=== PATIENT | male | born 1950 | race Caucasian/White ===

== ENCOUNTER 2017-04-28 05:38 | Emergency (ER) | payer MEDICARE ==
[~2017-04-28] VITALS: Ht 185.4 cm; Wt 86.2 kg
[~2017-04-28 05:38] MED LIST: ATEN50TA PO; BNZ40T PO; CIPR500T78 PO; CLON0.1T PO; CPR500T PO; DIPH25TA82 PO; ETOD400T PO; HDR4T PO; HYDR-1231 PO; HYDR-3456 PO; HYDR4TAB PO; KETO-22 PO; ONDAN4ODT PO; TRAM50TA2 PO; TRM50T PO; VRP180TCR PO
--- OUTSIDE RECORDS SUMMARY | 2017-04-28 05:46 | XMS REPORT | Clinical Summary ---
Author Author [facility] Organization [facility] Address Unknown Phone Unavailable Care Team Providers Care Human Resources Mgr Name Role Phone PCP Unavailable Source Comments Some departments are not documenting in the electronic medical record. If you do not see the information that you expected, contact Release of Information in the Health Information Management department at [phone] for further assistance in locating additional records.[facility] Allergies Active Allergy Reactions Severity Noted Date Comments Aspirin SEE COMMENTS 03/03/2011 Choking Swallowing problems Hydrocodone-Acetaminophen DIZZINESS 03/03/2011 Current Medications Prescription Sig. Disp. Refills Start End Date Status Date lisinopril (PRINIVIL; Take 20 mg by mouth Active ZESTRIL) 20 mg daily. tabletIndications: SVT (supraventricular tachycardia) (HCC), Hypertension, Palpitations Active Problems Problem Noted Date SVT (supraventricular tachycardia) (HCC) 01/21/2011 Overview: ER visit, resolved without medication. Episodes occurring more frequently Hypertension Palpitations Family History Medical History Relation Name Comments Diabetes Father Relation Name Status Comments Father Alive Mother Alive Social History Tobacco Use Types Packs/Day Years Used Date Never Smoker Alcohol Use Drinks/Week oz/Week Comments No Sex Assigned at Date Recorded Not on file Last Filed Vital Signs Vital Sign Reading Time Taken Blood Pressure 162/80 03/20/2012 10:22 AM CDT Pulse 71 03/20/2012 10:20 AM CDT Temperature 36.7 C (98.1 F) 01/14/2012 4:00 AM CDT Respiratory Rate - - Oxygen Saturation 97% 01/14/2012 6:15 AM CDT Inhaled Oxygen - - Concentration Weight 87.9 kg (193 lb 11.2 oz) 03/20/2012 10:20 AM CDT Height 182.9 cm (6') 03/20/2012 10:20 AM CDT Body Mass Index 26.27 03/20/2012 10:20 AM CDT Plan of Treatment Health Maintenance Due Date Last Done Comments HEPATITIS C SCREENING 1948 PHYSICAL (COMPREHENSIVE) 1955 EXAM PERTUSSIS VACCINE 1959 TETANUS VACCINE 1965 COLORECTAL CANCER 1998 SCREENING SHINGLES VACCINE 2008 PREVNAR/PNEUMOVAX (#1) 2013 INFLUENZA VACCINE 04/24/2017 Results Not on filefrom Last 3 Months
[2017-04-28 05:55] LABS: BILIRUBIN,URINE NEGATIVE (NEGATIVE); KETONES,URINE NEGATIVE (NEGATIVE); LEUKOCYTE ESTERASE ,URINE NEGATIVE (NEGATIVE); NITRITE,URINE NEGATIVE (NEGATIVE); PH,URINE 7 (5-9); PROTEIN,URINE 2+ (NEGATIVE); UROBILINOGEN,URINE NORMAL (NORMAL)
[2017-04-28 06:01] LABS: SQUAMOUS EPITHELIAL CELL,UR RARE /HPF; WBC,URINE RARE /HPF
--- NOTE | 2017-04-28 06:02 | ED Abdominal Pain ---
General Stated Complaint: LOWER BACK,ABD & HIP PAIN,POSS KIDNEY STONE Source of Information: Patient, Spouse Exam Limitations: No Limitations (CHLOÉ RENEE) History of Present Illness Time Seen By Provider: 05:54 Initial Comments Patient presents to ER by private conveyance with a chief complaint of one week right flank pain that radiates down to his right lower quadrant and suprapubic region. He has no dysuria or discharge. No history of trauma here. He does have a history of kidney stones. No fevers, chills, shortness of breath, cough, diarrhea, constipation, rash. (CHLOÉ RENEE) Allergies and Home Medications Allergies Coded Allergies: aspirin (Verified Allergy, Severe, CHOKING, 04/16/16) acetaminophen (Verified Allergy, Mild, 04/16/16) hydrocodone (Verified Allergy, Mild, 04/16/16) Home Medications Atenolol 50 Mg Tablet, 50 MG PO DAILY, (Reported) Clonidine HCl 0.1 Mg Tablet, 0.2 MG PO BID, (Reported) Glipizide 5 Mg Tab.er.24, 5 MG PO DAILY, (Reported) Hydralazine HCl 25 Mg Tablet, 25 MG PO BID, (Reported) Review of Systems Constitutional: No chills, No diaphoresis, No fever, No malaise EENTM: No Blurred Vision, No Eye Pain Respiratory: Denies Cough, Denies Shortness of Air Cardiovascular: Denies Chest Pain, Denies Lightheadedness Gastrointestinal: See HPI, Denies Abdomen Distended, Abdominal Pain, Denies Constipated, Denies Diarrhea, Nausea, Denies Vomiting Genitourinary: Denies Burning, Denies Discharge Musculoskeletal: No back pain, No joint pain Skin: No pruritus, No rash Psychiatric/Neurological: Denies Headache, Denies Numbness, Denies Paresthesia Endocrine: Denies Increased Hunger, Denies Increased Thrist, Denies Increased Urine (CHLOÉ RENEE) Past Tztcuzt-[id number]-Yztpnp Hx Patient Social History Alcohol Use: Denies Use Recreational Drug Use: No Smoking Status: Never a Smoker Recent Foreign Travel: No Contact w/Someone Who Travel: No (CHLOÉ RENEE) Immunizations Up To Date Date of Pneumonia Vaccine: December 07, 2010 Date of Influenza Vaccine: Apr 24, 2013 (CHLOÉ RENEE) Reproductive System Hx Reproductive Disorders: No (CHLOÉ RENEE) Gastrointestinal Gastrointestinal Disorders: Hiatal Hernia (CHLOÉ RENEE) Family Medical History Family Medial History: Cancer 03 FATHER (SKIN CANCER) 03 MOTHER (LUNG CANCER) Cataract 03 FATHER Congestive heart failure 03 MOTHER Dementia 03 MOTHER Family history: Diabetes mellitus 03 FATHER Family history: Hypertension 03 FATHER 03 MOTHER Family history: Osteoporosis 03 MOTHER Family history: Thyroid disorder 03 FATHER (HYPERTHYROIDISM) Hearing loss 03 FATHER No Family History of: Abdominal aortic aneurysm Stan's disease Alcoholism Aphasia Cancer of colon Chest pain Congenital heart disease Cystic fibrosis Dysphagia Family history: Allergy Family history: Alzheimer's disease Family history: Arthritis Family history: Asthma Family history: Breast disease Family history: Cardiovascular disease Family history: Coronary thrombosis Family history: Gastrointestinal disease Family history: Glaucoma Headache Heart disease Hereditary disease History of - anemia History of - disorder History of - respiratory disease History of drug abuse Human immunodeficiency virus (HIV) seropositivity Hypercholesterolemia Infertile Kidney disease Malignant neoplasm of lung Myocardial infarction Parkinson's disease Prostate cancer Psychotic disorder Seizure disorder Stroke Tuberculosis Visual impairment (CHLOÉ RENEE) Family Medial History: Cancer 03 FATHER (SKIN CANCER) 03 MOTHER (LUNG CANCER) Cataract 03 FATHER Congestive heart failure 03 MOTHER Dementia 03 MOTHER Family history: Diabetes mellitus 03 FATHER Family history: Hypertension 03 FATHER 03 MOTHER Family history: Osteoporosis 03 MOTHER Family history: Thyroid disorder 03 FATHER (HYPERTHYROIDISM) Hearing loss 03 FATHER No Family History of: Abdominal aortic aneurysm Haakon's disease Alcoholism Aphasia Cancer of colon Chest pain Congenital heart disease Cystic fibrosis Dysphagia Family history: Allergy Family history: Alzheimer's disease Family history: Arthritis Family history: Asthma Family history: Breast disease Family history: Cardiovascular disease Family history: Coronary thrombosis Family history: Gastrointestinal disease Family history: Glaucoma Headache Heart disease Hereditary disease History of - anemia History of - disorder History of - respiratory disease History of drug abuse Human immunodeficiency virus (HIV) seropositivity Hypercholesterolemia Infertile Kidney disease Malignant neoplasm of lung Myocardial infarction Parkinson's disease Prostate cancer Psychotic disorder Seizure disorder Stroke Tuberculosis Visual impairment (DARIANA FLAHERTY MD) Physical Exam Vital Signs VS - Last 72 Hours, by Label 04/28/17 05:46 Temp 97.6 Pulse 47 Resp 20 B/P (MAP) 200/92 Pulse Ox 98 O2 Delivery Room Air (DARIANA FLAHERTY MD) Vital Signs Capillary Refill : (CHLOÉ RENEE) General Appearance: WD/WN, mild distress HEENT: PERRL/EOMI, pharynx normal Neck: non-tender, normal inspection Respiratory: chest non-tender, lungs clear, normal breath sounds Cardiovascular: normal peripheral pulses, regular rate, rhythm, no edema (CRUZ hose on) Peripheral Pulses: 2+ Dorsalis Pedis (R), 2+ Left Dors-Pedis (L) Gastrointestinal: normal bowel sounds, non tender, soft, no organomegaly Extremities: normal range of motion, normal capillary refill Back: normal inspection, no CVA tenderness Neurologic/Psychiatric: alert, normal mood/affect, oriented x 3 Skin: normal color, warm/dry (KARYN,CHLOÉ J) Progress/Results/Core Measures Results/Orders Lab Results Laboratory Tests Test 04/28/17 05:48 04/28/17 06:05 Range/Units Urine Color YELLOW Urine Clarity CLEAR Urine pH 7 5-9 Urine Specific [place] 1.010 L 1.016-1.022 Urine Protein 2+ H NEGATIVE Urine Glucose (UA) 2+ H NEGATIVE Urine Ketones NEGATIVE NEGATIVE Urine Nitrite NEGATIVE NEGATIVE Urine Bilirubin NEGATIVE NEGATIVE Urine Urobilinogen NORMAL NORMAL MG/DL Urine Leukocyte Esterase NEGATIVE NEGATIVE Urine RBC (Auto) NEGATIVE NEGATIVE Urine RBC NONE /HPF Urine WBC RARE /HPF Urine Squamous Epithelial Cells RARE /HPF Urine Crystals NONE /LPF Urine Bacteria TRACE /HPF Urine Casts NONE /LPF Urine Mucus SMALL H /LPF Urine Culture Indicated NO Urine Opiates Screen NEGATIVE NEGATIVE Urine Oxycodone Screen NEGATIVE NEGATIVE Urine Methadone Screen NEGATIVE NEGATIVE Urine Propoxyphene Screen NEGATIVE NEGATIVE Urine Barbiturates Screen NEGATIVE NEGATIVE Ur Tricyclic Antidepressants Screen NEGATIVE NEGATIVE Urine Phencyclidine Screen NEGATIVE NEGATIVE Urine Amphetamines Screen NEGATIVE NEGATIVE Urine Methamphetamines Screen NEGATIVE NEGATIVE Urine Benzodiazepines Screen NEGATIVE NEGATIVE Urine Cocaine Screen NEGATIVE NEGATIVE Urine Cannabinoids Screen NEGATIVE NEGATIVE White Blood Count 8.1 4.3-11.0 10^3/uL Red Blood Count 5.26 4.35-5.85 10^6/uL Hemoglobin 15.7 13.3-17.7 G/DL Hematocrit 46 40-54 % Mean Corpuscular Volume 88 80-99 FL Mean Corpuscular Hemoglobin 30 25-34 PG Mean Corpuscular Hemoglobin Concent 34 32-36 G/DL Red Cell Distribution Width 13.5 10.0-14.5 % Platelet Count 250 130-400 10^3/uL Mean Platelet Volume 11.0 H 7.4-10.4 FL Neutrophils (%) (Auto) 59 42-75 % Lymphocytes (%) (Auto) 30 12-44 % Monocytes (%) (Auto) 10 0-12 % Eosinophils (%) (Auto) 1 0-10 % Basophils (%) (Auto) 0 0-10 % Neutrophils # (Auto) 4.8 1.8-7.8 X 10^3 Lymphocytes # (Auto) 2.5 1.0-4.0 X 10^3 Monocytes # (Auto) 0.8 0.0-1.0 X 10^3 Eosinophils # (Auto) 0.1 0.0-0.3 10^3/uL Basophils # (Auto) 0.0 0.0-0.1 10^3/uL Sodium Level 141 135-145 MMOL/L Potassium Level 4.0 3.6-5.0 MMOL/L Chloride Level 108 H 98-107 MMOL/L Carbon Dioxide Level 24 21-32 MMOL/L Anion Gap 9 5-14 MMOL/L Blood Urea Nitrogen 16 7-18 MG/DL Creatinine 0.95 0.60-1.30 MG/DL Estimat Glomerular Filtration Rate > 60 BUN/Creatinine Ratio 17 Glucose Level 113 H 70-105 MG/DL Calcium Level 8.9 8.5-10.1 MG/DL Total Bilirubin 0.7 0.1-1.0 MG/DL Aspartate Amino Transf (AST/SGOT) 18 5-34 U/L Alanine Aminotransferase (ALT/SGPT) 19 0-55 U/L Alkaline Phosphatase 58 40-136 U/L Total Protein 7.4 6.4-8.2 GM/DL Albumin 4.1 3.2-4.5 GM/DL (DARIANA FLAHERTY MD) Medications Given in ED Current Medications Medications Dose Ordered Sig/Trae Route Start Time Stop Time Status Last Admin Dose Admin Ketorolac Tromethamine 15 mg ONCE ONCE IVP 04/28/17 06:15 04/28/17 06:16 DC 04/28/17 06:08 15 MG Ondansetron HCl 4 mg ONCE ONCE IVP 04/28/17 06:15 04/28/17 06:16 DC 04/28/17 06:08 4 MG (DARIANA FLAHERTY MD) Vital Signs/I&O Vital Sign - Last 12Hours 04/28/17 05:46 Temp 97.6 Pulse 47 Resp 20 B/P (MAP) 200/92 Pulse Ox 98 O2 Delivery Room Air (DARIANA FLAHERTY MD) Diagnostic Imaging Diagonstic Imaging: CT Plain Films/CT/US/NM/MRI: abdomen, pelvis (without; kidney stone study) Reviewed: Reviewed [place] Study, Reviewed by Me (CHLOÉ RENEE) Departure Communication (Admissions) Progress Notes Patient transferred to me by Dr. Renee at change of shift. Patient went to CT shortly after my arrival. [address] and I saw no evidence of stones. Radiology report returns and confirms this. No other pathology was reported. The patient reports that he feels this is more a muscle imbalance pain from his back. (DARIANA FLAHERTY MD) Impression Impression: Primary Impression: low back pain Disposition: HOME, SELF-CARE Condition: Stable/Unchanged Departure-Patient Inst. Referrals: BOOM TRAN MD (PCP/Family) Primary Care Physician Patient Instructions: No Instuctions Given Add. Discharge Instructions: Try heat to that area. Stretching exercises as demonstrated Flexeril and tramadol for pain. If you are unable to tell improvement by early next week see your provider Scripts [Flexeril] No Conflict Check 10 twice a day, #20 Prov: DARIANA FLAHERTY MD 04/28/17 Tramadol HCl (Tramadol HCl) 50 Mg Tablet 50 MG PO 4 times a day, #30 TAB Prov: DARIANA FLAHERTY MD 04/28/17 CHLOÉ RENEE Apr 28, 2017 06:02 DARIANA FLAHERTY MD Apr 28, 2017 07:24
[2017-04-28 06:12] LABS: BASOPHILS % (AUTO) 0 % (0-10); EOSINOPHILS # (AUTO) 0.1 10^3/uL (0.0-0.3); EOSINOPHILS % (AUTO) 1 % (0-10); LYMPHOCYTES # (AUTO) 2.5 X 10^3 (1.0-4.0); LYMPHOCYTES % (AUTO) 30 % (12-44); MEAN CORPUSCULAR HEMOGLOBIN 30 PG (25-34); MEAN CORPUSCULAR HGB CONC 34 G/DL (32-36); MEAN CORPUSCULAR VOLUME 88 FL (80-99); MONOCYTES # (AUTO) 0.8 X 10^3 (0.0-1.0); MONOCYTES % (AUTO) 10 % (0-12); NEUTROPHILS # (AUTO) 4.8 X 10^3 (1.8-7.8); NEUTROPHILS % (AUTO) 59 % (42-75); PLATELET COUNT 250 10^3/uL (130-400); RED BLOOD COUNT 5.26 10^6/uL (4.35-5.85); RED CELL DISTRIBUTION WIDTH 13.5 % (10.0-14.5); WHITE BLOOD COUNT 8.1 10^3/uL (4.3-11.0)
[2017-04-28] MEDS ORDERED: ONDANSETRON 4 MG/2 ML (SDV) Z0FRAN IVP ONE (06:15)
[2017-04-28] MEDS ORDERED: KETOROLAC 30 MG/ML VIAL IVP ONE (06:15)
[2017-04-28] MEDS ORDERED: HYDR-3923 PO (06:22)
[2017-04-28] MEDS ORDERED: GLIP5TAB26 PO (06:22)
[2017-04-28 06:29] LABS: ALANINE AMINOTRANSFERASE 19 U/L (0-55); ALBUMIN 4.1 GM/DL (3.2-4.5); ANION GAP 9 MMOL/L (5-14); ASPARTATE AMINO TRANSFERASE 18 U/L (5-34); BILIRUBIN,TOTAL 0.7 MG/DL (0.1-1.0); BLOOD UREA NITROGEN 16 MG/DL (7-18); BUN/CREATININE RATIO 17; CALCIUM 8.9 MG/DL (8.5-10.1); CARBON DIOXIDE 24 MMOL/L (21-32); CHLORIDE 108 MMOL/L (98-107); CREATININE SERUM 0.95 MG/DL (0.60-1.30); GFR ESTIMATED > 60; GLUCOSE 113 MG/DL (70-105); SODIUM 141 MMOL/L (135-145); TOTAL PROTEIN 7.4 GM/DL (6.4-8.2)
--- NOTE | 2017-04-28 07:09 | Diagnostic Imaging Report ---
PROCEDURE: CT urinary tract, rule out kidney stone. TECHNIQUE: Multiple contiguous axial images were obtained through the abdomen and pelvis without the use of intravenous contrast. INDICATION: Right flank pain. Exam compared 12/07/2014. There are bilateral left greater than right renal parapelvic cysts as a stable finding. There is no hydronephrosis and no opaque ureteral calculi. There are three right-sided renal calculi, the largest 3 mm in a lower pole calyx. There are two adjacent punctate 1 to 2-mm nonobstructing stones within a left lower pole calyx. No calculi within the lumen of the unopacified urinary bladder. Liver, spleen, adrenals, pancreas, gallbladder all unremarkable. The atherosclerotic aorta is nonaneurysmal. There is no bowel obstruction. No pneumatosis or free air. There is no ascites, abscess, hematoma, or other fluid collection. There is a fat-containing right inguinal hernia without inflammatory change or herniated viscus. There is no appendicitis or diverticulitis. There is no focal inflammatory process. IMPRESSION: Nonobstructing bilateral intrarenal calculi. There is chronic left greater than right renal parapelvic and cortical cysts stable. No opaque ureteral stone. No obstructive phenomena, inflammatory process, or acute-appearing abdominal/ pelvic abnormalities. Dictated by: Dictated on workstation # [id number]
[2017-04-28] MEDS ORDERED: TRAM50TA2 PO (07:27)
[2017-04-28] MEDS ORDERED: Flexeril (07:27)
[2017-04-28 07:32] VITALS: BP 164/92
--- NOTE | 2017-04-28 07:35 | Diagnostic Imaging Report ---
INDICATION: Right flank pain. Exam compared 09/05/2013, and correlated with CT of the same date. Pelvic vascular calcifications outside the course of the ureters as demonstrated on earlier CT redemonstrated. The intrarenal stone burden imperceptible radiographically, much better visualized on earlier CT. No bowel obstruction. No abnormal fecal loading. IMPRESSION: Tiny intrarenal calculi well visualized on CT are imperceptible at this exam owing to their size. Pelvic vascular calcifications extra ureteral. No acute pathology. Dictated by: Dictated on workstation # [id number]
== END 2017-04-28 07:32 | disposition home or self-care (01) ==
LOC: EDUNIT# 05:38 → ER 05:41
DX: M54.5 Low back pain (principal); Z87.442 Personal history of urinary calculi; Z80.1 Family history of malignant neoplasm of trachea, bronchus and lung; Z80.8 Family history of malignant neoplasm of other organs or systems
CPT/HCPCS: 36415; 74000; 74176; 80053; 80306; 81000; 85025; 96374; 96375

== ENCOUNTER → 2017-11-24 | Outpatient (CLI) | payer MEDICARE ==
[~2017-11-24] MED LIST changes: +Flexeril; +GLIP5TAB26 PO; +HYDR-3923 PO
--- NOTE | 2017-11-24 12:44 | Diagnostic Imaging Report ---
INDICATION: Hypertension. TECHNIQUE: Multiple real-time grayscale images were obtained over the kidneys in various projections bilaterally. FINDINGS: The right kidney measures 11.3 x 6.0 x 5.6 cm and the left kidney measures 12.0 x 5.9 x 5.5 cm. Cortical thickness and echogenicity is normal bilaterally. No calculi are seen. There is no hydronephrosis. There are bilateral renal cysts. A cyst in the upper pole of the right kidney is approximately 13 mm. Cyst in the lower pole is 13 mm. The left kidney contains a parapelvic cyst measuring 18 mm. Bladder appears to be decompressed. IMPRESSION: Bilateral renal cysts. No other significant abnormality is seen. Dictated by: Dictated on workstation # [id number]
== END ==
LOC: RAD 10:50
PROVIDERS: ATTEND Family Medicine
DX: N28.1 Cyst of kidney, acquired (principal); I10 Essential (primary) hypertension
CPT/HCPCS: 76770

== ENCOUNTER → 2018-06-21 | Outpatient (CLI) | payer MEDICARE ==
[~2018-06-21] MED LIST changes: +GADOBUTROL 10 MMOL/10 ML (GADAVIST) VIAL IV ONE
[2018-06-21 13:25] LABS: BUN/CREATININE RATIO 18; CREATININE SERUM 0.95 MG/DL (0.60-1.30); GFR ESTIMATED > 60
--- NOTE | 2018-06-21 15:42 | Diagnostic Imaging Report ---
PROCEDURE: MRI lumbar spine with and without contrast. TECHNIQUE: Multiplanar, multisequence MRI of the lumbar spine was performed with and without contrast. INDICATION: Chronic low back pain with pain in the right leg for one week. COMPARISON: Correlation is made with prior MRI of the lumbar spine performed 07/02/2011. FINDINGS: Curvature and alignment of the lumbar spine is normal. Vertebral body heights are maintained. No acute compression fracture or geographic marrow lesion is seen. There is some mild generalized disc desiccation but disc height appears to be fairly well maintained. The conus is unremarkable at the T12-L1 level. T12-L1: The central canal is widely patent. The neural foramina are patent. L1-2: There are degenerative facet changes and ligamentous thickening with mild trefoil configuration of the sac. The central canal remains patent. Very mild neural foraminal narrowing is seen bilaterally. L2-3: There is some ligamentous thickening and facet changes. Central canal is patent. There is some mild narrowing of the lateral recesses bilaterally. Very mild neural foraminal narrowing is seen bilaterally. L3-4: Ligamentous thickening and facet changes are present. There is broad-based disc/osteophyte complex flattening the ventral thecal sac. Central canal remains patent. There is moderate narrowing of the bilateral lateral recesses. There is also moderate bilateral neural foraminal narrowing. L4-5: Ligamentous thickening and facet changes are noted. There is broad-based disc/osteophyte complex flattening the ventral thecal sac. The central canal is patent but there is significant narrowing of the lateral recesses bilaterally. There is also moderate bilateral neural foraminal narrowing. L5-S1: Central canal is widely patent. Neural foramina are patent. Paraspinous tissues are unremarkable. No abnormal enhancement following contrast administration is identified. IMPRESSION: Multilevel lumbar spondylosis with multilevel lateral recess and neural foraminal stenosis described level by level above. No significant central canal stenosis is seen. No abnormal enhancement is detected. Dictated by: Dictated on workstation # [id number]
== END ==
LOC: RAD 12:46
PROVIDERS: ATTEND Family Medicine
DX: M47.26 Other spondylosis with radiculopathy, lumbar region (principal); M99.73 Connective tissue and disc stenosis of intervertebral foramina of lumbar region; M48.061 Spinal stenosis, lumbar region without neurogenic claudication
CPT/HCPCS: 36415; 72158; 82565; 84520

== ENCOUNTER → 2018-06-22 | Outpatient (CLI) | payer MEDICARE ==
[~2018-06-22] MED LIST changes: -GADOBUTROL 10 MMOL/10 ML (GADAVIST) VIAL IV ONE
--- NOTE | 2018-06-22 12:17 | Diagnostic Imaging Report ---
EXAMINATION: Right hip at 11:04 a.m. INDICATION: Hip pain. Two views were obtained. FINDINGS: There is no fracture, dislocation, or acute bony abnormality evident. However, there is sclerosis and deformity of the right femoral head. In retrospect, this finding was also present on the prior CT abdomen/pelvis exam of 04/28/2017 and has not progressed. The appearance of the right femoral head may well be secondary to avascular necrosis. If further imaging is desired, then MRI would be recommended. There is moderate degenerative disease involving the hip joint itself. The soft tissues are unremarkable. IMPRESSION: 1. There is no evidence for an acute bony abnormality. 2. The appearance of the femoral head is may be secondary to avascular necrosis. Recommendations as above. Dictated by: Dictated on workstation # [id number]
== END ==
LOC: RAD 10:31
PROVIDERS: ATTEND Nurse Practitioner Family
DX: M21.851 Other specified acquired deformities of right thigh (principal); M16.11 Unilateral primary osteoarthritis, right hip
CPT/HCPCS: 73502

== ENCOUNTER → 2018-07-04 | Outpatient (CLI) | payer MEDICARE ==
--- NOTE | 2018-07-04 16:03 | Diagnostic Imaging Report ---
PROCEDURE: MRI right joint lower extremity without contrast. TECHNIQUE: Multiplanar, multisequence non contrast-enhanced MRI of the right lower extremity was accomplished. INDICATION: Chronic low back pain and right sciatica, hip pain. COMPARISON: Radiographs from 06/22/2018. FINDINGS: There is osteonecrosis of the superior right femoral head with up to 4 mm of collapse of the articular surface. There are underlying subcortical cyst-like changes. No joint effusion is seen. Findings appear to be chronic. The acetabular labrum is not well evaluated in the absence of contrast; however, there is likely degenerative tearing of the superior labrum on the right. No paralabral cyst is seen. The remainder of the pelvis demonstrates no acute abnormality. There is no left hip joint effusion or increased fluid seen in the sacroiliac joints. The iliopsoas tendons are intact. The hamstring tendons appear normal. The gluteal tendons appear intact. No trochanteric or iliopsoas bursitis is seen. No soft tissue fluid collections or masses are seen. No free fluid or masses are seen within the pelvis. IMPRESSION: 1. 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 Dictated by: Dictated on workstation # [id number]
== END ==
LOC: RAD 15:10
PROVIDERS: ATTEND Family Medicine
DX: M87.851 Other osteonecrosis, right femur (principal); M54.41 Lumbago with sciatica, right side
CPT/HCPCS: 73721

== ENCOUNTER 2018-10-19 12:39 | Outpatient (RCR) | payer MEDICARE | END 2018-10-19 13:38 | disposition home or self-care (01) | PROVIDERS: ATTEND Student in an Organized Health Care Education/Training Program | DX: M79.10 Myalgia, unspecified site (principal); M60.9 Myositis, unspecified; M79.604 Pain in right leg; M25.551 Pain in right hip; M54.5 Low back pain ==

== ENCOUNTER 2020-09-29 18:42 | Emergency (ER) | payer MEDICARE ==
[~2020-09-29] VITALS: Ht 182.8 cm; Wt 86.0 kg
[~2020-09-29 18:42] MED LIST changes: +CLN.1T PO; -CLON0.1T PO
[2020-09-29] MEDS ORDERED: morphine INJ 10 MG/ML 1ML (SYR OR VIAL) IVP STA (19:13)
[2020-09-29] MEDS ORDERED: NS IV 1000 ML 1,000 ML IV SCH (19:15)
--- NOTE | 2020-09-29 19:17 | ED Abdominal Pain ---
General Stated Complaint: ABD PAIN Source of Information: Patient Exam Limitations: No Limitations History of Present Illness Date Seen by Provider: Sep 29, 2020 Time Seen by Provider: 19:16 Initial Comments To ER with sudden onset of suprapubic pain at around 5 PM today. History of kidney stones and this feels similar. No fevers chills nausea or vomiting. Bowel movements have been normal. Timing/Duration: 1-3 Hours Severity/Quality: Moderate, Severe Location: Suprapubic Radiation: No Radiation Activities at Onset: None Modifying Factors: Improves With Analgesics Allergies and Home Medications Allergies Coded Allergies: aspirin (Verified Allergy, Severe, CHOKING, 04/16/16) acetaminophen (Verified Allergy, Mild, 04/16/16) hydrocodone (Verified Allergy, Mild, 04/16/16) Home Medications Atenolol 50 Mg Tablet, 50 MG PO DAILY, (Reported) Clonidine HCl 0.1 Mg Tablet, 0.2 MG PO BID, (Reported) Glipizide 5 Mg Tab.er.24, 5 MG PO DAILY, (Reported) Hydralazine HCl 25 Mg Tablet, 25 MG PO BID, (Reported) Tramadol HCl 50 Mg Tablet, 50 MG PO 4 times a day Prescribed by: DARIANA FLAHERTY on 04/28/17726 [Flexeril] , 10 twice a day Prescribed by: DARIANA FLAHERTY on 04/28/17726 Patient Home Medication List Home Medication List Reviewed: Yes Review of Systems Review of Systems Constitutional: see HPI EENTM: No Symptoms Reported Respiratory: No Symptoms Reported Cardiovascular: No Symptoms Reported Gastrointestinal: See HPI, Abdominal Pain Genitourinary: No Symptoms Reported Musculoskeletal: no symptoms reported Skin: no symptoms reported Psychiatric/Neurological: No Symptoms Reported Endocrine: No Symptoms Reported Hematologic/Lymphatic: No Symptoms Reported Past Kaquwpr-Lkpniy-Hulldl Hx Patient Social History Recent Hopitalizations: No Immunizations Up To Date Date of Pneumonia Vaccine: December 07, 2010 Date of Influenza Vaccine: Apr 24, 2016 Seasonal Allergies Seasonal Allergies: No Past Medical History Surgeries: Yes (APPENDECTOMY, HERNIA REPAIRS, ABLATION 2011) Respiratory: No Cardiac: Yes (SVT,HEART ABLATION DECEMBER 2011) Neurological: No Reproductive Disorders: No Genitourinary: Yes Kidney Stones Gastrointestinal: No Hiatal Hernia Musculoskeletal: Yes (CERVICAL SPINE FX) Fractures Endocrine: No HEENT: No Cancer: No Psychosocial: No Blood Disorders: No Family Medical History Cancer 03 FATHER (SKIN CANCER) 03 MOTHER (LUNG CANCER) Cataract 03 FATHER Congestive heart failure 03 MOTHER Dementia 03 MOTHER Family history: Diabetes mellitus 03 FATHER Family history: Hypertension 03 FATHER 03 MOTHER Family history: Osteoporosis 03 MOTHER Family history: Thyroid disorder 03 FATHER (HYPERTHYROIDISM) Hearing loss 03 FATHER No Family History of: Abdominal aortic aneurysm Radford's disease Alcoholism Aphasia Cancer of colon Chest pain Congenital heart disease Cystic fibrosis Dysphagia Family history: Allergy Family history: Alzheimer's disease Family history: Arthritis Family history: Asthma Family history: Breast disease Family history: Cardiovascular disease Family history: Coronary thrombosis Family history: Gastrointestinal disease Family history: Glaucoma Headache Heart disease Hereditary disease History of - anemia History of - disorder History of - respiratory disease History of drug abuse Human immunodeficiency virus (HIV) seropositivity Hypercholesterolemia Infertile Kidney disease Malignant neoplasm of lung Myocardial infarction Parkinson's disease Prostate cancer Psychotic disorder Seizure disorder Stroke Tuberculosis Visual impairment Physical Exam Vital Signs Vital Signs - First Documented 09/29/20 19:06 Temp 36.3 Pulse 76 Resp 20 B/P (MAP) 198/102 (134) O2 Delivery Room Air Capillary Refill : Height/Weight/BMI Height: 6'1.00" Weight: 190lbs. 14.0oz. [id number]; 26.7 BMI Method:Stated General Appearance: WD/WN, no apparent distress HEENT: PERRL/EOMI, normal ENT inspection Respiratory: normal breath sounds, no respiratory distress, no accessory muscle use Cardiovascular: regular rate, rhythm, no murmur Gastrointestinal: normal bowel sounds, soft, tenderness Extremities: normal range of motion, non-tender Neurologic/Psychiatric: alert, normal mood/affect, oriented x 3 Skin: normal color, warm/dry Progress/Results/Core Measures Results/Orders Lab Results Laboratory Tests Test 09/29/20 19:10 09/29/20 19:20 Range/Units White Blood Count 9.6 4.3-11.0 10^3/uL Red Blood Count 4.89 4.30-5.52 10^6/uL Hemoglobin 14.9 13.3-17.7 g/dL Hematocrit 44 40-54 % Mean Corpuscular Volume 90 80-99 fL Mean Corpuscular Hemoglobin 31 25-34 pg Mean Corpuscular Hemoglobin Concent 34 32-36 g/dL Red Cell Distribution Width 13.0 10.0-14.5 % Platelet Count 271 130-400 10^3/uL Mean Platelet Volume 10.5 9.0-12.2 fL Immature Granulocyte % (Auto) 0 % Neutrophils (%) (Auto) 78 H 42-75 % Lymphocytes (%) (Auto) 14 12-44 % Monocytes (%) (Auto) 7 0-12 % Eosinophils (%) (Auto) 1 0-10 % Basophils (%) (Auto) 0 0-10 % Neutrophils # (Auto) 7.5 1.8-7.8 10^3/uL Lymphocytes # (Auto) 1.3 1.0-4.0 10^3/uL Monocytes # (Auto) 0.7 0.0-1.0 10^3/uL Eosinophils # (Auto) 0.1 0.0-0.3 10^3/uL Basophils # (Auto) 0.0 0.0-0.1 10^3/uL Immature Granulocyte # (Auto) 0.0 0.0-0.1 10^3/uL Sodium Level 138 135-145 MMOL/L Potassium Level 4.3 3.6-5.0 MMOL/L Chloride Level 106 98-107 MMOL/L Carbon Dioxide Level 22 21-32 MMOL/L Anion Gap 10 5-14 MMOL/L Blood Urea Nitrogen 17 7-18 MG/DL Creatinine 1.25 0.60-1.30 MG/DL Estimat Glomerular Filtration Rate 57 BUN/Creatinine Ratio 14 Glucose Level 233 H 70-105 MG/DL Calcium Level 8.7 8.5-10.1 MG/DL Corrected Calcium 8.7 8.5-10.1 MG/DL Total Bilirubin 0.9 0.1-1.0 MG/DL Aspartate Amino Transf (AST/SGOT) 23 5-34 U/L Alanine Aminotransferase (ALT/SGPT) 29 0-55 U/L Alkaline Phosphatase 59 40-136 U/L Total Protein 7.3 6.4-8.2 GM/DL Albumin 4.0 3.2-4.5 GM/DL Urine Color MACIE H Urine Clarity CLEAR Urine pH 6.0 5-9 Urine Specific [place] 1.025 H 1.016-1.022 Urine Protein TRACE H NEGATIVE Urine Glucose (UA) TRACE H NEGATIVE Urine Ketones TRACE H NEGATIVE Urine Nitrite NEGATIVE NEGATIVE Urine Bilirubin NEGATIVE NEGATIVE Urine Urobilinogen 1.0 < = 1.0 MG/DL Urine Leukocyte Esterase NEGATIVE NEGATIVE Urine RBC (Auto) NEGATIVE NEGATIVE Urine RBC NONE /HPF Urine WBC NONE /HPF Urine Squamous Epithelial Cells >50 H /HPF Urine Crystals NONE /LPF Urine Bacteria NEGATIVE /HPF Urine Casts NONE /LPF Urine Mucus LARGE H /LPF Urine Culture Indicated CULTURE PENDING My Orders Orders - EMILEE MAURO APRN Ct Abd/Pelvis Wo(Kidney Stone) (09/29/20 19:13) Cbc With Automated Diff (09/29/20 19:13) Comprehensive Metabolic Panel (09/29/20 19:13) Ua Culture If Indicated (09/29/20 19:13) Ed Iv/Invasive Line Start (09/29/20 19:13) Abdomen/Kub 1view (09/29/20 19:13) Ns Iv 1000 Ml (Sodium Chloride 0.9%) (09/29/20 19:15) Morphine Injection (Morphine Injection (09/29/20 19:13) Vital Signs/I&O 09/29/20 19:06 Temp 36.3 Pulse 76 Resp 20 B/P (MAP) 198/102 (134) O2 Delivery Room Air Diagnostic Imaging Diagonstic Imaging: CT Comments NAME: CRISSY HAMMONDS [facility] REC#: [id number] PT STATUS: REG ER : 1950 PHYSICIAN: EMILEE MAURO APRN ADMIT DATE: 09/29/20/ER Draft Date of Exam:09/29/20 CT ABD/PELVIS WO(KIDNEY STONE) PROCEDURE: CT urinary tract, rule out kidney stone. TECHNIQUE: Multiple contiguous axial images were obtained through the abdomen and pelvis without the use of intravenous contrast. Auto Exposure Controls were utilized during the CT exam to meet ALARA standards for radiation dose reduction. INDICATION: Pelvic pain FINDINGS: The lung bases are clear. Liver is unremarkable. There is a simple cyst in the lateral segment of the left lobe of the liver. Gallbladder is unremarkable. There is a large amount of residue in the stomach. The spleen is not enlarged. Adrenals appear normal. There are parapelvic cysts in the left kidney. There is a 2 mm calculus in the lower pole calyx of the right kidney and a 1 mm calcification in upper pole calyx. There is no hydronephrosis. Ureters are clear. Urinary bladder is not dilated. Prostate is not enlarged. Small bowel is not dilated. There is a moderate amount of stool throughout the colon. There is no intraperitoneal free air or free fluid. IMPRESSION: Right nephrolithiasis without evidence of obstruction. Dictated on workstation # [id number] Dict: 09/29/201957 Trans: 09/29/202004 [facility] [id number] Interpreted by: CHEPE TREVINO MD Electronically signed by: Departure Communication (Admissions) 2044-much improved pain after 5 mg of IV morphine. No identifiable cause for his pain. Impression Primary Impression: Suprapubic pain Disposition: HOME, SELF-CARE Condition: Stable Departure-Patient Inst. Decision time for Depature: 20:45 Referrals: TRAMAINE BURRELL DO (PCP/Family) Primary Care Physician Patient Instructions: Pelvic Pain (DC) Add. Discharge Instructions: 1. Follow-up with Dr. Burrell this week for recheck. Call tomorrow to make an appointment. Return to ER for any worsening. Copy Copies To 1: TRAMAINE BURRELL PETER J APRN Sep 29, 2020 19:17
[2020-09-29 20:01] LABS: BILIRUBIN,URINE NEGATIVE (NEGATIVE); CLARITY,URINE CLEAR; COLOR,URINE AMBER; GLUCOSE, URINE (UA) TRACE (NEGATIVE); KETONES,URINE TRACE (NEGATIVE); LEUKOCYTE ESTERASE ,URINE NEGATIVE (NEGATIVE); NITRITE,URINE NEGATIVE (NEGATIVE); PROTEIN,URINE TRACE (NEGATIVE)
[2020-09-29 20:03] LABS: BASOPHILS % (AUTO) 0 % (0-10); EOSINOPHILS # (AUTO) 0.1 10^3/uL (0.0-0.3); EOSINOPHILS % (AUTO) 1 % (0-10); HEMATOCRIT 44 % (40-54); HEMOGLOBIN 14.9 g/dL (13.3-17.7); LYMPHOCYTES # (AUTO) 1.3 10^3/uL (1.0-4.0); LYMPHOCYTES % (AUTO) 14 % (12-44); MEAN CORPUSCULAR HEMOGLOBIN 31 pg (25-34); MEAN CORPUSCULAR HGB CONC 34 g/dL (32-36); MEAN CORPUSCULAR VOLUME 90 fL (80-99); MEAN PLATELET VOLUME 10.5 fL (9.0-12.2); MONOCYTES # (AUTO) 0.7 10^3/uL (0.0-1.0); MONOCYTES % (AUTO) 7 % (0-12); NEUTROPHILS # (AUTO) 7.5 10^3/uL (1.8-7.8); NEUTROPHILS % (AUTO) 78 % (42-75); PLATELET COUNT 271 10^3/uL (130-400); WHITE BLOOD COUNT 9.6 10^3/uL (4.3-11.0)
--- NOTE | 2020-09-29 20:03 | Diagnostic Imaging Report ---
INDICATION: Pelvic pain EXAM: KUB at 7:58 PM FINDINGS: Bowel gas pattern is normal. There are no pathologic masses or calcifications. IMPRESSION: No acute abnormalities in the abdomen. Dictated by: Dictated on workstation # [id number]
--- NOTE | 2020-09-29 20:06 | Diagnostic Imaging Report ---
PROCEDURE: CT urinary tract, rule out kidney stone. TECHNIQUE: Multiple contiguous axial images were obtained through the abdomen and pelvis without the use of intravenous contrast. Auto Exposure Controls were utilized during the CT exam to meet ALARA standards for radiation dose reduction. INDICATION: Pelvic pain FINDINGS: The lung bases are clear. Liver is unremarkable. There is a simple cyst in the lateral segment of the left lobe of the liver. Gallbladder is unremarkable. There is a large amount of residue in the stomach. The spleen is not enlarged. Adrenals appear normal. There are parapelvic cysts in the left kidney. There is a 2 mm calculus in the lower pole calyx of the right kidney and a 1 mm calcification in upper pole calyx. There is no hydronephrosis. Ureters are clear. Urinary bladder is not dilated. Prostate is not enlarged. Small bowel is not dilated. There is a moderate amount of stool throughout the colon. There is no intraperitoneal free air or free fluid. IMPRESSION: Right nephrolithiasis without evidence of obstruction. Dictated by: Dictated on workstation # [id number]
[2020-09-29 20:10] LABS: BACTERIA,URINE NEGATIVE /HPF; SQUAMOUS EPITHELIAL CELL,UR >50 /HPF
[2020-09-29 20:15] LABS: BILIRUBIN,TOTAL 0.9 MG/DL (0.1-1.0); CALCIUM 8.7 MG/DL (8.5-10.1); CREATININE SERUM 1.25 MG/DL (0.60-1.30); POTASSIUM 4.3 MMOL/L (3.6-5.0); TOTAL PROTEIN 7.3 GM/DL (6.4-8.2)
[2020-09-29] MEDS ORDERED: ORPHENADRINE 60 MG/2 ML (NORFLEX) AMP (ED ONLY) IV ONE (21:00)
[2020-09-29 21:19] VITALS: BP 179/93
== END 2020-09-29 21:19 | disposition home or self-care (01) ==
LOC: EDUNIT# 18:42 → ER 18:44
DX: R10.30 Lower abdominal pain, unspecified (principal); Z88.5 Allergy status to narcotic agent; Z88.6 Allergy status to analgesic agent; Z88.8 Allergy status to other drugs, medicaments and biological substances; Z80.1 Family history of malignant neoplasm of trachea, bronchus and lung; Z82.49 Family history of ischemic heart disease and other diseases of the circulatory system; Z83.3 Family history of diabetes mellitus; Z80.8 Family history of malignant neoplasm of other organs or systems
CPT/HCPCS: 36415; 74018; 74176; 80053; 81000; 85025

== ENCOUNTER 2021-01-11 10:28 | Emergency (ER) | payer MEDICARE ==
[~2021-01-11] VITALS: Ht 182.8 cm; Wt 86.1 kg
[2021-01-11] MEDS ORDERED: ORPHENADRINE 60 MG/2 ML (NORFLEX) AMP (ED ONLY) IV STA (12:56)
[2021-01-11] MEDS ORDERED: NS IV 1000 ML 1,000 ML IV STA (12:56)
[2021-01-11] MEDS ORDERED: ONDANSETRON 4 MG/2 ML (SDV) Z0FRAN IVP ONE (13:00)
[2021-01-11] MEDS ORDERED: morphine INJ 10 MG/ML 1ML (SYR OR VIAL) IVP ONE ×2 (13:00→16:15)
[2021-01-11 13:06] LABS: BASOPHILS % (AUTO) 0 % (0-10); EOSINOPHILS % (AUTO) 0 % (0-10); HEMATOCRIT 48 % (40-54); HEMOGLOBIN 16.1 g/dL (13.3-17.7); LYMPHOCYTES # (AUTO) 0.9 10^3/uL (1.0-4.0); LYMPHOCYTES % (AUTO) 8 % (12-44); MEAN CORPUSCULAR HEMOGLOBIN 31 pg (25-34); MEAN CORPUSCULAR HGB CONC 34 g/dL (32-36); MEAN CORPUSCULAR VOLUME 91 fL (80-99); MEAN PLATELET VOLUME 10.6 fL (9.0-12.2); MONOCYTES # (AUTO) 0.9 10^3/uL (0.0-1.0); MONOCYTES % (AUTO) 8 % (0-12); NEUTROPHILS % (AUTO) 83 % (42-75); PLATELET COUNT 252 10^3/uL (130-400); WHITE BLOOD COUNT 10.8 10^3/uL (4.3-11.0)
--- NOTE | 2021-01-11 13:09 | ED Abdominal Pain ---
General Stated Complaint: LOWER BACK PAIN Source of Information: Patient Exam Limitations: No Limitations History of Present Illness Date Seen by Provider: Jan 11, 2021 Time Seen by Provider: 12:50 Initial Comments Here with complaint of right low back pain that radiates around to the front and down over the hip. He did pass a kidney stone yesterday and was actually in route to the ER 11 PM last night with severe pain similar. States pain suddenly stopped and he felt better until a few hours ago. Patient has had prolonged wait in the waiting room due to multiple critical patients in the ED and high-volume. He has had pain that has persisted. States it feels like a spasm that goes down and around. He had a similar episode a few years ago and required IV morphine and a muscle relaxer and then things were better for quite some time. He has passed kidney stones previously as well. Denies blood in his urine or stool. Otherwise denies being ill at all. Timing/Duration: Other (3 4 hours) Severity/Quality: Moderate, Severe, Sharp, Other (Spasms) Location: RLQ, Flank (Right-sided) Radiation: Back Activities at Onset: None Modifying Factors: Worsens With Movement, Worsens With Urinating Associated Symptoms: Back Pain; No Fever/Chills, No Nausea/Vomiting, No Shortness of Air, No Weakness Allergies and Home Medications Allergies Coded Allergies: aspirin (Verified Allergy, Severe, CHOKING, 04/16/16) acetaminophen (Verified Allergy, Mild, 04/16/16) hydrocodone (Verified Allergy, Mild, 04/16/16) Home Medications Atenolol 50 Mg Tablet, 50 MG PO DAILY, (Reported) Clonidine HCl 0.1 Mg Tablet, 0.2 MG PO BID, (Reported) Glipizide 5 Mg Tab.er.24, 5 MG PO DAILY, (Reported) Hydralazine HCl 25 Mg Tablet, 25 MG PO BID, (Reported) Tramadol HCl 50 Mg Tablet, 50 MG PO 4 times a day Prescribed by: DARIANA FLAHERTY on 04/28/17726 [Flexeril] , 10 twice a day Prescribed by: DARIANA FLAHERTY on 04/28/17726 Patient Home Medication List Home Medication List Reviewed: Yes Review of Systems Review of Systems Constitutional: see HPI; No chills, No fever EENTM: No Symptoms Reported Respiratory: No Symptoms Reported Cardiovascular: No Symptoms Reported Gastrointestinal: Denies Diarrhea; Nausea; Denies Vomiting Genitourinary: No Symptoms Reported Musculoskeletal: back pain, muscle pain Skin: no symptoms reported All Other Systems Reviewed Negative Unless Noted: Yes Past Ztqaxjm-Ygxljk-Rqtjqq Hx Past Med/Social Hx: Reviewed Nursing Past Med/Soc Hx Patient Social History Alcohol Use: Denies Use Smoking Status: Never a Smoker Recent Hopitalizations: No Immunizations Up To Date Date of Pneumonia Vaccine: December 07, 2010 Date of Influenza Vaccine: Apr 24, 2016 Seasonal Allergies Seasonal Allergies: No Past Medical History Surgeries: Yes (APPENDECTOMY, HERNIA REPAIRS, ABLATION 2011) Respiratory: No Cardiac: Yes (SVT,HEART ABLATION DECEMBER 2011) Hypertension Neurological: No Reproductive Disorders: No Genitourinary: Yes Kidney Stones Gastrointestinal: No Hiatal Hernia Musculoskeletal: Yes (CERVICAL SPINE FX) Fractures Endocrine: Yes Diabetes, Non-Insulin dep HEENT: No Cancer: No Psychosocial: No Integumentary: No Blood Disorders: No Family Medical History Reviewed Nursing Family Hx Cancer 03 FATHER (SKIN CANCER) 03 MOTHER (LUNG CANCER) Cataract 03 FATHER Congestive heart failure 03 MOTHER Dementia 03 MOTHER Family history: Diabetes mellitus 03 FATHER Family history: Hypertension 03 FATHER 03 MOTHER Family history: Osteoporosis 03 MOTHER Family history: Thyroid disorder 03 FATHER (HYPERTHYROIDISM) Hearing loss 03 FATHER Physical Exam Vital Signs Vital Signs - First Documented 01/11/21 12:45 Temp 36.7 Pulse 65 Resp 28 B/P (MAP) 208/97 (134) Pulse Ox 99 O2 Delivery Room Air Capillary Refill : Height/Weight/BMI Height: 6'1.00" Weight: 190lbs. 14.0oz. 86.598799ak; 25.00 BMI Method:Stated General Appearance: WD/WN, moderate distress HEENT: PERRL/EOMI, pharynx normal Neck: full range of motion, supple Respiratory: lungs clear, normal breath sounds Cardiovascular: regular rate, rhythm, no murmur Gastrointestinal: non tender, soft Extremities: normal range of motion, non-tender Back: no CVA tenderness, no vertebral tenderness, muscle spasm, other (Tender to the right low back and right flank) Neurologic/Psychiatric: alert, oriented x 3 Skin: normal color, warm/dry Progress/Results/Core Measures Results/Orders Lab Results Laboratory Tests Test 01/11/21 12:50 01/11/21 13:02 Range/Units White Blood Count 10.8 4.3-11.0 10^3/uL Red Blood Count 5.26 4.30-5.52 10^6/uL Hemoglobin 16.1 13.3-17.7 g/dL Hematocrit 48 40-54 % Mean Corpuscular Volume 91 80-99 fL Mean Corpuscular Hemoglobin 31 25-34 pg Mean Corpuscular Hemoglobin Concent 34 32-36 g/dL Red Cell Distribution Width 13.1 10.0-14.5 % Platelet Count 252 130-400 10^3/uL Mean Platelet Volume 10.6 9.0-12.2 fL Immature Granulocyte % (Auto) 1 % Neutrophils (%) (Auto) 83 H 42-75 % Lymphocytes (%) (Auto) 8 L 12-44 % Monocytes (%) (Auto) 8 0-12 % Eosinophils (%) (Auto) 0 0-10 % Basophils (%) (Auto) 0 0-10 % Neutrophils # (Auto) 9.0 H 1.8-7.8 10^3/uL Lymphocytes # (Auto) 0.9 L 1.0-4.0 10^3/uL Monocytes # (Auto) 0.9 0.0-1.0 10^3/uL Eosinophils # (Auto) 0.0 0.0-0.3 10^3/uL Basophils # (Auto) 0.0 0.0-0.1 10^3/uL Immature Granulocyte # (Auto) 0.1 0.0-0.1 10^3/uL Sodium Level 142 135-145 MMOL/L Potassium Level 4.0 3.6-5.0 MMOL/L Chloride Level 107 98-107 MMOL/L Carbon Dioxide Level 22 21-32 MMOL/L Anion Gap 13 5-14 MMOL/L Blood Urea Nitrogen 21 H 7-18 MG/DL Creatinine 1.42 H 0.60-1.30 MG/DL Estimat Glomerular Filtration Rate 49 BUN/Creatinine Ratio 15 Glucose Level 147 H 70-105 MG/DL Calcium Level 9.0 8.5-10.1 MG/DL Corrected Calcium 8.8 8.5-10.1 MG/DL Total Bilirubin 0.9 0.1-1.0 MG/DL Aspartate Amino Transf (AST/SGOT) 20 5-34 U/L Alanine Aminotransferase (ALT/SGPT) 22 0-55 U/L Alkaline Phosphatase 71 40-136 U/L C-Reactive Protein High Sensitivity 0.14 0.00-0.50 MG/DL Total Protein 7.9 6.4-8.2 GM/DL Albumin 4.3 3.2-4.5 GM/DL Urine Color MACIE H Urine Clarity CLEAR Urine pH 6.0 5-9 Urine Specific [place] >=1.030 1.016-1.022 Urine Protein 1+ H NEGATIVE Urine Glucose (UA) TRACE H NEGATIVE Urine Ketones TRACE H NEGATIVE Urine Nitrite NEGATIVE NEGATIVE Urine Bilirubin NEGATIVE NEGATIVE Urine Urobilinogen 0.2 < = 1.0 MG/DL Urine Leukocyte Esterase NEGATIVE NEGATIVE Urine RBC (Auto) NEGATIVE NEGATIVE Urine RBC NONE /HPF Urine WBC 0-2 /HPF Urine Crystals NONE /LPF Urine Bacteria NEGATIVE /HPF Urine Casts NONE /LPF Urine Mucus LARGE H /LPF Urine Culture Indicated NO My Orders Orders - CHEPE TROTTER MD Cbc With Automated Diff (01/11/21 12:56) Comprehensive Metabolic Panel (01/11/21 12:56) Hs C Reactive Protein (01/11/21 12:56) Ua Culture If Indicated (01/11/21 12:56) Orphenadrine Inj (Ed Only) (Norflex Inje (01/11/21 12:56) Morphine Injection (Morphine Injection (01/11/21 13:00) Ondansetron Injection (Zofran Injectio (01/11/21 13:00) Ns Iv 1000 Ml (Sodium Chloride 0.9%) (01/11/21 12:56) Ed Iv/Invasive Line Start (01/11/21 12:56) Ct Abd/Pelvis Wo(Kidney Stone) (01/11/21 12:56) Medications Given in ED Current Medications Medications Dose Ordered Sig/Trae Route Start Time Stop Time Status Last Admin Dose Admin Morphine Sulfate 5 mg ONCE ONCE IVP 01/11/21 13:00 01/11/21 13:01 DC 01/11/21 13:14 5 MG Ondansetron HCl 4 mg ONCE ONCE IVP 01/11/21 13:00 01/11/21 13:01 DC 01/11/21 13:11 4 MG Vital Signs/I&O 01/11/21 12:45 Temp 36.7 Pulse 65 Resp 28 B/P (MAP) 208/97 (134) Pulse Ox 99 O2 Delivery Room Air Progress Progress Note : Progress Note Seen and evaluated. IV, labs, UA, CT abdomen pelvis without contrast, morphine 5 mg IV and Norflex 60 mg IV ordered. Normal saline 1 L bolus. Monitor patient. 1616: CT does show 4 mm stone. Pain is much improved although he is starting to get in a few spasms of back again. We will give morphine 4 mg IV. Stone is right at the bladder and should pass. He has his own urologist. We will initiate outpatient antibiotics. Discharged home with return precautions. Patient verbalized understanding instructions and agreement with plan. Diagnostic Imaging Diagonstic Imaging: CT Plain Films/CT/US/NM/MRI: abdomen, pelvis Comments [facility] [place] NAME: CR[facility]SY [facility]DS [facility] REC#: [id number] PT STATUS: REG ER : 1950 PHYSICIAN: CHEPE TROTTER MD ADMIT DATE: 01/11/21/ER Draft Date of Exam:01/11/21 CT ABD/PELVIS WO(KIDNEY STONE) Clinical indications: Patient with right flank pain. Previous surgery on abdomen, appendectomy, and hernia. Exam: CT exam of the abdomen and pelvis is performed without IV or oral contrast using stone protocol. Coronal and sagittal reformatted images were created. Auto Exposure Controls were utilized during the CT exam to meet ALARA standards for radiation dose reduction. Comparisons: CT scan of abdomen and pelvis without contrast dated 09/29/2020. Findings: Visualized lung bases are clear. There is lower lumbar spine facet arthropathy and small spurs involving the visualized portions of the spine. The liver, spleen, pancreas, gallbladder, and adrenal glands are unremarkable. There is interval development of a 4 mm stone in the right UVJ region. There is associated mild right hydroureteronephrosis. There are other nonobstructive stones involving both kidneys seen. Again noted small left parapelvic cysts inferiorly involving left kidney. There are no stones in the left ureter. There are no stones in the bladder. There is mild right perinephric fat stranding and fat stranding adjacent right ureter. Left kidney shows no hydronephrosis. There is no intra-abdominal free air or free fluid. There is no intestinal obstruction. Appendix is surgically resected. Bladder is partially fluid-filled and otherwise unremarkable. There is a moderate amount of stool involving the right colon. The extraabdominal and extrapelvis soft tissue structures are unremarkable. IMPRESSION: 1: There is a 4 mm obstructive stone within the right UVJ. There is mild right hydroureteronephrosis and mild right perinephric and periureteral fat stranding. 2: There is other nonobstructing stones involving both kidneys. 3: The remainder of this exam shows no significant interval change compared to the prior study of comparison. Dictated on workstation # [id number] Dict: 01/11/21 1334 Trans: 01/11/21 1350 CV [id number] Interpreted by: NIMO JOHNS MD Electronically signed by: Reviewed: Reviewed by Me Departure Impression Primary Impression: Ureteric stone Additional Impression: Ureteral colic Disposition: HOME, SELF-CARE Condition: Stable Departure-Patient Inst. Decision time for Depature: 16:18 Referrals: TRAMAINE BURRELL DO (PCP/Family) Primary Care Physician Patient Instructions: Kidney Stone, Adult ED Add. Discharge Instructions: Drink plenty of fluids. Take medications as directed. You may take Tylenol/acetaminophen 1000 mg every 6-8 hours as needed for pain. You may take ibuprofen 400 mg every 8 hours as needed for pain. Follow-up with your doctor for recheck and further evaluation. Return for worse pain, fever, vomiting, weakness, breathing problems or other concerns as needed. You may strain your urine to collect stone to show that it is passed. Scripts Cephalexin (Cephalexin) 500 Mg Capsule 500 MG PO BID for 7 Days, #14 CAP 0 Refills Prov: CHEPE TROTTER MD 01/11/21 CHEPE TROTTER MD Jan 11, 2021 13:09
[2021-01-11 13:13] LABS: BILIRUBIN,URINE NEGATIVE (NEGATIVE); CLARITY,URINE CLEAR; COLOR,URINE AMBER; GLUCOSE, URINE (UA) TRACE (NEGATIVE); KETONES,URINE TRACE (NEGATIVE); LEUKOCYTE ESTERASE ,URINE NEGATIVE (NEGATIVE); NITRITE,URINE NEGATIVE (NEGATIVE); PROTEIN,URINE 1+ (NEGATIVE)
[2021-01-11 13:16] LABS: ALBUMIN 4.3 GM/DL (3.2-4.5)
[2021-01-11 13:19] LABS: TOTAL PROTEIN 7.9 GM/DL (6.4-8.2)
[2021-01-11 13:21] LABS: BILIRUBIN,TOTAL 0.9 MG/DL (0.1-1.0)
[2021-01-11 13:23] LABS: CREATININE SERUM 1.42 MG/DL (0.60-1.30)
[2021-01-11 13:33] LABS: BACTERIA,URINE NEGATIVE /HPF; WBC,URINE 0-2 /HPF
--- NOTE | 2021-01-11 13:51 | Diagnostic Imaging Report ---
Clinical indications: Patient with right flank pain. Previous surgery on abdomen, appendectomy, and hernia. Exam: CT exam of the abdomen and pelvis is performed without IV or oral contrast using stone protocol. Coronal and sagittal reformatted images were created. Auto Exposure Controls were utilized during the CT exam to meet ALARA standards for radiation dose reduction. Comparisons: CT scan of abdomen and pelvis without contrast dated 09/29/2020. Findings: Visualized lung bases are clear. There is lower lumbar spine facet arthropathy and small spurs involving the visualized portions of the spine. The liver, spleen, pancreas, gallbladder, and adrenal glands are unremarkable. There is interval development of a 4 mm stone in the right UVJ region. There is associated mild right hydroureteronephrosis. There are other nonobstructive stones involving both kidneys seen. Again noted small left parapelvic cysts inferiorly involving left kidney. There are no stones in the left ureter. There are no stones in the bladder. There is mild right perinephric fat stranding and fat stranding adjacent right ureter. Left kidney shows no hydronephrosis. There is no intra-abdominal free air or free fluid. There is no intestinal obstruction. Appendix is surgically resected. Bladder is partially fluid-filled and otherwise unremarkable. There is a moderate amount of stool involving the right colon. The extraabdominal and extrapelvis soft tissue structures are unremarkable. IMPRESSION: 1: There is a 4 mm obstructive stone within the right UVJ. There is mild right hydroureteronephrosis and mild right perinephric and periureteral fat stranding. 2: There is other nonobstructing stones involving both kidneys. 3: The remainder of this exam shows no significant interval change compared to the prior study of comparison. Dictated by: Dictated on workstation # [id number]
[2021-01-11] MEDS ORDERED: CEPH500C PO (16:19)
[2021-01-11 16:51] VITALS: BP 158/70
== END 2021-01-11 16:58 | disposition home or self-care (01) ==
LOC: EDUNIT# 10:28 → ER 10:31
DX: N13.2 Hydronephrosis with renal and ureteral calculous obstruction (principal); I10 Essential (primary) hypertension; E11.8 Type 2 diabetes mellitus with unspecified complications; Z88.5 Allergy status to narcotic agent
CPT/HCPCS: 36415; 74176; 80053; 81000; 85025; 86141

== ENCOUNTER 2021-02-24 18:58 | Emergency (ER) | payer MEDICARE ==
[~2021-02-24] VITALS: Ht 183 cm; Wt 86.0 kg
[~2021-02-24 18:58] MED LIST changes: +CEPH500C PO
--- NOTE | 2021-02-24 19:21 | ED GU-Male ---
General Chief Complaint: Abdominal/GI Problems Stated Complaint: ABDOMINAL PAIN, VOMITING Nursing Triage Note: SUDDEN LEFT LOWER ABDOMINAL PAIN SIMILIAR TO PREVIOUS RENAL STONES. Source: patient Exam Limitations: no limitations (EMILEE MAURO APRN) History of Present Illness Date Seen by Provider: Feb 24, 2021 Time Seen by Provider: 19:20 Initial Comments To ER with sudden onset of suprapubic left lower abdominal pain about 4 PM today with nausea and vomiting. History of kidney stones. Timing/Duration: this afternoon Severity/Quality: moderate, severe Location: suprapubic Radiation: none Activities at Onset: none Prior Genitourinary Problems: none (EMILEE MAURO APRN) Allergies and Home Medications Allergies Coded Allergies: aspirin (Verified Allergy, Severe, CHOKING, 04/16/16) acetaminophen (Verified Allergy, Mild, 04/16/16) hydrocodone (Verified Allergy, Mild, 04/16/16) Home Medications Atenolol 50 Mg Tablet, 50 MG PO DAILY, (Reported) Cephalexin 500 Mg Capsule, 500 MG PO BID Prescribed by: CHEPE TROTTER on 01/11/21 161 Clonidine HCl 0.1 Mg Tablet, 0.2 MG PO BID, (Reported) Glipizide 5 Mg Tab.er.24, 5 MG PO DAILY, (Reported) Hydralazine HCl 25 Mg Tablet, 25 MG PO BID, (Reported) Tamsulosin HCl 0.4 Mg Cap, 0.4 MG PO DAILY Prescribed by: EMILEE MAURO on 02/24/211956 Tramadol HCl 50 Mg Tablet, 50 MG PO 4 times a day Prescribed by: DARIANA FLAHERTY on 04/28/17726 [Flexeril] , 10 twice a day Prescribed by: DARIANA FLAHERTY on 04/28/17726 Patient Home Medication List Home Medication List Reviewed: Yes (EMILEE MAURO APRN) Review of Systems Review of Systems Constitutional: see HPI; No chills, No fever EENTM: see HPI Respiratory: no symptoms reported Cardiovascular: no symptoms reported Genitourinary: see HPI; denies burning, denies discharge, denies dysuria, denies frequency, denies flank pain, denies hematuria Musculoskeletal: no symptoms reported Skin: no symptoms reported Psychiatric/Neurological: No Symptoms Reported Endocrine: No Symptoms Reported Hematologic/Lymphatic: No Symptoms Reported (EMILEE MAURO APRN) Past Tbzurwt-[id number]-Kmlqpg Hx Patient Social History Tobacco Use?: No Use of E-Cig and/or Vaping dev: No Substance use?: No Alcohol Use?: No Pt feels they are or have been: No (EMILEE MAURO APRN) Immunizations Up To Date First/Initial COVID19 Vaccinat: 10/12 COVID19 Vaccine Program Strategist: J&J (EMILEE MAURO APRN) Seasonal Allergies Seasonal Allergies: No (EMILEE MAURO APRN) Past Medical History Surgery/Hospitalization HX: RENAL STONES Surgeries: Yes (APPENDECTOMY, HERNIA REPAIRS, ABLATION 2011) Respiratory: No Cardiac: Yes (SVT,HEART ABLATION DECEMBER 2011) Hypertension Neurological: No Reproductive Disorders: No Genitourinary: Yes Kidney Stones Gastrointestinal: No Hiatal Hernia Musculoskeletal: Yes (CERVICAL SPINE FX) Fractures Endocrine: Yes Diabetes, Non-Insulin dep HEENT: No Cancer: No Psychosocial: No Integumentary: No Blood Disorders: No (EMILEE MAURO APRN) Family Medical History Cancer 03 FATHER (SKIN CANCER) 03 MOTHER (LUNG CANCER) Cataract 03 FATHER Congestive heart failure 03 MOTHER Dementia 03 MOTHER Family history: Diabetes mellitus 03 FATHER Family history: Hypertension 03 FATHER 03 MOTHER Family history: Osteoporosis 03 MOTHER Family history: Thyroid disorder 03 FATHER (HYPERTHYROIDISM) Hearing loss 03 FATHER No Family History of: Abdominal aortic aneurysm [place]'s disease Alcoholism Aphasia Cancer of colon Chest pain Congenital heart disease Cystic fibrosis Dysphagia Family history: Allergy Family history: Alzheimer's disease Family history: Arthritis Family history: Asthma Family history: Breast disease Family history: Cardiovascular disease Family history: Coronary thrombosis Family history: Gastrointestinal disease Family history: Glaucoma Headache Heart disease Hereditary disease History of - anemia History of - disorder History of - respiratory disease History of drug abuse Human immunodeficiency virus (HIV) seropositivity Hypercholesterolemia Infertile Kidney disease Malignant neoplasm of lung Myocardial infarction Parkinson's disease Prostate cancer Psychotic disorder Seizure disorder Stroke Tuberculosis Visual impairment Physical Exam Vital Signs Vital Signs - First Documented 02/24/21 19:07 Temp 36.5 Pulse 76 Resp 16 B/P (MAP) 161/96 (117) Pulse Ox 98 O2 Delivery Room Air (MATT CESPEDES MD) Vital Signs Capillary Refill : Less Than 3 Seconds (EMILEE MAURO APRN) Height, Weight, BMI Height: 6'1.00" Weight: 190lbs. 14.0oz. 86.550813kh; 25.00 BMI Method:Stated General Appearance: WD/WN, no apparent distress HEENT: PERRL/EOMI, normal ENT inspection Neck: non-tender, full range of motion Cardiovascular: regular rate, rhythm, no murmur Respiratory: no respiratory distress, no accessory muscle use Gastrointestinal: normal bowel sounds, non tender, soft; No tenderness Neurologic/Psychiatric: alert, normal mood/affect, oriented x 3 Skin: normal color, warm/dry (EMILEE MAURO APRN) Progress/Results/Core Measures Suspected Sepsis SIRS Temperature: Pulse: 76 Respiratory Rate: 16 Laboratory Tests 02/24/21 19:15: White Blood Count 7.2 Blood Pressure 161 /96 Mean: 117 Laboratory Tests 02/24/21 19:15: Platelet Count 223 (EMILEE MAURO APRN) Results/Orders Lab Results Laboratory Tests Test 02/24/21 19:15 02/24/21 19:25 Range/Units White Blood Count 7.2 4.3-11.0 10^3/uL Red Blood Count 4.60 4.30-5.52 10^6/uL Hemoglobin 14.1 13.3-17.7 g/dL Hematocrit 42 40-54 % Mean Corpuscular Volume 91 80-99 fL Mean Corpuscular Hemoglobin 31 25-34 pg Mean Corpuscular Hemoglobin Concent 34 32-36 g/dL Red Cell Distribution Width 13.2 10.0-14.5 % Platelet Count 223 130-400 10^3/uL Mean Platelet Volume 10.5 9.0-12.2 fL Immature Granulocyte % (Auto) 0 % Neutrophils (%) (Auto) 80 H 42-75 % Lymphocytes (%) (Auto) 12 12-44 % Monocytes (%) (Auto) 7 0-12 % Eosinophils (%) (Auto) 1 0-10 % Basophils (%) (Auto) 0 0-10 % Neutrophils # (Auto) 5.8 1.8-7.8 10^3/uL Lymphocytes # (Auto) 0.9 L 1.0-4.0 10^3/uL Monocytes # (Auto) 0.5 0.0-1.0 10^3/uL Eosinophils # (Auto) 0.1 0.0-0.3 10^3/uL Basophils # (Auto) 0.0 0.0-0.1 10^3/uL Immature Granulocyte # (Auto) 0.0 0.0-0.1 10^3/uL Sodium Level 139 135-145 MMOL/L Potassium Level 4.6 3.6-5.0 MMOL/L Chloride Level 107 98-107 MMOL/L Carbon Dioxide Level 24 21-32 MMOL/L Anion Gap 8 5-14 MMOL/L Blood Urea Nitrogen 23 H 7-18 MG/DL Creatinine 1.39 H 0.60-1.30 MG/DL Estimat Glomerular Filtration Rate 50 BUN/Creatinine Ratio 17 Glucose Level 283 H 70-105 MG/DL Calcium Level 8.5 8.5-10.1 MG/DL Urine Color BROWN H Urine Clarity CLOUDY Urine pH 6.0 5-9 Urine Specific [place] 1.025 H 1.016-1.022 Urine Protein 1+ H NEGATIVE Urine Glucose (UA) 2+ H NEGATIVE Urine Ketones TRACE H NEGATIVE Urine Nitrite NEGATIVE NEGATIVE Urine Bilirubin 1+ H NEGATIVE Urine Urobilinogen 1.0 < = 1.0 MG/DL Urine Leukocyte Esterase NEGATIVE NEGATIVE Urine RBC (Auto) 3+ H NEGATIVE Urine RBC >100 H /HPF Urine WBC RARE /HPF Urine Squamous Epithelial Cells RARE /HPF Urine Crystals NONE /LPF Urine Bacteria TRACE /HPF Urine Casts NONE /LPF Urine Mucus SMALL H /LPF Urine Culture Indicated NO (MATT CESPEDES MD) Medications Given in ED Current Medications Medications Dose Ordered Sig/Trae Route Start Time Stop Time Status Last Admin Dose Admin Ketorolac Tromethamine 15 mg ONCE ONCE IVP 02/24/21 19:45 02/24/21 19:46 DC 02/24/21 19:46 15 MG (MATT CESPEDES MD) Vital Signs/I&O 02/24/21 02/24/21 19:07 20:02 Temp 36.5 36.5 Pulse 76 72 Resp 16 16 B/P (MAP) 161/96 (117) 138/65 (117) Pulse Ox 98 95 O2 Delivery Room Air Room Air (MATT CESPEDES MD) Vital Signs/I&O Capillary Refill : Less Than 3 Seconds (EMILEE MAURO APRN) Blood Pressure Mean: 117 Diagnostic Imaging Diagonstic Imaging: Xray Comments NAME: CASSIUSCRISSY A [facility] REC#: [id number] PT STATUS: REG ER : 1950 PHYSICIAN: EMILEE MAURO APRN ADMIT DATE: 02/24/21/ER Draft Date of Exam:02/24/21 CT ABD/PELVIS WO(KIDNEY STONE) PROCEDURE: CT urinary tract, rule out kidney stone. TECHNIQUE: Multiple contiguous axial images were obtained through the abdomen and pelvis without the use of intravenous contrast. Auto Exposure Controls were utilized during the CT exam to meet ALARA standards for radiation dose reduction. INDICATION: Sudden onset left lower abdominal pain. CORRELATION STUDY: 01/11/2021 FINDINGS: LOWER THORAX: Clear. Heart size enlarged. Small hiatal hernia. LIVER: Unchanged probable cyst left hepatic lobe. GALLBLADDER: Present and unremarkable. No bile duct dilatation. SPLEEN: Unremarkable. PANCREAS: Unremarkable. ADRENAL GLANDS: Unremarkable. KIDNEYS: Punctate nonobstructing right renal stone. Probable peripelvic cyst inferior pole left kidney. Punctate non-obstructing stone within the inferior pole. There is an approximately 3 mm stone located at the proximal to mid left ureter. Resultant mild left-sided obstruction. ABDOMINAL AORTA: Moderate wall calcification, nonaneurysmal. A few shotty aortocaval lymph nodes are present. GASTROINTESTINAL TRACT: Stomach is rather significantly distended with retained gastric contents. No small bowel obstruction. Mild stool in the colon. No evidence for acute appendicitis. No abdominal ascites. URINARY BLADDER: Unremarkable. REPRODUCTIVE: Unremarkable. OSSEOUS STRUCTURES: No acute abnormality. OTHER: None. IMPRESSION: 1. Approximate 3 mm stone in the proximal to mid left ureter resulting in mild left-sided obstruction. Additional non-obstructing punctate bilateral renal stones present. Dictated on workstation # [id number] Dict: 02/24/211933 Trans: 02/24/211941 [facility] [id number] Interpreted by: GEORGE SANDOVAL DO Electronically signed by: (EMILEE MAURO APRN) Departure Communication (Admissions) 1952-patient states that he is essentially pain-free at this time we will discharge to home. He states that hydrocodone oxycodone and tramadol caused him constipation and bad dreams and they do not work for his pain. Does not need any of those he says. I gave him Flomax here and I will give him a few days worth of this at home and told him to use ibuprofen 3 of the 200 mg tablets every 6-8 hours. (EMILEE MAURO APRN) Impression Primary Impression: Ureteric stone Disposition: 01 HOME, SELF-CARE Condition: Stable Departure-Patient Inst. Decision time for Depature: 19:39 (EMILEE MAURO APRN) Referrals: TRAMAINE BURRELL DO (PCP/Family) Primary Care Physician FEI BRITO MD Patient Instructions: No Instuctions Given Add. Discharge Instructions: 1. Increase fluid intake. Take 3 of the 200 mg ibuprofen tablets every 6-8 hours as needed for pain but do not wait until the pain is severe to take it. Return to ER for intolerable pain or fevers. Follow-up with Dr. Brito. Call tomorrow to make an appointment All discharge instructions reviewed with patient and/or family. Voiced understanding. Scripts Tamsulosin HCl (Flomax) 0.4 Mg Cap 0.4 MG PO DAILY, #3 CAP Prov: EMILEE MAURO APRN 02/24/21 ATTENDING PHYSICIAN NOTE: I was physically present as attending physician in the emergency department during the care of this patient, but I was not directly involved in the decision making or delivery of care for this patient. (MATT CESPEDES MD) Copy Copies To 1: FEI BRITO MD, PETER J APRN Feb 24, 2021 19:21 MATT CESPEDES MD Feb 25, 2021 07:37
[2021-02-24 19:23] LABS: BASOPHILS % (AUTO) 0 % (0-10); EOSINOPHILS # (AUTO) 0.1 10^3/uL (0.0-0.3); EOSINOPHILS % (AUTO) 1 % (0-10); HEMATOCRIT 42 % (40-54); HEMOGLOBIN 14.1 g/dL (13.3-17.7); LYMPHOCYTES # (AUTO) 0.9 10^3/uL (1.0-4.0); LYMPHOCYTES % (AUTO) 12 % (12-44); MEAN CORPUSCULAR HEMOGLOBIN 31 pg (25-34); MEAN CORPUSCULAR HGB CONC 34 g/dL (32-36); MEAN CORPUSCULAR VOLUME 91 fL (80-99); MEAN PLATELET VOLUME 10.5 fL (9.0-12.2); MONOCYTES # (AUTO) 0.5 10^3/uL (0.0-1.0); MONOCYTES % (AUTO) 7 % (0-12); NEUTROPHILS # (AUTO) 5.8 10^3/uL (1.8-7.8); NEUTROPHILS % (AUTO) 80 % (42-75); PLATELET COUNT 223 10^3/uL (130-400); WHITE BLOOD COUNT 7.2 10^3/uL (4.3-11.0)
[2021-02-24 19:28] LABS: CLARITY,URINE CLOUDY; GLUCOSE, URINE (UA) 2+ (NEGATIVE); KETONES,URINE TRACE (NEGATIVE); LEUKOCYTE ESTERASE ,URINE NEGATIVE (NEGATIVE); NITRITE,URINE NEGATIVE (NEGATIVE); PROTEIN,URINE 1+ (NEGATIVE)
[2021-02-24 19:33] LABS: BILIRUBIN,URINE 1+ (NEGATIVE)
--- NOTE | 2021-02-24 19:33 | Diagnostic Imaging Report ---
INDICATION: Left flank pain. History of renal stones. TECHNIQUE: Single supine view of the abdomen 7:30 PM CORRELATION STUDY: 09/29/2020 FINDINGS: Moderate amount of overlying bowel gas and stool obscures detail. The right renal silhouette is largely obscured by the overlying stool. There does appear to be a few punctate calcification of the inferior pole left kidney. Definitive calcification along the expected course of either ureter is not present. There are vascular calcifications within the pelvis. Osseous structures demonstrate minimal leftward curvature and rotation of the lumbar spine. Moderately advanced degenerative changes bilateral hips. IMPRESSION: 1. A few punctate calcification suggested over the left kidney. Right kidney largely obscured by overlying bowel gas and stool. No definitive ureteric calcification. Dictated by: Dictated on workstation # [id number]
[2021-02-24 19:37] LABS: BACTERIA,URINE TRACE /HPF; COLOR,URINE BROWN; RBC,URINE >100 /HPF; SQUAMOUS EPITHELIAL CELL,UR RARE /HPF; WBC,URINE RARE /HPF
--- NOTE | 2021-02-24 19:43 | Diagnostic Imaging Report ---
PROCEDURE: CT urinary tract, rule out kidney stone. TECHNIQUE: Multiple contiguous axial images were obtained through the abdomen and pelvis without the use of intravenous contrast. Auto Exposure Controls were utilized during the CT exam to meet ALARA standards for radiation dose reduction. INDICATION: Sudden onset left lower abdominal pain. CORRELATION STUDY: 01/11/2021 FINDINGS: LOWER THORAX: Clear. Heart size enlarged. Small hiatal hernia. LIVER: Unchanged probable cyst left hepatic lobe. GALLBLADDER: Present and unremarkable. No bile duct dilatation. SPLEEN: Unremarkable. PANCREAS: Unremarkable. ADRENAL GLANDS: Unremarkable. KIDNEYS: Punctate nonobstructing right renal stone. Probable peripelvic cyst inferior pole left kidney. Punctate non-obstructing stone within the inferior pole. There is an approximately 3 mm stone located at the proximal to mid left ureter. Resultant mild left-sided obstruction. ABDOMINAL AORTA: Moderate wall calcification, nonaneurysmal. A few shotty aortocaval lymph nodes are present. GASTROINTESTINAL TRACT: Stomach is rather significantly distended with retained gastric contents. No small bowel obstruction. Mild stool in the colon. No evidence for acute appendicitis. No abdominal ascites. URINARY BLADDER: Unremarkable. REPRODUCTIVE: Unremarkable. OSSEOUS STRUCTURES: No acute abnormality. OTHER: None. IMPRESSION: 1. Approximate 3 mm stone in the proximal to mid left ureter resulting in mild left-sided obstruction. Additional non-obstructing punctate bilateral renal stones present. Dictated by: Dictated on workstation # [id number]
[2021-02-24] MEDS ORDERED: KETOROLAC 30 MG/ML VIAL IVP ONE (19:45)
[2021-02-24] MEDS ORDERED: TAMSULOSIN 0.4 MG (FLOMAX) CAP PO SCH (19:45)
[2021-02-24 19:55] LABS: CALCIUM 8.5 MG/DL (8.5-10.1); CREATININE SERUM 1.39 MG/DL (0.60-1.30); POTASSIUM 4.6 MMOL/L (3.6-5.0)
[2021-02-24] MEDS ORDERED: TMSL.4C PO (19:57)
[2021-02-24 20:02] VITALS: BP 138/65
== END 2021-02-24 20:05 | disposition home or self-care (01) ==
LOC: EDUNIT# 18:58 → ER 19:00
DX: N20.1 Calculus of ureter (principal); I10 Essential (primary) hypertension; E11.9 Type 2 diabetes mellitus without complications
CPT/HCPCS: 36415; 74018; 74176; 80048; 81000; 85025

== ENCOUNTER 2021-02-25 03:28 | Emergency (ER) | payer MEDICARE ==
[~2021-02-25] VITALS: Ht 182 cm; Wt 86.0 kg
[~2021-02-25 03:28] MED LIST changes: +TMSL.4C PO
[2021-02-25] MEDS ORDERED: morphine INJ 10 MG/ML 1ML (SYR OR VIAL) IVP STA (04:04)
[2021-02-25] MEDS ORDERED: NS IV 1000 ML 1,000 ML IV SCH (04:15)
[2021-02-25] MEDS ORDERED: ONDANSETRON 4 MG/2 ML (SDV) Z0FRAN IVP ONE (04:15)
[2021-02-25] MEDS ORDERED: ORPHENADRINE 60 MG/2 ML (NORFLEX) AMP (ED ONLY) IV ONE (04:15)
--- NOTE | 2021-02-25 04:53 | ED Abdominal Pain ---
General Chief Complaint: Abdominal/GI Problems Stated Complaint: KIDNEY STONE Nursing Triage Note: PT WAS SEEN IN THE ED EARLIER IN THE EVENING LAST NIGHT AND DX WITH A 3MM KIDNEY STONE IN THE L URETER. PT RETURNS TO THE ED C/O PAIN IN THE LLQ OF HIS ABD. AND MUSCLE SPASMS IN THE SAME LOCATION. DENIES HEMATURIA Source of Information: Patient, Old Records Exam Limitations: No Limitations History of Present Illness Date Seen by Provider: Feb 25, 2021 Time Seen by Provider: 03:53 Initial Comments This 70-year-old gentleman with history of ureteral stones and visit to the ER yesterday presents with uncontrolled left flank pain. He reports intolerance or inefficacy of oral opioid pain medications and NSAIDs. He has taken ibuprofen at home shortly before arrival. He also has a problem with muscle tremors and spasms, particularly when he is agitated with pain. He is nauseated. No fevers or other changes in status. Allergies and Home Medications Allergies Coded Allergies: aspirin (Verified Allergy, Severe, CHOKING, 04/16/16) acetaminophen (Verified Allergy, Mild, 04/16/16) hydrocodone (Verified Allergy, Mild, 04/16/16) Home Medications Atenolol 25 Mg Tablet, 50 MG PO DAILY, (Reported) TAKES 2 (25MG) TABS LAST FILLED 01-10-2021 #60/30 DAY SUPPLY Clonidine HCl 0.1 Mg Tablet, 0.2 MG PO TID, (Reported) TAKES 2 (0.1MG) TABS Glipizide 5 Mg Tab.er.24, 5 MG PO DAILY, (Reported) Hydralazine HCl 25 Mg Tablet, 50 MG PO BID, (Reported) TAKES 2 (25MG) TABS Ibuprofen 200 Mg Tablet, 600 MG PO Q8H PRN for PAIN-MILD (1-4), (Reported) Metoprolol Succinate 25 Mg Tab.er.24h, 25 MG PO DAILY, (Reported) Tamsulosin HCl 0.4 Mg Cap, 0.4 MG PO DAILY, (Reported) FILLED 02-25-2021 #3/3 DAY SUPPLY Patient Home Medication List Home Medication List Reviewed: Yes Review of Systems Review of Systems Constitutional: no symptoms reported EENTM: No Symptoms Reported Respiratory: No Symptoms Reported Cardiovascular: No Symptoms Reported Gastrointestinal: See HPI Genitourinary: See HPI Musculoskeletal: see HPI Skin: no symptoms reported Psychiatric/Neurological: No Symptoms Reported Endocrine: No Symptoms Reported Hematologic/Lymphatic: No Symptoms Reported Past Hkinuoo-Uewysw-Prhvuw Hx Seasonal Allergies Seasonal Allergies: No Past Medical History Surgery/Hospitalization HX: RENAL STONES Surgeries: Yes (APPENDECTOMY, HERNIA REPAIRS, ABLATION 2011) Respiratory: No Cardiac: Yes (SVT,HEART ABLATION DECEMBER 2011) Hypertension Neurological: No Reproductive Disorders: No Genitourinary: Yes Kidney Stones Gastrointestinal: No Hiatal Hernia Musculoskeletal: Yes (CERVICAL SPINE FX) Fractures Endocrine: Yes Diabetes, Non-Insulin dep HEENT: No Cancer: No Psychosocial: No Integumentary: No Blood Disorders: No Family Medical History Cancer 03 FATHER (SKIN CANCER) 03 MOTHER (LUNG CANCER) Cataract 03 FATHER Congestive heart failure 03 MOTHER Dementia 03 MOTHER Family history: Diabetes mellitus 03 FATHER Family history: Hypertension 03 FATHER 03 MOTHER Family history: Osteoporosis 03 MOTHER Family history: Thyroid disorder 03 FATHER (HYPERTHYROIDISM) Hearing loss 03 FATHER No Family History of: Abdominal aortic aneurysm Stan's disease Alcoholism Aphasia Cancer of colon Chest pain Congenital heart disease Cystic fibrosis Dysphagia Family history: Allergy Family history: Alzheimer's disease Family history: Arthritis Family history: Asthma Family history: Breast disease Family history: Cardiovascular disease Family history: Coronary thrombosis Family history: Gastrointestinal disease Family history: Glaucoma Headache Heart disease Hereditary disease History of - anemia History of - disorder History of - respiratory disease History of drug abuse Human immunodeficiency virus (HIV) seropositivity Hypercholesterolemia Infertile Kidney disease Malignant neoplasm of lung Myocardial infarction Parkinson's disease Prostate cancer Psychotic disorder Seizure disorder Stroke Tuberculosis Visual impairment Physical Exam Vital Signs Vital Signs - First Documented 02/25/21 03:56 Temp 36.8 Pulse 55 Resp 22 B/P (MAP) 182/104 (130) Pulse Ox 98 O2 Delivery Room Air Capillary Refill : Height/Weight/BMI Height: 6'1.00" Weight: 190lbs. 14.0oz. 86.174755or; 25.00 BMI Method:Stated General Appearance: WD/WN, moderate distress HEENT: PERRL/EOMI, normal ENT inspection Neck: normal inspection Respiratory: lungs clear, normal breath sounds, no respiratory distress Cardiovascular: regular rate, rhythm, no edema, no murmur Peripheral Pulses: 0 Carotid (R), 0 Carotid (L), 0 Femoral (R), 0 Femoral (L), 0 Dorsalis Pedis (R), 0 Left Dors-Pedis (L), 0 Radial Pulses (R), 0 Radial Pulses (L) Gastrointestinal: soft; No distended; tenderness Extremities: normal inspection, no pedal edema Neurologic/Psychiatric: water server II-XII nml as tested, no motor/sensory deficits, alert, normal mood/affect, oriented x 3, other (Bouts of muscle spasms and tremors) Skin: normal color, warm/dry Progress/Results/Core Measures Results/Orders Lab Results Laboratory Tests Test 02/25/21 05:37 Range/Units Urine Color YELLOW Urine Clarity CLEAR Urine pH 7.0 5-9 Urine Specific [place] 1.015 L 1.016-1.022 Urine Protein NEGATIVE NEGATIVE Urine Glucose (UA) 3+ H NEGATIVE Urine Ketones NEGATIVE NEGATIVE Urine Nitrite NEGATIVE NEGATIVE Urine Bilirubin NEGATIVE NEGATIVE Urine Urobilinogen 0.2 < = 1.0 MG/DL Urine Leukocyte Esterase NEGATIVE NEGATIVE Urine RBC (Auto) 1+ H NEGATIVE Urine RBC 2-5 H /HPF Urine WBC NONE /HPF Urine Crystals NONE /LPF Urine Bacteria NEGATIVE /HPF Urine Casts NONE /LPF Urine Mucus NEGATIVE /LPF Urine Culture Indicated NO My Orders Orders - MATT CESPEDES MD Ua Culture If Indicated (02/25/21 03:53) Morphine Injection (Morphine Injection (02/25/21 04:04) Orphenadrine Inj (Ed Only) (Norflex Inje (02/25/21 04:15) Ondansetron Injection (Zofran Injectio (02/25/21 04:15) Ns Iv 1000 Ml (Sodium Chloride 0.9%) (02/25/21 04:15) Fentanyl Inj (Sublimaze Injection) (02/25/21 05:30) Fentanyl Patch (Duragesic Patch) (02/25/21 06:15) Medications Given in ED Vital Signs/I&O 02/25/21 02/25/21 02/25/21 03:56 04:13 06:28 Temp 36.8 36.8 36.8 Pulse 55 56 Resp 22 22 B/P (MAP) 182/104 (130) 150/70 (130) Pulse Ox 98 95 O2 Delivery Room Air Room Air Blood Pressure Mean: 130 Progress Progress Note : Progress Note Zofran was given for nausea. Morphine did not effectively treat his pain. Fentanyl however was quite effective in treating both his pain and his tremors. A fentanyl patch was placed to try at home instead of the opioid pain pills. See discharge instructions. Departure Impression Primary Impression: Ureteral stone Additional Impressions: Left flank pain Muscle tension dysphonia Disposition: 01 HOME, SELF-CARE Condition: Improved Departure-Patient Inst. Decision time for Depature: 06:16 Referrals: TRAMAINE BURRELL DO (PCP/Family) Primary Care Physician Patient Instructions: Kidney Stones in Adults Add. Discharge Instructions: Drink plenty of clear liquids. Follow-up with Dr. Brito soon as possible. Use the fentanyl patch instead of opioid pain pills. Remove the patch if you become too sleepy. Do not use any lotions, creams, or solvents over the patch. Call if you have any questions or concerns. Return to the ER if you have worsening symptoms. All discharge instructions reviewed with patient and/or family. Voiced u nderstanding. Copy Copies To 1: FEI BRITO MD Copies To 2: TRAMAINE BURRELL JOSHUA T MD Feb 25, 2021 04:53
[2021-02-25] MEDS ORDERED: fentaNYL INJ 100 MCG/2 ML AMP IVP ONE (05:30)
[2021-02-25 05:55] LABS: BILIRUBIN,URINE NEGATIVE (NEGATIVE); CLARITY,URINE CLEAR; COLOR,URINE YELLOW; GLUCOSE, URINE (UA) 3+ (NEGATIVE); KETONES,URINE NEGATIVE (NEGATIVE); LEUKOCYTE ESTERASE ,URINE NEGATIVE (NEGATIVE); NITRITE,URINE NEGATIVE (NEGATIVE); PROTEIN,URINE NEGATIVE (NEGATIVE)
[2021-02-25] MEDS ORDERED: fentaNYL PATCH 50 MCG (DURAGESIC) TD SCH (06:15)
[2021-02-25 06:21] LABS: BACTERIA,URINE NEGATIVE /HPF
[2021-02-25 06:28] VITALS: BP 150/70
[2021-02-26] MEDS ORDERED: MORP15TA69 PO (11:45)
[2021-02-26] MEDS ORDERED: ONDA4TAB11 PO (11:45)
[2021-02-26] MEDS ORDERED: TMSL.4C PO (16:14)
[2021-02-26] MEDS ORDERED: MTP25TSR PO (16:14)
[2021-02-26] MEDS ORDERED: ATEN25TA PO (16:14)
[2021-02-26] MEDS ORDERED: IBUP-2473 PO (16:15)
== END 2021-02-25 06:30 | disposition home or self-care (01) ==
LOC: EDUNIT# 03:28 → ER 03:30
DX: N20.1 Calculus of ureter (principal); R49.0 Dysphonia; I10 Essential (primary) hypertension; E11.9 Type 2 diabetes mellitus without complications
CPT/HCPCS: 81000; 99282

== ENCOUNTER 2021-02-26 07:04 | Day surgery (SDC) | payer MEDICARE ==
[~2021-02-26] VITALS: Ht 182 cm; Wt 90.1 kg
--- NOTE | 2021-02-26 08:29 | ED GU-Male ---
General Chief Complaint: Abdominal/GI Problems Stated Complaint: KIDNEY STONE;NAUSEA;PAIN Nursing Triage Note: PT PRESENTS TO ED WITH COMPLAINTS OF WAKING UP LAST NIGHT WITH SOA, AND CONTINUED ABDOMINAL PAIN AND NAUSEA. PT REPORTS HE THINKS THE FENTANYL PATCH HE HAD ON MAY HAVE BEEN TOO STRONG AND AFFECTED HIS BREATHING SO HE TOOK IT OFF THIS AM. Source: patient Exam Limitations: no limitations (ERNESTO SULLIVAN STUDENT) History of Present Illness Date Seen by Provider: Feb 26, 2021 Time Seen by Provider: 08:00 Initial Comments Pt presents to ED via private conveyance with complaints of nausea, vomiting, and L flank pain. He states that his symptoms began 3 days ago and he has been seen in the ED multiple times since onset of symptoms, and was found to have a 3mm stone in his L ureter. He complains of 8/10 cramping pain to his L flank, denies radiation, cramping. He was prescribed a fentanyl patch that he used at 7:30pm yesterday, but took it off at 1:30 this morning because it was affecting his breathing. He has been nauseated with vomiting. He denies chest pain, SOB, fevers, chills. He has an appointment with Dr. Vasquez this afternoon at 3:15 for management of his kidney stone. Timing/Duration: other (onset of symptoms 3 days ago) Severity/Quality: moderate, cramping Location: left flank Radiation: none Activities at Onset: none Prior Genitourinary Problems: similar symptoms (pt states history of kidney stones) Modifying Factors: Improves With Analgesics (alleviated with fentanyl), Improves With Movement, Improves With Palpation Associated Symptoms: abdominal pain (L flank), dysuria; No fever/chills; nausea/vomiting (ERNESTO SULLIVAN STUDENT) Initial Comments Patient has also been using Norflex and muscle relaxants at home for chronic back spasms for the past 10 to 15 years. (CHLOÉ BOSS) Allergies and Home Medications Allergies Coded Allergies: aspirin (Verified Allergy, Severe, CHOKING, 04/16/16) acetaminophen (Verified Allergy, Mild, 04/16/16) hydrocodone (Verified Allergy, Mild, 04/16/16) Home Medications Atenolol 50 Mg Tablet, 50 MG PO DAILY, (Reported) Cephalexin 500 Mg Capsule, 500 MG PO BID Prescribed by: CHEPE TROTTER on 01/11/21 1619 Clonidine HCl 0.1 Mg Tablet, 0.2 MG PO BID, (Reported) Glipizide 5 Mg Tab.er.24, 5 MG PO DAILY, (Reported) Hydralazine HCl 25 Mg Tablet, 25 MG PO BID, (Reported) Ondansetron 4 Mg Tab.rapdis, 4-8 MG PO Q6H PRN for NAUSEA/VOMITING Prescribed by: CHLOÉ BOSS on 02/26/21 1145 Tamsulosin HCl 0.4 Mg Cap, 0.4 MG PO DAILY Prescribed by: EMILEE MAURO on 02/24/211956 Tramadol HCl 50 Mg Tablet, 50 MG PO 4 times a day Prescribed by: DARIANA FLAHERTY on 04/28/17726 [Flexeril] , 10 twice a day Prescribed by: DARIANA FLAHERTY on 04/28/17726 Patient Home Medication List Home Medication List Reviewed: Yes (ERNESTO SULLIVAN) Home Medication List Reviewed: Yes (CHLOÉ BOSS) Review of Systems Review of Systems Constitutional: No chills, No fever EENTM: No hearing loss, No vision loss Respiratory: No cough, No short of breath Cardiovascular: No chest pain, No edema, No palpitations Gastrointestinal: abdominal pain (L flank 03/03); No constipation, No diarrhea; nausea, vomiting Genitourinary: dysuria; denies frequency; flank pain (L), hematuria (episode of hematuria 3 days ago, pt states urine has cleared up since) Musculoskeletal: No back pain, No joint pain Skin: No change in color, No change in hair/nails Psychiatric/Neurological: Denies Headache, Denies Numbness, Denies Paresthesia (ERNESTO SULLIVAN) All Other Systemes Reviewed Negative Unless Noted: Yes (ERNESTO SULLIVAN) Past Kiivbft-Sxjrkr-Nqdtzi Hx Patient Social History Tobacco Use?: No Substance use?: No Alcohol Use?: No Pt feels they are or have been: No (ERNESTO SULLIVAN) Immunizations Up To Date First/Initial COVID19 Vaccinat: SEPTEMBER COVID19 Vaccine Product Development Consultant: Storee (ERNESTO SULLIVAN) Seasonal Allergies Seasonal Allergies: No (ERNESTO SULLIVAN) Past Medical History Surgery/Hospitalization HX: RENAL STONES, APPY, HERNIA REPAIR, EYELID, HEART ABLATION Surgeries: Yes (APPENDECTOMY, HERNIA REPAIRS, ABLATION 2011) Respiratory: No Cardiac: Yes (SVT,HEART ABLATION DECEMBER 2011) Hypertension Neurological: No Reproductive Disorders: No Genitourinary: Yes Kidney Stones Gastrointestinal: No Hiatal Hernia Musculoskeletal: Yes (CERVICAL SPINE FX) Fractures Endocrine: Yes Diabetes, Non-Insulin dep HEENT: No Cancer: No Psychosocial: No Integumentary: No Blood Disorders: No (ERNESTO SULLIVAN STUDENT) Family Medical History Cancer 03 FATHER (SKIN CANCER) 03 MOTHER (LUNG CANCER) Cataract 03 FATHER Congestive heart failure 03 MOTHER Dementia 03 MOTHER Family history: Diabetes mellitus 03 FATHER Family history: Hypertension 03 FATHER 03 MOTHER Family history: Osteoporosis 03 MOTHER Family history: Thyroid disorder 03 FATHER (HYPERTHYROIDISM) Hearing loss 03 FATHER No Family History of: Abdominal aortic aneurysm Stan's disease Alcoholism Aphasia Cancer of colon Chest pain Congenital heart disease Cystic fibrosis Dysphagia Family history: Allergy Family history: Alzheimer's disease Family history: Arthritis Family history: Asthma Family history: Breast disease Family history: Cardiovascular disease Family history: Coronary thrombosis Family history: Gastrointestinal disease Family history: Glaucoma Headache Heart disease Hereditary disease History of - anemia History of - disorder History of - respiratory disease History of drug abuse Human immunodeficiency virus (HIV) seropositivity Hypercholesterolemia Infertile Kidney disease Malignant neoplasm of lung Myocardial infarction Parkinson's disease Prostate cancer Psychotic disorder Seizure disorder Stroke Tuberculosis Visual impairment Physical Exam Vital Signs Vital Signs - First Documented 02/26/21 07:37 Temp 36.8 Pulse 69 Resp 18 B/P (MAP) 186/80 (115) Pulse Ox 98 (KARYN,CHLOÉ J) Vital Signs Capillary Refill : Less Than 3 Seconds (ERNESTO SULLIVAN STUDENT) Height, Weight, BMI Height: 6'1.00" Weight: 190lbs. 14.0oz. [id number]; 25.00 BMI Method:Stated General Appearance: WD/WN, mild distress (intermittent episodes of cramping abd pain) HEENT: PERRL/EOMI, normal ENT inspection, pharynx normal Neck: non-tender, full range of motion, supple, normal inspection Cardiovascular: normal peripheral pulses, regular rate, rhythm, no murmur Respiratory: chest non-tender, lungs clear, normal breath sounds, no accessory muscle use Gastrointestinal: normal bowel sounds; No distended; guarding (on palpation of L flank); No rebound; tenderness (tender to palpation L flank), other (negative costovertebral tenderness) Rectal: deferred Back: normal inspection, no CVA tenderness, no vertebral tenderness Extremities: normal range of motion, non-tender, normal inspection, no pedal edema, no calf tenderness, normal capillary refill Neurologic/Psychiatric: no motor/sensory deficits, alert, normal mood/affect, oriented x 3 Skin: normal color, warm/dry Lymphatic: no adenopathy (ERNESTO SULLIVAN [employer] STUDENT) Progress/Results/Core Measures Suspected Sepsis SIRS Temperature: Pulse: 69 Respiratory Rate: 18 Blood Pressure 186 /80 Mean: 115 (ERNESTO SULLIVAN [employer] STUDENT) SIRS Laboratory Tests 02/26/21 07:37: White Blood Count 9.2 (CHLOÉ BOSS) Results/Orders Lab Results Laboratory Tests Test 02/26/21 07:37 02/26/21 11:59 Range/Units White Blood Count 9.2 4.3-11.0 10^3/uL Red Blood Count 4.55 4.30-5.52 10^6/uL Hemoglobin 13.9 13.3-17.7 g/dL Hematocrit 42 40-54 % Mean Corpuscular Volume 92 80-99 fL Mean Corpuscular Hemoglobin 31 25-34 pg Mean Corpuscular Hemoglobin Concent 33 32-36 g/dL Red Cell Distribution Width 13.2 10.0-14.5 % Platelet Count 224 130-400 10^3/uL Mean Platelet Volume 11.4 9.0-12.2 fL Immature Granulocyte % (Auto) 1 % Neutrophils (%) (Auto) 76 H 42-75 % Lymphocytes (%) (Auto) 15 12-44 % Monocytes (%) (Auto) 8 0-12 % Eosinophils (%) (Auto) 1 0-10 % Basophils (%) (Auto) 0 0-10 % Neutrophils # (Auto) 7.0 1.8-7.8 10^3/uL Lymphocytes # (Auto) 1.4 1.0-4.0 10^3/uL Monocytes # (Auto) 0.7 0.0-1.0 10^3/uL Eosinophils # (Auto) 0.1 0.0-0.3 10^3/uL Basophils # (Auto) 0.0 0.0-0.1 10^3/uL Immature Granulocyte # (Auto) 0.1 0.0-0.1 10^3/uL Sodium Level 140 135-145 MMOL/L Potassium Level 4.5 3.6-5.0 MMOL/L Chloride Level 107 98-107 MMOL/L Carbon Dioxide Level 24 21-32 MMOL/L Anion Gap 9 5-14 MMOL/L Blood Urea Nitrogen 23 H 7-18 MG/DL Creatinine 1.99 H 0.60-1.30 MG/DL Estimat Glomerular Filtration Rate 33 BUN/Creatinine Ratio 12 Glucose Level 161 H 70-105 MG/DL Calcium Level 8.4 L 8.5-10.1 MG/DL Corrected Calcium 8.6 8.5-10.1 MG/DL Total Bilirubin 0.8 0.1-1.0 MG/DL Aspartate Amino Transf (AST/SGOT) 18 5-34 U/L Alanine Aminotransferase (ALT/SGPT) 20 0-55 U/L Alkaline Phosphatase 58 40-136 U/L C-Reactive Protein High Sensitivity 1.32 H 0.00-0.50 MG/DL Total Protein 6.9 6.4-8.2 GM/DL Albumin 3.7 3.2-4.5 GM/DL Glucometer 171 H 70-110 MG/DL (CHLOÉ BOSS) My Orders Orders - CHLOÉ BOSS Ed Iv/Invasive Line Start (02/26/21 08:52) Lactated Ringers (Lr 1000 Ml Iv Solution (02/26/21 09:00) Cbc With Automated Diff (02/26/21 08:52) Comprehensive Metabolic Panel (02/26/21 08:52) Hs C Reactive Protein (02/26/21 08:52) Ceftriaxone (Rocephin) (02/26/21 09:00) Morphine Injection (Morphine Injection (02/26/21 08:52) Abdomen/Kub 1view (02/26/21 08:55) Ondansetron Injection (Zofran Injectio (02/26/21 09:15) Ondansetron Injection (Zofran Injectio (02/26/21 09:16) Morphine Injection (Morphine Injection (02/26/21 10:55) Accucheck Stat ONCE (02/26/21 11:49) Promethazine Injection (Phenergan Injec (02/26/21 12:00) (CHLOÉ BOSS) Medications Given in ED Current Medications Medications Dose Ordered Sig/Trae Route Start Time Stop Time Status Last Admin Dose Admin Ceftriaxone Sodium 1000 mg/ Sterile Water 10 ml @ 200 mls/hr ONCE ONCE IV 02/26/21 09:00 02/26/21 09:02 DC 02/26/21 09:01 200 MLS/HR Lactated Ringer's 1,000 ml @ 0 mls/hr Q0M ONCE IV 02/26/21 09:00 02/26/21 09:01 DC 02/26/21 09:00 0 MLS/HR Ondansetron HCl 8 mg ONCE ONCE IVP 02/26/21 09:15 02/26/21 09:16 DC 02/26/21 09:18 8 MG Promethazine HCl 25 mg ONCE ONCE IVP 02/26/21 12:00 02/26/21 12:01 DC 02/26/21 12:20 25 MG (CHLOÉ BOSS) Vital Signs/I&O 02/26/21 07:37 Temp 36.8 Pulse 69 Resp 18 B/P (MAP) 186/80 (115) Pulse Ox 98 (CHLOÉ BOSS) Vital Signs/I&O Capillary Refill : Less Than 3 Seconds (ERNESTO SULLIVAN MED STUDENT) Blood Pressure Mean: 115 Progress Note #1: Time: 08:56 Progress Note I attest that I saw this patient alongside the medical student and agree with his documented history, physical exam and review of systems except as otherwise noted. Patient describes uncontrolled pain and only seems to get relief from larger doses than normal IV pain medicines. We discussed with him that what he is describing sounds like tolerance since he says he still gets the side effects to oral pain medicines. Patient states that he does not routinely take pain medicines and was dismissive of the idea of tolerance. Did some education on how opiates work and what to expect. Counseled appropriate course of care with a kidney stone. Patient has an appointment at 3:00 this afternoon with urologist. We will give him 6 mg of morphine slow IV push and a liter of fluids as he does appear quite dehydrated with a dry oral mucosa. His vital signs are aseptic but we will check some basic labs and look for any missed signs of worsening infection. We will attempt to get a KUB to see if we can see the position of the stone. The previous KUB was unable to see it because of bowel gas pattern. Patient does exhibit quite a bit of anxiety. We discouraged him from using muscle relaxants in addition to opiates. Review of [facility] pharmacy management software does not reveal any concerning trends regarding diversion or dependence. Progress Note #2: Time: 11:26 Progress Note The patient's pain is under control with a second dose of 4 mg of morphine. His nausea is under control. Were going to give him some oral fluids and let him finish his IV fluids and follow-up with the urologist this afternoon. Progress Note #3: Time: 11:47 Progress Note Patient took 1 sip of water and immediately felt queasy and no longer like he was ready to go home. He says MS Keith will not work for him because he had it before in the past. He thinks that maybe he is getting a low blood sugar. He is prediabetic and does not use insulin but has not eaten since yesterday. He is unable to tolerate oral fluids or medicine at this time. Plan to check a blood sugar and we may attempt to observe him for intractable nausea vomiting and pain related to kidney stone. Progress Note #4: Time: 11:58 Progress Note Discussed the case with Dr. Burrell who is willing to take the patient on observation for intractable nausea, vomiting and pain. Dr. Burrell would like us to touch base with Dr. Vasquez first and decide whether she can take him to [facility] or needs to keep in here in [place]. [facility] is very short on beds and if the patient just needs pain and nausea medication as well as IV fluids this could be completed at [place] where Dr. Burrell also works. Dr. Vasquez states he is about to enter the building and will review the KUB and call us back. Phenergan was ordered for the patient's nausea. Accu-Chek shows a blood sugar of 171. (CHLOÉ BOSS) Diagnostic Imaging Diagonstic Imaging: Xray Plain Films/CT/US/NM/MRI: abdomen, pelvis Comments [facility], [facility]. [place], [place] NAME: CRISSY HAMMONDS MED REC#: [id number] PT STATUS: REG ER : 1950 PHYSICIAN: CHLOÉ BOSS MD ADMIT DATE: 02/26/21/ER Draft Date of Exam:02/26/21 ABDOMEN/KUB 1VIEW INDICATION: Shortness of air and abdominal pain. TIME OF EXAM: 9:27 AM Comparison is made with prior radiograph from 02/24/2021. Bowel gas pattern is unremarkable. The renal shadows are moderately obscured. No definite calculi along the course of the ureters are identified. Pelvic calcifications are noted which may represent phleboliths. There is moderate stool in the right colon. IMPRESSION: Stable abdominal radiograph showing moderate stool right colon. No acute feature is detected. Dictated on workstation # [id number] Dict: 02/26/21 0931 Trans: 02/26/21 0935 MIHAELA [id number] Interpreted by: NESS AYOUB MD Electronically signed by: Reviewed: Reviewed by Me (CHLOÉ BOSS) Departure Communication (Admissions) Time/Spoke to Admitting Phy: 12:00 Discussed the case with Dr. Burrell and she will take him on her service with consult to Dr. Vasquez. Time/Spoke to Consulting Phy: 12:00 Discussed the case with Dr. Vasquez and he agrees to consult on the case. N.p.o. at midnight. Plenty of pain medicines antibiotics and IV fluids. (CHLOÉ BOSS) Impression Primary Impression: Kidney stone Additional Impressions: Dehydration Inadequate pain control Disposition: 01 HOME, SELF-CARE Condition: Stable Admissions Decision to Admit Reason: Admit from ER (General) Decision to Admit/Date: Feb 26, 2021 Time/Decision to Admit Time: 11:54 (CHLOÉ BOSS) Departure-Patient Inst. Referrals: TRAMAINE BURRELL DO (PCP/Family) Primary Care Physician Patient Instructions: Kidney Stone, Adult ED, Dehydration, Adult ED Add. Discharge Instructions: Drink lots of fluids this will make it easier to pass the kidney stone. Water is preferable. MS Contin 1 tablet twice a day as necessary for pain control. All discharge instructions reviewed with patient and/or family. Voiced understanding. Scripts Ondansetron (Ondansetron Odt) 4 Mg Tab.rapdis 4-8 MG PO Q6H PRN for NAUSEA/VOMITING, #20 TAB 0 Refills Prov: CHLOÉ BOSS 02/26/21 ERNESTO SULLIVAN STUDENT Feb 26, 2021 08:29 CHLOÉ BOSS Feb 26, 2021 09:00
[2021-02-26] MEDS ORDERED: morphine INJ 10 MG/ML 1ML (SYR OR VIAL) IVP STA ×2 (08:52→10:55)
[2021-02-26] MEDS ORDERED: LACTATED RINGERS 1,000 ML IV ONE (09:00)
[2021-02-26] MEDS ORDERED: cefTRIAXone 1,000 MG in WATER (STERILE) FOR INJECTION 10 ML IV ONE (09:00)
[2021-02-26 09:01] LABS: BASOPHILS % (AUTO) 0 % (0-10); EOSINOPHILS # (AUTO) 0.1 10^3/uL (0.0-0.3); EOSINOPHILS % (AUTO) 1 % (0-10); HEMATOCRIT 42 % (40-54); HEMOGLOBIN 13.9 g/dL (13.3-17.7); LYMPHOCYTES # (AUTO) 1.4 10^3/uL (1.0-4.0); LYMPHOCYTES % (AUTO) 15 % (12-44); MEAN CORPUSCULAR HEMOGLOBIN 31 pg (25-34); MEAN CORPUSCULAR HGB CONC 33 g/dL (32-36); MEAN CORPUSCULAR VOLUME 92 fL (80-99); MEAN PLATELET VOLUME 11.4 fL (9.0-12.2); MONOCYTES # (AUTO) 0.7 10^3/uL (0.0-1.0); MONOCYTES % (AUTO) 8 % (0-12); NEUTROPHILS % (AUTO) 76 % (42-75); PLATELET COUNT 224 10^3/uL (130-400); WHITE BLOOD COUNT 9.2 10^3/uL (4.3-11.0)
[2021-02-26 09:06] LABS: ALBUMIN 3.7 GM/DL (3.2-4.5); POTASSIUM 4.5 MMOL/L (3.6-5.0)
[2021-02-26 09:07] LABS: CALCIUM 8.4 MG/DL (8.5-10.1)
[2021-02-26 09:08] LABS: TOTAL PROTEIN 6.9 GM/DL (6.4-8.2)
[2021-02-26 09:10] LABS: BILIRUBIN,TOTAL 0.8 MG/DL (0.1-1.0)
[2021-02-26 09:12] LABS: CREATININE SERUM 1.99 MG/DL (0.60-1.30)
[2021-02-26] MEDS ORDERED: ONDANSETRON 4 MG/2 ML (SDV) Z0FRAN IVP ONE (09:15)
[2021-02-26] MEDS ORDERED: ONDANSETRON 4 MG/2 ML (SDV) Z0FRAN ONE (09:16)
--- NOTE | 2021-02-26 09:36 | Diagnostic Imaging Report ---
INDICATION: Shortness of air and abdominal pain. TIME OF EXAM: 9:27 AM Comparison is made with prior radiograph from 02/24/2021. Bowel gas pattern is unremarkable. The renal shadows are moderately obscured. No definite calculi along the course of the ureters are identified. Pelvic calcifications are noted which may represent phleboliths. There is moderate stool in the right colon. IMPRESSION: Stable abdominal radiograph showing moderate stool right colon. No acute feature is detected. Dictated by: Dictated on workstation # [id number]
[2021-02-26] MEDS ORDERED: MORP15TA69 PO (11:45)
[2021-02-26] MEDS ORDERED: ONDA4TAB11 PO (11:45)
[2021-02-26] MEDS ORDERED: PROMETHAZINE INJ 25 MG/ML (PHENERGAN) AMP IVP ONE (12:00)
[2021-02-26 13:14] VITALS: BP 146/68
--- NOTE | 2021-02-26 13:33 | History & Physical ---
MARIODWAYNE 02/26/21 1333: History of Present Illness History of Present Illness Reason for visit/HPI 70 M presents with a shooting sharp nonradiating L flank pain onset 3 days ago w/ nausea and vomiting. Patient is a poor historian. Reports SOA, R foot swelling, LE rashes/itches. Denies CVA tenderness. Patient states he has tried 3 doses of morphine and fentanyl. PMH significant for passing 2 kidney stones in 2018, muscle spasms, and a nerve conduction study in 2012. He has an appointment with Dr. Mccauley at 15:15. Date of Admission Feb 26, 2021 at 12:40 Time Seen by a Provider: 13:33 I consulted on this patient on 02/26/21 13:14 Attending Physician Venice Burrell DO Admitting Physician Venice Burrell DO Consult Allergies and Home Medications Allergies Coded Allergies: aspirin (Verified Allergy, Severe, CHOKING, 04/16/16) acetaminophen (Verified Allergy, Mild, 04/16/16) hydrocodone (Verified Allergy, Mild, 04/16/16) Home Medications Atenolol 25 Mg Tablet, 50 MG PO DAILY, (Reported) TAKES 2 (25MG) TABS LAST FILLED 01-10-2021 #60/30 DAY SUPPLY Last Action: Reviewed Clonidine HCl 0.1 Mg Tablet, 0.2 MG PO TID, (Reported) TAKES 2 (0.1MG) TABS Last Action: Reviewed Glipizide 5 Mg Tab.er.24, 5 MG PO DAILY, (Reported) Last Action: Reviewed Hydralazine HCl 25 Mg Tablet, 50 MG PO BID, (Reported) TAKES 2 (25MG) TABS Last Action: Reviewed Ibuprofen 200 Mg Tablet, 600 MG PO Q8H PRN for PAIN-MILD (1-4), (Reported) Last Action: Reviewed Metoprolol Succinate 25 Mg Tab.er.24h, 25 MG PO DAILY, (Reported) Last Action: Reviewed Tamsulosin HCl 0.4 Mg Cap, 0.4 MG PO DAILY, (Reported) FILLED 02-25-2021 #3/3 DAY SUPPLY Last Action: Reviewed Past Bcflfpl-Nlcjbb-Zenoyz Hx Patient Social History 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) Tobacco Use?: No Substance use?: No Alcohol Use?: No Pt feels they are or have been: No Immunizations Up To Date Date of Influenza Vaccine: Apr 24, 2016 First/Initial COVID19 Vaccinat: SEPTEMBER Tetanus Booster (TDap): Less Than 5 Years Hepatitis A: No Hepatitis B: No Date of Pneumonia Vaccine: December 07, 2010 Seasonal Allergies Seasonal Allergies: No Current Status Primary Language: Polish Preferred Spoken Language: Polish Past Medical History Surgeries: Abdominal (bilateral inguinal hernias), Appendectomy (1999) Hypertension Kidney Stones Hiatal Hernia Fractures Diabetes, Non-Insulin dep Blood Disorders: No Family Medical History Cancer 03 FATHER (SKIN CANCER) 03 MOTHER (LUNG CANCER) Cataract 03 FATHER Congestive heart failure 03 MOTHER Dementia 03 MOTHER Family history: Diabetes mellitus 03 FATHER Family history: Hypertension 03 FATHER 03 MOTHER Family history: Osteoporosis 03 MOTHER Family history: Thyroid disorder 03 FATHER (HYPERTHYROIDISM) Hearing loss 03 FATHER No Family History of: Abdominal aortic aneurysm Stan's disease Alcoholism Aphasia Cancer of colon Chest pain Congenital heart disease Cystic fibrosis Dysphagia Family history: Allergy Family history: Alzheimer's disease Family history: Arthritis Family history: Asthma Family history: Breast disease Family history: Cardiovascular disease Family history: Coronary thrombosis Family history: Gastrointestinal disease Family history: Glaucoma Headache Heart disease Hereditary disease History of - anemia History of - disorder History of - respiratory disease History of drug abuse Human immunodeficiency virus (HIV) seropositivity Hypercholesterolemia Infertile Kidney disease Malignant neoplasm of lung Myocardial infarction Parkinson's disease Prostate cancer Psychotic disorder Seizure disorder Stroke Tuberculosis Visual impairment Cerebral Aneurysm (Sister), Diabetes (Father), Stroke (Mother) Review of Systems Constitutional: No chills, No fever, No weight loss EENTM: No ear pain, No blurred vision, No eye pain, No nose pain, No throat pain, No throat swelling Respiratory: No cough; short of breath Cardiovascular: No chest pain; edema; No palpitations Gastrointestinal: No diarrhea; nausea, vomiting Genitourinary: No dysuria, No hematuria, No incontinence Musculoskeletal: back pain, muscle twitching; No neck pain Skin: No change in color, No lesions; pruritus (Face to abd to ), rash Psychiatric/Neurological: Denies Numbness; Tingling Physical Exam Vital Signs Vital Signs - First Documented 02/26/21 02/26/21 07:37 13:14 Temp 36.8 Pulse 69 Resp 18 B/P (MAP) 186/80 (115) Pulse Ox 98 O2 Delivery Room Air Capillary Refill : Less Than 3 Seconds Height, Weight, BMI Height: 6'1.00" Weight: 190lbs. 14.0oz. 86.151121av; 25.00 BMI Method:Stated General Appearance: Mild Distress Eyes: Right Eye PERRL (Left eye pupil non reactive); Bilateral Eye EOMI HEENT: No PERRL/EOMI; Pharynx Normal; No Moist Mucous Membranes (Dry) Neck: Full Range of Motion, Normal Inspection, Non Tender, Supple; No Lymphadenopathy (L), No Lymphadenopathy (R) Respiratory: Chest Non Tender, Lungs Clear, Normal Breath Sounds, No Accessory Muscle Use, No Respiratory Distress Cardiovascular: Regular Rate, Rhythm, No Edema, No Gallop, No JVD, No Murmur, Normal Peripheral Pulses Gastrointestinal: Normal Bowel Sounds, Non Tender, Soft; No Guarding Back: No CVA Tenderness Extremity: Normal Capillary Refill, Calf Tenderness, Pedal Edema Neurologic/Psychiatric: Alert, Oriented x3, lapidary apprentice II-XII Norm as Tested (grossly intact) Skin: Normal Color, Warm/Dry Lymphatic: No Adenopathy Assessment/Plan Assessment and Plan L Renal Stone -Consult with after appointment w/ Dr. Vasquez @ 15:15 -IV Fluids/Drink plenty of water to help pass kidney stone Dehydration secondary to Nausea/Vomiting -IV Fluids Muscle Spasms -Consult neurology VENICE BURRELL DO 02/27/21 0650: History of Present Illness History of Present Illness Reason for visit/HPI CC: Renal Colic with nausea and vomiting HPI: This is a clinic pt of [facility] who has a hx of recent kidney stones and presented for the 3rd day in a row with renal colic. He was found to have a stone obstructing so Dr. Vasquez will perform a procedure tomorrow in order to eliminate the pain so will admit for IV fluids, pain medication, antiemetics and will monitor closely. Allergies and Home Medications Allergies Coded Allergies: aspirin (Verified Allergy, Severe, CHOKING, 04/16/16) acetaminophen (Verified Allergy, Mild, 04/16/16) hydrocodone (Verified Allergy, Mild, 04/16/16) Home Medications Atenolol 25 Mg Tablet, 50 MG PO DAILY, (Reported) TAKES 2 (25MG) TABS LAST FILLED 01-10-2021 #60/30 DAY SUPPLY Last Action: Reviewed Clonidine HCl 0.1 Mg Tablet, 0.2 MG PO TID, (Reported) TAKES 2 (0.1MG) TABS Last Action: Reviewed Glipizide 5 Mg Tab.er.24, 5 MG PO DAILY, (Reported) Last Action: Reviewed Hydralazine HCl 25 Mg Tablet, 50 MG PO BID, (Reported) TAKES 2 (25MG) TABS Last Action: Reviewed Ibuprofen 200 Mg Tablet, 600 MG PO Q8H PRN for PAIN-MILD (1-4), (Reported) Last Action: Reviewed Metoprolol Succinate 25 Mg Tab.er.24h, 25 MG PO DAILY, (Reported) Last Action: Reviewed Tamsulosin HCl 0.4 Mg Cap, 0.4 MG PO DAILY, (Reported) FILLED 02-25-2021 #3/3 DAY SUPPLY Last Action: Reviewed Patient Home Medication List Home Medication List Reviewed: Yes Past Emamysu-Twqyjg-Zcyxjb Hx Patient Social History 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) Smoking Status: Never a Smoker Past Medical History Hypertension Kidney Stones Diabetes, Non-Insulin dep Family Medical History Cancer 03 FATHER (SKIN CANCER) 03 MOTHER (LUNG CANCER) Cataract 03 FATHER Congestive heart failure 03 MOTHER Dementia 03 MOTHER Family history: Diabetes mellitus 03 FATHER Family history: Hypertension 03 FATHER 03 MOTHER Family history: Osteoporosis 03 MOTHER Family history: Thyroid disorder 03 FATHER (HYPERTHYROIDISM) Hearing loss 03 FATHER No Family History of: Abdominal aortic aneurysm [place]'s disease Alcoholism Aphasia Cancer of colon Chest pain Congenital heart disease Cystic fibrosis Dysphagia Family history: Allergy Family history: Alzheimer's disease Family history: Arthritis Family history: Asthma Family history: Breast disease Family history: Cardiovascular disease Family history: Coronary thrombosis Family history: Gastrointestinal disease Family history: Glaucoma Headache Heart disease Hereditary disease History of - anemia History of - disorder History of - respiratory disease History of drug abuse Human immunodeficiency virus (HIV) seropositivity Hypercholesterolemia Infertile Kidney disease Malignant neoplasm of lung Myocardial infarction Parkinson's disease Prostate cancer Psychotic disorder Seizure disorder Stroke Tuberculosis Visual impairment Review of Systems Constitutional: see HPI, weakness Gastrointestinal: abdominal pain, loss of appetite, nausea, vomiting Physical Exam General Appearance: Anxious, Mild Distress Respiratory: Lungs Clear, Normal Breath Sounds Cardiovascular: Regular Rate, Rhythm Neurologic/Psychiatric: Alert, Oriented x3 Assessment/Plan Assessment and Plan Assessment: Renal colic Nausea and vomiting Acute kidney injury Obstructed left renal stone Diabetes mellitus Chronic pain Plan: Appreciate urology consultation IV fluids Antiemetics Pain meds Problems: (1) Kidney stone Status: Acute (2) Inadequate pain control Status: Acute (3) Dehydration Status: Acute (4) Vomiting Status: Acute Admission Diagnosis Admission Status: Observation Supervisory-Addendum Brief Verification & Attestation Participated in pt care: history, MDM, physical Personally performed: exam, history, MDM, supervision of care Care discussed with: Medical Student Procedures: n/a Results interpretation: Verified all documentation Verification and Attestation of Medical Student E/M Service A medical student performed and documented this service in my presence. I reviewed and verified all information documented by the medical student and made modifications to such information, when appropriate. I personally performed the physical exam and medical decision making. Venice Burrell Feb 27, 2021,07:07 DWAYNE MARTIN Feb 26, 2021 13:33 VENICE BURRELL DO Feb 27, 2021 06:50
[2021-02-26] MEDS ORDERED: HYDROmorphone 2 MG/ML VIAL (DILAUDID) IV PRN (14:00)
[2021-02-26] MEDS ORDERED: ACETAMINOPHEN 500 MG TAB (TYLENOL) PO PRN (14:00)
[2021-02-26] MEDS: NS W/KCL 20 MEQ/L 1,000 ML IV SCH ×2 (14:37→21:10)
[2021-02-26] MEDS: KETOROLAC 15 MG/ML VIAL IVP PRN (14:46)
[2021-02-26] MEDS ORDERED: morphine INJ 4 MG/ML 1 ML (VIAL/SYRINGE) IVP PRN (15:00)
[2021-02-26] MEDS ORDERED: ONDANSETRON 4 MG/2 ML (SDV) Z0FRAN IVP PRN (15:00)
[2021-02-26 15:20] VITALS: BP 150/77
[2021-02-26] MEDS ORDERED: ATEN25TA PO (16:14)
[2021-02-26] MEDS ORDERED: TMSL.4C PO (16:14)
[2021-02-26] MEDS ORDERED: MTP25TSR PO (16:14)
[2021-02-26] MEDS ORDERED: IBUP-2473 PO (16:15)
[2021-02-26] MEDS: inSUlin ASPART (NovoLOG) 1 UNIT/0.01 ML (CHARGE PER UNIT) SC SCH ×2 (17:06→20:56)
--- NOTE | 2021-02-26 17:53 | CONSULTATION REPORT ---
DATE OF SERVICE: 02/26/2021 ATTENDING PHYSICIAN: Dr. Rg. SUMMARY: After reviewing the patient's record at the office and he was supposed to see me today and the admission chart is a 70-year-old white man with history of urolithiasis, who presented to the emergency room first time, but 2 days ago because of left flank pain. He was treated on an outpatient basis. He was given an appointment to see me today. However, he came back to the emergency room with pain again severe nausea and vomiting and intractable despite medications given in the emergency room. Decision was made to admit the patient for comfort symptomatic relief and for final management. I reviewed his complete history and physical done in the emergency room as well as previously by Dr. Rg, noted that he is allergic to ASPIRIN, ACETAMINOPHEN and HYDROCODONE, worst one was ASPIRIN. He is on atenolol 50 mg daily, clonidine 0.1 mg daily, glipizide 5 mg daily, hydralazine 25 mg b.i.d., Flomax 0.4 mg daily that was given from the emergency room and some p.r.n. REVIEW OF SYSTEMS: Otherwise, negative. SOCIAL HISTORY: No smoking, no alcohol, no drugs. Had COVID vaccination. PAST SURGICAL HISTORY: Appendectomy, hernia repair, surgery on his eyelid, heart ablation for SVT, not atrial fibrillation. He is on no blood thinners. FAMILY HISTORY: Cataracts, heart disease, congestive heart failure, diabetes, hypertension and thyroid issues as well as osteoporosis. PHYSICAL EXAMINATION: VITAL SIGNS: Per chart. GENERAL: Well-nourished, well-developed, in no acute distress at the time of my examination. The patient has been heavily medicated. NECK: Supple, no bruits. HEAD: Normocephalic. ENT: Unremarkable. HEART: Regular rate and rhythm, no murmurs. CHEST: Clear, nontender. ABDOMEN: Soft. There is 1+ left CVA tenderness. EXTREMITIES: Lower extremity, no edema or cyanosis. NEUROLOGIC: Grossly intact. Oriented x3. RECOMMENDATIONS: The patient had a KUB today only. We were unable to see the stone. His previous KUB as well was unable to see the stone. On the CT scan of 2 days ago, has a 3 mm stone in the left proximal ureter causing some obstruction. IMPRESSION: 1. Left proximal ureteral stone with pain and obstruction. 2. Non-insulin dependent diabetes mellitus. 3. Hypertension, atherosclerotic heart disease and a history of SVT. PLAN: We will admit the patient to the hospital, give him symptomatic treatment, hydration, antibiotic, strain all urine. We will obtain a noncontrast CT scan of the abdomen and pelvis in the early to see where the stone is and manage accordingly. The plan was fully explained to the patient. Job ID: [id number] DocumentID: [id number] Dictated Date: 02/26/2021 14:09:59 [employer] House Operator Date: 02/26/2021 17:51:59 Dictated By: FEI BRITO MD
[2021-02-26] MEDS ORDERED: PROMETHAZINE INJ 25 MG/ML (PHENERGAN) AMP IVP PRN (18:00)
[2021-02-26 20:05] VITALS: BP 145/67
[2021-02-26 23:45] VITALS: BP 169/78
[2021-02-27] VITALS (13 sets, daily range): BP systolic 131–232; BP diastolic 60–96
[2021-02-27] MEDS: NS W/KCL 20 MEQ/L 1,000 ML IV SCH (03:16)
[2021-02-27 05:15] LABS: BASOPHILS % (AUTO) 0 % (0-10); EOSINOPHILS # (AUTO) 0.1 10^3/uL (0.0-0.3); EOSINOPHILS % (AUTO) 1 % (0-10); HEMATOCRIT 40 % (40-54); HEMOGLOBIN 12.9 g/dL (13.3-17.7); LYMPHOCYTES # (AUTO) 1.4 10^3/uL (1.0-4.0); LYMPHOCYTES % (AUTO) 18 % (12-44); MEAN CORPUSCULAR HEMOGLOBIN 31 pg (25-34); MEAN CORPUSCULAR HGB CONC 33 g/dL (32-36); MEAN CORPUSCULAR VOLUME 95 fL (80-99); MEAN PLATELET VOLUME 11.7 fL (9.0-12.2); MONOCYTES # (AUTO) 0.9 10^3/uL (0.0-1.0); MONOCYTES % (AUTO) 11 % (0-12); NEUTROPHILS # (AUTO) 5.4 10^3/uL (1.8-7.8); NEUTROPHILS % (AUTO) 69 % (42-75); PLATELET COUNT 155 10^3/uL (130-400); WHITE BLOOD COUNT 7.8 10^3/uL (4.3-11.0)
[2021-02-27] MEDS: inSUlin ASPART (NovoLOG) 1 UNIT/0.01 ML (CHARGE PER UNIT) SC SCH ×4 (05:26→20:06)
[2021-02-27 05:28] LABS: CALCIUM 7.7 MG/DL (8.5-10.1)
[2021-02-27 05:32] LABS: CREATININE SERUM 2.08 MG/DL (0.60-1.30)
[2021-02-27 05:35] LABS: POTASSIUM 6.5 MMOL/L (3.6-5.0)
[2021-02-27] MEDS: KETOROLAC 15 MG/ML VIAL IVP PRN (05:37)
[2021-02-27] MEDS ORDERED: RT-ALBUTEROL SULF 2.5 MG/3 ML PRE-MIX VIAL INH ONE (06:00)
[2021-02-27] MEDS: NS IV 1000 ML 1,000 ML IV SCH ×3 (06:12→20:23)
--- NOTE | 2021-02-27 08:18 | Diagnostic Imaging Report ---
PROCEDURE: CT urinary tract, rule out kidney stone. TECHNIQUE: Multiple contiguous axial images were obtained through the abdomen and pelvis without the use of intravenous contrast. Auto Exposure Controls were utilized during the CT exam to meet ALARA standards for radiation dose reduction. INDICATION: Abdominal pain. COMPARISON STUDY: CT abdomen and pelvis from 02/24/2021. FINDINGS: Mild atelectasis is present in the lung bases. The left lobe of the liver has a simple cyst. Gallbladder, spleen, pancreas and adrenal glands are normal. There is a 2.9 mm calculus in the proximal left ureter with mild left hydronephrosis and some inflammation around the left kidney. A 2 mm calculus present in the lower pole of the left kidney. The right ureter and urinary bladder appear normal. Prostate gland is normal. No ascites, free air or abnormal adenopathy is present. Bowel loops demonstrate no inflammatory changes. IMPRESSION: 1. There is a 2.9 mm calculus in the proximal left ureter with mild hydronephrosis and inflammation around the left kidney. Tiny calculus is present in the inferior pole of the left kidney. 2. Degenerative changes are present in the spine and right hip. Dictated by: Dictated on workstation # [id number]
--- NOTE | 2021-02-27 08:21 | Progress Note - Urology ---
Progress Note-Urology Progress Notes/Assess & Plan Progress/Assessment & Plan STILL PAIN, CREAT AND K ELEVATED. PLAN LT URETEROSCOPY WITH LITHOTRIPSY, POSSIBLE BASKET, STENT OR LITHOTOMY. POSSIBLE ESWL TUESDAY IF UNABLE TO GET TO STONE TODAY. PATIENT UNDERSTANDS PROCEDURE AND OPTIONS Final Diagnosis LT PROXIMAL URETERAL STONE FEI BRITO MD Feb 27, 2021 08:21
--- NOTE | 2021-02-27 08:25 | Progress Note-Pre Operative ---
Pre-Operative Progress Note H&P Reviewed The H&P was reviewed, patient examined and no changes noted. Date Seen by Provider: Feb 27, 2021 Time Seen by Provider: 08:24 Date H&P Reviewed: Feb 27, 2021 Time H&P Reviewed: 08:24 Pre-Operative Diagnosis: LT PROXIMAL URETERAL STONE FEI BRITO MD Feb 27, 2021 08:25
[2021-02-27] MEDS: cefTRIAXone 1,000 MG/SWFI 10 ML IV PUSH IV SCH ×2 (08:49)
[2021-02-27] MEDS ORDERED: fentaNYL INJ 100 MCG/2 ML AMP ONE (10:54)
[2021-02-27] MEDS ORDERED: LIDOCAINE PF 2% 5 ML (XYLOCAINE) VIAL ONE (10:54)
[2021-02-27] MEDS ORDERED: SEVOFLURANE (ULTANE) 15 ML INHAL SOLN ONE (10:54)
[2021-02-27] MEDS ORDERED: proPOfol 200 MG/20 ML (DIPRIVAN) VIAL IV ONE (10:54)
[2021-02-27] MEDS ORDERED: MIDAZOLAM 2 MG/2 ML (VERSED) VIAL ONE (10:54)
[2021-02-27] MEDS ORDERED: LACTATED RINGERS 1,000 ML IV PRN (11:00)
[2021-02-27] MEDS ORDERED: ROCURONIUM 10 MG/ML 5 ML SYRINGE IV ONE (11:12)
[2021-02-27] MEDS ORDERED: NEOSTIGMINE 3 MG/3 ML VIAL ONE (11:27)
[2021-02-27] MEDS ORDERED: GLYCOPYRROLATE 0.2 MG/ML (ROBINUL) 2 ML VIAL ONE (11:27)
--- NOTE | 2021-02-27 11:40 | Progress Note-Post Operative ---
Post-Operative Progess Note Surgeon (s)/Electroplating Sales Representative (s) Surgeon FEI BRITO MD Electroplating Sales Representative: NONE Pre-Operative Diagnosis LT PROXIMAL URETERAL STONE Post-Operative Diagnosis SAME Procedure & Operative Findings Date of Procedure 02/27/21 Procedure Performed/Findings CYSTOSCOPY WITH LT URETERAL STONE MANIPULATION AND INSERTION OF STENT Anesthesia Type GENERAL Estimated Blood Loss Estimated blood loss (mL): NONE Specimens/Packing Specimens Removed NONE Packing: NONE FEI BRITO MD Feb 27, 2021 11:40
[2021-02-27] MEDS ORDERED: FUROSEMIDE 40 MG/4 ML INJ (LASIX) IVP ONE (12:15)
[2021-02-27] MEDS ORDERED: ENOXAPARIN 40 MG/0.4 ML (LOVENOX) SYR SC SCH (12:30)
--- NOTE | 2021-02-27 13:15 | Anesthesia-General Post-Op ---
General Patient Condition Mental Status/LOC: Same as Preop Cardiovascular: Satisfactory Nausea/Vomiting: Absent Respiratory: Satisfactory Pain: Controlled Complications: Absent Post Op Complications Complications None Follow Up Care/Instructions Patient Instructions None needed. Anesthesia/Patient Condition Patient Condition Patient is doing well, no complaints, stable vital signs, no apparent adverse anesthesia problems. No complications reported per nursing. D/C home per [facility] Criteria: Yes AIXA GUSMAN CRNA Feb 27, 2021 13:15
--- NOTE | 2021-02-27 14:25 | Progress Note ---
MARIODWAYNE 02/27/21 1425: Subjective Date Seen by a Provider: Feb 27, 2021 Time Seen by a Provider: 08:00 Subjective/Events-last exam Pt seems better than yesterday with reduced pain and no muscle spasms. KUB was unable to see a stone, but another CT scan was performed showing a 3mm proximal ureter stone. Urology consulted with Dr. Vasquez and stone basket removal of his stone was performed today resulting in nonremoval due to high placement of stone. Pt will need follow up after surgery. Review of Systems General: No Chills, No Fatigue; Appetite HEENT: No Head Aches, No Dysphasia, No Sore Throat Pulmonary: No Dyspnea, No Cough Cardiovascular: No: Chest Pain, Palpitations Gastrointestinal: No: Nausea, Vomiting, Diarrhea Genitourinary: No Dysuria, No Incontinence, No Hematuria Musculoskeletal: No: neck pain, shoulder pain Neurological: Confusion; No: Change in speech, Seizures Objective Exam Last Set of Vital Signs Vital Signs Date Time Temp Pulse Resp B/P (MAP) Pulse Ox O2 Delivery O2 Flow Rate FiO2 02/27/21 12:37 36.1 61 18 202/94 (130) 93 Room Air 02/27/21 12:10 8 Capillary Refill : Less Than 3 Seconds I&O Intake and Output 02/27/21 00:00 Intake Total 1410 ml Output Total 300 ml Balance 1110 ml Intake Oral 400 ml IV Total 1010 ml Output Urine Total 300 ml Daily Weight Change No General: Alert, Oriented X3, Cooperative, Moderate Distress HEENT: Atraumatic, EOMI Neck: Supple, No Thyromegaly Lungs: Clear to Auscultation, Normal Air Movement Abdomen: Normal Bowel Sounds, Soft, No Tenderness Extremities: No Clubbing, No Cyanosis Skin: No Rashes, No Significant Lesion Neuro: Normal Speech, Cranial Nerves 3-12 NL (grossly intact) Psych/Mental Status: Mood NL Results Lab Laboratory Tests 02/26/21 15:27: Glucometer 138H 02/26/21 20:40: Glucometer 157H 02/27/21 04:56: White Blood Count 7.8, Red Blood Count 4.15L, Hemoglobin 12.9L, Hematocrit 40, Mean Corpuscular Volume 95, Mean Corpuscular Hemoglobin 31, Mean Corpuscular Hemoglobin Concent 33, Red Cell Distribution Width 13.3, Platelet Count 155, Mean Platelet Volume 11.7, Immature Granulocyte % (Auto) 1, Neutrophils (%) (Auto) 69, Lymphocytes (%) (Auto) 18, Monocytes (%) (Auto) 11, Eosinophils (%) (Auto) 1, Basophils (%) (Auto) 0, Neutrophils # (Auto) 5.4, Lymphocytes # (Auto) 1.4, Monocytes # (Auto) 0.9, Eosinophils # (Auto) 0.1, Basophils # (Auto) 0.0, Immature Granulocyte # (Auto) 0.1, Sodium Level 141, Potassium Level 6.5#*H, Chloride Level 109H, Carbon Dioxide Level 21, Anion Gap 11, Blood Urea Nitrogen 23H, Creatinine 2.08H, Estimat Glomerular Filtration Rate 32, BUN/Creatinine Ratio 11, Glucose Level 125H, Calcium Level 7.7L 02/27/21 05:02: Glucometer 113H 02/27/21 08:44: SARS-CoV-2 RNA (RT-PCR) Not Detected Assessment/Plan Assessment/Plan Assess & Plan/Chief Complaint L Renal Stone -Dr. Vasquez did not remove stone, follow up with urology for further workup -IV Fluids/Drink plenty of water to help pass kidney stone Hyperkalemia -adjust IV fluids accordingly Dehydration secondary to Nausea/Vomiting -Resolved Muscle Spasms -Resolved Clinical Quality Measures Admission Status Admission Dx L Renal Stone -Consult with after appointment w/ Dr. Vasquez @ 15:15 -IV Fluids/Drink plenty of water to help pass kidney stone Dehydration secondary to Nausea/Vomiting -IV Fluids Muscle Spasms -Consult neurology VENICE BURRELL DO 02/28/21 0558: Subjective Subjective/Events-last exam Patient doing much better IV fluids will continue Potassium level was low which may be the result of IV fluids with potassium managed conservatively Good output Appointment with urology on Tuesday IV antibiotics will continue Review of Systems General: Fatigue Objective Exam General: Alert, Oriented X3, Cooperative, No Acute Distress Lungs: Clear to Auscultation Heart: Regular Rate Neuro: Normal Gait, Normal Speech, Strength at 5/5 X4 Ext, Normal Tone Psych/Mental Status: Mental Status NL, Mood NL Assessment/Plan Assessment/Plan Assess & Plan/Chief Complaint Continue IV fluids without potassium Lasix 1 dose Monitor closely Supervisory-Addendum Brief Verification & Attestation Participated in pt care: history, MDM, physical Personally performed: exam, history, MDM, supervision of care Care discussed with: Medical Student Procedures: n/a Results interpretation: Verified all documentation Verification and Attestation of Medical Student E/M Service A medical student performed and documented this service in my presence. I reviewed and verified all information documented by the medical student and made modifications to such information, when appropriate. I personally performed the physical exam and medical decision making. Venice Burrell, Feb 28, 2021,05:57 DWAYNE MARTIN Feb 27, 2021 14:25 VENICE BURRELL DO Feb 28, 2021 05:58
[2021-02-27] MEDS ORDERED: FUROSEMIDE 40 MG/4 ML INJ (LASIX) ONE (14:53)
[2021-02-27] MEDS: cloNIDine 0.1 MG (CATAPRES) TAB PO SCH ×2 (14:55→20:22)
--- NOTE | 2021-02-27 16:05 | OPERATIVE REPORT ---
DATE OF SERVICE: 02/27/2021 PREOPERATIVE DIAGNOSIS: Left proximal ureteral stone. POSTOPERATIVE DIAGNOSIS: Left proximal ureteral stone. OPERATION PERFORMED: Cystoscopy, left ureteral stone manipulation and insertion of left stent. SURGEON: Ibrahima Brito MD ANESTHESIA: General. COMPLICATIONS: None. DESCRIPTION OF PROCEDURE: Under satisfactory general anesthesia, the patient in lithotomy position, genitalia were prepped and draped in the usual sterile fashion. Cystoscope was introduced under vision. This was a wide caliber stricture just distal to the sphincter admitting the scope. Prostate revealed some enlargement with a median bar. Entering the bladder revealed trabeculation and the ureteral orifices displaced upward and laterally. For all these findings, elevated creatinine and potassium, I elected to plan to just put a stent, drain kidney, stabilize the condition. He may be able to pass the stone around the stent. Otherwise, on next Tuesday we will bring him back and take the stent out. I attempted ureteroscopy if not an ESWL. The plan was explained to the patient prior to surgery and to the after surgery. So, I went ahead and passed a 6-Burmese 28 cm double-J stent all the way up bypassing the stone and then the stent was seen draining nicely proximally fluoroscopically and distally endoscopically. I removed the guidewire and the stent was seen draining nicely proximally fluoroscopically and distally endoscopically. I emptied the bladder, removed the cystoscope. The patient tolerated the procedure and anesthesia well and was sent to recovery room in stable condition. Job ID: [id number] DocumentID: [id number] Dictated Date: 02/27/2021 11:51:48 Calculus Teacher Date: 02/27/2021 16:03:59 Dictated By: IBRAHIMA BRITO MD
[2021-02-27] MEDS ORDERED: cloNIDine 0.1 MG (CATAPRES) TAB ONE (16:29)
[2021-02-27] MEDS: cloNIDine 0.1 MG (CATAPRES) TAB PO PRN (16:32)
[2021-02-27 18:00] LABS: CALCIUM 8.2 MG/DL (8.5-10.1); CREATININE SERUM 1.41 MG/DL (0.60-1.30); POTASSIUM 4.3 MMOL/L (3.6-5.0)
[2021-02-27] MEDS: hydrALAZINE (APRESOLINE) 25 MG TAB PO SCH (20:22)
[2021-02-28 04:00] VITALS: BP 168/78
[2021-02-28] MEDS: NS IV 1000 ML 1,000 ML IV SCH ×2 (05:13→08:50)
[2021-02-28] MEDS: inSUlin ASPART (NovoLOG) 1 UNIT/0.01 ML (CHARGE PER UNIT) SC SCH (05:43)
[2021-02-28 06:44] LABS: BASOPHILS % (AUTO) 0 % (0-10); EOSINOPHILS # (AUTO) 0.2 10^3/uL (0.0-0.3); EOSINOPHILS % (AUTO) 3 % (0-10); HEMATOCRIT 39 % (40-54); HEMOGLOBIN 13.2 g/dL (13.3-17.7); LYMPHOCYTES # (AUTO) 1.1 10^3/uL (1.0-4.0); LYMPHOCYTES % (AUTO) 20 % (12-44); MEAN CORPUSCULAR HEMOGLOBIN 31 pg (25-34); MEAN CORPUSCULAR HGB CONC 34 g/dL (32-36); MEAN CORPUSCULAR VOLUME 91 fL (80-99); MONOCYTES # (AUTO) 0.5 10^3/uL (0.0-1.0); MONOCYTES % (AUTO) 9 % (0-12); NEUTROPHILS # (AUTO) 3.8 10^3/uL (1.8-7.8); NEUTROPHILS % (AUTO) 67 % (42-75); PLATELET COUNT 183 10^3/uL (130-400); WHITE BLOOD COUNT 5.6 10^3/uL (4.3-11.0)
[2021-02-28 06:50] LABS: ALBUMIN 3.3 GM/DL (3.2-4.5); POTASSIUM 4.1 MMOL/L (3.6-5.0)
[2021-02-28 06:52] LABS: CALCIUM 8.5 MG/DL (8.5-10.1)
[2021-02-28 06:53] LABS: TOTAL PROTEIN 6.3 GM/DL (6.4-8.2)
[2021-02-28 06:54] LABS: BILIRUBIN,TOTAL 0.5 MG/DL (0.1-1.0)
[2021-02-28 06:56] LABS: CREATININE SERUM 1.12 MG/DL (0.60-1.30)
[2021-02-28 08:00] VITALS: BP 182/75
[2021-02-28] MEDS: hydrALAZINE (APRESOLINE) 25 MG TAB PO SCH (08:47)
[2021-02-28] MEDS: cefTRIAXone 1,000 MG/SWFI 10 ML IV PUSH IV SCH ×2 (08:47)
[2021-02-28] MEDS: cloNIDine 0.1 MG (CATAPRES) TAB PO SCH (08:48)
[2021-02-28] MEDS: cloNIDine 0.1 MG (CATAPRES) TAB PO PRN (08:59)
[2021-02-28] MEDS ORDERED: ATENOLOL 25 MG (TENORMIN) TAB PO SCH (09:00)
[2021-02-28] MEDS ORDERED: TAMSULOSIN 0.4 MG (FLOMAX) CAP PO SCH (09:00)
--- NOTE | 2021-02-28 09:01 | Diagnostic Imaging Report ---
EXAM: ABDOMEN/KUB 1VIEW INDICATION: Postop ureteral stent. COMPARISON: CT abdomen and pelvis without contrast 02/27/2021. FINDINGS: Left ureteral stent appears to be in the expected position. Nonspecific bowel gas pattern. IMPRESSION: Left ureteral stent appears to be in the expected position. Dictated by: Dictated on workstation # [id number]
[2021-02-28] MEDS ORDERED: OXYC5TAB PO (11:14)
[2021-02-28] MEDS ORDERED: CEFD300C3 PO (11:14)
--- NOTE | 2021-02-28 11:21 | Discharge Summary ---
Diagnosis/Chief Complaint Date of Admission Feb 26, 2021 at 12:40 Date of Discharge Discharge Date: Feb 28, 2021 Discharge Diagnosis Assessment: Renal colic Nausea and vomiting Acute kidney injury Obstructed left renal stone Diabetes mellitus Chronic pain Hypertension malignant type Plan: Appreciate urology consultation IV fluids Antiemetics Pain meds Reason Hospital Visit CC: Renal Colic with nausea and vomiting HPI: This is a clinic pt of [facility] who has a hx of recent kidney stones and presented for the 3rd day in a row with renal colic. He was found to have a stone obstructing so Dr. Vasquez will perform a procedure tomorrow in order to eliminate the pain so will admit for IV fluids, pain medication, antiemetics and will monitor closely. Discharge Summary Discharge Physical Examination Allergies: Coded Allergies: aspirin (Verified Allergy, Severe, CHOKING, 04/16/16) acetaminophen (Verified Allergy, Mild, 04/16/16) hydrocodone (Verified Allergy, Mild, 04/16/16) Vitals & I&Os Vital Signs Date Time Temp Pulse Resp B/P (MAP) Pulse Ox O2 Delivery O2 Flow Rate FiO2 02/28/21 13:26 35.7 60 12 182/75 97 Room Air 8.00 General Appearance: Alert, Oriented X3, Cooperative Respiratory: Clear to Auscultation Cardiovascular: Regular Rate Neuro: Normal Gait, Normal Speech, Strength at 5/5 X4 Ext Psych/Mental Status: Mental Status NL Hospital Course Was the Problem List Reviewed?: Yes Hospital course: Patient was admitted for renal colic with dehydration and acute kidney injury due to kidney stone obstruction. Hypertension was managed with home medications. IV fluids initiated along with pain medication and antiemetics. Urology placed ureter stent with good resolution of pain from obstruction. Hydronephrosis much improved. Patient was set for discharge with kidney function returning back to normal. Labs (last 24 hrs) Laboratory Tests 02/26/21 07:37: White Blood Count 9.2, Red Blood Count 4.55, Hemoglobin 13.9, Hematocrit 42, Mean Corpuscular Volume 92, Mean Corpuscular Hemoglobin 31, Mean Corpuscular Hemoglobin Concent 33, Red Cell Distribution Width 13.2, Platelet Count 224, Mean Platelet Volume 11.4, Immature Granulocyte % (Auto) 1, Neutrophils (%) (Auto) 76H, Lymphocytes (%) (Auto) 15, Monocytes (%) (Auto) 8, Eosinophils (%) (Auto) 1, Basophils (%) (Auto) 0, Neutrophils # (Auto) 7.0, Lymphocytes # (Auto) 1.4, Monocytes # (Auto) 0.7, Eosinophils # (Auto) 0.1, Basophils # (Auto) 0.0, Immature Granulocyte # (Auto) 0.1, Sodium Level 140, Potassium Level 4.5, Chloride Level 107, Carbon Dioxide Level 24, Anion Gap 9, Blood Urea Nitrogen 23H, Creatinine 1.99H, Estimat Glomerular Filtration Rate 33, BUN/Creatinine Ratio 12, Glucose Level 161H, Calcium Level 8.4L, Corrected Calcium 8.6, Total Bilirubin 0.8, Aspartate Amino Transf (AST/SGOT) 18, Alanine Aminotransferase (ALT/SGPT) 20, Alkaline Phosphatase 58, C-Reactive Protein High Sensitivity 1.32H, Total Protein 6.9, Albumin 3.7 02/26/21 11:59: Glucometer 171H 02/26/21 13:12: Glucometer 149H 02/26/21 15:27: Glucometer 138H 02/26/21 20:40: Glucometer 157H 02/27/21 04:56: White Blood Count 7.8, Red Blood Count 4.15L, Hemoglobin 12.9L, Hematocrit 40, Mean Corpuscular Volume 95, Mean Corpuscular Hemoglobin 31, Mean Corpuscular Hemoglobin Concent 33, Red Cell Distribution Width 13.3, Platelet Count 155, Mean Platelet Volume 11.7, Immature Granulocyte % (Auto) 1, Neutrophils (%) (Auto) 69, Lymphocytes (%) (Auto) 18, Monocytes (%) (Auto) 11, Eosinophils (%) (Auto) 1, Basophils (%) (Auto) 0, Neutrophils # (Auto) 5.4, Lymphocytes # (Auto) 1.4, Monocytes # (Auto) 0.9, Eosinophils # (Auto) 0.1, Basophils # (Auto) 0.0, Immature Granulocyte # (Auto) 0.1, Sodium Level 141, Potassium Level 6.5#*H, Chloride Level 109H, Carbon Dioxide Level 21, Anion Gap 11, Blood Urea Nitrogen 23H, Creatinine 2.08H, Estimat Glomerular Filtration Rate 32, BUN/Creatinine Ratio 11, Glucose Level 125H, Calcium Level 7.7L 02/27/21 05:02: Glucometer 113H 02/27/21 08:44: SARS-CoV-2 RNA (RT-PCR) Not Detected 02/27/21 15:37: Glucometer 174H 02/27/21 17:35: Sodium Level 140, Potassium Level 4.3, Chloride Level 108H, Carbon Dioxide Level 23, Anion Gap 9, Blood Urea Nitrogen 18, Creatinine 1.41H, Estimat Glomerular Filtration Rate 49, BUN/Creatinine Ratio 13, Glucose Level 168H, Calcium Level 8.2L 02/27/21 20:02: Glucometer 177H 02/28/21 05:29: Glucometer 164H 02/28/21 06:35: White Blood Count 5.6, Red Blood Count 4.32, Hemoglobin 13.2L, Hematocrit 39L, Mean Corpuscular Volume 91, Mean Corpuscular Hemoglobin 31, Mean Corpuscular Hemoglobin Concent 34, Red Cell Distribution Width 12.7, Platelet Count 183, Mean Platelet Volume 11.0, Immature Granulocyte % (Auto) 1, Neutrophils (%) (Auto) 67, Lymphocytes (%) (Auto) 20, Monocytes (%) (Auto) 9, Eosinophils (%) (Auto) 3, Basophils (%) (Auto) 0, Neutrophils # (Auto) 3.8, Lymphocytes # (Auto) 1.1, Monocytes # (Auto) 0.5, Eosinophils # (Auto) 0.2, Basophils # (Auto) 0.0, Immature Granulocyte # (Auto) 0.0, Sodium Level 143, Potassium Level 4.1, Chloride Level 109H, Carbon Dioxide Level 24, Anion Gap 10, Blood Urea Nitrogen 15, Creatinine 1.12, Estimat Glomerular Filtration Rate 64, BUN/Creatinine Ratio 13, Glucose Level 158H, Calcium Level 8.5, Corrected Calcium 9.1, Total Bilirubin 0.5, Aspartate Amino Transf (AST/SGOT) 15, Alanine Aminotransferase ( ALT/SGPT) 17, Alkaline Phosphatase 52, Total Protein 6.3L, Albumin 3.3 Microbiology 02/27/21 MRSA Screen - Final, Complete MRSA not isolated Pending Labs Microbiology Date/Time Source Procedure Growth Status 02/27/21 08:44 Nasal MRSA Screen - Final MRSA not isolated Complete Laboratory Tests 02/26/21 07:37: White Blood Count 9.2, Red Blood Count 4.55, Hemoglobin 13.9, Hematocrit 42, Mean Corpuscular Volume 92, Mean Corpuscular Hemoglobin 31, Mean Corpuscular Hemoglobin Concent 33, Red Cell Distribution Width 13.2, Platelet Count 224, Mean Platelet Volume 11.4, Immature Granulocyte % (Auto) 1, Neutrophils (%) (Auto) 76, Lymphocytes (%) (Auto) 15, Monocytes (%) (Auto) 8, Eosinophils (%) (Auto) 1, Basophils (%) (Auto) 0, Neutrophils # (Auto) 7.0, Lymphocytes # (Auto) 1.4, Monocytes # (Auto) 0.7, Eosinophils # (Auto) 0.1, Basophils # (Auto) 0.0, Immature Granulocyte # (Auto) 0.1, Sodium Level 140, Potassium Level 4.5, Chloride Level 107, Carbon Dioxide Level 24, Anion Gap 9, Blood Urea Nitrogen 23, Creatinine 1.99, Estimat Glomerular Filtration Rate 33, BUN/Creatinine Ratio 12, Glucose Level 161, Calcium Level 8.4, Corrected Calcium 8.6, Total Bilirubin 0.8, Aspartate Amino Transf (AST/SGOT) 18, Alanine Aminotransferase (ALT/SGPT) 20, Alkaline Phosphatase 58, C-Reactive Protein High Sensitivity 1.32, Total Protein 6.9, Albumin 3.7 02/26/21 11:59: Glucometer 171 02/26/21 13:12: Glucometer 149 02/26/21 15:27: Glucometer 138 02/26/21 20:40: Glucometer 157 02/27/21 04:56: White Blood Count 7.8, Red Blood Count 4.15, Hemoglobin 12.9, Hematocrit 40, Mean Corpuscular Volume 95, Mean Corpuscular Hemoglobin 31, Mean Corpuscular Hemoglobin Concent 33, Red Cell Distribution Width 13.3, Platelet Count 155, Mean Platelet Volume 11.7, Immature Granulocyte % (Auto) 1, Neutrophils (%) (Auto) 69, Lymphocytes (%) (Auto) 18, Monocytes (%) (Auto) 11, Eosinophils (%) (Auto) 1, Basophils (%) (Auto) 0, Neutrophils # (Auto) 5.4, Lymphocytes # (Auto) 1.4, Monocytes # (Auto) 0.9, Eosinophils # (Auto) 0.1, Basophils # (Auto) 0.0, Immature Granulocyte # (Auto) 0.1, Sodium Level 141, Potassium Level 6.5, Chloride Level 109, Carbon Dioxide Level 21, Anion Gap 11, Blood Urea Nitrogen 23, Creatinine 2.08, Estimat Glomerular Filtration Rate 32, BUN/Creatinine Ratio 11, Glucose Level 125, Calcium Level 7.7 02/27/21 05:02: Glucometer 113 02/27/21 08:44: Influenza Type A (RT-PCR) [Pending], Influenza Type B (RT-PCR) [Pending], SA RS-CoV-2 RNA (RT-PCR) Not Detected 02/27/21 15:37: Glucometer 174 02/27/21 17:35: Sodium Level 140, Potassium Level 4.3, Chloride Level 108, Carbon Dioxide Level 23, Anion Gap 9, Blood Urea Nitrogen 18, Creatinine 1.41, Estimat Glomerular Filtration Rate 49, BUN/Creatinine Ratio 13, Glucose Level 168, Calcium Level 8.2 02/27/21 20:02: Glucometer 177 02/28/21 05:29: Glucometer 164 02/28/21 06:35: White Blood Count 5.6, Red Blood Count 4.32, Hemoglobin 13.2, Hematocrit 39, Mean Corpuscular Volume 91, Mean Corpuscular Hemoglobin 31, Mean Corpuscular Hemoglobin Concent 34, Red Cell Distribution Width 12.7, Platelet Count 183, Mean Platelet Volume 11.0, Immature Granulocyte % (Auto) 1, Neutrophils (%) (Auto) 67, Lymphocytes (%) (Auto) 20, Monocytes (%) (Auto) 9, Eosinophils (%) (Auto) 3, Basophils (%) (Auto) 0, Neutrophils # (Auto) 3.8, Lymphocytes # (Auto) 1.1, Monocytes # (Auto) 0.5, Eosinophils # (Auto) 0.2, Basophils # (Auto) 0.0, Immature Granulocyte # (Auto) 0.0, Sodium Level 143, Potassium Level 4.1, Chloride Level 109, Carbon Dioxide Level 24, Anion Gap 10, Blood Urea Nitrogen 15, Creatinine 1.12, Estimat Glomerular Filtration Rate 64, BUN/Creatinine Ratio 13, Glucose Level 158, Calcium Level 8.5, Corrected Calcium 9.1, Total Bilirubin 0.5, Aspartate Amino Transf (AST/SGOT) 15, Alanine Aminotransferase (ALT/SGPT) 17, Alkaline Phosphatase 52, Total Protein 6.3, Albumin 3.3 Discharge Home Medications: Active Scripts Active Oxycodone HCl 5 Mg Tablet 5 Mg PO Q4H Cefdinir 300 Mg Capsule 300 Mg PO BID Reported Metoprolol Succinate 25 Mg Tab.er.24h 25 Mg PO DAILY Atenolol 25 Mg Tablet 50 Mg PO DAILY TAKES 2 (25MG) TABS LAST FILLED 01-10-2021 #60/30 DAY SUPPLY Flomax (Tamsulosin HCl) 0.4 Mg Cap 0.4 Mg PO DAILY FILLED 02-25-2021 #3/3 DAY SUPPLY Hydralazine HCl 25 Mg Tablet 50 Mg PO BID TAKES 2 (25MG) TABS Glipizide ER (Glipizide) 5 Mg Tab.er.24 5 Mg PO DAILY Clonidine HCl 0.1 Mg Tablet 0.2 Mg PO TID TAKES 2 (0.1MG) TABS Instructions to patient/family Please see electronic discharge instructions given to patient. Diagnosis/Problems Diagnosis/Problems (1) Kidney stone Status: Acute (2) Inadequate pain control Status: Acute (3) Dehydration Status: Acute (4) Vomiting Status: Acute TRAMAINE BURRELL DO Feb 28, 2021 11:21
[2021-02-28 13:26] VITALS: BP 182/75
== END 2021-02-28 12:00 | disposition home or self-care (01) ==
LOC: EDUNIT# 07:04 → ER 07:05 → UNDOADMOB 12:40 → 4TH 12:40 → SDC 13:14 → 4TH 02-27 18:18 → SDC 02-27 18:18 → UNDODISOB 02-28 12:00
PROVIDERS: ATTEND Internal Medicine
DX: N20.2 Calculus of kidney with calculus of ureter (principal); E86.0 Dehydration; G89.29 Other chronic pain; I47.1 Supraventricular tachycardia; I25.10 Atherosclerotic heart disease of native coronary artery without angina pectoris; N17.9 Acute kidney failure, unspecified; I10 Essential (primary) hypertension; E11.9 Type 2 diabetes mellitus without complications; I50.9 Heart failure, unspecified; Z79.84 Long term (current) use of oral hypoglycemic drugs; Z90.89 Acquired absence of other organs; Z83.3 Family history of diabetes mellitus; Z80.9 Family history of malignant neoplasm, unspecified
CPT/HCPCS: 36415; 74018; 74176; 76000; 80048; 80053; 82947; 85025; 86141; 87081; 87636; 93005; 96374; 96375; 96376; G0378

== ENCOUNTER 2021-03-02 06:22 | Outpatient (CLI) | payer MEDICARE ==
[~2021-03-02] VITALS: Ht 182 cm; Wt 90.1 kg
[~2021-03-02 06:22] MED LIST changes: -NITR-65 PO; -PHEN-639 PO
[2021-03-03] MEDS ORDERED: NITR-65 PO (14:02)
[2021-03-03] MEDS ORDERED: PHEN-639 PO (14:02)
== END 2021-03-02 15:24 | disposition home or self-care (01) ==
LOC: PREOP 06:22
PROVIDERS: ATTEND Urology
DX: Z01.818 Encounter for other preprocedural examination (principal)

== ENCOUNTER → 2021-03-02 | Outpatient (CLI) | payer MEDICARE ==
[~2021-03-02] MED LIST changes: +ATEN25TA PO; +CEFD300C3 PO; +IBUP-2473 PO; +MORP15TA69 PO; +MTP25TSR PO; +NITR-65 PO; +ONDA4TAB11 PO; +OXYC5TAB PO; +PHEN-639 PO
--- NOTE | 2021-03-02 14:16 | Diagnostic Imaging Report ---
INDICATION: Urinary tract calculus. Supine image of the abdomen is obtained with comparison made to study of 02/28/2021. Left double-J nephroureteral stent is in stable position. Calcifications in the pelvis appear to be related to atherosclerosis and probable phleboliths. Otherwise no definite pathologic abdominal calcification is identified. There is moderate amount of stool in the right colon. IMPRESSION: Distention of the right colon with stool. Otherwise, no acute abnormality or significant change is seen. Dictated by: Dictated on workstation # [id number]
== END ==
LOC: RAD 12:48
PROVIDERS: ATTEND Urology
DX: N20.1 Calculus of ureter (principal)
CPT/HCPCS: 74018

== ENCOUNTER 2021-03-03 07:27 | Day surgery (SDC) | payer MEDICARE ==
[~2021-03-03] VITALS: Ht 182 cm; Wt 90.1 kg
[2021-03-03] VITALS (11 sets, daily range): BP systolic 146–213; BP diastolic 71–97
--- NOTE | 2021-03-03 07:42 | Progress Note-Pre Operative ---
Pre-Operative Progress Note H&P Reviewed The H&P was reviewed, patient examined and no changes noted. Date Seen by Provider: Mar 03, 2021 Time Seen by Provider: 07:41 Date H&P Reviewed: Mar 03, 2021 Time H&P Reviewed: 07:41 Pre-Operative Diagnosis: LT PROXIMAL URETERAL STONE FEI BRITO MD Mar 03, 2021 07:41
[2021-03-03] MEDS ORDERED: LACTATED RINGERS 1,000 ML IV PRN (08:00)
[2021-03-03] MEDS ORDERED: cefTRIAXone 1,000 MG in WATER (STERILE) FOR INJECTION 10 ML IV ONE (08:00)
--- NOTE | 2021-03-03 09:08 | Diagnostic Imaging Report ---
INDICATION: Nephrolithiasis. EXAMINATION: KUB at 8:08 AM. FINDINGS: There is a left double-J ureteral stent. There are no appreciable calculi seen in the kidneys. There are some calcifications in the pelvis which are probably phleboliths or vascular in nature. IMPRESSION: Unremarkable abdomen. Dictated by: Dictated on workstation # [id number]
[2021-03-03] MEDS ORDERED: LIDOCAINE PF 2% 5 ML (XYLOCAINE) VIAL ONE (10:08)
[2021-03-03] MEDS ORDERED: proPOfol 200 MG/20 ML (DIPRIVAN) VIAL IV ONE (10:08)
[2021-03-03] MEDS ORDERED: ONDANSETRON 4 MG/2 ML (SDV) Z0FRAN ONE (10:08)
[2021-03-03] MEDS ORDERED: SEVOFLURANE (ULTANE) 15 ML INHAL SOLN ONE ×2 (10:08→10:39)
[2021-03-03] MEDS ORDERED: ROCURONIUM 10 MG/ML 5 ML SYRINGE IV ONE (10:08)
[2021-03-03] MEDS ORDERED: fentaNYL INJ 100 MCG/2 ML AMP ONE (10:09)
[2021-03-03] MEDS ORDERED: MIDAZOLAM 2 MG/2 ML (VERSED) VIAL ONE (10:09)
--- NOTE | 2021-03-03 10:14 | Progress Note-Post Operative ---
Post-Operative Progess Note Surgeon (s)/Carpenters Supervisor (s) Surgeon FEI BRITO MD Carpenters Supervisor: NONE Pre-Operative Diagnosis LT PROXIMAL URETERAL STONE Post-Operative Diagnosis SAME Procedure & Operative Findings Date of Procedure 03/03/21 Procedure Performed/Findings CYSTOCOPY, REMOVAL OF STENT AND LT URETEROSCOPY Anesthesia Type GENERAL Estimated Blood Loss Estimated blood loss (mL): NONE Specimens/Packing Specimens Removed NONE Packing: NONE FEI BRITO MD Mar 03, 2021 10:14
--- NOTE | 2021-03-03 10:15 | Discharge Inst-Urology ---
Discharge Inst-Urology Reconcile Patient Problems Problems Reviewed?: Yes Final Diagnosis LT PROXIMAL STONE Patient Instructions/Follow Up Plan/Assessment/Instructions Please make appointment to been seen in office in 3 weeks. Increase oral fluids for 48 hours and then as needed. Diet and Activity as tolerated. If questions or concerns contact your physician Or seek help at emergency department. FEI BRITO MD Mar 03, 2021 10:15
[2021-03-03] MEDS ORDERED: FUROSEMIDE 40 MG/4 ML INJ (LASIX) ONE (10:40)
[2021-03-03] MEDS ORDERED: MEPERIDINE (DEMEROL) INJ 50 MG/ML IVP ONE (11:00)
[2021-03-03] MEDS ORDERED: morphine INJ 10 MG/ML 1ML (SYR OR VIAL) IVP ONE (11:00)
[2021-03-03] MEDS ORDERED: ONDANSETRON 4 MG/2 ML (SDV) Z0FRAN IVP PRN (11:00)
[2021-03-03] MEDS ORDERED: fentaNYL INJ 100 MCG/2 ML AMP IVP ONE (11:00)
--- NOTE | 2021-03-03 13:26 | Anesthesia-General Post-Op ---
General Patient Condition Mental Status/LOC: Same as Preop Cardiovascular: Satisfactory Nausea/Vomiting: Absent Respiratory: Satisfactory Pain: Controlled Complications: Absent Post Op Complications Complications None Follow Up Care/Instructions Patient Instructions None needed. Anesthesia/Patient Condition Patient Condition Patient is doing well, no complaints, stable vital signs, no apparent adverse anesthesia problems. No complications reported per nursing. ERIS HALL CRNA Mar 03, 2021 13:26
--- NOTE | 2021-03-03 13:33 | OPERATIVE REPORT ---
DATE OF SERVICE: 03/03/2021 PREOPERATIVE DIAGNOSIS: Left proximal ureteral stone. POSTOPERATIVE DIAGNOSIS: Left proximal ureteral stone. OPERATION PERFORMED: Cystoscopy, removal of left double-J stent and left ureteroscopy. SURGEON: Ibrahima Brito MD ANESTHESIA: General. COMPLICATIONS: None. DESCRIPTION OF PROCEDURE: Under satisfactory general anesthesia, the patient in lithotomy position, genitalia were prepped and draped in the usual sterile fashion. Cystoscope was introduced under vision. The anterior urethra was normal. Again, visualized a wide caliber stricture distal to the sphincter admitting the scope. Prostate revealed some enlargement with some blockage. The bladder was entered essentially normal. The distal end of the left ureteral stent was grasped with grasping forceps and removed completely. I removed the cystoscope, inserted a 6.9 [place]ish semirigid ureteroscope into the left ureteral orifice all the way up to the left renal pelvis, antegrade and retrograde, there were no further stones or calcifications. The patient either passed the stone, did not notice it or it was pushed back into the kidney while inserting the stent. The stone is a small and not radiopaque and not seen by KUB. In any case, it is a passable stone and the obstruction is relieved. I removed the ureteroscope, reinserted the cystoscope, emptied the bladder. The patient tolerated the procedure and anesthesia well and was sent to recovery room in stable condition. 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
[2021-03-03] MEDS ORDERED: KETOROLAC 30 MG/ML VIAL IVP ONE (13:45)
[2021-03-03] MEDS ORDERED: NITR-65 PO (14:02)
[2021-03-03] MEDS ORDERED: PHEN-639 PO (14:02)
== END 2021-03-03 14:35 | disposition home or self-care (01) ==
LOC: SDC 07:27
PROVIDERS: ATTEND Urology
DX: N20.1 Calculus of ureter (principal); E11.9 Type 2 diabetes mellitus without complications; I10 Essential (primary) hypertension; I25.10 Atherosclerotic heart disease of native coronary artery without angina pectoris; Z79.899 Other long term (current) drug therapy
CPT/HCPCS: 74018; 76000; 82947; 87081

== ENCOUNTER 2021-03-26 07:16 | Outpatient (RCR) | payer MEDICARE ==
[2021-03-24 15:25] LABS: POTASSIUM 4.4 MMOL/L (3.6-5.0)
[2021-03-24 15:26] LABS: CALCIUM 9.1 MG/DL (8.5-10.1)
[2021-03-24 15:30] LABS: CREATININE SERUM 0.97 MG/DL (0.60-1.30)
[2021-03-24 15:33] LABS: URIC ACID 4.3 MG/DL (2.6-7.2)
[~2021-03-26 07:16] MED LIST changes: +NITR-65 PO; +PHEN-639 PO
== END 2021-06-22 | disposition home or self-care (01) ==
LOC: LAB 07:16
PROVIDERS: ATTEND Urology
DX: N20.9 Urinary calculus, unspecified (principal)
CPT/HCPCS: 36415; 80048; 82140; 82340; 82507; 82570; 83735; 83945; 83970; 83986; 84100; 84105; 84133; 84300; 84392; 84550; 84560

== ENCOUNTER → 2021-09-01 | Outpatient (CLI) | payer MEDICARE ==
[~2021-09-01] MED LIST changes: +CATHETER FLUSH 10 ML SYR IV PRN; +HOLD METFORMIN - RECEIVED CONTRAST 20 ML VIAL IV SCH; +IOHEXOL 350 MG/ML 100 ML (OMNIPAQUE 350) VIAL IV ONE; +NS 100 ML (IVPB) BAG IV ONE
[2021-09-01 08:04] LABS: CREATININE SERUM 1.41 MG/DL (0.60-1.30)
--- NOTE | 2021-09-01 10:04 | Diagnostic Imaging Report ---
PROCEDURE: CT abdomen and pelvis with contrast. TECHNIQUE: Multiple contiguous axial images were obtained through the abdomen and pelvis after administration of intravenous contrast. Auto Exposure Controls were utilized during the CT exam to meet ALARA standards for radiation dose reduction. All CT scans use one or more of the following dose optimizing techniques: automated exposure control, MA and/or KvP adjustment based on patient size and exam type or iterative reconstruction. INDICATION: Mid abdominal pain. History of kidney stones, muscle spasms. COMPARISON: 02/27/2021 FINDINGS: Included portions of lung bases are clear. Heart is mildly enlarged. Note is also made of moderate calcified coronary atherosclerosis. CT ABDOMEN: Moderate amount of air and stool seen scattered throughout the colon. Normal appendix cannot be adequately identified, but there is no pericecal inflammation. Small bowel loops are nondistended. Spleen is enlarged. It measures 16.2 x 16.6 x 7 cm. This is new when compared to 13.6 x 6 x 12[address] dated 02/27/2021. No focal splenic lesions are identified. Benign-appearing right renal cyst is noted. Benign-appearing cyst is also seen within segment 3 of the liver. Otherwise, kidneys, adrenal glands, pancreas, and liver have a normal CT appearance. Small amount of free fluid is present within the pelvis. There is no loculated fluid collection or free air. No abnormal mesenteric or retroperitoneal adenopathy is seen. Note is made of moderate diffuse aortic atherosclerosis. Osseous structures show no acute abnormalities. CT PELVIS: Urinary bladder is grossly unremarkable. There is no loculated fluid collection or free air. Again, small amount of free fluid is present within the pelvis. No abnormal lymph nodes are identified. Osseous structures show no acute abnormalities. IMPRESSION: 1. Interval development of moderate splenomegaly, but no focal splenic lesion. Differential is broad. Although the liver has a noncirrhotic appearance, there is small amount of free fluid within the pelvis. This does raise potential for underlying portal venous hypertension. Transcatheter measurements could be obtained, if indicated. Other infectious, neoplastic, and hematological diseases cannot be excluded. Dictated by: Dictated on workstation # [id number]
== END ==
LOC: RAD 08:15
PROVIDERS: ATTEND Family Medicine
DX: I51.7 Cardiomegaly (principal); I35.1 Nonrheumatic aortic (valve) insufficiency; R10.9 Unspecified abdominal pain; R16.1 Splenomegaly, not elsewhere classified; M62.838 Other muscle spasm; Z87.442 Personal history of urinary calculi
CPT/HCPCS: 36415; 74177; 82565; 84520; 93306

== ENCOUNTER 2021-09-08 13:57 | Outpatient (RCR) | payer MEDICARE ==
[~2021-09-08 13:57] MED LIST changes: -CATHETER FLUSH 10 ML SYR IV PRN; -HOLD METFORMIN - RECEIVED CONTRAST 20 ML VIAL IV SCH; -IOHEXOL 350 MG/ML 100 ML (OMNIPAQUE 350) VIAL IV ONE; -NS 100 ML (IVPB) BAG IV ONE
[2021-09-08 22:04] LABS: HEPATITIS C ANTIBODY C Non-Reactive (Non-Reactive)
[2021-09-17] MEDS ORDERED: FURO40TA4 PO (12:49)
[2021-09-17] MEDS ORDERED: TMSL.4C PO (12:49)
[2021-09-17] MEDS ORDERED: BACL5TAB PO (12:49)
[2021-09-17] MEDS ORDERED: POTA-51 PO (12:49)
[2021-09-17] MEDS ORDERED: HYOS-20 PO (12:49)
[2021-09-17] MEDS ORDERED: TIZA-186 PO (12:49)
[2021-09-17] MEDS ORDERED: VERA180T55 PO (12:49)
[2021-09-17] MEDS ORDERED: POLY17PO6 PO (12:49)
[2021-09-17] MEDS ORDERED: ATEN50TA PO (12:49)
[2021-09-17] MEDS ORDERED: POTA15TA9 PO (12:49)
[2021-09-22] MEDS ORDERED: LOSA50TA63 PO (10:32)
[2021-09-22] MEDS ORDERED: VERA180T55 PO (10:32)
[2021-09-22] MEDS ORDERED: MTP100TCR PO (10:32)
[2021-09-22] MEDS ORDERED: TMSL.4C PO (10:32)
[2021-09-22] MEDS ORDERED: CLON0.5T4 PO (10:32)
[2021-09-22] MEDS ORDERED: PANT40TA52 PO (10:32)
[2021-09-22] MEDS ORDERED: BUME1TAB8 PO (10:32)
[2021-09-22] MEDS ORDERED: SPIR100T4 PO (10:32)
[2021-09-22] MEDS ORDERED: PRD20T PO (10:32)
== END 2021-09-21 | disposition home or self-care (01) ==
LOC: ONC 13:57
PROVIDERS: ATTEND Internal Medicine Hematology & Oncology
DX: D61.818 Other pancytopenia (principal); R16.1 Splenomegaly, not elsewhere classified
CPT/HCPCS: 36415; 80074; 82607; 82728; 82746; 83540; 83550

== ENCOUNTER → 2021-09-15 | Outpatient (CLI) | payer MEDICARE ==
[~2021-09-15] MED LIST changes: +BACL5TAB PO; +FURO40TA4 PO; +HYOS-20 PO; +POLY17PO6 PO; +POTA-51 PO; +POTA15TA9 PO; +TIZA-186 PO; +VERA180T55 PO
[2021-09-15 10:25] LABS: CREATININE SERUM 1.48 MG/DL (0.60-1.30)
== END ==
LOC: LAB 09:43
PROVIDERS: ATTEND Family Medicine
DX: I10 Essential (primary) hypertension (principal); R60.9 Edema, unspecified
CPT/HCPCS: 36415; 82565; 84520

== ENCOUNTER 2021-09-16 12:28 | Inpatient (IN) | payer MEDICARE ==
[~2021-09-16 12:28] MED LIST changes: -BACL5TAB PO; -FURO40TA4 PO; -HYOS-20 PO; -POLY17PO6 PO; -POTA-51 PO; -POTA15TA9 PO; -TIZA-186 PO; -VERA180T55 PO
[2021-09-16] MEDS ORDERED: FUROSEMIDE 40 MG/4 ML INJ (LASIX) IVP NR (13:00)
[2021-09-16] MEDS ORDERED: PATIENT MAY USE OWN MEDS, ALL PO SCH (13:00)
[2021-09-16] MEDS ORDERED: clonazePAM 0.5 MG (KlonoPIN) TAB PO PRN (13:15)
[2021-09-16] MEDS ORDERED: clonazePAM 0.5 MG (KlonoPIN) TAB PO NR (13:15)
[2021-09-16] MEDS: LACTATED RINGERS 1,000 ML IV SCH ×2 (13:59→19:56)
[2021-09-16 14:19] LABS: BASOPHILS % (AUTO) 0 % (0-10); EOSINOPHILS % (AUTO) 0 % (0-10); HEMATOCRIT 38 % (40-54); HEMOGLOBIN 12.5 g/dL (13.3-17.7); LYMPHOCYTES # (AUTO) 0.5 10^3/uL (1.0-4.0); LYMPHOCYTES % (AUTO) 21 % (12-44); MEAN CORPUSCULAR HEMOGLOBIN 28 pg (25-34); MEAN CORPUSCULAR HGB CONC 33 g/dL (32-36); MEAN CORPUSCULAR VOLUME 85 fL (80-99); MEAN PLATELET VOLUME 11.6 fL (9.0-12.2); MONOCYTES # (AUTO) 0.2 10^3/uL (0.0-1.0); MONOCYTES % (AUTO) 6 % (0-12); NEUTROPHILS # (AUTO) 1.9 10^3/uL (1.8-7.8); NEUTROPHILS % (AUTO) 72 % (42-75); PLATELET COUNT 79 10^3/uL (130-400); WHITE BLOOD COUNT 2.6 10^3/uL (4.3-11.0)
[2021-09-16 14:32] LABS: INR 1.3 (0.8-1.4); PROTHROMBIN TIME PATIENT 16.4 SEC (12.2-14.7)
[2021-09-16 14:36] VITALS: BP 137/81
[2021-09-16 14:40] LABS: ALBUMIN 2.8 GM/DL (3.2-4.5); BILIRUBIN,TOTAL 0.6 MG/DL (0.1-1.0); CALCIUM 8.2 MG/DL (8.5-10.1); CREATININE SERUM 1.51 MG/DL (0.60-1.30); POTASSIUM 4.3 MMOL/L (3.6-5.0); TOTAL PROTEIN 7.4 GM/DL (6.4-8.2)
[2021-09-16 14:47] LABS: BILIRUBIN,URINE NEGATIVE (NEGATIVE); CLARITY,URINE CLEAR; COLOR,URINE YELLOW; GLUCOSE, URINE (UA) NEGATIVE (NEGATIVE); KETONES,URINE NEGATIVE (NEGATIVE); LEUKOCYTE ESTERASE ,URINE NEGATIVE (NEGATIVE); NITRITE,URINE NEGATIVE (NEGATIVE); PH,URINE 7.5 (5-9); PROTEIN,URINE NEGATIVE (NEGATIVE)
[2021-09-16 14:56] LABS: BACTERIA,URINE NEGATIVE /HPF
[2021-09-16] MEDS: inSUlin ASPART (NovoLOG) 1 UNIT/0.01 ML (CHARGE PER UNIT) SC SCH ×2 (15:00→19:56)
--- NOTE | 2021-09-16 15:41 | Diagnostic Imaging Report ---
INDICATION: Chest and abdominal pain. TECHNIQUE: Multiple contiguous axial images were obtained through the chest without the use of intravenous contrast. Auto Exposure Controls were utilized during the CT exam to meet ALARA standards for radiation dose reduction. COMPARISON: There is no prior chest CT for comparison. Comparison is made to a CT abdomen and pelvis from 09/01/2021. FINDINGS: There are no enlarged mediastinal or hilar nodes. There are some coronary artery calcifications noted. There are no enlarged axillary nodes or chest wall lesions. There is no pleural or pericardial fluid. Lung parenchymal windows demonstrated a small calcified granuloma in the left lung. There is no suspicious pulmonary parenchymal lesion or consolidation. Visualized portions of the upper abdomen are unchanged compared to the prior study, see previous dictation. IMPRESSION: CT chest shows no acute abnormality in the chest. There are old granulomatous changes in the left lung. There are coronary artery calcifications. Dictated by: Dictated on workstation # [id number]
[2021-09-16 16:00] VITALS: BP 130/71
[2021-09-16] MEDS: TAMSULOSIN 0.4 MG (FLOMAX) CAP PO SCH (17:09)
[2021-09-16] MEDS: FUROSEMIDE 40 MG/4 ML INJ (LASIX) IVP SCH (17:09)
[2021-09-16 19:27] VITALS: BP 162/77
[2021-09-16] MEDS: polyethylene glycoL POWDER 17 GM (MIRALAX) PACK PO SCH (21:49)
[2021-09-17] VITALS (9 sets, daily range): BP systolic 137–174; BP diastolic 80–118
[2021-09-17] MEDS: LACTATED RINGERS 1,000 ML IV SCH ×3 (03:52→22:48)
[2021-09-17] MEDS: inSUlin ASPART (NovoLOG) 1 UNIT/0.01 ML (CHARGE PER UNIT) SC SCH ×5 (06:04→21:44)
[2021-09-17] MEDS: ONDANSETRON 4 MG/2 ML (SDV) Z0FRAN IV PRN (06:06)
[2021-09-17] MEDS: FUROSEMIDE 40 MG/4 ML INJ (LASIX) IVP SCH ×2 (06:06→16:49)
[2021-09-17] MEDS: PANTOPRAZOLE 40 MG (PROTONIX) TAB PO SCH (06:07)
[2021-09-17 06:33] LABS: CALCIUM 7.7 MG/DL (8.5-10.1)
[2021-09-17 06:37] LABS: CREATININE SERUM 1.41 MG/DL (0.60-1.30)
--- NOTE | 2021-09-17 07:54 | History & Physical ---
ANTONIO ORO 09/17/21 0754: History of Present Illness History of Present Illness Reason for visit/HPI Jose E Velez is a 71y/o M with a PMH of HTN and diabetes mellitus type 2 that presents due to pedal edema. Pt reports that they have chronic pedal edema but in the last 3 weeks it has significantly worsened. States that nothing helps with the swelling except for wrapping his legs with dhiraj bandages but the swelling returns as soon as he removes them. Says that nothing seems to make the swelling worse such as increased activity or increased salt intake. Since starting the Lasix yesterday he states that he has been using the bathroom often. Denies having dysuria. Unsure if he is having any hematuria since he has not been looking at his urine. 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 Reports that his muscle spasms have been better since being placed in the hospital. Anxiety has been better today. Date of Admission Sep 16, 2021 at 12:43 Date Seen by a Provider: Sep 17, 2021 Time Seen by a Provider: 06:56 I consulted on this patient on 09/17/21 07:46 Attending Physician Victoria Liz DO Admitting Physician Victoria Liz DO Consult Allergies and Home Medications Allergies Coded Allergies: aspirin (Verified Allergy, Severe, CHOKING, 04/16/16) acetaminophen (Verified Allergy, Mild, 04/16/16) hydrocodone (Verified Allergy, Mild, 04/16/16) fentanyl (Verified Allergy, Unknown, BREATHING TROUBLE, pt has rec meperidine in the past, 03/03/21) ONLY PATCH NOT INTRAVENOUS FENTANYL oxycodone (Verified Allergy, Unknown, NIGHTMARES, 03/02/21) Patient Home Medication List Home Medication List Reviewed: Yes Atenolol (Atenolol) 50 Mg Tablet, 50 MG PO DAILY, (Reported) Entered as Reported by: RUPALI CHAUHAN on 09/17/21 9459 Last Action: Reviewed Baclofen (Baclofen) 5 Mg Tablet, 5 MG PO TID, (Reported) Entered as Reported by: RUPALI CHAUHAN on 09/17/21 1247 Last Action: Reviewed Clonidine HCl (Clonidine HCl) 0.1 Mg Tablet, 0.2 MG PO TID, (Reported) Entered as Reported by: MANSI WELSH on 04/15/16 0825 Last Action: Reviewed Furosemide (Furosemide) 40 Mg Tablet, 40 MG PO DAILY, (Reported) Entered as Reported by: RUPALI CHAUHAN on 09/17/211248 Last Action: Reviewed Glipizide (Glipizide ER) 5 Mg Tab.er.24, 5 MG PO DAILY, (Reported) Entered as Reported by: LIZ ADAMS on 04/28/17621 Last Action: Reviewed Hydralazine HCl (Hydralazine HCl) 25 Mg Tablet, 50 MG PO TID, (Reported) Entered as Reported by: LIZ ADAMS on 04/28/17621 Last Action: Reviewed Hyoscyamine Sulfate (Hyoscyamine Sulfate) 0.125 Mg Tablet, 0.125 MG PO TID PRN for GI SPASMS, (Reported) Entered as Reported by: RUPALI CHAUHAN on 09/17/211248 Last Action: Reviewed Metoprolol Succinate (Metoprolol Succinate) 25 Mg Tab.er.24h, 25 MG PO DAILY, (Reported) Entered as Reported by: RUPALI CHAUHAN on 02/26/21 1614 Last Action: Reviewed Polyethylene Glycol 3350 (Miralax) 17 Gm Powd.pack, 17 GM PO BID PRN for CONSTIPATION-2ND LINE, (Reported) Entered as Reported by: RUPALI CHAUHAN on 09/17/211248 Last Action: Reviewed Potassium Chloride (Potassium Chloride) 20 Meq Tablet.er, 20 MEQ PO DAILY, (Reported) Entered as Reported by: RUPALI CHAUHAN on 09/17/211248 Last Action: Reviewed Potassium Citrate (Potassium Citrate ER) 15 Meq Tab, 15 MEQ PO BID, (Reported) Entered as Reported by: RUPALI CHAUHAN on 09/17/211248 Last Action: Reviewed Tamsulosin HCl (Flomax) 0.4 Mg Cap, 0.4 MG PO HS, (Reported) Entered as Reported by: RUPALI CHAUHAN on 09/17/211248 Last Action: Reviewed Verapamil HCl (Verapamil ER) 180 Mg Tablet.er, 180 MG PO DAILY, (Reported) Entered as Reported by: RUPALI CHAUHAN on 09/17/211248 Last Action: Reviewed Discontinued Medications Atenolol (Atenolol) 25 Mg Tablet, 50 MG PO DAILY, (Reported) Discontinued Reason: Duplicate Order Entered as Reported by: RUPALI CHAUHAN on 02/26/21 1614 Last Action: Discontinued Cefdinir (Cefdinir) 300 Mg Capsule, 300 MG PO BID Discontinued Reason: No Longer Taking Prescribed by: TRAMAINE BURRELL on 02/28/21 1114 Last Action: Discontinued Nitrofurantoin Monohyd/M-Cryst (Macrobid 100 mg Capsule) 100 Mg Capsule, 1 TAB PO BID WITH MEALS Discontinued Reason: No Longer Taking Prescribed by: JESSICA CROFT on 03/03/21 1402 Last Action: Discontinued Phenazopyridine HCl (Pyridium) 100 Mg Tablet, 100 MG PO TID PRN for SPASMS Discontinued Reason: No Longer Taking Prescribed by: JESSICA CROFT on 03/03/21 1402 Last Action: Discontinued Tizanidine HCl (Tizanidine HCl) 4 Mg Tablet, 4 MG PO TID, (Reported) Discontinued Reason: No Longer Taking Entered as Reported by: RUPALI CHAUHAN on 09/17/21 1249 Last Action: Discontinued Past Dzlzxra-Qkddqh-Hqcrwq Hx Patient Social History 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: Employed/Student: retired Tobacco Use?: No Use of E-Cig and/or Vaping dev: No Substance use?: No Alcohol Use?: No Pt feels they are or have been: No Immunizations Up To Date Date of Influenza Vaccine: Apr 24, 2016 First/Initial COVID19 Vaccinat: unknown date Second COVID19 Vaccination Lukas: unknown Tetanus Booster (TDap): More Than 5 Years Hepatitis A: No Hepatitis B: No Date of Pneumonia Vaccine: December 07, 2010 Seasonal Allergies Seasonal Allergies: No Current Status Advance Directives: Yes Advance Directive Location: Home Primary Language: Citizen Of [place] Implanted or Applied Medical D: None Past Medical History Surgeries: Abdominal, Appendectomy Currently Using CPAP: No Currently Using BIPAP: No Hypertension Kidney Stones Hiatal Hernia Fractures Diabetes, Non-Insulin dep Blood Disorders: No Family Medical History Cancer 03 FATHER (SKIN CANCER) 03 MOTHER (LUNG CANCER) Cataract 03 FATHER Congestive heart failure 03 MOTHER Dementia 03 MOTHER Family history: Diabetes mellitus 03 FATHER Family history: Hypertension 03 FATHER 03 MOTHER Family history: Osteoporosis 03 MOTHER Family history: Thyroid disorder 03 FATHER (HYPERTHYROIDISM) Hearing loss 03 FATHER No Family History of: Abdominal aortic aneurysm Millard's disease Alcoholism Aphasia Cancer of colon Chest pain Congenital heart disease Cystic fibrosis Dysphagia Family history: Allergy Family history: Alzheimer's disease Family history: Arthritis Family history: Asthma Family history: Breast disease Family history: Cardiovascular disease Family history: Coronary thrombosis Family history: Gastrointestinal disease Family history: Glaucoma Headache Heart disease Hereditary disease History of - anemia History of - disorder History of - respiratory disease History of drug abuse Human immunodeficiency virus (HIV) seropositivity Hypercholesterolemia Infertile Kidney disease Malignant neoplasm of lung Myocardial infarction Parkinson's disease Prostate cancer Psychotic disorder Seizure disorder Stroke Tuberculosis Visual impairment Cerebral Aneurysm, Diabetes, Stroke Review of Systems Constitutional: No chills, No fever EENTM: No hearing loss, No blurred vision, No double vision, No vision loss Respiratory: No cough, No short of breath Cardiovascular: No chest pain, No palpitations Gastrointestinal: No abdominal pain, No constipation, No nausea, No vomiting Genitourinary: No dysuria; frequency (increased due to Lasix) Musculoskeletal: muscle pain, muscle weakness Psychiatric/Neurological: Anxiety; Denies Headache; Weakness Physical Exam Vital Signs Vital Signs - First Documented 09/16/21 09/16/21 13:32 14:36 Temp 36.6 Pulse 95 Resp 20 B/P (MAP) 137/81 (99) Pulse Ox 97 O2 Delivery Room Air Capillary Refill : Height, Weight, BMI Height: 6'1.00" Weight: 190lbs. 14.0oz. [id number]; 27.20 BMI Method:Stated General Appearance: No Apparent Distress, WD/WN HEENT: PERRL/EOMI; No Photophobia Neck: Non Tender, Supple Respiratory: Lungs Clear, Normal Breath Sounds, No Accessory Muscle Use, No Respiratory Distress Cardiovascular: Tachycardia, Other (skipped beats) Gastrointestinal: Soft, Tenderness (LLQ) Extremity: Calf Tenderness (b/l), Pedal Edema Neurologic/Psychiatric: Alert, Oriented x3 Skin: Normal Color, Warm/Dry Lymphatic: No Adenopathy Assessment/Plan Assessment and Plan Peripheral edema- Continue Lasix, continue monitoring swelling in LEs HTN- on amlodipine, metoprolol, hydralazine. BP has been elevated. Increase hydralazine and metoprolol Pancytopenia- Followed by hematology/oncology, will be undergoing a bone marrow biopsy today Hematuria- Urology has been consulted, continue to monitor BPH- on Flomax Acute vs. 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 Constipation- on Miralax, pt reports that he has been having BMs GI prophlaxis- taking Protonix QD and Zofran PRN Anxiety- increase Klonopin DVT prophlaxis- continue SCDs due to pancytopenia VICTORIA LIZ DO 09/17/21 1734: Allergies and Home Medications Allergies Coded Allergies: aspirin (Verified Allergy, Severe, CHOKING, 04/16/16) acetaminophen (Verified Allergy, Mild, 04/16/16) hydrocodone (Verified Allergy, Mild, 04/16/16) fentanyl (Verified Allergy, Unknown, BREATHING TROUBLE, pt has rec meperidine in the past, 03/03/21) ONLY PATCH NOT INTRAVENOUS FENTANYL oxycodone (Verified Allergy, Unknown, NIGHTMARES, 03/02/21) Patient Home Medication List Atenolol (Atenolol) 50 Mg Tablet, 50 MG PO DAILY, (Reported) Entered as Reported by: RUPALI CHAUHAN on 09/17/211248 Last Action: Reviewed Baclofen (Baclofen) 5 Mg Tablet, 5 MG PO TID, (Reported) Entered as Reported by: RUPALI CHAUHAN on 09/17/211248 Last Action: Reviewed Clonidine HCl (Clonidine HCl) 0.1 Mg Tablet, 0.2 MG PO TID, (Reported) Entered as Reported by: MANSI WELSH on 04/15/16 0825 Last Action: Reviewed Furosemide (Furosemide) 40 Mg Tablet, 40 MG PO DAILY, (Reported) Entered as Reported by: RUPALI CHAUHAN on 09/17/211248 Last Action: Reviewed Glipizide (Glipizide ER) 5 Mg Tab.er.24, 5 MG PO DAILY, (Reported) Entered as Reported by: LIZ ADAMS on 04/28/17621 Last Action: Reviewed Hydralazine HCl (Hydralazine HCl) 25 Mg Tablet, 50 MG PO TID, (Reported) Entered as Reported by: LIZ ADAMS on 04/28/17621 Last Action: Reviewed Hyoscyamine Sulfate (Hyoscyamine Sulfate) 0.125 Mg Tablet, 0.125 MG PO TID PRN for GI SPASMS, (Reported) Entered as Reported by: RUPALI CHAUHAN on 09/17/211248 Last Action: Reviewed Metoprolol Succinate (Metoprolol Succinate) 25 Mg Tab.er.24h, 25 MG PO DAILY, (Reported) Entered as Reported by: RUPALI CHAUHAN on 02/26/211613 Last Action: Reviewed Polyethylene Glycol 3350 (Miralax) 17 Gm Powd.pack, 17 GM PO BID PRN for CONSTIPATION-2ND LINE, (Reported) Entered as Reported by: RUPALI CHAUHAN on 09/17/211248 Last Action: Reviewed Potassium Chloride (Potassium Chloride) 20 Meq Tablet.er, 20 MEQ PO DAILY, (Reported) Entered as Reported by: RUPLAI CHAUHAN on 09/17/211248 Last Action: Reviewed Potassium Citrate (Potassium Citrate ER) 15 Meq Tab, 15 MEQ PO BID, (Reported) Entered as Reported by: RUPALI CHAUHAN on 09/17/211248 Last Action: Reviewed Tamsulosin HCl (Flomax) 0.4 Mg Cap, 0.4 MG PO HS, (Reported) Entered as Reported by: RUPALI CHAUHAN on 09/17/211248 Last Action: Reviewed Verapamil HCl (Verapamil ER) 180 Mg Tablet.er, 180 MG PO DAILY, (Reported) Entered as Reported by: RUPALI CHAUHAN on 09/17/211248 Last Action: Reviewed Discontinued Medications Atenolol (Atenolol) 25 Mg Tablet, 50 MG PO DAILY, (Reported) Discontinued Reason: Duplicate Order Entered as Reported by: RUPALI CHAUHAN on 02/26/21 161 Last Action: Discontinued Cefdinir (Cefdinir) 300 Mg Capsule, 300 MG PO BID Discontinued Reason: No Longer Taking Prescribed by: TRAMAINE BURRELL on 02/28/21 1114 Last Action: Discontinued Nitrofurantoin Monohyd/M-Cryst (Macrobid 100 mg Capsule) 100 Mg Capsule, 1 TAB PO BID WITH MEALS Discontinued Reason: No Longer Taking Prescribed by: JESSICA CROFT on 03/03/21 1402 Last Action: Discontinued Phenazopyridine HCl (Pyridium) 100 Mg Tablet, 100 MG PO TID PRN for SPASMS Discontinued Reason: No Longer Taking Prescribed by: JESSICA CROFT on 03/03/21 1402 Last Action: Discontinued Tizanidine HCl (Tizanidine HCl) 4 Mg Tablet, 4 MG PO TID, (Reported) Discontinued Reason: No Longer Taking Entered as Reported by: RUPALI CHAUHAN on 09/17/21 1249 Last Action: Discontinued Past Eevljde-Ttbpta-Fugqsn Hx Family Medical History Cancer 03 FATHER (SKIN CANCER) 03 MOTHER (LUNG CANCER) Cataract 03 FATHER Congestive heart failure 03 MOTHER Dementia 03 MOTHER Family history: Diabetes mellitus 03 FATHER Family history: Hypertension 03 FATHER 03 MOTHER Family history: Osteoporosis 03 MOTHER Family history: Thyroid disorder 03 FATHER (HYPERTHYROIDISM) Hearing loss 03 FATHER No Family History of: Abdominal aortic aneurysm Millard's disease Alcoholism Aphasia Cancer of colon Chest pain Congenital heart disease Cystic fibrosis Dysphagia Family history: Allergy Family history: Alzheimer's disease Family history: Arthritis Family history: Asthma Family history: Breast disease Family history: Cardiovascular disease Family history: Coronary thrombosis Family history: Gastrointestinal disease Family history: Glaucoma Headache Heart disease Hereditary disease History of - anemia History of - disorder History of - respiratory disease History of drug abuse Human immunodeficiency virus (HIV) seropositivity Hypercholesterolemia Infertile Kidney disease Malignant neoplasm of lung Myocardial infarction Parkinson's disease Prostate cancer Psychotic disorder Seizure disorder Stroke Tuberculosis Visual impairment Assessment/Plan Admission Diagnosis Admission Status: Inpatient Order (span 2 midnights) Reason for Inpatient Admission: Will need at least 2 nights of IV diuresis as well as IVFs for dehydration as well as adjustment of meds. Supervisory-Addendum Brief Verification & Attestation Participated in pt care: history, physical Personally performed: exam, history, supervision of care Care discussed with: Medical Student Procedures: n/a Results interpretation: Verified all documentation Patient seen and assessed. Patient direct admit from office with worsening edema, worsening shortness of air, pelvic pain with hematuria, dehydration with worsening renal function, development of petechia with known thrombocytopenia, ongoing abdominal pain. Admitted for IV diuresis as well as hydration for dehydration and acute renal insufficiency. Will proceed with CT scan of chest for dypnea and bone marrow biopsy for spleenomegaly with pancytopenia. Patient also needs cystoscope but Dr. Vasquez is out of town so will follow up with him as outpatient. ANTONIO ORO Sep 17, 2021 07:54 VICTORIA LIZ DO Sep 17, 2021 17:34
[2021-09-17] MEDS: amLODIPine 5 MG (NORVASC) TAB PO SCH (08:16)
[2021-09-17] MEDS ORDERED: meTOproloL SUCCINATE 50 MG (TOPROL XL) TAB PO SCH ×2 (09:00→21:00)
[2021-09-17] MEDS ORDERED: MIDAZOLAM 2 MG/2 ML (VERSED) VIAL INJ ONE (11:30)
[2021-09-17] MEDS ORDERED: LIDOCAINE 1% INJ 20 ML VIAL INJ ONE (11:30)
[2021-09-17] MEDS ORDERED: fentaNYL INJ 100 MCG/2 ML AMP INJ ONE (11:30)
[2021-09-17 11:40] LABS: ABSOLUTE RETIC # 89 10e9/uL (24-90); BASOPHILS % (AUTO) 1 % (0-10); EOSINOPHILS % (AUTO) 2 % (0-10); HEMATOCRIT 33 % (40-54); LYMPHOCYTES # (AUTO) 0.5 10^3/uL (1.0-4.0); LYMPHOCYTES % (AUTO) 32 % (12-44); MONOCYTES # (AUTO) 0.1 10^3/uL (0.0-1.0); MONOCYTES % (AUTO) 8 % (0-12); NEUTROPHILS % (AUTO) 56 % (42-75); RETICULOCYTE % 2.37 % (0.50-2.40)
[2021-09-17 11:41] LABS: INR 1.3 (0.8-1.4); PROTHROMBIN TIME PATIENT 16.3 SEC (12.2-14.7)
[2021-09-17 11:46] LABS: HEMOGLOBIN 10.9 g/dL (13.3-17.7); MEAN CORPUSCULAR HEMOGLOBIN 28 pg (25-34); MEAN CORPUSCULAR HGB CONC 33 g/dL (32-36); MEAN CORPUSCULAR VOLUME 86 fL (80-99); MEAN PLATELET VOLUME 12.1 fL (9.0-12.2); PLATELET COUNT 68 10^3/uL (130-400); WHITE BLOOD COUNT 1.6 10^3/uL (4.3-11.0)
[2021-09-17] MEDS: NS IV 1000 ML 1,000 ML IV SCH (12:20)
[2021-09-17] MEDS ORDERED: LIDOCAINE 1% INJ 50 ML (XYLOCAINE) VIAL IJ ONE (12:30)
[2021-09-17] MEDS ORDERED: TIZA-186 PO (12:49)
[2021-09-17] MEDS ORDERED: HYOS-20 PO (12:49)
[2021-09-17] MEDS ORDERED: POTA-51 PO (12:49)
[2021-09-17] MEDS ORDERED: VERA180T55 PO (12:49)
[2021-09-17] MEDS ORDERED: BACL5TAB PO (12:49)
[2021-09-17] MEDS ORDERED: FURO40TA4 PO (12:49)
[2021-09-17] MEDS ORDERED: POTA15TA9 PO (12:49)
[2021-09-17] MEDS ORDERED: ATEN50TA PO (12:49)
[2021-09-17] MEDS ORDERED: POLY17PO6 PO (12:49)
[2021-09-17] MEDS ORDERED: TMSL.4C PO (12:49)
[2021-09-17 13:04] LABS: BAND NEUTROPHILS 4 %; BASOPHILS % (MANUAL) 0 %; EOSINOPHILS % (MANUAL) 0 %; LYMPHOCYTES % (MANUAL) 26 %; MONOCYTES % (MANUAL) 12 %; NEUTROPHILS % (MANUAL) 58 %
[2021-09-17 13:05] LABS: ANISOCYTOSIS SLIGHT; PLATELET CLUMPS SLIGHT
[2021-09-17] MEDS ORDERED: SPIRONOLACTONE 25 MG (ALDACTONE) TAB PO ONE (13:45)
[2021-09-17] MEDS: hydrALAZINE (APRESOLINE) 25 MG TAB PO SCH ×2 (13:48→21:44)
--- NOTE | 2021-09-17 14:00 | Pre-Op Note & Conscious Sedat ---
Pre-Operative Progress Note H&P Reviewed The H&P was reviewed, patient examined and no changes noted. Date H&P Reviewed: Sep 17, 2021 Time H&P Reviewed: 11:00 Pre-Op Diagnosis: pancytopenia Conscious Sedation Pre-Proced Time 11:00 ASA Score 2 For ASA 3 and 4: Consider anesthesia and medical clearance. Also, for patients with a history of failed moderate sedation consider anesthesia. Airway Lungs Heart ASA score ASA 1: a normal healthy patient ASA 2: a patient with a mild systemic disease (mid diabetes, controlled hypertension, obesity ASA 3: a patient with a severe systemic disease that limits activity (angina, COPD, prior Myocardial infarction) ASA 4: a patient with an incapacitating disease that is a constant threat to life (CHF, renal failure) ASA 5: a moribund patient not expected to survive 24 hrs. (ruptured aneurysm) ASA 6: a declared brain- patient whose organs are being harvested. For emergent operations, add the letter E after the classification Mallampati Classification Grade 2 Sedation Plan Analgesia, Amnesia, Plan communicated to team members, Discussed options with patient/fam, Discussed risks with patient/fam The patient is an appropriate candidate to undergo the planned procedure, sedation, and anesthesia. The patient immediately re-assessed prior to indication. NESS AYOUB MD Sep 17, 2021 14:00
--- NOTE | 2021-09-17 14:13 | Diagnostic Imaging Report ---
INDICATION: Pancytopenia. The patient presents for a CT-guided bone marrow aspiration and biopsy. The patient was brought to the CT suite, placed on the table in the prone position. Axial imaging through the pelvis was performed to evaluate appropriate entry site. Low back was prepped and draped in the usual sterile fashion. A small amount of 1% lidocaine was utilized for local anesthesia. The procedure was performed utilizing conscious sedation with radiology nursing and constant monitoring. The patient was given a total of 50 mcg of fentanyl intravenously and 1 mg of Versed intravenously. Total procedure time was approximately 11 minutes. Bone marrow needle was advanced and placed with its tip along the posterior cortex of the right iliac bone. The bone marrow drill was utilized to place the needle through the cortex into the iliac bone marrow. Two bone marrow aspirates were then obtained. Next, a bone marrow drill was utilized to obtain a bone marrow core sample. Needle was removed and hemostasis was obtained. Patient tolerated the procedure well and left the department in stable condition. IMPRESSION: Successful CT-guided bone marrow aspiration and core biopsy utilizing conscious sedation. Pathology results are currently pending. Dictated by: Dictated on workstation # [id number]
[2021-09-17] MEDS: TAMSULOSIN 0.4 MG (FLOMAX) CAP PO SCH (16:49)
[2021-09-17] MEDS: polyethylene glycoL POWDER 17 GM (MIRALAX) PACK PO SCH (21:44)
[2021-09-17] MEDS: clonazePAM 1 MG (KlonoPIN) TAB PO PRN (21:44)
[2021-09-17] MEDS: meTOprolol SUCCINATE 100 MG (TOPROL XL) TAB PO SCH (21:44)
[2021-09-18] VITALS (8 sets, daily range): BP systolic 153–192; BP diastolic 80–97
[2021-09-18] MEDS: NS IV 1000 ML 1,000 ML IV SCH (00:03)
[2021-09-18] MEDS: ONDANSETRON 4 MG/2 ML (SDV) Z0FRAN IV PRN (01:54)
[2021-09-18 06:41] LABS: HEMOGLOBIN 11.1 g/dL (13.3-17.7)
[2021-09-18 06:42] LABS: MEAN PLATELET VOLUME 12.5 fL (9.0-12.2); WHITE BLOOD COUNT 1.8 10^3/uL (4.3-11.0)
[2021-09-18] MEDS: inSUlin ASPART (NovoLOG) 1 UNIT/0.01 ML (CHARGE PER UNIT) SC SCH ×4 (06:47→21:49)
[2021-09-18] MEDS: PANTOPRAZOLE 40 MG (PROTONIX) TAB PO SCH (06:51)
[2021-09-18] MEDS: hydrALAZINE (APRESOLINE) 25 MG TAB PO SCH (06:51)
[2021-09-18] MEDS: LACTATED RINGERS 1,000 ML IV SCH ×2 (06:51→16:59)
[2021-09-18] MEDS: FUROSEMIDE 40 MG/4 ML INJ (LASIX) IVP SCH (06:51)
[2021-09-18 07:12] LABS: CALCIUM 7.7 MG/DL (8.5-10.1); CREATININE SERUM 1.54 MG/DL (0.60-1.30); POTASSIUM 3.7 MMOL/L (3.6-5.0)
--- NOTE | 2021-09-18 07:13 | Progress Note ---
Subjective Subjective Date Seen by Provider: Sep 18, 2021 Time Seen by Provider: 06:54 Jose E Velez is a 71y/o M who is being seen for follow up pertaining to peripheral edema and HTN. Pt reports that he is doing well this morning. States that during the day he has being urinating often. Thinks the swelling in his legs has decreased some but he is unsure of how much. Muscle spasms have improved since being admitted. Says that the bone marrow biopsy went well yesterday. Reports that he has been able to pass stool but says that his intestines feel "like a bag of worms" at times. Review of Systems General: No Chills; Appetite (decreased ) HEENT: No Head Aches, No Visual Changes Pulmonary: No Dyspnea, No Cough Cardiovascular: No: Chest Pain, Palpitations, Lt Headedness Gastrointestinal: Abdominal Pain (describes it as more of a discomfort than pain); No: Nausea, Vomiting Genitourinary: No Dysuria; Frequency (increased due to Lasix) Musculoskeletal: foot pain; No: back pain (b/l) Neurological: No: Weakness, Numbness Objective Exam Vital Signs Vital Signs Date Time Temp Pulse Resp B/P (MAP) Pulse Ox O2 Delivery O2 Flow Rate FiO2 09/18/21 03:22 94 18 160/93 (115) 95 Room Air 09/18/21 01:00 90 09/18/21 00:24 36.5 85 18 153/92 (112) 97 Room Air 09/17/21 20:00 97 Room Air 09/17/21 19:13 37.2 110 20 166/90 (115) 94 Room Air 09/17/21 19:00 110 09/17/21 15:47 37.2 106 22 162/88 (112) 97 Room Air 09/17/21 13:00 88 09/17/21 12:58 36.6 89 18 157/92 (113) 97 Room Air 09/17/21 12:30 97 16 161/101 100 Nasal Cannula 2.00 09/17/21 12:25 98 16 137/118 100 Nasal Cannula 2.00 09/17/21 12:20 101 18 157/105 100 Nasal Cannula 2.00 09/17/21 08:30 97 Room Air 09/17/21 08:13 36.7 93 20 174/88 (116) 97 Room Air I & O 09/18/21 07:00 Intake Total 1200 ml Output Total 2730 ml Balance -1530 ml General Appearance: No Apparent Distress, WD/WN Neck: Non Tender, Supple Respiratory: Lungs Clear, Normal Breath Sounds, No Accessory Muscle Use, No Respiratory Distress Cardiovascular: Regular Rate, Rhythm, No Murmur, Normal Peripheral Pulses Gastrointestinal: Normal Bowel Sounds, Non Tender, Soft Extremity: Calf Tenderness (b/l calves and feet), Pedal Edema (slightly improving) Neurologic/Psychiatric: Alert, Oriented x3 Skin: Normal Color, Warm/Dry Lymphatic: No Adenopathy Results Lab Laboratory Tests 09/17/21 13:03: Glucometer 140H 09/17/21 15:51: Glucometer 212H 09/17/21 21:06: Glucometer 167H 09/18/21 05:24: White Blood Count 1.8L, Red Blood Count 3.85L, Hemoglobin 11.1L, Hematocrit 33L, Mean Corpuscular Volume 87, Mean Corpuscular Hemoglobin 29, Mean Corpuscular Hemoglobin Concent 33, Red Cell Distribution Width 15.9H, Platelet Count 63L, Mean Platelet Volume 12.5H, Percent Immature Platelet Fraction 7.0 09/18/21 05:59: Glucometer 120H Assessment/Plan Assessment/Plan Admission Dx Peripheral edema- Increase spironolactone. Stop Lasix and start Bumex. Potassium has been decreasing over the course of treatment. Start potassium supplementation. Give dose of solu-medrol for inflammation. continue monitoring swelling in LEs. HTN- on amlodipine, metoprolol, hydralazine. BP elevated, improved from yesterday. hydralazine and metoprolol increased yesterday. Increase hydralazine Pancytopenia- Followed by hematology/oncology, bone marrow biopsy done yesterday Hematuria- Urology has been consulted, Dr. Vasquez is out of town. 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 Muscle spasms are improved Constipation- on Miralax, pt reports that he has been having BMs GI prophlaxis- taking Protonix QD and Zofran PRN Anxiety- Klonopin increased yesterday, has improved DVT prophlaxis- continue SCDs due to pancytopenia Admission Dx Peripheral edema- Continue Lasix, continue monitoring swelling in LEs HTN- on amlodipine, metoprolol, hydralazine. BP has been elevated. Increase hydralazine and metoprolol Pancytopenia- Followed by hematology/oncology, will be undergoing a bone marrow biopsy today Hematuria- Urology has been consulted, continue to monitor BPH- on Flomax Acute vs. 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 BP has been elevated. Increase hydralazine and metoprolol Pancytopenia- Followed by hematology/oncology, will be undergoing a bone marrow biopsy today Hematuria- Urology has been consulted, continue to monitor BPH- on Flomax Acute vs. 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 Will get up to chair today and start PT. Hopefully home tomorrow. Notably less tremors and myoclonic jerks today. ANTONIO ORO Sep 18, 2021 07:13 VICTORIA BARRON DO Sep 18, 2021 14:39
[2021-09-18] MEDS ORDERED: methylPREDNISolone 125 MG (Solu-MEDROL) VIAL IVP ONE (08:30)
[2021-09-18] MEDS: meTOprolol SUCCINATE 100 MG (TOPROL XL) TAB PO SCH ×2 (08:39→19:46)
[2021-09-18] MEDS: clonazePAM 1 MG (KlonoPIN) TAB PO PRN (08:39)
[2021-09-18] MEDS: amLODIPine 5 MG (NORVASC) TAB PO SCH (08:39)
[2021-09-18] MEDS: SPIRONOLACTONE 25 MG (ALDACTONE) TAB PO SCH (08:40)
[2021-09-18] MEDS ORDERED: KCL 20 MEQ TAB (K-DUR) PO ONE (08:45)
[2021-09-18] MEDS ORDERED: SPIRONOLACTONE 25 MG (ALDACTONE) TAB PO SCH (09:00)
--- NOTE | 2021-09-18 11:48 | Physical Therapy Evaluation ---
PT Evaluation-General Medical Diagnosis Admission Date Sep 16, 2021 at 12:43 Medical Diagnosis: Peripheral edema Onset Date: Sep 16, 2021 Therapy Diagnosis Therapy Diagnosis: weakness, debility Height/Weight Height (Feet): 6 Height (Inches): 1.00 Weight (Pounds): 190 Weight (Ounces): 14.0 Precautions Precautions/Isolations: Fall Prevention, Standard Precautions Referral Physician: Shalonda Reason for Referral: Evaluation/Treatment Medical History Pertinent Medical History: DM, HTN Additional Medical History Muscle Spasms Current History Patient presents from Dr. Liz's office with increased swelling in bilateral legs. Reviewed History: Yes Social History Home: Single Level Current Living Status: Spouse Entry Into Home: Ramp Prior Prior Level of Function SCALE: Activities may be completed with or without assistive devices. 2-Gkenimeyzg-vruorxi completes the activity by him/herself with no assistance from a helper. 5-Set-up or Clean-up Assistance-helper sets up or cleans up; patient completes activity. Wilber assists only prior to or following the activity. 4-Supervision or Touching Assistance-helper provides verbal cues and/or touching/steadying and/or contact guard assistance as patient completes activity. Assistance may be provided throughout the activity or intermittently. 3-Partial/Moderate Assistance-helper does LESS THAN HALF the effort. Wilber lifts, holds or supports trunk or limbs, but provides less than half the effort. 2-Substantial/Maximal Assistance-helper does MORE THAN HALF the effort. Wilber lifts or holds trunk or limbs and provides more than half the effort. 3-Bldxvtwme-qefyfq does ALL the effort. Patient does none of the effort to complete the activity. Or, the assistance of 2 or more helpers is required for the patient to complete the activity. If activity was not attempted, code reason: 7-Patient Refused. 9-Not Applicable-not attempted and the patient did not perform the activity before the current illness, exacerbation or injury. 10-Not Attempted due to Environmental Limitations-(lack of equipment, weather restraints, etc.). 88-Not Attempted due to Medical Conditions or Safety Concerns. Bed Mobility: 6 Transfers (B,C,W/C): 6 Gait: 6 Indoor Mobility (Ambulation): Independent Prior Devices Use: None PT Evaluation-Current Subjective Patient presents laying in bed. Patient reports he "feel out of it" and isn't feeling very good. Objective Patient Orientation: Person, Place, Situation Attachments: IV ROM/Strength ROM Lower Extremities WFL Strength Lower Extremities 3+/5 strength bilateral grossly Integumentary/Posture Bowel Incontinence: No Bladder Incontinence: No Neuromuscular (Tone, Coordination, Reflexes) grossly intact Sensory Vision: Functional Hearing: Functional Transfers Lying to Sitting/Side of Bed(Q: 4 Sit to Stand (QC): 3 Chair/Jhi-gb-Zzlav Xfer(QC): 1 Patient required CGA for bed mobility and mod assist for sit to stand. Patient was dependent for chair transfer after ambulating and fatiguing and muscle spasms bilateral LE Gait Does the Patient Walk?: Yes Mode of Locomotion: Walk Anticipated Mode of Locomotion: Walk Walk 10 feet (QC): 3 Distance: 10' Gait Assistive Device: FWW Comments/Gait Description Patient ambulated for 10' with FWW and mod assist. Balance Sitting Static: Normal Sitting Dynamic: Normal Standing Static: Normal Standing Dynamic: Poor Assessment/Needs Patient ambulated and performed bed mobility. Patient was able to walk 10' but then became very fatigued and required a dependent transfer into the chair. Patient reports feels very weak and couldn't move any further. Patient had multiple muscle spasms during therapy session that cause the patient significant pain. Rehab Potential: Guarded PT Mcc Goals Production Statistical Clerk Goals PT Production Statistical Clerk Goals Time Frame: Oct 03, 2021 Roll Left & Right (QC): 6 Sit to Lying (QC): 6 Lying-Sitting on Side/Bed(QC): 6 Sit to Stand (QC): 4 Chair/Hlk-zc-Baqlt Xfer(QC): 4 Toilet Transfer (QC): 4 Does the Patient Walk: Yes Walk 10 feet (QC): 4 Walk 50ft with 2 Turns (QC): 4 Walk 150 ft (QC): 4 PT Plan Problem List Problem List: Activity Tolerance, Functional Strength, Safety, Balance, Gait, Transfer, Bed Mobility, ROM Treatment/Plan Treatment Plan: Continue Plan of Care Treatment Plan: Bed Mobility, Education, Functional Activity Nabil, Functional Strength, Gait, Safety, Therapeutic Exercise, Transfers Treatment Duration: Oct 03, 2021 Frequency: 6 times per week Estimated Hrs Per Day: .25 hour per day Time/GCodes Time In: 1114 Time Out: 1135 Total Billed Treatment Time: 21 Total Billed Treatment 1 Visit EVMod 21 min MELINDA,CRISTINA PT Sep 18, 2021 11:48
[2021-09-18] MEDS ORDERED: hydrALAZINE (APRESOLINE) 25 MG TAB PO SCH (14:00)
[2021-09-18] MEDS: TAMSULOSIN 0.4 MG (FLOMAX) CAP PO SCH (16:59)
[2021-09-18] MEDS ORDERED: BUMETANIDE 1 MG (BUMEX) TAB PO ONE (17:00)
[2021-09-18] MEDS: polyethylene glycoL POWDER 17 GM (MIRALAX) PACK PO SCH (19:33)
[2021-09-18] MEDS: cloNIDine 0.1 MG (CATAPRES) TAB PO SCH (19:46)
[2021-09-19] MEDS: cloNIDine 0.1 MG (CATAPRES) TAB PO SCH ×2 (00:04→08:34)
[2021-09-19 04:59] VITALS: BP 178/79
[2021-09-19] MEDS: LACTATED RINGERS 1,000 ML IV SCH ×2 (05:29→11:40)
[2021-09-19] MEDS: PANTOPRAZOLE 40 MG (PROTONIX) TAB PO SCH (05:29)
[2021-09-19 05:30] LABS: HEMOGLOBIN 10.6 g/dL (13.3-17.7)
[2021-09-19 05:32] LABS: MEAN PLATELET VOLUME 11.3 fL (9.0-12.2); WHITE BLOOD COUNT 1.6 10^3/uL (4.3-11.0)
[2021-09-19 05:45] LABS: ALBUMIN 2.6 GM/DL (3.2-4.5); POTASSIUM 4.7 MMOL/L (3.6-5.0)
[2021-09-19 05:47] LABS: CALCIUM 8.1 MG/DL (8.5-10.1)
[2021-09-19 05:48] LABS: TOTAL PROTEIN 6.8 GM/DL (6.4-8.2)
[2021-09-19 05:50] LABS: BILIRUBIN,TOTAL 0.6 MG/DL (0.1-1.0)
[2021-09-19 05:51] LABS: CREATININE SERUM 1.44 MG/DL (0.60-1.30)
[2021-09-19] MEDS: inSUlin ASPART (NovoLOG) 1 UNIT/0.01 ML (CHARGE PER UNIT) SC SCH ×3 (06:18→20:12)
[2021-09-19 07:43] VITALS: BP 175/84
[2021-09-19] MEDS: meTOprolol SUCCINATE 100 MG (TOPROL XL) TAB PO SCH ×2 (08:34→20:13)
[2021-09-19] MEDS: SPIRONOLACTONE 25 MG (ALDACTONE) TAB PO SCH (08:34)
[2021-09-19] MEDS: amLODIPine 5 MG (NORVASC) TAB PO SCH (08:34)
--- NOTE | 2021-09-19 09:16 | Progress Note ---
Subjective Subjective Date Seen by Provider: Sep 19, 2021 Time Seen by Provider: 10:57 Jose E Velez is a 71y/o M who is being seen for follow up pertaining to peripheral edema and HTN. Pt reports that the swelling in his legs and feet has improved since yesterday. Muscle spasms and tremors are improved since admis suad. States that he has not been having any troubles using the bathroom and had a BM this morning. He had PT this morning and said that he was able to walk further than he did yesterday but his legs feel weaker than they were on admission. Daughter states that pt's mood has been more depressed than normal. Review of Systems General: No Chills, No Other (fever) HEENT: No Head Aches, No Visual Changes Pulmonary: No Dyspnea, No Cough Cardiovascular: No: Chest Pain, Palpitations, Lt Headedness Gastrointestinal: Nausea, Abdominal Pain (describes it as more of a discomfort than pain); No: Vomiting, Constipation Genitourinary: No Dysuria; Frequency (increased due to diuretics) Musculoskeletal: foot pain (b/l); No: arm pain, back pain Neurological: Weakness (legs); No: Numbness, Confusion Objective Exam Vital Signs Vital Signs Date Time Temp Pulse Resp B/P (MAP) Pulse Ox O2 Delivery O2 Flow Rate FiO2 09/19/21 07:43 36.0 65 16 175/84 (114) 97 Room Air 09/19/21 07:00 51 09/19/21 04:59 36.1 57 20 178/79 (112) 97 Room Air 09/19/21 01:00 74 09/18/21 23:28 36.0 81 16 182/86 (118) 96 Room Air 09/18/21 19:49 37.2 86 22 157/85 (109) 96 Room Air 09/18/21 19:42 Room Air 09/18/21 19:00 86 09/18/21 15:52 180/95 (123) 09/18/21 15:43 36.1 85 20 190/93 (125) 97 Room Air 09/18/21 12:47 103 09/18/21 11:58 37.0 88 20 162/80 (107) 95 Room Air I & O 09/19/21 07:00 Intake Total 1920 ml Output Total 700 ml Balance 1220 ml General Appearance: No Apparent Distress, WD/WN Neck: Non Tender, Supple Respiratory: Lungs Clear, Normal Breath Sounds, No Accessory Muscle Use, No Respiratory Distress Cardiovascular: Regular Rate, Rhythm, No Murmur, Normal Peripheral Pulses Gastrointestinal: Normal Bowel Sounds, Non Tender, Soft Extremity: Calf Tenderness (b/l calves and feet), Pedal Edema (improving, 1+ B/L) Neurologic/Psychiatric: Alert, Oriented x3, Depressed Affect Skin: Normal Color, Warm/Dry Lymphatic: No Adenopathy Results Lab Laboratory Tests 09/18/21 11:12: Glucometer 167H 09/18/21 15:47: Glucometer 259H 09/18/21 20:58: Glucometer 276H 09/19/21 05:15: White Blood Count 1.6L, Red Blood Count 3.74L, Hemoglobin 10.6L, Hematocrit 32L, Mean Corpuscular Volume 85, Mean Corpuscular Hemoglobin 28, Mean Corpuscular Hemoglobin Concent 33, Red Cell Distribution Width 15.4H, Platelet Count 64L, Mean Platelet Volume 11.3, Percent Immature Platelet Fraction 5.8, Sodium Level 133L, Potassium Level 4.7, Chloride Level 101, Carbon Dioxide Level 23, Anion Gap 9, Blood Urea Nitrogen 28H, Creatinine 1.44H, Estimat Glomerular Filtration Rate 51, BUN/Creatinine Ratio 19, Glucose Level 272H, Calcium Level 8.1L, Corrected Calcium 9.2, Total Bilirubin 0.6, Aspartate Amino Transf (AST/SGOT) 34, Alanine Aminotransferase (ALT/SGPT) 18, Alkaline Phosphatase 86, Total Protein 6.8, Albumin 2.6L Assessment/Plan Assessment/Plan Admission Dx Peripheral edema- Increased spironolactone. Continue Bumex. Given dose of solu- medrol for inflammation yesterday, consider another dose today. Edema has decreased enough where CRUZ hose may be an option if pt can tolerate. continue monitoring swelling in LEs. HTN- on amlodipine, metoprolol, clonidine. BP elevated last night. Hydralazine was stopped and clonidine was added at 0.1mg TID, BP still high. Consider increasing clonidine Pancytopenia- Followed by hematology/oncology, bone marrow biopsy done 09/17 Hematuria- Urology has been consulted, Dr. Vasquez is out of town. 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 Muscle spasms are improved Constipation- improving, on Miralax, pt reports that he has been having BMs GI prophlaxis- taking Protonix QD and Zofran PRN Anxiety- Klonopin increased yesterday, has improved DVT prophlaxis- continue SCDs due to pancytopenia Admission Dx Peripheral edema- Increase spironolactone. Stop Lasix and start Bumex. Potassium has been decreasing over the course of treatment. Start potassium supplementation. Give dose of solu-medrol for inflammation. continue monitoring swelling in LEs. HTN- on amlodipine, metoprolol, hydralazine. BP elevated, improved from yesterday. hydralazine and metoprolol increased yesterday. Increase hydralazine Pancytopenia- Followed by hematology/oncology, bone marrow biopsy done yesterday Hematuria- Urology has been consulted, Dr. Vasquez is out of town. 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 Muscle spasms are improved Constipation- on Miralax, pt reports that he has been having BMs GI prophlaxis- taking Protonix QD and Zofran PRN Anxiety- Klonopin increased yesterday, has improved DVT prophlaxis- continue SCDs due to pancytopenia Clinical Quality Measures Admission Status Admission Dx Peripheral edema- Increase spironolactone. Stop Lasix and start Bumex. Potassium has been decreasing over the course of treatment. Start potassium supplementation. Give dose of solu-medrol for inflammation. continue monitoring swelling in LEs. HTN- on amlodipine, metoprolol, hydralazine. BP elevated, improved from yesterday. hydralazine and metoprolol increased yesterday. Increase hydralazine Pancytopenia- Followed by hematology/oncology, bone marrow biopsy done yesterday Hematuria- Urology has been consulted, Dr. Vasquez is out of town. 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 Muscle spasms are improved Constipation- on Miralax, pt reports that he has been having BMs GI prophlaxis- taking Protonix QD and Zofran PRN Anxiety- Klonopin increased yesterday, has improved DVT prophlaxis- continue SCDs due to pancytopenia Supervisory-Addendum Brief Verification & Attestation Participated in pt care: history, physical Personally performed: exam, history, supervision of care Care discussed with: Medical Student Procedures: n/a Results interpretation: Verified all documentation Patient seen and assessed. Daughter at bedside. Patient without tremors or myoclonic jerks but more lethargic. Will decrease clonazepam dose to see if that is contributing. Legs less edematous and erythemic so will repeat solumedrol today and increase clonidine and SSI to accommodate for probable elevated BP/pulse and blood sugar. One dose of albumin to see if helps edema because is hypoalbuminuric. Concerns about going home and being able to get around due to weakness and distance to bathroom. ANTONIO ORO Sep 19, 2021 09:16 VICTORIA BARRON DO Sep 19, 2021 10:57
--- NOTE | 2021-09-19 09:28 | Physical Therapy Daily Note ---
PT Daily Note-Current Subjective Patient agrees to PT. Daughter present. Mental Status Patient Orientation: Normal For Age (slow to respond) Transfers SCALE: Activities may be completed with or without assistive devices. 2-Ggisslxose-igcfqnz completes the activity by him/herself with no assistance from a helper. 5-Set-up or Clean-up Assistance-helper sets up or cleans up; patient completes activity. [place] assists only prior to or following the activity. 4-Supervision or Touching Assistance-helper provides verbal cues and/or t ouching/steadying and/or contact guard assistance as patient completes activity. Assistance may be provided throughout the activity or intermittently. 3-Partial/Moderate Assistance-helper does LESS THAN HALF the effort. [place] lifts, holds or supports trunk or limbs, but provides less than half the effort. 2-Substantial/Maximal Assistance-helper does MORE THAN HALF the effort. [place] lifts or holds trunk or limbs and provides more than half the effort. 2-Gxsgkkesx-wlhlrc does ALL the effort. Patient does none of the effort to complete the activity. Or, the assistance of 2 or more helpers is required for the patient to complete the activity. If activity was not attempted, code reason: 7-Patient Refused. 9-Not Applicable-not attempted and the patient did not perform the activity before the current illness, exacerbation or injury. 10-Not Attempted due to Environmental Limitations-(lack of equipment, weather restraints, etc.). 88-Not Attempted due to Medical Conditions or Safety Concerns. Lying to Sitting/Side of Bed(Q: 4 Sit to Stand (QC): 3 Chair/Xsz-cz-Jorlq Xfer(QC): 3 Gait Training Does the Patient Walk?: Yes Distance: 200' Walk 10 feet (QC): 3 Walk 50 ft with 2 Turns(QC): 3 Walk 150 ft (QC): 3 Gait Assistive Device: FWW extended UE's with FWW use/flexed bilateral knees and trunk posture with shuffle gait sequence Assessment Very slow gait sequence with minimal to no foot clearance with gait. From a PT standpoint, patient would continue to benefit from skilled PT to improve gross motor skills and ensure safe return to home with family. PT Certified Master Safecracker Goals Residential Goals PT Residential Goals Time Frame: Oct 03, 2021 Roll Left & Right (QC): 6 Sit to Lying (QC): 6 Lying-Sitting on Side/Bed(QC): 6 Sit to Stand (QC): 4 Chair/Lia-da-Cgrel Xfer(QC): 4 Toilet Transfer (QC): 4 Does the Patient Walk: Yes Walk 10 feet (QC): 4 Walk 50ft with 2 Turns (QC): 4 Walk 150 ft (QC): 4 PT Plan Treatment/Plan Treatment Plan: Continue Plan of Care Treatment Plan: Bed Mobility, Education, Functional Activity Nabil, Functional Strength, Gait, Safety, Therapeutic Exercise, Transfers Treatment Duration: Oct 03, 2021 Frequency: 6 times per week Estimated Hrs Per Day: .25 hour per day Time/GCodes Time In: 800 Time Out: 812 Total Billed Treatment Time: 12 Total Billed Treatment 1 visit GT 12 min CRISTINA LAWRENCE PT Sep 19, 2021 09:28
[2021-09-19] MEDS ORDERED: clonazePAM 0.5 MG (KlonoPIN) TAB PO PRN (10:45)
[2021-09-19] MEDS ORDERED: ALBUMIN 25% 25 GM/100 ML 50 ML IV ONE (11:00)
[2021-09-19] MEDS ORDERED: BUMETANIDE 1 MG (BUMEX) TAB PO NR (11:00)
[2021-09-19] MEDS: methylPREDNISolone 40 MG/ML (Solu-MEDROL) VIAL IV SCH ×3 (11:35→21:57)
[2021-09-19 12:14] VITALS: BP 175/78
[2021-09-19] MEDS: cloNIDine 0.2 MG (CATAPRES) TAB PO SCH ×2 (12:26→20:18)
[2021-09-19 16:00] VITALS: BP 185/86
[2021-09-19] MEDS: TAMSULOSIN 0.4 MG (FLOMAX) CAP PO SCH (17:31)
[2021-09-19 19:49] VITALS: BP 187/88
[2021-09-19] MEDS: polyethylene glycoL POWDER 17 GM (MIRALAX) PACK PO SCH (20:01)
[2021-09-19] MEDS ORDERED: cloNIDine 0.1 MG (CATAPRES) TAB ONE (20:11)
[2021-09-19] MEDS ORDERED: cloNIDine 0.1 MG (CATAPRES) TAB PO ONE (20:30)
[2021-09-19] MEDS ORDERED: LOSARTAN 100 MG (COZAAR) TABLET PO ONE (21:45)
[2021-09-20] VITALS (7 sets, daily range): BP systolic 178–193; BP diastolic 77–88
[2021-09-20] MEDS: hydrALAZINE (APRESOLINE) 25 MG TAB PO PRN ×2 (01:12→23:22)
[2021-09-20 06:44] LABS: MEAN PLATELET VOLUME 12.4 fL (9.0-12.2); WHITE BLOOD COUNT 3.4 10^3/uL (4.3-11.0)
[2021-09-20] MEDS: methylPREDNISolone 40 MG/ML (Solu-MEDROL) VIAL IV SCH (06:50)
[2021-09-20] MEDS: LACTATED RINGERS 1,000 ML IV SCH ×2 (06:50→17:32)
[2021-09-20] MEDS: inSUlin ASPART (NovoLOG) 1 UNIT/0.01 ML (CHARGE PER UNIT) SC SCH ×4 (06:51→20:16)
[2021-09-20] MEDS: PANTOPRAZOLE 40 MG (PROTONIX) TAB PO SCH (06:51)
[2021-09-20 07:03] LABS: POTASSIUM 4.7 MMOL/L (3.6-5.0)
[2021-09-20 07:04] LABS: CALCIUM 8.6 MG/DL (8.5-10.1)
[2021-09-20 07:08] LABS: CREATININE SERUM 1.39 MG/DL (0.60-1.30)
--- NOTE | 2021-09-20 08:35 | Progress Note ---
Subjective Subjective Date Seen by Provider: Sep 20, 2021 Time Seen by Provider: 08:04 Jose E Velez is a 71y/o M who is being seen for follow up pertaining to peripheral edema and HTN. Pt reports that the swelling in his legs and feet has improved some since yesterday. Last night pt had an episode of hypertensive urgency with bradycardia. First given metoprolol 100mg and clonidine 0.1mg. Later, he was given a dose of solu-medrol 20mg, hydralazine 50mg and losartan 100mg. Clonidine was discontinued. Pt has been restarted on hydralazine. He reports that he was not symptomatic last night. Today he states that he is doing well. Urinating frequently w/ no pain. Had a couple BMs yesterday. Review of Systems General: No Chills, No Other (fever) HEENT: No Head Aches, No Visual Changes Pulmonary: No Dyspnea, No Cough Cardiovascular: No: Chest Pain, Palpitations, Lt Headedness Gastrointestinal: Abdominal Pain (describes it as more of a discomfort than pain); No: Nausea, Vomiting, Constipation Genitourinary: No Dysuria; Frequency (increased due to diuretics) Musculoskeletal: foot pain (b/l); No: arm pain, back pain Neurological: Weakness (legs); No: Numbness, Confusion Objective Exam Vital Signs Vital Signs Date Time Temp Pulse Resp B/P (MAP) Pulse Ox O2 Delivery O2 Flow Rate FiO2 09/20/21 08:15 35.9 40 18 185/83 (117) 97 Room Air 09/20/21 07:00 39 09/20/21 03:03 36.0 39 20 178/77 (110) 96 Room Air 09/20/21 01:00 40 09/20/21 00:00 36.2 37 18 193/82 (119) 96 Room Air 09/19/21 19:49 36.8 46 22 187/88 (121) 96 Room Air 09/19/21 19:25 Room Air 09/19/21 19:00 46 09/19/21 16:00 36.4 50 16 185/86 (119) 95 Room Air 09/19/21 12:48 59 09/19/21 12:14 36.3 59 18 175/78 (110) 97 Room Air 09/19/21 11:34 Room Air 0.00 I & O 09/20/21 07:00 Intake Total 2820 ml Output Total 1850 ml Balance 970 ml General Appearance: No Apparent Distress, WD/WN Neck: Non Tender, Supple Respiratory: Lungs Clear, Normal Breath Sounds, No Accessory Muscle Use, No Respiratory Distress Cardiovascular: No Murmur, Normal Peripheral Pulses, Bradycardia Gastrointestinal: Normal Bowel Sounds, Non Tender, Soft Extremity: Calf Tenderness (b/l calves and feet), Pedal Edema (improving, 1+ B/L) Neurologic/Psychiatric: Alert, Oriented x3 Skin: Normal Color, Warm/Dry Lymphatic: No Adenopathy Results Lab Laboratory Tests 09/19/21 10:49: Glucometer 243H 09/19/21 15:24: Glucometer 303H 09/19/21 18:12: Glucometer 213H 09/19/21 20:08: Glucometer 178H 09/20/21 05:37: Glucometer 269H 09/20/21 05:45: White Blood Count 3.4L, Red Blood Count 3.96L, Hemoglobin 11.0L, Hematocrit 35L, Mean Corpuscular Volume 87, Mean Corpuscular Hemoglobin 28, Mean Corpuscular Hemoglobin Concent 32, Red Cell Distribution Width 15.7H, Platelet Count 112L, Mean Platelet Volume 12.4H, Percent Immature Platelet Fraction 7.5, Sodium Level 135, Potassium Level 4.7, Chloride Level 102, Carbon Dioxide Level 23, Anion Gap 10, Blood Urea Nitrogen 33H, Creatinine 1.39H, Estimat Glomerular Filtration Rate 54, BUN/Creatinine Ratio 24, Glucose Level 296H, Calcium Level 8.6 Assessment/Plan Assessment/Plan Admission Dx Peripheral edema- Continue spironolactone and bumex. Continue solu-medrol at 20mg. Consider doing LU wraps on legs and feet to help w/ edema. continue monitoring swelling in LEs. HTN- on amlodipine, metoprolol, hydralazine. BP elevated last night w/ bradycard ia. Clonidine was stopped last night and pt was restarted on hydralazine 50mg TID and hydralazine 25mg Q6H if BP >160/90. Continue to monitor Pancytopenia- Followed by hematology/oncology, bone marrow biopsy done 09/17 Hematuria- Urology has been consulted, Dr. Vasquez is out of town. 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 Muscle spasms are improved Constipation- improving, on Miralax, GI prophlaxis- taking Protonix QD and Zofran PRN Anxiety- Klonopin decreased yesterday, no change in mood DVT prophlaxis- continue SCDs due to pancytopenia Admission Dx Peripheral edema- Increased spironolactone. Continue Bumex. Given dose of solu- medrol for inflammation yesterday, consider another dose today. Edema has decreased enough where CRUZ hose may be an option if pt can tolerate. continue monitoring swelling in LEs. HTN- on amlodipine, metoprolol, clonidine. BP elevated last night. Hydralazine was stopped and clonidine was added at 0.1mg TID, BP still high. Consider increasing clonidine Pancytopenia- Followed by hematology/oncology, bone marrow biopsy done 09/17 Hematuria- Urology has been consulted, Dr. Vasquez is out of town. 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 Muscle spasms are improved Constipation- improving, on Miralax, pt reports that he has been having BMs GI prophlaxis- taking Protonix QD and Zofran PRN Anxiety- Klonopin increased yesterday, has improved DVT prophlaxis- continue SCDs due to pancytopenia Clinical Quality Measures Admission Status Admission Dx Peripheral edema- Increased spironolactone. Continue Bumex. Given dose of solu- medrol for inflammation yesterday, consider another dose today. Edema has decreased enough where CRUZ hose may be an option if pt can tolerate. continue monitoring swelling in LEs. HTN- on amlodipine, metoprolol, clonidine. BP elevated last night. Hydralazine was stopped and clonidine was added at 0.1mg TID, BP still high. Consider increasing clonidine Pancytopenia- Followed by hematology/oncology, bone marrow biopsy done 09/17 Hematuria- Urology has been consulted, Dr. Vasquez is out of town. 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 Muscle spasms are improved Constipation- improving, on Miralax, pt reports that he has been having BMs GI prophlaxis- taking Protonix QD and Zofran PRN Anxiety- Klonopin increased yesterday, has improved DVT prophlaxis- continue SCDs due to pancytopenia Supervisory-Addendum Brief Verification & Attestation Participated in pt care: history, physical Personally performed: exam, history, supervision of care Care discussed with: Medical Student Procedures: n/a Results interpretation: Verified all documentation Patient seen and assessed. Had bradycardia overnight and pulse 40s this mornin g. Clonidine DCed as bradycardia developed after adding this and increasing dose. Back on hydralazine for BP. Will increase spironolactone to 100mg po q AM, change amlodopine back to his home dose of Cardizem and add losartan 25mg po BID. Erythema in legs improving as well as platelets so will DC methylprednisilone and start prednisone. Will decrease klonopin to 0.25mg po TID prn. Increase activity. If pulse improving with better BP control and strength improving will consider DC tomorrow. ANTONIO ORO Sep 20, 2021 08:35 VICTORIA BARRON DO Sep 20, 2021 10:02
[2021-09-20] MEDS: amLODIPine 5 MG (NORVASC) TAB PO SCH (08:51)
[2021-09-20] MEDS: SPIRONOLACTONE 25 MG (ALDACTONE) TAB PO SCH (08:51)
[2021-09-20] MEDS: meTOprolol SUCCINATE 100 MG (TOPROL XL) TAB PO SCH ×2 (08:51→19:58)
[2021-09-20] MEDS ORDERED: hydrALAZINE (APRESOLINE) 25 MG TAB PO SCH (09:00)
[2021-09-20] MEDS ORDERED: SPIRONOLACTONE 25 MG (ALDACTONE) TAB PO NR (09:45)
[2021-09-20] MEDS ORDERED: LOSARTAN 25 MG (COZAAR) TAB PO NR (09:45)
[2021-09-20] MEDS ORDERED: BUMETANIDE 1 MG (BUMEX) TAB PO NR (09:45)
[2021-09-20] MEDS: ONDANSETRON 4 MG/2 ML (SDV) Z0FRAN IV PRN (11:21)
[2021-09-20] MEDS ORDERED: predniSONE 20 MG TAB PO NR (12:00)
[2021-09-20] MEDS: TAMSULOSIN 0.4 MG (FLOMAX) CAP PO SCH (17:29)
[2021-09-20] MEDS: polyethylene glycoL POWDER 17 GM (MIRALAX) PACK PO SCH (19:46)
[2021-09-20] MEDS: LOSARTAN 25 MG (COZAAR) TAB PO SCH (19:58)
[2021-09-20] MEDS: VERAPAMIL SR 180 MG (CALAN SR) TAB PO SCH (19:58)
[2021-09-20] MEDS: clonazePAM 0.5 MG (KlonoPIN) TAB PO PRN (23:22)
[2021-09-21 03:08] VITALS: BP 186/83
[2021-09-21 05:39] VITALS: BP 189/86
[2021-09-21] MEDS: PANTOPRAZOLE 40 MG (PROTONIX) TAB PO SCH (05:46)
[2021-09-21] MEDS: hydrALAZINE (APRESOLINE) 25 MG TAB PO PRN ×2 (05:46→19:29)
[2021-09-21] MEDS: predniSONE 20 MG TAB PO SCH (05:46)
[2021-09-21 06:03] LABS: HEMATOCRIT 35 % (40-54); HEMOGLOBIN 11.2 g/dL (13.3-17.7); MEAN CORPUSCULAR HEMOGLOBIN 28 pg (25-34); MEAN CORPUSCULAR HGB CONC 33 g/dL (32-36); MEAN CORPUSCULAR VOLUME 87 fL (80-99); MEAN PLATELET VOLUME 11.7 fL (9.0-12.2); PLATELET COUNT 136 10^3/uL (130-400); WHITE BLOOD COUNT 5.1 10^3/uL (4.3-11.0)
[2021-09-21] MEDS: inSUlin ASPART (NovoLOG) 1 UNIT/0.01 ML (CHARGE PER UNIT) SC SCH ×4 (06:04→20:09)
[2021-09-21 06:16] LABS: ALBUMIN 3.2 GM/DL (3.2-4.5); POTASSIUM 4.2 MMOL/L (3.6-5.0)
[2021-09-21 06:18] LABS: CALCIUM 8.7 MG/DL (8.5-10.1)
[2021-09-21 06:19] LABS: TOTAL PROTEIN 7.2 GM/DL (6.4-8.2)
[2021-09-21 06:21] LABS: BILIRUBIN,TOTAL 0.7 MG/DL (0.1-1.0)
[2021-09-21 06:22] LABS: CREATININE SERUM 1.45 MG/DL (0.60-1.30)
[2021-09-21 08:11] VITALS: BP 165/73
[2021-09-21] MEDS: meTOprolol SUCCINATE 100 MG (TOPROL XL) TAB PO SCH ×2 (08:22→19:29)
[2021-09-21] MEDS: LOSARTAN 25 MG (COZAAR) TAB PO SCH (08:22)
[2021-09-21] MEDS: BUMETANIDE 1 MG (BUMEX) TAB PO SCH (08:22)
[2021-09-21] MEDS: SPIRONOLACTONE 100 MG (ALDACTONE) TABLET PO SCH (08:22)
[2021-09-21] MEDS: ONDANSETRON 4 MG/2 ML (SDV) Z0FRAN IV PRN (09:37)
[2021-09-21] MEDS: LOSARTAN 50 MG (COZAAR) TAB PO SCH ×2 (09:38→19:30)
[2021-09-21] MEDS: LACTATED RINGERS 1,000 ML IV SCH ×2 (09:45→10:45)
--- NOTE | 2021-09-21 11:05 | Physical Therapy Daily Note ---
PT Daily Note-Current Subjective Patient presented in walking back to bed after using the bathroom and agreed to participate with physical therapy. Mental Status Patient Orientation: Person, Place, Time, Situation Attachments: IV Transfers SCALE: Activities may be completed with or without assistive devices. 0-Roseohtvew-xyvvkcp completes the activity by him/herself with no assistance from a helper. 5-Set-up or Clean-up Assistance-helper sets up or cleans up; patient completes activity. [place] assists only prior to or following the activity. 4-Supervision or Touching Assistance-helper provides verbal cues and/or touching/steadying and/or contact guard assistance as patient completes activity. Assistance may be provided throughout the activity or intermittently. 3-Partial/Moderate Assistance-helper does LESS THAN HALF the effort. [place] lifts, holds or supports trunk or limbs, but provides less than half the effort. 2-Substantial/Maximal Assistance-helper does MORE THAN HALF the effort. [place] lifts or holds trunk or limbs and provides more than half the effort. 5-Hoitfrfdi-kqmkso does ALL the effort. Patient does none of the effort to complete the activity. Or, the assistance of 2 or more helpers is required for the patient to complete the activity. If activity was not attempted, code reason: 7-Patient Refused. 9-Not Applicable-not attempted and the patient did not perform the activity before the current illness, exacerbation or injury. 10-Not Attempted due to Environmental Limitations-(lack of equipment, weather restraints, etc.). 88-Not Attempted due to Medical Conditions or Safety Concerns. Sit to Stand (QC): 3 Chair/Mpt-wy-Ojcqy Xfer(QC): 3 Patient requires min assist for transfers. Gait Training Does the Patient Walk?: Yes Distance: 200' Walk 10 feet (QC): 3 Walk 50 ft with 2 Turns(QC): 3 Walk 150 ft (QC): 3 Gait Assistive Device: FWW Patient ambulated 200' with FWW and min assist. Patient ambulates with flexed trunk and bent knees. Shuffle gait sequence with minimal foot clearance Exercises Seated Therapy Exercises: Long arc quads, Hip abd/add Seated Reps: 5 Treatments Seated exercises and ambulation Assessment Patient ambulated and performed seated exercises. Patient seated exercises were very slow and patient had difficulty moving through entire ROM due to weakness. Patient ambulated very slow with flexed trunk and bent knees. Patient reported fatigue after ambulation PT Short Term Goals Short Term Goals Time Frame: Sep 21, 2021 PT Skilled Nursing Goals Skilled Nursing Goals PT [place] M[place] Goals Time Frame: Oct 03, 2021 Roll Left & Right (QC): 6 Sit to Lying (QC): 6 Lying-Sitting on Side/Bed(QC): 6 Sit to Stand (QC): 4 Chair/Tqx-xe-Odrii Xfer(QC): 4 Toilet Transfer (QC): 4 Does the Patient Walk: Yes Walk 10 feet (QC): 4 Walk 50ft with 2 Turns (QC): 4 Walk 150 ft (QC): 4 PT Plan Problem List Problem List: Activity Tolerance, Functional Strength, Safety, Balance, Gait, Transfer, Bed Mobility, ROM Treatment/Plan Treatment Plan: Continue Plan of Care Treatment Plan: Bed Mobility, Education, Functional Activity Nabil, Functional Strength, Gait, Safety, Therapeutic Exercise, Transfers Treatment Duration: Oct 03, 2021 Frequency: 6 times per week Estimated Hrs Per Day: .25 hour per day Time/GCodes Time In: 1019 Time Out: 1034 Total Billed Treatment Time: 15 Total Billed Treatment 1 Visit FA 15 min CRISTINA LAWRENCE PT Sep 21, 2021 11:05
[2021-09-21 11:55] VITALS: BP 169/82
--- NOTE | 2021-09-21 12:27 | Progress Note ---
Subjective Date Seen by a Provider: Sep 21, 2021 Time Seen by a Provider: 08:35 Subjective/Events-last exam Fwup LE edema with stasis dermatitis, labile hypertension, bradycardia, anxiety, tremors, myoclonic jerks, DMII, chronic renal insufficiency, pancytopenia, hematuria. Feels a little bit stronger and not as many muscle spasms--tremors much better. Swelling in legs about same. Objective Exam Vital Signs Date Time Temp Pulse Resp B/P (MAP) Pulse Ox O2 Delivery O2 Flow Rate FiO2 09/21/21 11:55 36.4 66 18 169/82 (111) 98 Room Air 09/21/21 08:11 36.0 74 18 165/73 (103) 95 Room Air 09/21/21 08:00 Room Air 0.00 09/21/21 07:00 61 09/21/21 05:39 58 189/86 (120) 09/21/21 03:08 36.3 59 20 186/83 (117) 97 Room Air 09/21/21 01:00 69 09/20/21 23:10 36.9 76 22 181/88 (119) 98 Room Air 09/20/21 20:18 36.8 09/20/21 19:53 Room Air 09/20/21 19:52 62 09/20/21 19:44 67 20 181/84 (116) 96 09/20/21 15:45 36.7 42 20 180/78 (112) 96 Room Air 09/20/21 12:43 40 I & O 09/21/21 07:00 Intake Total 1520 ml Output Total 1275 ml Balance 245 ml Capillary Refill : General Appearance: No Apparent Distress Respiratory: Lungs Clear Cardiovascular: Regular Rate, Rhythm Gastrointestinal: normal bowel sounds, non tender, soft Extremity: Non Tender, No Calf Tenderness, Pedal Edema Neurologic/Psychiatric: Alert, Oriented x3 Results Lab Laboratory Tests 09/20/21 14:50: Glucometer 234H 09/20/21 20:03: Glucometer 182H 09/21/21 05:36: Glucometer 177H 09/21/21 05:55: White Blood Count 5.1, Red Blood Count 3.99L, Hemoglobin 11.2L, Hematocrit 35L, Mean Corpuscular Volume 87, Mean Corpuscular Hemoglobin 28, Mean Corpuscular Hemoglobin Concent 33, Red Cell Distribution Width 15.6H, Platelet Count 136, Mean Platelet Volume 11.7, Sodium Level 137, Potassium Level 4.2, Chloride Level 104, Carbon Dioxide Level 22, Anion Gap 11, Blood Urea Nitrogen 32H, Creatinine 1.45H, Estimat Glomerular Filtration Rate 51, BUN/Creatinine Ratio 22, Glucose Level 193H, Calcium Level 8.7, Corrected Calcium 9.3, Total Bilirubin 0.7, Aspartate Amino Transf (AST/SGOT) 39H, Alanine Aminotransferase (ALT/SGPT) 28, Alkaline Phosphatase 78, Total Protein 7.2, Albumin 3.2 09/21/21 09:35: Influenza Type A (RT-PCR) Not Detected, Influenza Type B (RT-PCR) Not Detected, SARS-CoV-2 RNA (RT-PCR) Not Detected 09/21/21 09:58: Glucometer 391H Assessment/Plan Assessment/Plan Assess & Plan/Chief Complaint 1. Bilateral LE Edema with Stastis Dermatitis--still with edema but has improved with diuresis and steroids 2. Labile Hypertension--increase losartan to 50mg po BID, Has hydralazine to use prn as well 3. Pancytopenia with spleenomegaly--awaiting bone marrow results but pancytopenia improving with steroids 4. Acute on Chronic Renal Insufficiency--BUN/Cr stable with adding spironolactone and bumex 5. Bradycardia--resolving with DC of clonidine 6. DMII with hyperglycemia--on SSI, elevated due to steroids 7. Anxiety--using klonopin prn and has helped tremors and myoclonic jerks 8. Weakness/Fall risk--is getting around better per daughter VICTORIA BARRON DO Sep 21, 2021 12:27
[2021-09-21 15:41] VITALS: BP 176/88
--- NOTE | 2021-09-21 16:20 | CONSULTATION REPORT ---
DATE OF SERVICE: 09/21/2021 ATTENDING PHYSICIAN: Dr. Liz. SUMMARY: After reviewing the patient's record at the office and the hospital, this is a 71-year-old white man known to me with history of stones with previous procedure for it, who has been controlled by fluid and diet management as well as Urocit-K and supposed to come to my office on this coming week. He was admitted because of pelvic pain, splenomegaly, and pancytopenia. He admitted to Dr. Liz that he had an episode of gross hematuria in the past and he has been having microscopic hematuria. CT scan of the abdomen and pelvis with contrast was essentially negative arevalo. When I came to see the patient he was in the bathroom, I discussed it with his daughter who takes care of all of his medical issues and recommended to complete the workup with a cystoscopy. Dr. Liz asked me if possible to do it while here in the hospital and then go home, which is very reasonable, so we will do the cystoscopy tomorrow at bedside under local flexible type and probably reschedule his appointment next one in next week according to the cystoscopic findings. IMPRESSION: Gross hematuria, pelvic pain. PLAN: Cystoscopy tomorrow. At that time, we will do physical exam including a rectal exam as well as PSA. Job ID: [id number] DocumentID: [id number] Dictated Date: 09/21/2021 12:40:06 Campus Recruiter Date: 09/21/2021 16:20:07 Dictated By: FEI BRITO MD MTDD
[2021-09-21] MEDS: TAMSULOSIN 0.4 MG (FLOMAX) CAP PO SCH (17:56)
[2021-09-21 19:13] VITALS: BP 180/82
[2021-09-21] MEDS: clonazePAM 0.5 MG (KlonoPIN) TAB PO PRN (19:29)
[2021-09-21] MEDS: polyethylene glycoL POWDER 17 GM (MIRALAX) PACK PO SCH (19:30)
[2021-09-21] MEDS: VERAPAMIL SR 180 MG (CALAN SR) TAB PO SCH (19:43)
[2021-09-22 00:17] VITALS: BP 185/86
[2021-09-22] MEDS: hydrALAZINE (APRESOLINE) 25 MG TAB PO PRN (02:59)
[2021-09-22] MEDS: ONDANSETRON 4 MG/2 ML (SDV) Z0FRAN IV PRN (03:00)
[2021-09-22 04:11] VITALS: BP 133/55
[2021-09-22] MEDS: predniSONE 20 MG TAB PO SCH (06:01)
[2021-09-22] MEDS: PANTOPRAZOLE 40 MG (PROTONIX) TAB PO SCH (06:01)
[2021-09-22] MEDS: inSUlin ASPART (NovoLOG) 1 UNIT/0.01 ML (CHARGE PER UNIT) SC SCH ×2 (06:28→10:32)
[2021-09-22 06:31] LABS: HEMATOCRIT 35 % (40-54); HEMOGLOBIN 11.6 g/dL (13.3-17.7); MEAN CORPUSCULAR HEMOGLOBIN 29 pg (25-34); MEAN CORPUSCULAR HGB CONC 33 g/dL (32-36); MEAN CORPUSCULAR VOLUME 86 fL (80-99); MEAN PLATELET VOLUME 11.7 fL (9.0-12.2); PLATELET COUNT 145 10^3/uL (130-400); WHITE BLOOD COUNT 4.3 10^3/uL (4.3-11.0)
[2021-09-22 06:44] LABS: ALBUMIN 3.1 GM/DL (3.2-4.5); POTASSIUM 3.8 MMOL/L (3.6-5.0)
[2021-09-22 06:45] LABS: CALCIUM 8.7 MG/DL (8.5-10.1)
[2021-09-22 06:48] LABS: BILIRUBIN,TOTAL 0.7 MG/DL (0.1-1.0)
[2021-09-22 06:50] LABS: CREATININE SERUM 1.47 MG/DL (0.60-1.30)
[2021-09-22 07:52] VITALS: BP 155/70
[2021-09-22] MEDS ORDERED: LIDOCAINE UROJET 2% GEL 10 ML PKG ONE (08:15)
[2021-09-22] MEDS: LOSARTAN 50 MG (COZAAR) TAB PO SCH (08:39)
[2021-09-22] MEDS: SPIRONOLACTONE 100 MG (ALDACTONE) TABLET PO SCH (08:39)
[2021-09-22] MEDS: BUMETANIDE 1 MG (BUMEX) TAB PO SCH (08:39)
[2021-09-22] MEDS: meTOprolol SUCCINATE 100 MG (TOPROL XL) TAB PO SCH (08:39)
--- NOTE | 2021-09-22 09:11 | Progress Note-Pre Operative ---
Pre-Operative Progress Note H&P Reviewed The H&P was reviewed, patient examined and no changes noted. Date Seen by Provider: Sep 22, 2021 Time Seen by Provider: 09:00 Date H&P Reviewed: Sep 17, 2021 Time H&P Reviewed: 09:00 Pre-Operative Diagnosis: GROSS HEMATURIA FEI BRITO MD Sep 22, 2021 09:11
--- NOTE | 2021-09-22 09:12 | Progress Note-Post Operative ---
Post-Operative Progess Note Surgeon (s)/Frickertron Checker (s) Surgeon FEI BRITO MD Frickertron Checker: NONE Pre-Operative Diagnosis GROSS HEMATURIA Post-Operative Diagnosis SAME Procedure & Operative Findings Date of Procedure 09/22/21 Procedure Performed/Findings CYSTOSCOPY Anesthesia Type LOCAL Estimated Blood Loss Estimated blood loss (mL): NONE Specimens/Packing Specimens Removed NONE Packing: NONE FEI BRITO MD Sep 22, 2021 09:12
--- NOTE | 2021-09-22 10:25 | Physical Therapy Daily Note ---
PT Daily Note-Current Subjective Patient presented laying in bed and reported he was feeling better today than yesterday. Mental Status Patient Orientation: Person, Place, Time, Situation Attachments: IV Transfers SCALE: Activities may be completed with or without assistive devices. 3-Wacvkkndsw-eckbbbp completes the activity by him/herself with no assistance from a helper. 5-Set-up or Clean-up Assistance-helper sets up or cleans up; patient completes activity. [place] assists only prior to or following the activity. 4-Supervision or Touching Assistance-helper provides verbal cues and/or touching/steadying and/or contact guard assistance as patient completes activity. Assistance may be provided throughout the activity or intermittently. 3-Partial/Moderate Assistance-helper does LESS THAN HALF the effort. [place] lifts, holds or supports trunk or limbs, but provides less than half the effort. 2-Substantial/Maximal Assistance-helper does MORE THAN HALF the effort. [place] lifts or holds trunk or limbs and provides more than half the effort. 4-Zwmlybwct-wkiakv does ALL the effort. Patient does none of the effort to complete the activity. Or, the assistance of 2 or more helpers is required for the patient to complete the activity. If activity was not attempted, code reason: 7-Patient Refused. 9-Not Applicable-not attempted and the patient did not perform the activity before the current illness, exacerbation or injury. 10-Not Attempted due to Environmental Limitations-(lack of equipment, weather restraints, etc.). 88-Not Attempted due to Medical Conditions or Safety Concerns. Lying to Sitting/Side of Bed(Q: 4 Sit to Stand (QC): 3 Patient performed bed mobility with CGA and required mod assist for sit to stand. Gait Training Does the Patient Walk?: Yes Distance: 100' Walk 10 feet (QC): 3 Walk 50 ft with 2 Turns(QC): 3 Gait Assistive Device: FWW Patient ambulated for 100' with FWW and min assist. Patient still ambulates with bent knees and flexed trunk but much improved from yesterday Assessment Patient ambulated and performed bed mobility with therapy. Patient required min assist for ambulation. Patient left post tx in bathroom with nursing staff to assist with a shower before patient goes home today. PT Short Term Goals Short Term Goals Time Frame: Sep 21, 2021 PT Retirement Goals Retirement Goals PT Retirement Goals Time Frame: Oct 03, 2021 Roll Left & Right (QC): 6 Sit to Lying (QC): 6 Lying-Sitting on Side/Bed(QC): 6 Sit to Stand (QC): 4 Chair/Kyx-hr-Mubzn Xfer(QC): 4 Toilet Transfer (QC): 4 Does the Patient Walk: Yes Walk 10 feet (QC): 4 Walk 50ft with 2 Turns (QC): 4 Walk 150 ft (QC): 4 PT Plan Problem List Problem List: Activity Tolerance, Functional Strength, Safety, Balance, Gait, Transfer, Bed Mobility, ROM Treatment/Plan Treatment Plan: Continue Plan of Care Treatment Plan: Bed Mobility, Education, Functional Activity Nabil, Functional Strength, Gait, Safety, Therapeutic Exercise, Transfers Treatment Duration: Oct 03, 2021 Frequency: 6 times per week Estimated Hrs Per Day: .25 hour per day Time/GCodes Time In: 943 Time Out: 945 Total Billed Treatment Time: 11 Total Billed Treatment 1 Visit Gait 11 min CRISTINA LAWRENCE PT Sep 22, 2021 10:25
[2021-09-22] MEDS ORDERED: LOSA50TA63 PO (10:32)
[2021-09-22] MEDS ORDERED: TMSL.4C PO (10:32)
[2021-09-22] MEDS ORDERED: VERA180T55 PO (10:32)
[2021-09-22] MEDS ORDERED: BUME1TAB8 PO (10:32)
[2021-09-22] MEDS ORDERED: PRD20T PO (10:32)
[2021-09-22] MEDS ORDERED: SPIR100T4 PO (10:32)
[2021-09-22] MEDS ORDERED: PANT40TA52 PO (10:32)
[2021-09-22] MEDS ORDERED: CLON0.5T4 PO (10:32)
[2021-09-22] MEDS ORDERED: MTP100TCR PO (10:32)
[2021-09-22] MEDS: LACTATED RINGERS 1,000 ML IV SCH (10:34)
--- NOTE | 2021-09-22 10:37 | D/C HH Face to Face Order ---
D/C Face to Face Orders Reconcile Patient Problems Problems Reviewed?: Yes Instructions for Patient Via [facility], Patient Instructions/FollowUp: Fwup with me in 1 week Physician to follow Patient: Omarolivahernando Discharge Diet for Home: ADA Diet, Low Sodium Diet Patient Data-Allergies,Ht & Wt Patient Allergies: Coded Allergies: aspirin (Verified Allergy, Severe, [place], 04/16/16) acetaminophen (Verified Allergy, Mild, 04/16/16) hydrocodone (Verified Allergy, Mild, 04/16/16) fentanyl (Verified Allergy, Unknown, BREATHING TROUBLE, pt has rec meperidine in the past, 03/03/21) ONLY PATCH NOT INTRAVENOUS FENTANYL oxycodone (Verified Allergy, Unknown, NIGHT[place]ES, 03/02/21) Height (Feet): 6 Height (Inches): 1.00 Weight (Pounds): 190 Weight (Ounces): 14.0 Home Health Need/Face to Face Date of Face to Face: Sep 22, 2021 Clinical Findings: Generalized weakness and fatigue, Instability, Muscle weakness, Unsteady gait I have seen Pt jyyt-vk-otvr: Yes Discharged To: Home Diagnosis/Conditions: Weakness Lymphedema of Legs Labile Hypertension Pancytopenia Spleenomegaly DMII Patient is Homebound due to: Ammy fall risk due to instabilty, Muscle weakness Homebound Status Due to the above stated illness, injury or surgical procedure (medical condition or diagnosis) and associated clinical findings, the patient is homebound because of his/her inability to leave home except with aid of a supportive device and/or person AND leaving the home requires a considerable and taxing effort or is medically contraindicated. Pt req the following assistanc: Aid of another person, Walker Home Health Nursing Orders Home Health Services Order: Nursing Services, [facility]-Evaluate & Treat, Physical Therapy-Evaluate & Treat Certify Stmt I certify that this patient is under my care and that I, a nurse practitioner or a physician; a assistant teacher working with me, had a face to face encounter that - meets the physician face to face encounter requirements with this patient as dated. VICTORIA BARRON DO Sep 22, 2021 10:37
[2021-09-22 11:40] VITALS: BP 155/70
--- NOTE | 2021-09-22 17:26 | OPERATIVE REPORT ---
DATE OF SERVICE: 09/22/2021 PREOPERATIVE DIAGNOSIS: Gross hematuria. POSTOPERATIVE DIAGNOSIS: Gross hematuria. OPERATION PERFORMED: Cystoscopy. SURGEON: Ibrahima Brito MD ANESTHESIA: Local. COMPLICATIONS: None. DESCRIPTION OF PROCEDURE: With the patient supine in his bed, genitalia were prepped and draped in the usual sterile fashion. Urethra was infiltrated with lidocaine jelly and a penile clamp was applied. This was then removed and a flexible cystoscope was introduced under vision. The anterior urethra was normal. The prostate was mildly enlarged with mild obstruction. Bladder neck obstructed mildly. The bladder was entered, it was completely normal. No cystitis, carcinoma in situ, bladder tumor, stone or foreign body. Mild trabeculation. Ureteric orifices with clear effluxes. Cystoscopy was confirmed in an antegrade fashion and the cystoscope was removed. The patient tolerated the procedure and anesthesia well, remained in his bed in stable condition. Rectal exam was performed and revealed a flat, benign, nontender elastic prostate. IMPRESSION: Gross hematuria. PLAN: Negative. PLAN: Okay to dismiss arevalo. We will change his appointment tomorrow to next week and we will see how he is doing. His pelvic pain is much better. He has essentially no symptoms now and we will do a PSA on him next week to complete the workup. This was fully explained to the patient and his daughter. Job ID: [id number] DocumentID: [id number] Dictated Date: 09/22/2021 09:14:19 Shank Maker Date: 09/22/2021 17:25:31 Dictated By: IBRAHIMA BRITO MD
--- NOTE | 2021-09-22 17:37 | Discharge Summary ---
Diagnosis/Chief Complaint Date of Admission Sep 16, 2021 at 12:43 Date of Discharge Sep 22, 2021 at 11:45 Discharge Date: Sep 22, 2021 Discharge Diagnosis 1. Bilateral LE Edema with Stastis Dermatitis--improving 2. Labile Hypertension--improving 3. Pancytopenia with spleenomegaly--improving with steroids, awaiting bone marrow biopsy results 4. Acute on Chronic Renal Insufficiency--BUN/Cr stable with adding spi ronolactone and bumex 5. Bradycardia--resolved 6. DMII with hyperglycemia--on SSI, elevated due to steroids 7. Anxiety--using klonopin prn and has helped tremors and myoclonic jerks 8. Weakness/Fall risk--is getting around better per daughter 9. Hematuria--S/P negative cystoscope 10. Constipation--continue miralax Discharge Summary Hospital Course Was the Problem List Reviewed?: Yes Hospital Course This is a 71y/o M with a PMH of HTN and diabetes mellitus type 2 that presented to my office due to pedal edema. Pt reported that he has had chronic pedal edema but in the last 3 weeks it has significantly worsened. States that nothing helps with the swelling except for wrapping his legs with dhiraj bandages but the swelling returns as soon as he removes them. The legs were becoming red and painful and making it difficult for him to get around at home. He has also became more short of air. He was also complaining of ongoing pelvic pain and pressure and was having hematuria. He has also had tremors and muscle jerks which have been worsening. He had been started on lasix but stated that it was not helping his edema or shortness of air. He also had recent diagnosis of spleenomegaly with pancytopenia. It was decided to directly admit him from my office for IV diureses as well as bone marrow biopsy and cystoscopy and adju stment of meds. He was admitted to the medical floor. He was noted to have renal insufficiency so he was given IV lasix for his peripheral edema in addition to IVFs for dehydration. His blood pressure medications were also adjusted due to him being on 2 different beta blockers as well as cardizem, clonidine and hydralazine. He was placed on metoprolol 100mg po BID with amlodopine 5mg in the AM and hydralazine TID in addition to the IV lasix. However, he continued to have tachycardia and elevated blood pressures. Even though he diuresed well, his leg edema and erythema did not improve so spironolactone was added for both BP control and to augment the lasix. These changes also failed to improved his edema or his blood pressure. He was switched from lasix to bumex and given IV solumedrol to see if it would help his stasis dermatitis and edema as well as his pancytopenia. The solumedrol did improve the erythema to his legs and his leg edema improved as well. His platelets are up from a low of 63,000 to 145,000 by admit indicating possible viral or autoimmune etiology. He has lovelace weaned off the solumedrol to oral prednisone. His blood pressure remained high with elevated pulse so the hydralazine was switched to clonidine. However, after switching to clonidine, his pulse dropped to the 40s so the clonidine was discontinued and he was placed back on hydralazine and losartan was added and his spironolactone was increased to 100mg daily. By the time of discharge, his heart rate is back to the 60s and his blood pressure is improving. He did undergo a bone marrow biopsy on 09/17/[address] Nguyen. He also underwent a cystoscopy by Dr. Vasquez prior to discharge on 09/22/21 which showed no masses. He has been started on PT and OT and is getting up and around much better by the time of discharge per his daughter. He was also given clonazepam during his hospital stay for both his tremors and myoclonic jerks. By the time of discharge, the clonazepam has been decreased to 0.25mg TID prn and this is controlling his tremors and muscle jerks. His blood sugar did elevated during his hospital stay after adding the steroids so his sliding scale insulin was increased to scale C. He will resume his glipizide on discharge and monitor his blood sugars. He will have home health on discharge and follow up with me in 1 week. Labs Laboratory Tests 09/19/21 18:12: Glucometer 213H 09/19/21 20:08: Glucometer 178H 09/20/21 05:37: Glucometer 269H 09/20/21 05:45: White Blood Count 3.4L, Red Blood Count 3.96L, Hemoglobin 11.0L, Hematocrit 35L, Red Cell Distribution Width 15.7H, Platelet Count 112L, Mean Platelet Volume 12.4H, Blood Urea Nitrogen 33H, Creatinine 1.39H, Glucose Level 296H 09/20/21 10:39: Glucometer 329H 09/20/21 14:50: Glucometer 234H 09/20/21 20:03: Glucometer 182H 09/21/21 05:36: Glucometer 177H 09/21/21 05:55: Red Blood Count 3.99L, Hemoglobin 11.2L, Hematocrit 35L, Red Cell Distribution Width 15.6H, Blood Urea Nitrogen 32H, Creatinine 1.45H, Glucose Level 193H, Aspartate Amino Transf (AST/SGOT) 39H 09/21/21 09:35: 09/21/21 09:58: Glucometer 391H 09/21/21 14:59: Glucometer 276H 09/21/21 19:53: Glucometer 150H 09/22/21 06:14: Glucometer 121H 09/22/21 06:15: Red Blood Count 4.04L, Hemoglobin 11.6L, Hematocrit 35L, Red Cell Distribution Width 15.7H, Blood Urea Nitrogen 29H, Creatinine 1.47H, Glucose Level 136H, Aspartate Amino Transf (AST/SGOT) 50H, Albumin 3.1L Procedures None. Consultations Dr. Vasquez Discharge Physical Examination Allergies: Coded Allergies: aspirin (Verified Allergy, Severe, [place], 04/16/16) acetaminophen (Verified Allergy, Mild, 04/16/16) hydrocodone (Verified Allergy, Mild, 04/16/16) fentanyl (Verified Allergy, Unknown, BREATHING TROUBLE, pt has rec mep eridine in the past, 03/03/21) ONLY PATCH NOT INTRAVENOUS FENTANYL oxycodone (Verified Allergy, Unknown, [place], 03/02/21) Vitals & I&Os Vital Signs Date Time Temp Pulse Resp B/P (MAP) Pulse Ox O2 Delivery O2 Flow Rate FiO2 09/22/21 11:40 36.7 61 18 155/70 98 Room Air 0.00 General Appearance: Alert, Oriented X3 Respiratory: Clear to Auscultation Cardiovascular: Regular Rate Abdominal: Normal Bowel Sounds, Soft, No Tenderness Extremities: No Clubbing, No Cyanosis, Other (1 plus edema to top of feet) Psych/Mental Status: Mental Status NL Discharge Home Medications Reviewed and agree with Discharge Medication list on patient's Discharge Instruction sheet Instructions to Patient/Family Please see electronic discharge instructions given to patient. VICTORIA BARRON DO Sep 22, 2021 17:37
== END 2021-09-22 11:45 | disposition home health service (06) | DRG 300 ==
LOC: 4TH 12:43
PROVIDERS: ADMIT Family Medicine; ATTEND Family Medicine
PROC: 079T3ZX Drainage of Bone Marrow, Percutaneous Approach, Diagnostic (ICD-10-PCS; principal; 2021-09-17)
PROC: 8E0ZXY6 Isolation (ICD-10-PCS; 2021-09-21)
PROC: 0TJB8ZZ Inspection of Bladder, Via Natural or Artificial Opening Endoscopic (ICD-10-PCS; 2021-09-22)
DX: I87.2 Venous insufficiency (chronic) (peripheral) (principal); D61.818 Other pancytopenia; I12.9 Hypertensive chronic kidney disease with stage 1 through stage 4 chronic kidney disease, or unspecified chronic kidney disease; E11.22 Type 2 diabetes mellitus with diabetic chronic kidney disease; E11.65 Type 2 diabetes mellitus with hyperglycemia; N18.9 Chronic kidney disease, unspecified; N40.0 Benign prostatic hyperplasia without lower urinary tract symptoms; I16.0 Hypertensive urgency; Z20.822 Contact with and (suspected) exposure to COVID-19; R31.0 Gross hematuria; R00.1 Bradycardia, unspecified; F41.9 Anxiety disorder, unspecified; G71.19 Other specified myotonic disorders; N28.9 Disorder of kidney and ureter, unspecified; E86.0 Dehydration; K59.00 Constipation, unspecified; Z79.84 Long term (current) use of oral hypoglycemic drugs; Z83.3 Family history of diabetes mellitus; Z82.49 Family history of ischemic heart disease and other diseases of the circulatory system; Z88.6 Allergy status to analgesic agent; Z88.5 Allergy status to narcotic agent
CPT/HCPCS: 36415; 38222; 71250; 77012; 80048; 80053; 81000; 82947; 85007; 85025; 85027; 85045; 85055; 85610; 85730; 86644; 86645; 87081; 87636; 99156

== ENCOUNTER → 2021-09-22 | Emergency (ER) | payer MEDICARE ==
[~2021-09-22] VITALS: Ht 183 cm; Wt 83.0 kg
[~2021-09-22] MED LIST changes: +BACL5TAB PO; +BUME1TAB8 PO; +CLON0.5T4 PO; +FURO40TA4 PO; +HYOS-20 PO; +HYOSCYAMINE 0.125 MG (LEVSIN) TAB SL ONE; +LACTATED RINGERS 1,000 ML IV ONE; +LORazepam INJ 2 MG/ML (ATIVAN) VIAL IVP ONE; +LOSA50TA63 PO; +MTP100TCR PO; +NS (IVPB) 250 ML ONE; +PANT40TA52 PO; +POLY17PO6 PO; +POTA-51 PO; +POTA15TA9 PO; +PRD20T PO; +SPIR100T4 PO; +TIZA-186 PO; +VERA180T55 PO; +hydrALAZINE (APRESOLINE) 25 MG TAB PO ONE; +morphine INJ 10 MG/ML 1ML (SYR OR VIAL) IVP STA; +niCARdipine IV 50 MG in NS (IVPB) 230 ML IV SCH; +niCARdipine IV FOR DRIP 50 MG KIT ONE
[2021-09-22 22:00] VITALS: BP 212/109
[2021-09-22 22:19] LABS: BASOPHILS % (AUTO) 0 % (0-10); EOSINOPHILS % (AUTO) 0 % (0-10); HEMATOCRIT 42 % (40-54); HEMOGLOBIN 13.9 g/dL (13.3-17.7); LYMPHOCYTES # (AUTO) 0.5 10^3/uL (1.0-4.0); LYMPHOCYTES % (AUTO) 7 % (12-44); MEAN CORPUSCULAR HEMOGLOBIN 29 pg (25-34); MEAN CORPUSCULAR HGB CONC 33 g/dL (32-36); MEAN CORPUSCULAR VOLUME 85 fL (80-99); MEAN PLATELET VOLUME 11.8 fL (9.0-12.2); MONOCYTES # (AUTO) 0.4 10^3/uL (0.0-1.0); MONOCYTES % (AUTO) 6 % (0-12); NEUTROPHILS # (AUTO) 5.3 10^3/uL (1.8-7.8); NEUTROPHILS % (AUTO) 82 % (42-75); PLATELET COUNT 173 10^3/uL (130-400); WHITE BLOOD COUNT 6.5 10^3/uL (4.3-11.0)
[2021-09-22 22:37] LABS: ALBUMIN 3.9 GM/DL (3.2-4.5); BILIRUBIN,TOTAL 1.1 MG/DL (0.1-1.0); CALCIUM 9.3 MG/DL (8.5-10.1); CREATININE SERUM 1.9 MG/DL (0.60-1.30); POTASSIUM 4.5 MMOL/L (3.6-5.0); TOTAL PROTEIN 8.8 GM/DL (6.4-8.2)
[2021-09-22 22:51] LABS: LYMPHOCYTES % (MANUAL) 6 %; MICROCYTOSIS SLIGHT; MONOCYTES % (MANUAL) 4 %; NEUTROPHILS % (MANUAL) 90 %
[2021-09-22 23:05] LABS: BILIRUBIN,URINE NEGATIVE (NEGATIVE); CLARITY,URINE CLEAR; COLOR,URINE YELLOW; GLUCOSE, URINE (UA) 3+ (NEGATIVE); KETONES,URINE NEGATIVE (NEGATIVE); LEUKOCYTE ESTERASE ,URINE NEGATIVE (NEGATIVE); NITRITE,URINE NEGATIVE (NEGATIVE); PROTEIN,URINE 3+ (NEGATIVE)
[2021-09-22 23:16] LABS: BACTERIA,URINE FEW /HPF; HYALINE CASTS, URINE 0-2 /LPF; RBC,URINE 50-100 /HPF; SQUAMOUS EPITHELIAL CELL,UR 0-2 /HPF; YEAST,URINE FEW /HPF
--- NOTE | 2021-09-23 03:18 | ED Abdominal Pain ---
General Chief Complaint: Abdominal/GI Problems Stated Complaint: ABD PAIN Nursing Triage Note: pt arrives w/ grandaughter w/ c/o of abodminal pain. Per wheelchair to room. Assisted to bed and attached to electronic device monitor. Source of Information: Patient, Family, Old Records Exam Limitations: No Limitations History of Present Illness Date Seen by Provider: Sep 22, 2021 Time Seen by Provider: 22:14 Initial Comments This is 71-year-old gentleman presents to the emergency room with complaint of left lower quadrant abdominal pain. He was discharged from the hospital this morning after fairly long stay consisting of work-up for pancytopenia, splenomegaly, and hematuria. He had had cystoscopy this morning with unremarkable findings. Patient has had a overall decline in condition is recent weeks according to his daughter. He has had some problems with constipation as well and normally takes MiraLAX at home. He has not had a bowel movement in 3 days. He also is quite anxious and struggles with anxiety for which he is medicated. He did take his medications this evening. He is noted to be rather hypertensive with systolic blood pressure over 200. According to his daughter his blood pressures are difficult to control and are often quite high. Blood pressure trends on prior visit showed frequent hypertension as high as 190 systolic. Patient had a CT scan performed during his prior admission which was unremarkable for acute pathology. He also had a bone marrow biopsy during the admission. Allergies and Home Medications Allergies Coded Allergies: aspirin (Verified Allergy, Severe, CHOKING, 04/16/16) acetaminophen (Verified Allergy, Mild, 04/16/16) hydrocodone (Verified Allergy, Mild, 04/16/16) fentanyl (Verified Allergy, Unknown, BREATHING TROUBLE, pt has rec meperidine in the past, 03/03/21) ONLY PATCH NOT INTRAVENOUS FENTANYL oxycodone (Verified Allergy, Unknown, NIGHTMARES, 03/02/21) Patient Home Medication List Home Medication List Reviewed: Yes Bumetanide (Bumetanide) 1 Mg Tablet, 1 MG PO DAILY Prescribed by: VICTORIA BARRON on 09/22/21 1032 Clonazepam (Clonazepam) 0.5 Mg Tablet, 0.25 MG PO TID PRN for ANXIETY Prescribed by: VICTORIA BARRON on 09/22/21 1035 Glipizide (Glipizide ER) 5 Mg Tab.er.24, 5 MG PO DAILY, (Reported) Entered as Reported by: LIZ ADAMS on 04/28/17621 Hydralazine HCl (Hydralazine HCl) 25 Mg Tablet, 50 MG PO TID, (Reported) Entered as Reported by: LIZ ADAMS on 04/28/17621 Losartan Potassium (Losartan Potassium) 50 Mg Tablet, 50 MG PO BID Prescribed by: VICTORIA BARRON on 09/22/21 1032 Metoprolol Succinate (Metoprolol Succinate) 100 Mg Tab.er.24h, 100 MG PO BID Prescribed by: VICTORIA BARRON on 09/22/21 1032 Pantoprazole Sodium (Pantoprazole Sodium) 40 Mg Tablet.dr, 40 MG PO DAILY@0700 Prescribed by: VICTORIA BARRON on 09/22/21 1032 Polyethylene Glycol 3350 (Miralax) 17 Gm Powd.pack, 17 GM PO BID PRN for CONSTIPATION-2ND LINE, (Reported) Entered as Reported by: RUPALI CHAUHAN on 09/17/21 1249 Prednisone (Prednisone) 20 Mg Tab, 20 MG PO DAILY@0700 Prescribed by: VICTORIA BARRON on 09/22/21 1032 Spironolactone (Spironolactone) 100 Mg Tablet, 100 MG PO DAILY Prescribed by: VICTORIA BARRON on 09/22/21 1032 Tamsulosin HCl (Flomax) 0.4 Mg Cap, 0.8 MG PO HS Prescribed by: VICTORIA BARRON on 09/22/21 1032 Verapamil HCl (Verapamil ER) 180 Mg Tablet.er, 180 MG PO HS Prescribed by: VICTORIA BARRON on 09/22/21 1032 Discontinued Medications Atenolol (Atenolol) 25 Mg Tablet, 50 MG PO DAILY, (Reported) Discontinued Reason: Duplicate Order Entered as Reported by: RUPALI CHAUHAN on 02/26/21 1614 Atenolol (Atenolol) 50 Mg Tablet, 50 MG PO DAILY, (Reported) Entered as Reported by: RUPALI CHAUHAN on 09/17/21 1249 Baclofen (Baclofen) 5 Mg Tablet, 5 MG PO TID, (Reported) Entered as Reported by: RUPALI CHAUHAN on 09/17/21 1249 Cefdinir (Cefdinir) 300 Mg Capsule, 300 MG PO BID Discontinued Reason: No Longer Taking Prescribed by: TRAMAINE BURRELL on 02/28/21 1114 Clonidine HCl (Clonidine HCl) 0.1 Mg Tablet, 0.2 MG PO TID, (Reported) Entered as Reported by: MANSI WELSH on 04/15/16 0825 Furosemide (Furosemide) 40 Mg Tablet, 40 MG PO DAILY, (Reported) Entered as Reported by: RUPALI CHAUHAN on 09/17/21 1249 Hyoscyamine Sulfate (Hyoscyamine Sulfate) 0.125 Mg Tablet, 0.125 MG PO TID PRN for GI SPASMS, (Reported) Entered as Reported by: RUPALI CHAUHAN on 09/17/21 1249 Metoprolol Succinate (Metoprolol Succinate) 25 Mg Tab.er.24h, 25 MG PO DAILY, (Reported) Entered as Reported by: RUPALI CHAUHAN on 02/26/21 1614 Nitrofurantoin Monohyd/M-Cryst (Macrobid 100 mg Capsule) 100 Mg Capsule, 1 TAB PO BID WITH MEALS Discontinued Reason: No Longer Taking Prescribed by: JESSICA CROFT on 03/03/21 1402 Phenazopyridine HCl (Pyridium) 100 Mg Tablet, 100 MG PO TID PRN for SPASMS Discontinued Reason: No Longer Taking Prescribed by: JESSICA CROFT on 03/03/21 1402 Potassium Chloride (Potassium Chloride) 20 Meq Tablet.er, 20 MEQ PO DAILY, (Reported) Entered as Reported by: RUPALI CHAUHAN on 09/17/21 1249 Potassium Citrate (Potassium Citrate ER) 15 Meq Tab, 15 MEQ PO BID, (Reported) Entered as Reported by: RUPALI CHAUHAN on 09/17/21 1249 Tizanidine HCl (Tizanidine HCl) 4 Mg Tablet, 4 MG PO TID, (Reported) Discontinued Reason: No Longer Taking Entered as Reported by: RUPALI CHAUHAN on 09/17/21 1249 Review of Systems Review of Systems Constitutional: weakness EENTM: No Symptoms Reported Respiratory: No Symptoms Reported Cardiovascular: No Symptoms Reported Gastrointestinal: See HPI Genitourinary: See HPI Musculoskeletal: no symptoms reported Skin: no symptoms reported Psychiatric/Neurological: See HPI, Other (Functional decline, shuffled gait, tremors developing in recent months) Endocrine: No Symptoms Reported Hematologic/Lymphatic: No Symptoms Reported Past Bdnmnep-Jkognp-Xddooj Hx Patient Social History Tobacco Use?: No Use of E-Cig and/or Vaping dev: No Substance use?: No Alcohol Use?: No Immunizations Up To Date First/Initial COVID19 Vaccinat: 2020 Second COVID19 Vaccination Lukas: unknown Seasonal Allergies Seasonal Allergies: No Past Medical History Surgery/Hospitalization HX: kidney stones, HTN, diabetic, muscle spams, abdominal pain Surgeries: Yes (APPENDECTOMY, HERNIA REPAIRS, ABLATION 2011, BASKET STONE RETR IEVAL) Abdominal, Appendectomy Respiratory: No Currently Using CPAP: No Currently Using BIPAP: No Cardiac: Yes (SVT, HEART ABLATION DECEMBER 2011) Hypertension Neurological: Yes (NERVE DAMAGE, MUSCLE SPASMS) Reproductive Disorders: No Genitourinary: Yes Kidney Stones Gastrointestinal: Yes (INGUIMAL HERNIA) Hiatal Hernia Musculoskeletal: Yes (CERVICAL SPINE FX) Fractures Endocrine: Yes Diabetes, Non-Insulin dep HEENT: Yes (EYE LID SURGERY) Cancer: No Psychosocial: No Integumentary: No Blood Disorders: No Family Medical History Cancer 03 FATHER (SKIN CANCER) 03 MOTHER (LUNG CANCER) Cataract 03 FATHER Congestive heart failure 03 MOTHER Dementia 03 MOTHER Family history: Diabetes mellitus 03 FATHER Family history: Hypertension 03 FATHER 03 MOTHER Family history: Osteoporosis 03 MOTHER Family history: Thyroid disorder 03 FATHER (HYPERTHYROIDISM) Hearing loss 03 FATHER No Family History of: Abdominal aortic aneurysm Gooding's disease Alcoholism Aphasia Cancer of colon Chest pain Congenital heart disease Cystic fibrosis Dysphagia Family history: Allergy Family history: Alzheimer's disease Family history: Arthritis Family history: Asthma Family history: Breast disease Family history: Cardiovascular disease Family history: Coronary thrombosis Family history: Gastrointestinal disease Family history: Glaucoma Headache Heart disease Hereditary disease History of - anemia History of - disorder History of - respiratory disease History of drug abuse Human immunodeficiency virus (HIV) seropositivity Hypercholesterolemia Infertile Kidney disease Malignant neoplasm of lung Myocardial infarction Parkinson's disease Prostate cancer Psychotic disorder Seizure disorder Stroke Tuberculosis Visual impairment Cerebral Aneurysm, Diabetes, Stroke Physical Exam Vital Signs Vital Signs - First Documented 09/22/21 22:00 Temp 36.3 Pulse 84 Resp 22 B/P (MAP) 212/109 (143) Pulse Ox 99 Capillary Refill : Height/Weight/BMI Height: 6'1.00" Weight: 190lbs. 14.0oz. 86.160845tg; 24.00 BMI Method:Stated General Appearance: WD/WN, moderate distress HEENT: PERRL/EOMI Neck: normal inspection Respiratory: lungs clear, normal breath sounds, no respiratory distress Cardiovascular: regular rate, rhythm, no murmur, other (Lower extremity edema) Gastrointestinal: normal bowel sounds, soft, tenderness (Left lower quadrant) Extremities: normal inspection, pedal edema, swelling (Lower extremity) Neurologic/Psychiatric: alert, oriented x 3, motor weakness (Generalized), other (Tremor, shuffled gait) Skin: normal color, warm/dry Progress/Results/Core Measures Results/Orders Lab Results Laboratory Tests Test 09/22/21 22:08 09/22/21 22:55 Range/Units White Blood Count 6.5 4.3-11.0 10^3/uL Red Blood Count 4.87 4.30-5.52 10^6/uL Hemoglobin 13.9 13.3-17.7 g/dL Hematocrit 42 40-54 % Mean Corpuscular Volume 85 80-99 fL Mean Corpuscular Hemoglobin 29 25-34 pg Mean Corpuscular Hemoglobin Concent 33 32-36 g/dL Red Cell Distribution Width 15.5 H 10.0-14.5 % Platelet Count 173 130-400 10^3/uL Mean Platelet Volume 11.8 9.0-12.2 fL Immature Granulocyte % (Auto) 4 % Neutrophils (%) (Auto) 82 H 42-75 % Lymphocytes (%) (Auto) 7 L 12-44 % Monocytes (%) (Auto) 6 0-12 % Eosinophils (%) (Auto) 0 0-10 % Basophils (%) (Auto) 0 0-10 % Neutrophils # (Auto) 5.3 1.8-7.8 10^3/uL Lymphocytes # (Auto) 0.5 L 1.0-4.0 10^3/uL Monocytes # (Auto) 0.4 0.0-1.0 10^3/uL Eosinophils # (Auto) 0.0 0.0-0.3 10^3/uL Basophils # (Auto) 0.0 0.0-0.1 10^3/uL Immature Granulocyte # (Auto) 0.3 H 0.0-0.1 10^3/uL Neutrophils % (Manual) 90 % Lymphocytes % (Manual) 6 % Monocytes % (Manual) 4 % Microcytosis SLIGHT Sodium Level 137 135-145 MMOL/L Potassium Level 4.5 3.6-5.0 MMOL/L Chloride Level 99 98-107 MMOL/L Carbon Dioxide Level 21 21-32 MMOL/L Anion Gap 17 H 5-14 MMOL/L Blood Urea Nitrogen 32 H 7-18 MG/DL Creatinine 1.90 H 0.60-1.30 MG/DL Estimat Glomerular Filtration Rate 37 BUN/Creatinine Ratio 17 Glucose Level 376 H 70-105 MG/DL Calcium Level 9.3 8.5-10.1 MG/DL Corrected Calcium 9.4 8.5-10.1 MG/DL Total Bilirubin 1.1 H 0.1-1.0 MG/DL Aspartate Amino Transf (AST/SGOT) 40 H 5-34 U/L Alanine Aminotransferase (ALT/SGPT) 40 0-55 U/L Alkaline Phosphatase 109 40-136 U/L C-Reactive Protein High Sensitivity 0.51 H 0.00-0.50 MG/DL Total Protein 8.8 H 6.4-8.2 GM/DL Albumin 3.9 3.2-4.5 GM/DL Lipase 66 8-78 U/L Urine Color YELLOW Urine Clarity CLEAR Urine pH 6.0 5-9 Urine Specific [place] >=1.030 1.016-1.022 Urine Protein 3+ H NEGATIVE Urine Glucose (UA) 3+ H NEGATIVE Urine Ketones NEGATIVE NEGATIVE Urine Nitrite NEGATIVE NEGATIVE Urine Bilirubin NEGATIVE NEGATIVE Urine Urobilinogen 1.0 < = 1.0 MG/DL Urine Leukocyte Esterase NEGATIVE NEGATIVE Urine RBC (Auto) 3+ H NEGATIVE Urine RBC 50-100 H /HPF Urine WBC 2-5 /HPF Urine Squamous Epithelial Cells 0-2 /HPF Urine Crystals NONE /LPF Urine Bacteria FEW H /HPF Urine Casts PRESENT /LPF Urine Hyaline Casts 0-2 H /LPF Urine Mucus NEGATIVE /LPF Urine Yeast FEW H /HPF Urine Culture Indicated YES My Orders Orders - MATT CESPEDES MD Ed Iv/Invasive Line Start (09/22/21 22:14) Cbc With Automated Diff (09/22/21 22:14) Comprehensive Metabolic Panel (09/22/21 22:14) Hs C Reactive Protein (09/22/21 22:14) Lipase (09/22/21 22:14) Ua Culture If Indicated (09/22/21 22:14) Manual Differential (09/22/21 22:08) Morphine Injection (Morphine Injection (09/22/21 22:22) Lorazepam Injection (Ativan Injection) (09/22/21 22:30) Lactated Ringers (Lr 1000 Ml Iv Solution (09/22/21 23:00) Ct Abdomen/Pelvis Wo (09/22/21 23:01) Urine Culture (09/22/21 22:55) Hyoscyamine Sl Tablet (Levsin Sl Tablet) (09/23/21 00:30) Hydralazine Tablet (Apresoline Tablet) (09/23/21 01:45) Ct Head Wo-R/O Stroke (09/23/21 02:48) Chest 1 View, Ap/Pa Only (09/23/21 ) Levetiracetam Injection (Keppra Injectio (09/23/21 03:20) Ns (Ivpb) (Sodium C... W/Nicardipine Iv (09/23/21 03:45) Nicardipine Iv For Drip (Cardene I.V. (O (09/23/21 03:38) Ns (Ivpb) (Sodium Chloride 0.9%) (09/23/21 03:39) Medications Given in ED Current Medications Medications Dose Ordered Sig/Trae Route Start Time Stop Time Status Last Admin Dose Admin Hydralazine HCl 25 mg ONCE ONCE PO 09/23/21 01:45 09/23/21 01:46 DC 09/23/21 01:53 25 MG Hyoscyamine Sulfate 0.25 mg ONCE ONCE SL 09/23/21 00:30 09/23/21 00:31 DC 09/23/21 00:40 0.25 MG Lactated Ringer's 1,000 ml @ 0 mls/hr Q0M ONCE IV 09/22/21 23:00 09/22/21 23:01 DC 09/23/21 00:40 1,000 MLS/HR Lorazepam 0.25 mg ONCE ONCE IVP 09/22/21 22:30 09/22/21 22:31 DC 09/22/21 22:34 0.25 MG Vital Signs/I&O 09/22/21 22:00 Temp 36.3 Pulse 84 Resp 22 B/P (MAP) 212/109 (143) Pulse Ox 99 Blood Pressure Mean: 143 Progress Progress Note #1: Time: 03:23 Progress Note Patient's abdominal pain was worked up with labs followed by CT scan. CT scan revealed no acute abnormalities. There was still air in the bladder associated with the cystoscopy earlier in the day. I suspected he was experiencing bladder spasms secondary to the recent cystoscopy as he also stated he was having freque nt urination. He received Ativan for his anxiety and morphine for his pain. Levsin was additionally given for the pain. While this did improve his pain, it had a minimal impact on his blood pressure. Hydralazine was then given orally. Blood pressure did show some improvement with systolic blood pressures intermittently around 160 which is near his baseline. I was working toward discharge planning with Jose E and his daughter when he experienced a generalized seizure about 90 seconds in length. It resolved spontaneously. Patient was promptly taken to CT as he had never experienced a seizure before and he had no recent head imaging over the past few months as he developed to the shuffled gait and tremor. We are now starting a Cardene drip as CT scan suggested hemorrhage in the left parietal lobe. Patient has been to [facility] in the past. He and his daughter would like us to discuss transfer with [facility] for neurosurgical evaluation. Progress Note #2: Time: 03:[address] of the head revealed a hemorrhagic lesion in the left parietal lobe with surrounding edema. CT was discussed with Dr. Ordonez, [facility] radiologist. In the context of his recent pancytopenia and neurologic decline over the past few months, this could be related to a neoplastic lesion. MRI is recommended for further differentiation. Cardene drip is being initiated to tightly control his blood pressure. A bolus dose of Keppra 500 mg is also been ordered. Progress Note #3: Time: 03:49 Progress Note Case was reviewed with Dr. Rodriguez, neurosurgeon, at [facility] who accepts the transfer. He is in agreement with Keppra and a Cardene drip. Progress Note #4: Time: 04:48 Progress Note Patient remained arousable and able to answer questions. He did receive post ictal. Report was eventually given to Dr. Castillo, hospitalist. [facility] decided to admit him directly to the ICU rather than through the ER. Diagnostic Imaging Diagonstic Imaging: CT Plain Films/CT/US/NM/MRI: abdomen, pelvis Comments CT abdomen pelvis viewed by me and [facility] report reviewed. There is air in the bladder which correlates with recent cystoscopy. Mild splenomegaly was seen. No acute abnormalities to explain his pain were observed. Diagonstic Imaging: Xray Plain Films/CT/US/NM/MRI: chest Comments Chest x-ray viewed by me. Report not yet available. No acute abnormalities appreciated. Diagonstic Imaging: CT Plain Films/CT/US/NM/MRI: head Comments CT head was viewed by me and [facility] report reviewed. Discussed with the radiologist. "There is a 1 cm hemorrhage in the left parietal lobe. This may be a spontaneous hemorrhage or there may be underlying lesion. Recommend MRI of the brain with contrast." In the context of his other recent findings such as splenomegaly, pancytopenia, tremors, and shuffled gait, this is concerning for underlying lesion. Departure Impression Primary Impression: Intracranial hemorrhage Additional Impressions: Seizure Left lower quadrant abdominal pain Bladder spasm Uncontrolled hypertension Disposition: XFER SHT-TRM HOSP Condition: Stable Transfer Transfer Reason: Exceeds level of care Time Spoke to Accepting Phy: 03:38 Transfer Progress Notes Transfer was accepted by Dr. Rodriguez with neurosurgery and Dr. Castillo hospitalist Transfer Time: 04:47 Transfer Facility: [facility] Method of Transfer: EMS Departure-Patient Inst. Referrals: VICTORIA BARRON DO (PCP/Family) Primary Care Physician Copy Copies To 1: VICTORIA BARRON JOSHUA T MD Sep 23, 2021 03:18
--- NOTE | 2021-09-23 06:02 | Diagnostic Imaging Report ---
CLINICAL INDICATION: Patient with seizure-like activity. EXAM: Portable chest x-ray upright view. COMPARISON: Chest x-ray dated 11/24/2020. FINDINGS: Lungs/pleura: Lungs are clear. There is no pneumothorax. There is no pleural effusion. Mediastinum: Unremarkable. Pulmonary vasculature: Unremarkable. Heart: Unremarkable. Bones/extrathoracic soft tissue: Unremarkable. IMPRESSION: There is no radiographic evidence of acute cardiopulmonary process. Dictated by: Dictated on workstation # [id number]
--- NOTE | 2021-09-23 06:08 | Diagnostic Imaging Report ---
CLINICAL INDICATION: Patient with seizure-like activity. EXAM: Axial CT scan of the brain performed without IV contrast. High-resolution axial CT brain images with sagittal and coronal reformations were also created. Auto Exposure Controls were utilized during the CT exam to meet ALARA standards for radiation dose reduction. COMPARISON: None. FINDINGS: There is a small circumscribed area of hyperdense blood within the high parasagittal left parietal lobe region which measures roughly 1 cm. There is small amount of adjacent parenchymal edema. There is no other area of acute intracranial blood seen. Slightly prominent extra-axial CSF space in the right side noted. There is brain parenchymal volume loss which appears appropriate for patient's age. There is no brain herniation or midline shift. There is no intraventricular blood. There is no hydrocephalus. The remainder of the brain parenchyma has normal tidwell-white matter distinction. There is no dense vessel sign. The extracranial soft tissues, skull, and orbits are unremarkable. There is mild mucosal thickening involving the right maxillary sinus. Mastoid air cells are clear. IMPRESSION: 1: There is a small area of intraparenchymal blood involving the high parasagittal left parietal lobe region. A small amount of adjacent parenchymal edema. There is no brain herniation or midline shift. 2: Remainder of the brain parenchyma shows no other evidence of acute intracranial process. I agree with [facility] report. Dictated by: Dictated on workstation # [id number]
--- NOTE | 2021-09-23 07:24 | Diagnostic Imaging Report ---
PROCEDURE: CT abdomen and pelvis without contrast. TECHNIQUE: Multiple contiguous axial images were obtained through the abdomen and pelvis without the use of intravenous contrast. Auto Exposure Controls were utilized during the CT exam to meet ALARA standards for radiation dose reduction. INDICATION: Left lower quadrant pain FINDINGS: Heart size is normal. Lung bases are clear. There are cysts in the liver. Gallbladder is unremarkable. No biliary duct dilatation. Spleen is normal. The pancreas and adrenal glands are unremarkable. There are nonobstructive renal stones bilaterally. There is moderate atherosclerotic calcification of the aorta. The bowel gas pattern is nonspecific. There is no free air. There is a small amount of free pelvic fluid. There is no pelvic mass or adenopathy. There are mild degenerative changes in the spine. IMPRESSION: Tiny nonobstructing bilateral renal calculi. Nonspecific trace free pelvic fluid. Mildly enlarged prostate gland. There is some air in the bladder. Recommend correlation for recent instrumentation. No other acute abnormality in the abdomen or pelvis. Dictated by: Dictated on workstation # [id number]
== END ==
LOC: EDUNIT# 21:45 → ER 21:46
DX: I62.9 Nontraumatic intracranial hemorrhage, unspecified (principal); R56.9 Unspecified convulsions; R10.32 Left lower quadrant pain; R25.2 Cramp and spasm; I10 Essential (primary) hypertension; K59.00 Constipation, unspecified
CPT/HCPCS: 36415; 70450; 71045; 74176; 80053; 81000; 83690; 85007; 85027; 86141; 87077; 87088; 87186

== ENCOUNTER 2021-11-06 11:06 | Outpatient (RCR) | payer MEDICARE ==
[~2021-11-06 11:06] MED LIST changes: -HYOSCYAMINE 0.125 MG (LEVSIN) TAB SL ONE; -LACTATED RINGERS 1,000 ML IV ONE; -LORazepam INJ 2 MG/ML (ATIVAN) VIAL IVP ONE; -NS (IVPB) 250 ML ONE; -hydrALAZINE (APRESOLINE) 25 MG TAB PO ONE; -morphine INJ 10 MG/ML 1ML (SYR OR VIAL) IVP STA; -niCARdipine IV 50 MG in NS (IVPB) 230 ML IV SCH; -niCARdipine IV FOR DRIP 50 MG KIT ONE
== END 2021-11-21 | disposition home or self-care (01) ==
PROVIDERS: ATTEND Family Medicine
DX: I69.354 Hemiplegia and hemiparesis following cerebral infarction affecting left non-dominant side (principal); I10 Essential (primary) hypertension

== ENCOUNTER → 2021-11-12 | Outpatient (CLI) | payer MEDICARE ==
--- NOTE | 2021-11-12 10:40 | Diagnostic Imaging Report ---
ABDOMEN, FLAT UPRIGHT/DECUB INDICATION: Abdominal pain and constipation. COMPARISON: None available. TECHNIQUE: Upright and supine AP view of the abdomen. FINDINGS: Nonobstructive bowel gas pattern. There are no air-fluid levels within the small bowel or colon. Small volume of stool is present in the right hemicolon and rectum. No abnormal soft tissue mineralizations. Stable regional skeleton. IMPRESSION: Small volume of colonic stool. Dictated by: Dictated on workstation # [id number]
== END ==
LOC: RAD 09:54
PROVIDERS: ATTEND Family Medicine
DX: K59.00 Constipation, unspecified (principal)
CPT/HCPCS: 74019

== ENCOUNTER 2021-11-25 10:35 | Outpatient (CLI) | payer MEDICARE ==
[~2021-11-25] VITALS: Ht 182.9 cm; Wt 82.6 kg
[2021-11-27] MEDS ORDERED: LOPE-175 PO (11:13)
[2021-11-27] MEDS ORDERED: POTA-51 PO (11:13)
[2021-11-27] MEDS ORDERED: ATOV750O4 PO (11:13)
[2021-11-27] MEDS ORDERED: LACT1CAP74 PO (11:13)
[2021-11-27] MEDS ORDERED: TRZ50T PO (11:13)
[2021-11-27] MEDS ORDERED: DOXA8TAB73 PO (11:13)
[2021-11-27] MEDS ORDERED: SERT-413 PO (11:13)
[2021-11-27] MEDS ORDERED: LEVE500T6 PO (11:13)
[2021-11-27] MEDS ORDERED: CLN.1T PO (11:13)
[2021-11-27] MEDS ORDERED: MYCO500T3 PO (11:13)
[2021-11-27] MEDS ORDERED: FURO40TA4 PO (11:13)
[2021-11-27] MEDS ORDERED: GABA-486 PO (11:13)
[2021-11-27] MEDS ORDERED: NFD60TCR PO (11:13)
== END 2021-11-26 12:38 | disposition home or self-care (01) ==
LOC: PREOP 10:35
PROVIDERS: ATTEND Internal Medicine
DX: Z01.818 Encounter for other preprocedural examination (principal)

== ENCOUNTER 2021-11-27 10:11 | Day surgery (SDC) | payer MEDICARE ==
--- NOTE | 2021-11-25 17:01 | HISTORY AND PHYSICAL ---
DATE OF SERVICE: COLONOSCOPY HISTORY AND PHYSICAL HISTORY OF PRESENT ILLNESS: The patient is a 71-year-old white male referred by Dr. Liz for diagnostic colonoscopy. He reports roughly around a 3-month history of diarrhea. He reports loose stools, for which he has noted no blood in his stool or melena, but has had some rectal irritation and has occasionally noted blood on the toilet paper. He goes for any time from 5 to 12 times per day. He denies any nocturnal stool. He does not have abdominal pain, specifically associated with bowel movements, but does have left lower quadrant abdominal pain. It is quite sharp and will last for hours. He reports pushing on the area whether it be himself or physician does not reproduce his symptoms. He had undergone CT of the abdomen and pelvis on 09/22/2021, which revealed a small amount of pelvic fluid without evidence for adenopathy or any bowel or other organ abnormality. Two small nonobstructing kidney stones were noted in the pelvis. PAST MEDICAL HISTORY: Significant for lupus nephritis, for which he is on significant immune compromising medications including 60 mg of prednisone daily, mycophenolate 500 mg t.i.d. He is on fungal prophylaxis with atorvastatin, Keny any solution, 5 mL twice a day. He does not recall how long he has been on this medication. He reports that his renal function has been under control and he came in with last creatinine end of October.2. He has a history of hypertension with no known history of coronary artery disease. He has steroid related or at minimum exacerbated, type 2 diabetes that he feels has been under reasonable control without polyuria or polydipsia being reported. He reports no other recent antibiotic usage of the atovaquone. PAST SURGICAL HISTORY: He had distant past appendectomy and left inguinal hernia repair and undergone cardiac ablation for previous atrial fibrillation. FAMILY HISTORY: Pertinent for diabetes in several members. He is not aware of any history of GI tract malignancy or colon cancer. I performed colonoscopy on him in 2015, at which time he had no evidence for diverticular disease and no evidence for neoplasia or inflammatory change. REVIEW OF SYSTEMS: CONSTITUTIONAL: Denies night sweats, chills, or fever. He believes he has lost about 10 pounds of weight over the past 3 or 4 months compared to his last noticed. PULMONARY: Denies cough, wheezing, or shortness of breath. CARDIOVASCULAR: Denies palpitations, chest pain, syncope, or presyncope. GASTROINTESTINAL: As noted in the HPI. PHYSICAL EXAMINATION: GENERAL: Reveals an elderly white male, appearing fatigued, but not in acute distress. VITAL SIGNS: Weight 180 pounds, blood pressure 120/70, heart rate 76 and regular. HEENT: Reveals some mild pallor without jaundice. CHEST: Clear to auscultation. CARDIAC: Reveals a regular rate and rhythm. Soft 1 to 2/6 systolic ejection murmur heard best over the aortic outflow tract. No evidence for diastolic murmurs noted. No S3 or S4 noted. ABDOMEN: Soft, supple without mass, organomegaly, or tenderness. EXTREMITIES: Reveal no cyanosis or clubbing. He has 1 to 2+ edema to the lower tibia bilaterally with no inflammatory change, erythema being noted. No ulceration. ASSESSMENT AND PLAN: For investigation of diarrhea with weight loss in an immunocompromised patient, he is being set up for colonoscopy this Tuesday. Prep instructions were given and questions were answered. Desitin was recommended. He will need to be evaluated for evidence for anal fissure considering his symptoms as well. I thank you for the referral of this pleasant, albeit, quite complicated gentleman. If there is any evidence for inflammatory change, we will be obtaining stool cultures including ova and parasites at the time of the procedure. Job ID: [id number] DocumentID: [id number] Dictated Date: 11/25/2021 16:29:20 Scientific Illustrator Date: 11/25/2021 17:01:37 Dictated By: DAYA LOU MD
[~2021-11-27] VITALS: Ht 182.9 cm; Wt 82.6 kg
[2021-11-27] MEDS ORDERED: LACTATED RINGERS 1,000 ML IV STA (10:18)
--- NOTE | 2021-11-27 10:27 | Pre-Op Note & Conscious Sedat ---
Pre-Operative Progress Note H&P Reviewed The H&P was reviewed, patient examined and no changes noted. Date H&P Reviewed: November 27, 2021 Time H&P Reviewed: 10:27 Conscious Sedation Pre-Proced ASA Score 3 For ASA 3 and 4: Consider anesthesia and medical clearance. Also, for patients with a history of failed moderate sedation consider anesthesia. Airway Lungs Heart ASA score ASA 1: a normal healthy patient ASA 2: a patient with a mild systemic disease (mid diabetes, controlled hypertension, obesity ASA 3: a patient with a severe systemic disease that limits activity (angina, COPD, prior Myocardial infarction) ASA 4: a patient with an incapacitating disease that is a constant threat to life (CHF, renal failure) ASA 5: a moribund patient not expected to survive 24 hrs. (ruptured aneurysm) ASA 6: a declared brain- patient whose organs are being harvested. For emergent operations, add the letter E after the classification Mallampati Classification Grade 2 Sedation Plan Analgesia, Amnesia, Plan communicated to team members, Discussed options with patient/fam, Discussed risks with patient/fam The patient is an appropriate candidate to undergo the planned procedure, sedation, and anesthesia. The patient immediately re-assessed prior to indication. DAYA LOU MD November 27, 2021 10:27
[2021-11-27 10:30] VITALS: BP 100/62
[2021-11-27] MEDS ORDERED: GABA-486 PO (11:13)
[2021-11-27] MEDS ORDERED: LEVE500T6 PO (11:13)
[2021-11-27] MEDS ORDERED: CLN.1T PO (11:13)
[2021-11-27] MEDS ORDERED: MYCO500T3 PO (11:13)
[2021-11-27] MEDS ORDERED: FURO40TA4 PO (11:13)
[2021-11-27] MEDS ORDERED: ATOV750O4 PO (11:13)
[2021-11-27] MEDS ORDERED: TRZ50T PO (11:13)
[2021-11-27] MEDS ORDERED: LOPE-175 PO (11:13)
[2021-11-27] MEDS ORDERED: NFD60TCR PO (11:13)
[2021-11-27] MEDS ORDERED: LACT1CAP74 PO (11:13)
[2021-11-27] MEDS ORDERED: POTA-51 PO (11:13)
[2021-11-27] MEDS ORDERED: SERT-413 PO (11:13)
[2021-11-27] MEDS ORDERED: DOXA8TAB73 PO (11:13)
[2021-11-27] MEDS ORDERED: PROPOFOL INJECTION 50 ML IV ONE (11:36)
[2021-11-27 12:10] VITALS: BP 99/56
[2021-11-27 12:15] VITALS: BP 120/57
[2021-11-27 12:19] VITALS: BP 127/62
[2021-11-27 13:05] VITALS: BP 127/62
--- NOTE | 2021-11-27 14:46 | Anesthesia-General Post-Op ---
MAC Patient Condition Mental Status/LOC: Same as Preop Cardiovascular: Satisfactory Nausea/Vomiting: Absent Respiratory: Satisfactory Pain: Controlled Complications: Absent Post Op Complications Complications None Follow Up Care/Instructions Patient Instructions None needed. Anesthesiology Discharge Order Discharge Order Patient is doing well, no complaints, stable vital signs, no apparent adverse anesthesia problems. No complications reported per nursing. ERIS HALL CRNA November 27, 2021 14:45
--- NOTE | 2021-11-27 18:39 | OPERATIVE REPORT ---
DATE OF SERVICE: COLONOSCOPY SUMMARY INDICATION FOR THE PROCEDURE: Diarrhea with weight loss. DESCRIPTION OF PROCEDURE: The patient was placed in the left lateral decubitus position. Prior to undergoing colonoscopy, digital rectal evaluation was performed. Anal sphincter tone was normal and the perianal reflexes intact. Prostate was unremarkable on digital inspection. The colonoscope was then inserted into the rectum and under direct visualization advanced to the cecum. The cecum was identified by identification of ileocecal valve, cecal strap and the appendiceal orifice. Photographic documentation was obtained. A careful inspection was made as colonoscope was withdrawn. Quality of prep was good. FINDINGS: Perianal irritation was present without evidence to suggest underlying tenia. No induration was noted. There was no evidence for fissure formation or internal or external hemorrhoids. The rectum, sigmoid colon, descending colon, splenic flexure, transverse colon, hepatic flexure, ascending colon, and cecum were unremarkable to visual inspection. A biopsy from the ascending colon and rectum were obtained and submitted for evaluation for microscopic colitis. ASSESSMENT: Normal colonoscopy to the cecum. Considering the patient's immunocompromised status, stool was sent for enteric pathogens and ova and parasites evaluation. I did advise the patient to hold his atovaquone that I presume he is taking for pneumocystis prophylaxis as this may be the cause of his underlying diarrhea. 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 If this is the culprit would need to consider different prophylactic medication for pneumocystis. We will await histopathology report before making further recommendations. I thank you for the referral of this pleasant gentleman. Job ID: [id number] DocumentID: [id number] Dictated Date: 11/27/2021 12:18:31 Watch Commander Date: 11/27/2021 18:38:57 Dictated By: DAYA LOU MD [facility] [place] [facility]
== END 2021-11-27 13:05 | disposition home or self-care (01) ==
LOC: ENDO 10:11
PROVIDERS: ATTEND Internal Medicine
DX: R19.7 Diarrhea, unspecified (principal); R63.4 Abnormal weight loss
CPT/HCPCS: 82947; 87015; 87045; 87046; 87328; 87329; 87899

== ENCOUNTER 2022-01-19 11:13 | Outpatient (RCR) | payer MEDICARE ==
[~2022-01-19 11:13] MED LIST changes: +ATOV750O4 PO; +DOXA8TAB73 PO; +GABA-486 PO; +LACT1CAP74 PO; +LEVE500T6 PO; +LOPE-175 PO; +MYCO500T3 PO; +NFD60TCR PO; +SERT-413 PO; +TRZ50T PO
== END 2022-01-21 | disposition home or self-care (01) ==
PROVIDERS: ATTEND Family Medicine
DX: R53.81 Other malaise (principal); R60.9 Edema, unspecified

== ENCOUNTER 2022-02-18 11:00 | Outpatient (RCR) | payer MEDICARE | END 2022-02-21 | disposition home or self-care (01) | PROVIDERS: ATTEND Family Medicine | DX: R53.81 Other malaise (principal); R60.9 Edema, unspecified; E11.9 Type 2 diabetes mellitus without complications ==

== ENCOUNTER 2022-02-26 11:48 | Outpatient (RCR) | payer MEDICARE | END 2022-02-26 11:57 | disposition home or self-care (01) | PROVIDERS: ATTEND Family Medicine | DX: R60.9 Edema, unspecified (principal); E11.9 Type 2 diabetes mellitus without complications ==

== ENCOUNTER 2022-03-05 17:14 | Inpatient (IN) | payer MEDICARE ==
[~2022-03-05] VITALS: Ht 182.8 cm; Wt 83.5 kg
[2022-03-05] MEDS ORDERED: doxAzosin 4 MG (CARDURA) TAB PO STA (17:55)
[2022-03-05 18:00] LABS: BASOPHILS % (AUTO) 0 % (0-10); EOSINOPHILS % (AUTO) 0 % (0-10); HEMATOCRIT 38 % (40-54); HEMOGLOBIN 12.5 g/dL (13.3-17.7); LYMPHOCYTES # (AUTO) 1.9 10^3/uL (1.0-4.0); LYMPHOCYTES % (AUTO) 21 % (12-44); MEAN CORPUSCULAR HEMOGLOBIN 30 pg (25-34); MEAN CORPUSCULAR HGB CONC 33 g/dL (32-36); MEAN CORPUSCULAR VOLUME 90 fL (80-99); MEAN PLATELET VOLUME 10.5 fL (9.0-12.2); MONOCYTES # (AUTO) 0.4 10^3/uL (0.0-1.0); MONOCYTES % (AUTO) 5 % (0-12); NEUTROPHILS # (AUTO) 6.9 10^3/uL (1.8-7.8); NEUTROPHILS % (AUTO) 74 % (42-75); PLATELET COUNT 180 10^3/uL (130-400); WHITE BLOOD COUNT 9.3 10^3/uL (4.3-11.0)
[2022-03-05] MEDS ORDERED: LABETALOL HCL 20 MG/4 ML VIAL IV ONE (18:00)
[2022-03-05] MEDS ORDERED: LORazepam 0.5 MG (ATIVAN) TABLET BC ONE (18:00)
--- NOTE | 2022-03-05 18:18 | ED General ---
General Chief Complaint: Cardiac/General Problems Stated Complaint: HIGH BP, DIZZINESS Nursing Triage Note: PT AMBULATORY TO ROOM WITH PT DAUGHTER. PT GAIT OBSERVED TO BE STIFF AND SHUFFLING. PT RIGHT ARM HAS OBVIOUS TREMORS WHICH HE STATES IS NORMAL BUT THEY ARE MORE EXAGERRATED TODAY. PT REPORTS HAVING HIGH BLOOD PRESSURE TODAY AT HOME THAT COULD NOT BE CONTROLLED. PT PCP INSTRUCTED PT TO TAKE CLONIDINE WHEN BP OVER 160. PT REPORTS TAKING 4-5 CLONIDINE TODAY AND BP NOT GOING DOWN. PT REPORTS ALSO HAVING DIZZINESS TODAY THAT HE DESCRIBES "I FEEL LIKE IM DRUNK." PT STATES HE HAD A STROKE IN SEPTEMBER AND PT DAUGHTER STATES HE HAS SIMILAR SYMPTOMS NOW WHEN HE HAD HIS STROKE. PT STATES HE HAS NO DISABLING DEFECITS FROM THE STROKE BUT HAS SOME SLIGHT RIGHT SIDED WEAKNESS. PT A&OX4, SPEECH NORMAL Source of Information: Patient Exam Limitations: No Limitations History of Present Illness Date Seen by Provider: Mar 05, 2022 Time Seen by Provider: 17:36 Initial Comments Mr. Velez is a 71-year-old gentleman who was brought to the emergency room by his daughter with concerns about hypertension, disequilibrium, and recent headaches. He has been experiencing systolic blood pressures over 200 today. He has been compliant with his blood pressure medications. He normally takes metoprolol 100 mg and doxazosin 8 mg at supper. He has had the metoprolol but not the doxazosin yet. Patient described an episode of disequilibrium in which he felt "drunk" before arriving to the ER around 1700. He was not experiencing that sensation when he ambulated to the exam room. He has chronic tremor and his gait is stiff and more shuffled than normal today. Chronic tremor seems to have worsened in recent days. Patient also states his vision has been fuzzy around the edges for about a month. He takes clonidine on a as needed basis. He has had 3 doses today with his last dose being around 1645. He does sometimes experience anxiety and on a rare occasion takes clonazepam. He has not taken any anxiolytics today. He does admit to being mildly anxious at the moment. His daughter is quite upset at this time and crying. On a prior visit to this ER he was being treated for hypertension when he experienced an intracranial hemorrhage and seizures. That prior experiences generating anxiety for the patient and his daughter. NIH performed by nursing staff was 0. Patient also reports a strange metallic taste in his mouth last night. He denies headache, disequilibrium, or other acute neurologic deficit at this moment. He is alert and oriented. Allergies and Home Medications Allergies Coded Allergies: aspirin (Verified Allergy, Severe, CHOKING, 04/16/16) acetaminophen (Verified Allergy, Mild, 04/16/16) hydrocodone (Verified Allergy, Mild, 04/16/16) fentanyl (Verified Allergy, Unknown, BREATHING TROUBLE, pt has rec meperidine in the past, 03/03/21) ONLY PATCH NOT INTRAVENOUS FENTANYL gabapentin (Verified Allergy, Unknown, 03/05/22) hydralazine (Verified Allergy, Unknown, 03/05/22) oxycodone (Verified Allergy, Unknown, NIGHTMARES, 03/02/21) Patient Home Medication List Home Medication List Reviewed: Yes Clonidine HCl (Clonidine HCl) 0.1 Mg Tablet, 0.1 MG PO BID PRN for BLOOD PRESSURE, (Reported) Entered as Reported by: VICENTE ALVAREZ on 11/27/211112 Last Action: Reviewed Doxazosin Mesylate (Doxazosin Mesylate) 8 Mg Tablet, 8 MG PO HS, (Reported) Entered as Reported by: VICENTE ALVAREZ on 11/27/211112 Last Action: Reviewed Ergocalciferol (Vitamin D2) (Vitamin D2) 1,250 Mcg (86618 Unit) Capsule, 1,250 MCG PO THUR, (Reported) Entered as Reported by: RUPALI CHAUHAN on 03/08/221043 Last Action: Reviewed Furosemide (Furosemide) 40 Mg Tablet, 40 MG PO Q48H, (Reported) Entered as Reported by: VICENTE ALVAREZ on 11/27/211112 Last Action: Reviewed Glipizide (Glipizide ER) 5 Mg Tab.er.24, 10 MG PO 1300 AFTER MEAL, (Reported) Entered as Reported by: RUPALI CHAUHAN on 03/08/221043 Last Action: Reviewed Glipizide (Glipizide ER) 5 Mg Tab.er.24, 5 MG PO DAILY , (Reported) Entered as Reported by: RUPALI CHAUHAN on 03/08/221043 Last Action: Reviewed Hyoscyamine Sulfate (Hyoscyamine Sulfate) 0.125 Mg Tablet, 0.125 MG PO BID WITH MEALS, (Reported) Entered as Reported by: RUPALI CHAUHAN on 03/08/221043 Last Action: Reviewed Levetiracetam (Levetiracetam) 500 Mg Tablet, 500 MG PO BID, (Reported) Entered as Reported by: VICENTE ALVAREZ on 11/27/211112 Last Action: Reviewed Metoprolol Succinate (Metoprolol Succinate) 100 Mg Tab.er.24h, 100 MG PO BID, (Reported) Entered as Reported by: RUPALI CHAUHAN on 03/08/221043 Last Action: Reviewed Pantoprazole Sodium (Pantoprazole Sodium) 40 Mg Tablet.dr, 40 MG PO DAILY, (Reported) Entered as Reported by: RUPALI CHAUHAN on 03/08/221043 Last Action: Reviewed Potassium Chloride (Potassium Chloride) 20 Meq Tablet.er, 20 MEQ PO Q48H, (Reported) Entered as Reported by: VICENTE ALVAREZ on 11/27/211112 Last Action: Reviewed Prednisone (Prednisone) 20 Mg Tab, 10 MG PO DAILY, (Reported) Entered as Reported by: RUPALI CHAUHAN on 03/08/221043 Last Action: Reviewed Sertraline HCl (Sertraline HCl) 50 Mg Tablet, 50 MG PO HS, (Reported) Entered as Reported by: VICENTE ALVAREZ on 11/27/211112 Last Action: Reviewed Discontinued Medications Clonazepam (Clonazepam) 0.5 Mg Tablet, 0.25 MG PO TID PRN for ANXIETY Discontinued Reason: No Longer Taking Prescribed by: VICTORIA LIZ on 09/22/21 1035 Last Action: Discontinued Gabapentin (Gabapentin) 100 Mg Capsule, 100 MG PO DAILY, (Reported) Discontinued Reason: No Longer Taking Entered as Reported by: VICENTE ALVAREZ on 11/27/211112 Last Action: Discontinued Glipizide (Glipizide ER) 5 Mg Tab.er.24, 5 MG PO DAILY, (Reported) Discontinued Reason: No Longer Taking Entered as Reported by: LIZ ADAMS on 04/28/17621 Last Action: Discontinued Hydralazine HCl (Hydralazine HCl) 25 Mg Tablet, 50 MG PO TID, (Reported) Discontinued Reason: No Longer Taking Entered as Reported by: LIZ ADAMS on 04/28/17621 Last Action: Discontinued Lactobacillus Combination No.4 (Probiotic) 3 Billion Cell Capsule, 1 EACH PO DAILY, (Reported) Discontinued Reason: No Longer Taking Entered as Reported by: VICENTE ALVAREZ on 11/27/211112 Last Action: Discontinued Loperamide HCl (Imodium A-D) 2 Mg Capsule, 2 MG PO DAILY, (Reported) Discontinued Reason: No Longer Taking Entered as Reported by: VICENTE ALVAREZ on 11/27/211112 Last Action: Discontinued Metoprolol Succinate (Metoprolol Succinate) 100 Mg Tab.er.24h, 100 MG PO BID Discontinued Reason: Duplicate Order Prescribed by: VICTORIA LIZ on 09/22/211031 Last Action: Discontinued Mycophenolate Mofetil (Mycophenolate Mofetil) 500 Mg Tablet, 1,500 MG PO BID, (Reported) Discontinued Reason: No Longer Taking Entered as Reported by: VICENTE ALVAREZ on 11/27/211112 Last Action: Discontinued Nifedipine (Nifedipine ER) 60 Mg Tablet.er, 60 MG PO DAILY, (Reported) Discontinued Reason: No Longer Taking Entered as Reported by: VICENTE ALVAREZ on 11/27/211112 Last Action: Discontinued Pantoprazole Sodium (Pantoprazole Sodium) 40 Mg Tablet.dr, 40 MG PO DAILY@0700 Discontinued Reason: Duplicate Order Prescribed by: VICTORIA LIZ on 09/22/21 103 Last Action: Discontinued Prednisone (Prednisone) 20 Mg Tab, 20 MG PO DAILY@0700 Discontinued Reason: Duplicate Order Prescribed by: VICTORIA LIZ on 09/22/211031 Last Action: Discontinued Trazodone HCl (Trazodone HCl) 50 Mg Tablet, 50 MG PO DAILY, (Reported) Discontinued Reason: No Longer Taking Entered as Reported by: VICENTE ALVAREZ on 11/27/211112 Last Action: Discontinued Review of Systems Review of Systems Constitutional: no symptoms reported EENTM: see HPI Respiratory: no symptoms reported Cardiovascular: see HPI Gastrointestinal: no symptoms reported Genitourinary: no symptoms reported Musculoskeletal: no symptoms reported Skin: no symptoms reported Psychiatric/Neurological: See HPI Hematologic/Lymphatic: No Symptoms Reported Immunological/Allergic: no symptoms reported Past Afzekfl-Elvjmg-Ppadji Hx Patient Social History Tobacco Use?: No Use of E-Cig and/or Vaping dev: No Substance use?: No Alcohol Use?: No Immunizations Up To Date Influenza Vaccine Up-to-Date: No; Not Current First/Initial COVID19 Vaccinat: SEPTEMBER 2020 ARTEMIO/ARTEMIO Second COVID19 Vaccination Lukas: 2020 ADAMA Third COVID19 Vaccination Date: NO Seasonal Allergies Seasonal Allergies: No Past Medical History Surgery/Hospitalization HX: kidney stones, HTN, diabetic, muscle spams, abdominal pain Surgeries: Yes (APPENDECTOMY, HERNIA REPAIRS, ABLATION 2011, BASKET STONE RETRIEVAL) Abdominal, Appendectomy Respiratory: No Currently Using CPAP: No Currently Using BIPAP: No Cardiac: Yes (SVT, HEART ABLATION DECEMBER 2011) Hypertension Neurological: Yes (NERVE DAMAGE, MUSCLE SPASMS, intracranial hemorrhage) 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), Stroke (Hemorrhagic stroke) Reproductive Disorders: No Genitourinary: Yes Kidney Stones Gastrointestinal: Yes (INGUIMAL HERNIA) Hiatal Hernia Musculoskeletal: Yes (CERVICAL SPINE FX) Fractures Endocrine: Yes Diabetes, Non-Insulin dep HEENT: Yes (EYE LID SURGERY) Cancer: No Psychosocial: No Integumentary: No Blood Disorders: No Family Medical History Cancer 03 FATHER (SKIN CANCER) 03 MOTHER (LUNG CANCER) Cataract 03 FATHER Congestive heart failure 03 MOTHER Dementia 03 MOTHER Family history: Diabetes mellitus 03 FATHER Family history: Hypertension 03 FATHER 03 MOTHER Family history: Osteoporosis 03 MOTHER Family history: Thyroid disorder 03 FATHER (HYPERTHYROIDISM) Hearing loss 03 FATHER No Family History of: Abdominal aortic aneurysm Stan's disease Alcoholism Aphasia Cancer of colon Chest pain Congenital heart disease Cystic fibrosis Dysphagia Family history: Allergy Family history: Alzheimer's disease Family history: Arthritis Family history: Asthma Family history: Breast disease Family history: Cardiovascular disease Family history: Coronary thrombosis Family history: Gastrointestinal disease Family history: Glaucoma Headache Heart disease Hereditary disease History of - anemia History of - disorder History of - respiratory disease History of drug abuse Human immunodeficiency virus (HIV) seropositivity Hypercholesterolemia Infertile Kidney disease Malignant neoplasm of lung Myocardial infarction Parkinson's disease Prostate cancer Psychotic disorder Seizure disorder Stroke Tuberculosis Visual impairment Cerebral Aneurysm, Diabetes, Stroke Physical Exam Vital Signs Vital Signs - First Documented 03/05/22 17:30 Temp 36.6 Pulse 72 Resp 16 B/P (MAP) 182/99 (126) Pulse Ox 98 Capillary Refill : Less Than 3 Seconds Height, Weight, BMI Height: 6'1.00" Weight: 190lbs. 14.0oz. 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 Stiff shuffled gait observed by daughter and nurse.) Skin: Normal Color, Warm/Dry Progress/Results/Core Measures Suspected Sepsis SIRS Temperature: Pulse: 72 Respiratory Rate: 16 Blood Pressure 182 /99 Mean: 126 Results/Orders Lab Results Laboratory Tests Test 03/05/22 17:34 03/05/22 17:39 Range/Units White Blood Count 9.3 4.3-11.0 10^3/uL Red Blood Count 4.20 L 4.30-5.52 10^6/uL Hemoglobin 12.5 L 13.3-17.7 g/dL Hematocrit 38 L 40-54 % Mean Corpuscular Volume 90 80-99 fL Mean Corpuscular Hemoglobin 30 25-34 pg Mean Corpuscular Hemoglobin Concent 33 32-36 g/dL Red Cell Distribution Width 13.2 10.0-14.5 % Platelet Count 180 130-400 10^3/uL Mean Platelet Volume 10.5 9.0-12.2 fL Immature Granulocyte % (Auto) 1 % Neutrophils (%) (Auto) 74 42-75 % Lymphocytes (%) (Auto) 21 12-44 % Monocytes (%) (Auto) 5 0-12 % Eosinophils (%) (Auto) 0 0-10 % Basophils (%) (Auto) 0 0-10 % Neutrophils # (Auto) 6.9 1.8-7.8 10^3/uL Lymphocytes # (Auto) 1.9 1.0-4.0 10^3/uL Monocytes # (Auto) 0.4 0.0-1.0 10^3/uL Eosinophils # (Auto) 0.0 0.0-0.3 10^3/uL Basophils # (Auto) 0.0 0.0-0.1 10^3/uL Immature Granulocyte # (Auto) 0.1 0.0-0.1 10^3/uL Sodium Level 137 135-145 MMOL/L Potassium Level 4.9 3.6-5.0 MMOL/L Chloride Level 101 98-107 MMOL/L Carbon Dioxide Level 28 21-32 MMOL/L Anion Gap 8 5-14 MMOL/L Blood Urea Nitrogen 21 H 7-18 MG/DL Creatinine 1.51 H 0.60-1.30 MG/DL Estimat Glomerular Filtration Rate 48 BUN/Creatinine Ratio 14 Glucose Level 337 H 70-105 MG/DL Calcium Level 9.1 8.5-10.1 MG/DL Corrected Calcium 9.1 8.5-10.1 MG/DL Magnesium Level 2.1 1.6-2.4 MG/DL Total Bilirubin 0.5 0.1-1.0 MG/DL Aspartate Amino Transf (AST/SGOT) 17 5-34 U/L Alanine Aminotransferase (ALT/SGPT) 24 0-55 U/L Alkaline Phosphatase 43 40-136 U/L Total Protein 6.7 6.4-8.2 GM/DL Albumin 4.0 3.2-4.5 GM/DL Free Thyroxine 1.33 0.70-1.48 NG/DL TSH [facility] Testing 0.01 L 0.35-4.94 UIU/ML Glucometer 328 H 70-110 MG/DL My Orders Orders - MATT CESPEDES MD Ed Iv/Invasive Line Start (03/05/22 17:54) Ekg Tracing (03/05/22 17:54) Monitor-Rhythm Ecg Trace Only (03/05/22 17:54) Cbc With Automated Diff (03/05/22 17:54) Comprehensive Metabolic Panel (03/05/22 17:54) Magnesium (03/05/22 17:54) Thyroid Analyzer (03/05/22 17:54) Labetalol Injection (Normodyne Injection (03/05/22 18:00) Doxazosin Tablet (Cardura Tablet) (03/05/22 17:55) Lorazepam Tablet (Ativan Tablet) (03/05/22 18:00) Ct Head Wo (03/05/22 17:57) Free T4 (Free Thyroxine) (03/05/22 17:34) Ct Angio Head/Neck (03/05/22 19:09) Ns Iv 1000 Ml (Sodium Chloride 0.9%) (03/05/22 19:15) Iohexol Injection (Omnipaque 350 Mg/Ml 1 (03/05/22 19:30) Received Contrast (Hold Metformin- Contr (03/05/22 19:30) Ns (Ivpb) (Sodium Chloride 0.9% Ivpb Bag (03/05/22 19:30) Clonidine Tablet (Catapres Tablet) (03/05/22 19:30) Levetiracetam Tablet (Keppra Tablet) (03/05/22 19:36) Medications Given in ED Vital Signs/I&O 03/05/22 03/05/22 17:30 19:43 Temp 36.6 Pulse 72 58 Resp 16 B/P (MAP) 182/99 (126) 211/89 Pulse Ox 98 Capillary Refill : Less Than 3 Seconds Blood Pressure Mean: 126 Progress Note #1: Time: 19:46 Progress Note Patient received labetalol 10 mg IV and his usual suppertime doxazosin 8 mg. He also received Ativan 0.5 mg buccally for his anxiety. Blood pressures are running systolic 180s to 200s. We have not seen much improvement yet. He reported having some intermittent brief episodes of disequilibrium and headache when he was in route to CT scan. CT was obtained and revealed no acute abnormalities. CT angio is pending. I discussed risks and benefits of contrast dye associated with a CT angiogram. We are hydrating with a liter of IV normal saline as prophylaxis. Patient and daughter would like to proceed with CT angio after discussing risks and benefits. I have discussed the case with Dr. Al. He had suggested using clonidine 0.1 mg 3 times daily and starting a Cardene drip. Cardene drip is being initiated now, but we are holding off on clonidine as Dr. Liz recalls clonidine causing severe bradycardia in the past. I discussed the situation with Dr. LIZ who accepts admission to the ICU with Dr. Al's consult. We discussed the allergy to hydralazine. Patient's daughter recalls that the welder assistant at [facility] advised to never take hydralazine because they believe it to be the cause of acute renal failure when he was at [facility]. I discussed CODE STATUS with patient and his daughter. He would like to be a full CODE STATUS but comments that he does not want to be on life support for a prolonged period of time. CT angio is pending at this time. Dr. HO will review these results. As long as there are no critical findings, patient will be admitted to the ICU. Progress Note #2: Time: 19:59 Progress Note Report has been given to eICU. ECG Initial ECG Impression Date: Mar 05, 2022 Initial ECG Impression Time: 18:08 Initial ECG Rate: 57 Initial ECG Rhythm: Normal Sinus Comment Sinus rhythm with no ST elevation or depression. Borderline left axis deviation. No abnormal intervals Diagnostic Imaging Diagonstic Imaging: CT Plain Films/CT/US/NM/MRI: head Comments CT head viewed by me and report reviewed. See report below: NAME: CRISSY VELEZ [facility] REC#: [id number] PT STATUS: REG ER : 1950 PHYSICIAN: MATT CESPEDES MD ADMIT DATE: 03/05/22/ER Draft Date of Exam:03/05/22 CT HEAD WO PROCEDURE: CT head without contrast. TECHNIQUE: Multiple contiguous axial images were obtained through the brain without the use of intravenous contrast. Auto Exposure Controls were utilized during the CT exam to meet ALARA standards for radiation dose reduction. INDICATION: Headache. Hypertensive urgency. COMPARISON: CT head without contrast 09/23/2021. FINDINGS: Mild generalized parenchymal volume loss. No CT evidence of an acute territorial infarction. No intracranial hemorrhage, mass effect, hydrocephalus, or extra-axial fluid collections. Paranasal sinuses and mastoids are clear. Osseous structures are intact. IMPRESSION: No acute intracranial CT findings. Dictated on workstation # [id number] Dict: 03/05/22 1821 Trans: 03/05/22 1825 [id number] Interpreted by: LINNETTE BAR MD Diagonstic Imaging: CT Plain Films/CT/US/NM/MRI: other (angio head and neck) Comments NAME: RCISSY VELEZ [facility] REC#: [id number] PT STATUS: REG ER : 1950 PHYSICIAN: MATT CESPEDES MD ADMIT DATE: 03/05/22/ER Draft Date of Exam:03/05/22 CT ANGIO HEAD/NECK PROCEDURE: CT angiography of the head and CT angiography of the neck with and without contrast. TECHNIQUE: Contiguous noncontrast images were obtained from the skull base through the vertex. After intravenous contrast administration, helical CT angiography of the neck was performed. Source data was reformatted into 3D MIP projections. Delayed post contrast acquisition was also obtained. Auto Exposure Controls were utilized during the CT exam to meet ALARA standards for radiation dose reduction. INDICATION: Hypertensive urgency and headache. FINDINGS: There is a normal three-vessel branching pattern arising from the aortic arch. Great vessels in the neck are patent with moderate atherosclerotic calcification at carotid bifurcations, greater on the left. This results in approximately 50% stenosis on the left. Both vertebral arteries are patent to the neck. Anterior, middle and posterior cerebral arteries are patent. No aneurysm or vascular malformation is identified. There is no evidence of stenosis, occlusion or large vessel defect. There is mild atherosclerotic irregularity of the P1 segments, bilaterally. IMPRESSION: Atherosclerotic disease without CTA evidence of great vessel occlusion or significant stenosis in the neck or brain. Dictated on workstation # [id number] Dict: 03/05/222046 Trans: 03/05/222053 [facility] [id number] Interpreted by: MOHAN HATFIELD MD Departure Communication (Admissions) Time/Spoke to Admitting Phy: 19:21 Dr. Liz Time/Spoke to Consulting Phy: 19:13 Dr. Al Impression Primary Impression: Hypertensive urgency Additional Impressions: Disequilibrium Headache Qualified Codes: R51.9 - Headache, unspecified Disposition: ADMITTED INPATIENT Condition: Stable Admissions Decision to Admit Reason: Admit from ER (General) Decision to Admit/Date: Mar 05, 2022 Time/Decision to Admit Time: 19:13 Departure-Patient Inst. Referrals: VICTORIA LIZ DO (PCP/Family) Primary Care Physician MATT CESPEDES MD Mar 05, 2022 18:18
--- NOTE | 2022-03-05 18:25 | Diagnostic Imaging Report ---
PROCEDURE: CT head without contrast. TECHNIQUE: Multiple contiguous axial images were obtained through the brain without the use of intravenous contrast. Auto Exposure Controls were utilized during the CT exam to meet ALARA standards for radiation dose reduction. INDICATION: Headache. Hypertensive urgency. COMPARISON: CT head without contrast 09/23/2021. FINDINGS: Mild generalized parenchymal volume loss. No CT evidence of an acute territorial infarction. No intracranial hemorrhage, mass effect, hydrocephalus, or extra-axial fluid collections. Paranasal sinuses and mastoids are clear. Osseous structures are intact. IMPRESSION: No acute intracranial CT findings. Dictated by: Dictated on workstation # [id number]
[2022-03-05 18:34] LABS: BILIRUBIN,TOTAL 0.5 MG/DL (0.1-1.0); CALCIUM 9.1 MG/DL (8.5-10.1); CREATININE SERUM 1.51 MG/DL (0.60-1.30); MAGNESIUM 2.1 MG/DL (1.6-2.4); POTASSIUM 4.9 MMOL/L (3.6-5.0); TOTAL PROTEIN 6.7 GM/DL (6.4-8.2)
[2022-03-05 18:54] LABS: TSH (THYROID ANALYZER) 0.01 UIU/ML (0.35-4.94)
[2022-03-05] MEDS ORDERED: NS IV 1000 ML 1,000 ML IV SCH (19:15)
[2022-03-05] MEDS ORDERED: cloNIDine 0.1 MG (CATAPRES) TAB PO ONE (19:30)
[2022-03-05] MEDS ORDERED: HOLD METFORMIN - RECEIVED CONTRAST 20 ML VIAL IV SCH (19:30)
[2022-03-05] MEDS ORDERED: NS 100 ML (IVPB) BAG IV ONE (19:30)
[2022-03-05] MEDS ORDERED: IOHEXOL 350 MG/ML 100 ML (OMNIPAQUE 350) VIAL IV ONE (19:30)
[2022-03-05] MEDS: niCARdipine IV FOR DRIP 50 MG in NS (IVPB) 230 ML IV SCH (19:43)
[2022-03-05 19:52] LABS: FREE T4 (FREE THYROXINE) 1.33 NG/DL (0.70-1.48)
--- NOTE | 2022-03-05 20:56 | Diagnostic Imaging Report ---
PROCEDURE: CT angiography of the head and CT angiography of the neck with and without contrast. TECHNIQUE: Contiguous noncontrast images were obtained from the skull base through the vertex. After intravenous contrast administration, helical CT angiography of the neck was performed. Source data was reformatted into 3D MIP projections. Delayed post contrast acquisition was also obtained. Auto Exposure Controls were utilized during the CT exam to meet ALARA standards for radiation dose reduction. INDICATION: Hypertensive urgency and headache. FINDINGS: There is a normal three-vessel branching pattern arising from the aortic arch. Great vessels in the neck are patent with moderate atherosclerotic calcification at carotid bifurcations, greater on the left. This results in approximately 50% stenosis on the left. Both vertebral arteries are patent to the neck. Anterior, middle and posterior cerebral arteries are patent. No aneurysm or vascular malformation is identified. There is no evidence of stenosis, occlusion or large vessel defect. There is mild atherosclerotic irregularity of the P1 segments, bilaterally. IMPRESSION: Atherosclerotic disease without CTA evidence of great vessel occlusion or significant stenosis in the neck or brain. Dictated by: Dictated on workstation # [id number]
--- NOTE | 2022-03-05 21:52 | Tele-ICU Consult ---
Progress Note (Tele-ICU Physician, consultation) Available chart/ vitals / labs / Images reviewed H&P is from ER notes Patient's information available about PMH, allergy reviewed in EMR. ROS as per chart and RN report Video assessment done using teleICU camera, rest of exam as per RN Discussed with ED attending Consultants: Neurology Hospital course: 71 yo M admitted with hypertensive emergency, ataxia. Hx of ICH. CT head and CTA without evidence of acute finding. Per ED attending admitted to ICU for continuous nicardipine gtt as unable to tolerate clonidine due to bradycardia. Currently awake, alert on RA not in distress standing at side of bed with nurse assist. A/P Control BP, nicardipine gtt to keep SBP < 180 Neuro consult Lines: PIV (Central Line Necessity Reviewed) Wright: - OG: - Nutrition: Regular diet Analgesia: N/A VTE Prophylaxis: SCDs Stress Ulcer Prophylaxis: N/A Plans in collaboration with bedside consultants and Primary MD. RN to reach out if any questions or concerns RADHA THEODORE MD Mar 05, 2022 21:52
[2022-03-06] MEDS ORDERED: fentaNYL INJ 100 MCG/2 ML AMP IV PRN (00:15)
[2022-03-06] MEDS ORDERED: ACETAMINOPHEN 500 MG TAB (TYLENOL) PO PRN (00:15)
[2022-03-06] MEDS ORDERED: ONDANSETRON 4 MG/2 ML (SDV) Z0FRAN IV PRN (00:15)
[2022-03-06 04:48] LABS: BASOPHILS % (AUTO) 0 % (0-10); EOSINOPHILS # (AUTO) 0.1 10^3/uL (0.0-0.3); EOSINOPHILS % (AUTO) 1 % (0-10); HEMATOCRIT 38 % (40-54); HEMOGLOBIN 12.6 g/dL (13.3-17.7); LYMPHOCYTES # (AUTO) 1.9 10^3/uL (1.0-4.0); LYMPHOCYTES % (AUTO) 28 % (12-44); MEAN CORPUSCULAR HEMOGLOBIN 29 pg (25-34); MEAN CORPUSCULAR HGB CONC 33 g/dL (32-36); MEAN CORPUSCULAR VOLUME 89 fL (80-99); MEAN PLATELET VOLUME 10.5 fL (9.0-12.2); MONOCYTES # (AUTO) 0.5 10^3/uL (0.0-1.0); MONOCYTES % (AUTO) 8 % (0-12); NEUTROPHILS # (AUTO) 4.4 10^3/uL (1.8-7.8); NEUTROPHILS % (AUTO) 63 % (42-75); PLATELET COUNT 179 10^3/uL (130-400)
[2022-03-06 05:23] LABS: ALBUMIN 3.7 GM/DL (3.2-4.5); BILIRUBIN,TOTAL 0.5 MG/DL (0.1-1.0); CREATININE SERUM 1.12 MG/DL (0.60-1.30); MAGNESIUM 2.2 MG/DL (1.6-2.4); PHOSPHORUS 4.4 MG/DL (2.3-4.7); POTASSIUM 3.5 MMOL/L (3.6-5.0); TOTAL PROTEIN 6.4 GM/DL (6.4-8.2)
[2022-03-06] MEDS ORDERED: NS IV 500 ML 500 ML IV PRN (06:15)
[2022-03-06] MEDS ORDERED: KCL 20 MEQ TAB (K-DUR) PO ONE (06:15)
[2022-03-06] MEDS: CATHETER FLUSH 10 ML SYR IVP SCH ×3 (06:57→20:55)
[2022-03-06] MEDS: niCARdipine IV FOR DRIP 50 MG in NS (IVPB) 230 ML IV SCH ×2 (07:00→15:20)
[2022-03-06] MEDS: meTOprolol TARTRATE 50 MG (LOPRESSOR) TAB PO SCH ×2 (08:16→20:54)
--- NOTE | 2022-03-06 10:28 | Consultation-Cardiology ---
HPI-Cardiology Cardiology Consultation Date of Consultation 03/06/22 Date of Admission Time Seen by Provider: 10:24 Indication: Hypertensive emergency HPI 71 years old gentleman with history of labile hypertension, intracranial hemorrhage and renal failure. History of ablation for SVTs done in 2011. Patient started to notice elevated blood pressure, had headache and generalized weakness and loss of energy and worsening of his underlying stroke symptoms. Came into the emergency room, he was borderline bradycardic and his blood pressure was significantly elevated. He was started on Cardene drip, reported improvement in his symptoms, currently on Cardene drip, denied any active pain. Blood pressure is still around 150. He had significant intolerance to multiple medications in the past. Home Medications & Allergies Allergies: Coded Allergies: aspirin (Verified Allergy, Severe, CHOKING, 04/16/16) acetaminophen (Verified Allergy, Mild, 04/16/16) hydrocodone (Verified Allergy, Mild, 04/16/16) fentanyl (Verified Allergy, Unknown, BREATHING TROUBLE, pt has rec meperidine in the past, 03/03/21) ONLY PATCH NOT INTRAVENOUS FENTANYL gabapentin (Verified Allergy, Unknown, 03/05/22) hydralazine (Verified Allergy, Unknown, 03/05/22) oxycodone (Verified Allergy, Unknown, NIGHTMARES, 03/02/21) Home Medication List Reviewed: Yes [id number] Hx Patient Social History Marital Status: Employed/Student: retired Smoking Status: Never a Smoker 2nd Hand Smoke Exposure: No Recent Hopitalizations: No Have you traveled recently?: No Alcohol Use?: No Immunizations Up To Date Date of Pneumonia Vaccine: December 07, 2010 Date of Influenza Vaccine: Apr 24, 2021 Past Medical History Discussed below Family Medical History Significant Family History: Cerebral Aneurysm, Diabetes, Stroke Family History: Cancer 03 FATHER (SKIN CANCER) 03 MOTHER (LUNG CANCER) Cataract 03 FATHER Congestive heart failure 03 MOTHER Dementia 03 MOTHER Family history: Diabetes mellitus 03 FATHER Family history: Hypertension 03 FATHER 03 MOTHER Family history: Osteoporosis 03 MOTHER Family history: Thyroid disorder 03 FATHER (HYPERTHYROIDISM) Hearing loss 03 FATHER No Family History of: Abdominal aortic aneurysm Irvine's disease Alcoholism Aphasia Cancer of colon Chest pain Congenital heart disease Cystic fibrosis Dysphagia Family history: Allergy Family history: Alzheimer's disease Family history: Arthritis Family history: Asthma Family history: Breast disease Family history: Cardiovascular disease Family history: Coronary thrombosis Family history: Gastrointestinal disease Family history: Glaucoma Headache Heart disease Hereditary disease History of - anemia History of - disorder History of - respiratory disease History of drug abuse Human immunodeficiency virus (HIV) seropositivity Hypercholesterolemia Infertile Kidney disease Malignant neoplasm of lung Myocardial infarction Parkinson's disease Prostate cancer Psychotic disorder Seizure disorder Stroke Tuberculosis Visual impairment Review of Systems-General Review of Systems Constitutional: no symptoms reported, see HPI, dizziness, malaise, weakness EENTM: see HPI, no symptoms reported Respiratory: no symptoms reported, see HPI Cardiovascular: see HPI; No chest pain, No edema, No Hx of Intervention, No palpitations, No syncope, No vascular heart diseas, No other Gastrointestinal: no symptoms reported, see HPI Genitourinary: no symptoms reported, see HPI Musculoskeletal: see HPI, joint pain Skin: no symptoms reported, see HPI Psychiatric/Neurological: See HPI Reviewed Test Results Reviewed Test Results Lab Laboratory Tests Test 03/05/22 17:34 03/05/22 17:39 03/05/22 22:00 03/06/22 04:30 Range/Units White Blood Count 9.3 7.0 4.3-11.0 10^3/uL Red Blood Count 4.20 L 4.28 L 4.30-5.52 10^6/uL Hemoglobin 12.5 L 12.6 L 13.3-17.7 g/dL Hematocrit 38 L 38 L 40-54 % Mean Corpuscular Volume 90 89 80-99 fL Mean Corpuscular Hemoglobin 30 29 25-34 pg Mean Corpuscular Hemoglobin Concent 33 33 32-36 g/dL Red Cell Distribution Width 13.2 13.1 10.0-14.5 % Platelet Count 180 179 130-400 10^3/uL Mean Platelet Volume 10.5 10.5 9.0-12.2 fL Immature Granulocyte % (Auto) 1 0 % Neutrophils (%) (Auto) 74 63 42-75 % Lymphocytes (%) (Auto) 21 28 12-44 % Monocytes (%) (Auto) 5 8 0-12 % Eosinophils (%) (Auto) 0 1 0-10 % Basophils (%) (Auto) 0 0 0-10 % Neutrophils # (Auto) 6.9 4.4 1.8-7.8 10^3/uL Lymphocytes # (Auto) 1.9 1.9 1.0-4.0 10^3/uL Monocytes # (Auto) 0.4 0.5 0.0-1.0 10^3/uL Eosinophils # (Auto) 0.0 0.1 0.0-0.3 10^3/uL Basophils # (Auto) 0.0 0.0 0.0-0.1 10^3/uL Immature Granulocyte # (Auto) 0.1 0.0 0.0-0.1 10^3/uL Sodium Level 137 140 135-145 MMOL/L Potassium Level 4.9 3.5 L 3.6-5.0 MMOL/L Chloride Level 101 104 98-107 MMOL/L Carbon Dioxide Level 28 25 21-32 MMOL/L Anion Gap 8 11 5-14 MMOL/L Blood Urea Nitrogen 21 H 16 7-18 MG/DL Creatinine 1.51 H 1.12 0.60-1.30 MG/DL Estimat Glomerular Filtration Rate 48 69 BUN/Creatinine Ratio 14 14 Glucose Level 337 H 68 L 70-105 MG/DL Calcium Level 9.1 9.0 8.5-10.1 MG/DL Corrected Calcium 9.1 9.2 8.5-10.1 MG/DL Magnesium Level 2.1 2.2 1.6-2.4 MG/DL Total Bilirubin 0.5 0.5 0.1-1.0 MG/DL Aspartate Amino Transf (AST/SGOT) 17 16 5-34 U/L Alanine Aminotransferase (ALT/SGPT) 24 22 0-55 U/L Alkaline Phosphatase 43 39 L 40-136 U/L Total Protein 6.7 6.4 6.4-8.2 GM/DL Albumin 4.0 3.7 3.2-4.5 GM/DL Free Thyroxine 1.33 0.70-1.48 NG/DL TSH [place] Testing 0.01 L 0.35-4.94 UIU/ML Glucometer 328 H 146 H 70-110 MG/DL Phosphorus Level 4.4 2.3-4.7 MG/DL Test 03/06/22 05:48 Range/Units Glucometer 71 70-110 MG/DL Physical Exam Physical Exam Vital Signs Vital Signs - First Documented 03/05/22 03/05/22 17:30 21:45 Temp 36.6 Pulse 72 Resp 16 B/P (MAP) 182/99 (126) Pulse Ox 98 O2 Delivery Room Air Capillary Refill : Less Than 3 Seconds Height, Weight, BMI Height: 6'1.00" Weight: 190lbs. 14.0oz. 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 Stiff shuffled gait observed by daughter and nurse.) Skin: Normal Color, Warm/Dry Lymphatic: No Adenopathy A/P-Cardiology Admission Diagnosis Hypertensive emergency Change in mental status Acute renal insufficiency Peripheral edema Assessment/Plan Hypertensive emergency. Labile blood pressure Intolerance to hydralazine with questionable lupus-like symptoms resulted in renal failure Intolerance to LU inhibitor and/or ARB and or diuretics. Intolerance to calcium channel blockers with bradycardia Currently on Cardene drip. Metoprolol was restarted. I will start him on clonidine 0.1 mg twice daily and advance slowly and we can titrate down the beta-blockers if needed for bradycardia. I will try to wean him off Cardene drip. Evaluate 2D echo History of CVA with intracranial hemorrhage in September 2021, had residual weakness. History of seizure activity, following with a neurologist in [place] History of tachycardia, underwent ablation in 2011 at . Acute on chronic renal insufficiency. Renal function are slightly better, continue to monitor History of renal failure. Following with a cio in [place] Peripheral edema on and off, currently stable. Will use diuretics cautiously Diabetes mellitus, followed and managed by primary care physician BASIL SHIPLEY MD Mar 06, 2022 10:28
[2022-03-06] MEDS: cloNIDine 0.1 MG (CATAPRES) TAB PO SCH ×2 (10:44→20:54)
--- NOTE | 2022-03-06 12:24 | History & Physical ---
History of Present Illness History of Present Illness Reason for visit/HPI This is a 71 year old male with a history of labile hypertension, intracranial hemorrhage and renal failure. He had weaned off of several of his medications recently due to low blood pressure as well as less edema and pain. The past 1-2 weeks he had been having some elevated blood pressures so his doxazosin dose was increased. Yesterday his systolic blood pressure was up to 200 and he had some altered mental status and weakness so he was brought to the emergency room and found to be in hypetensive urgency. CTA of head showed no evidence of intracranial hemorrhage. He was started on a Cardene drip and admitted to the ICU with cardiology consult. Date of Admission Mar 05, 2022 at 19:43 Date Seen by a Provider: Mar 06, 2022 Time Seen by a Provider: 12:19 I consulted on this patient on 03/06/22 12:19 Attending Physician Victoria Liz DO Admitting Physician Admitting Physician: Victoria Liz DO Attending Physician: Victoria Liz DO Consult Allergies and Home Medications Allergies Coded Allergies: aspirin (Verified Allergy, Severe, CHOKING, 04/16/16) acetaminophen (Verified Allergy, Mild, 04/16/16) hydrocodone (Verified Allergy, Mild, 04/16/16) fentanyl (Verified Allergy, Unknown, BREATHING TROUBLE, pt has rec meperidine in the past, 03/03/21) ONLY PATCH NOT INTRAVENOUS FENTANYL gabapentin (Verified Allergy, Unknown, 03/05/22) hydralazine (Verified Allergy, Unknown, 03/05/22) oxycodone (Verified Allergy, Unknown, NIGHTMARES, 03/02/21) Patient Home Medication List Home Medication List Reviewed: Yes Clonazepam (Clonazepam) 0.5 Mg Tablet, 0.25 MG PO TID PRN for ANXIETY Prescribed by: VICTORIA LIZ on 09/22/21 1035 Clonidine HCl (Clonidine HCl) 0.1 Mg Tablet, 0.1 MG PO BID, (Reported) Entered as Reported by: VICENTE ALVAREZ on 11/27/21 1113 Doxazosin Mesylate (Doxazosin Mesylate) 8 Mg Tablet, 8 MG PO DAILY, (Reported) Entered as Reported by: VICENTE ALVAREZ on 11/27/21 1113 Furosemide (Furosemide) 40 Mg Tablet, 40 MG PO DAILY, (Reported) Entered as Reported by: VICENTE ALVAREZ on 11/27/211112 Gabapentin (Gabapentin) 100 Mg Capsule, 100 MG PO DAILY, (Reported) Entered as Reported by: VICENTE ALVAREZ on 11/27/211112 Glipizide (Glipizide ER) 5 Mg Tab.er.24, 5 MG PO DAILY, (Reported) Entered as Reported by: LIZ ADAMS on 04/28/17621 Hydralazine HCl (Hydralazine HCl) 25 Mg Tablet, 50 MG PO TID, (Reported) Entered as Reported by: LIZ ADAMS on 04/28/17621 Lactobacillus Combination No.4 (Probiotic) 3 Billion Cell Capsule, 1 EACH PO DAILY, (Reported) Entered as Reported by: VICENTE ALVAREZ on 11/27/211112 Levetiracetam (Levetiracetam) 500 Mg Tablet, 500 MG PO BID, (Reported) Entered as Reported by: VICENTE ALVAREZ on 11/27/211112 Loperamide HCl (Imodium A-D) 2 Mg Capsule, 2 MG PO DAILY, (Reported) Entered as Reported by: VICENTE ALVAREZ on 11/27/211112 Metoprolol Succinate (Metoprolol Succinate) 100 Mg Tab.er.24h, 100 MG PO BID Prescribed by: VICTORIA LIZ on 09/22/21 103 Mycophenolate Mofetil (Mycophenolate Mofetil) 500 Mg Tablet, 1,500 MG PO BID, (Reported) Entered as Reported by: VICENTE ALVAREZ on 11/27/211112 Nifedipine (Nifedipine ER) 60 Mg Tablet.er, 60 MG PO DAILY, (Reported) Entered as Reported by: VICENTE ALVAREZ on 11/27/211112 Pantoprazole Sodium (Pantoprazole Sodium) 40 Mg Tablet.dr, 40 MG PO DAILY@0700 Prescribed by: VICTORIA LIZ on 09/22/21 103 Potassium Chloride (Potassium Chloride) 20 Meq Tablet.er, 20 MEQ PO DAILY, (Reported) Entered as Reported by: VICENTE ALVAREZ on 11/27/21 111 Prednisone (Prednisone) 20 Mg Tab, 20 MG PO DAILY@0700 Prescribed by: VICTORIA LIZ on 09/22/21 1032 Sertraline HCl (Sertraline HCl) 50 Mg Tablet, 50 MG PO DAILY, (Reported) Entered as Reported by: VICENTE ALVAREZ on 11/27/21 1113 Trazodone HCl (Trazodone HCl) 50 Mg Tablet, 50 MG PO DAILY, (Reported) Entered as Reported by: VICENTE ALVAREZ on 11/27/21 1113 Past Ffxodbp-Rkofbe-Ovqzpr Hx Patient Social History 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: , Employed/Student: retired Tobacco Use?: No Smoking Status: Never a Smoker Use of E-Cig and/or Vaping dev: No Substance use?: No Alcohol Use?: No Pt feels they are or have been: No Immunizations Up To Date Date of Influenza Vaccine: Apr 24, 2021 First/Initial COVID19 Vaccinat: SEPTEMBER 2020 ARTEMIO/ARTEMIO Second COVID19 Vaccination Lukas: 2020 MODERNA Tetanus Booster (TDap): Unknown Hepatitis A: No Hepatitis B: No Date of Pneumonia Vaccine: December 07, 2010 Seasonal Allergies Seasonal Allergies: No Current Status Advance Directives: No Communicates: Verbally Primary Language: Sri Lankan Preferred Spoken Language: Sri Lankan Is interpretation needed?: No Sensory deficits: Vision impairment Implanted or Applied Medical D: None Past Medical History Surgeries: Abdominal, Appendectomy Currently Using CPAP: No Currently Using BIPAP: No Hypertension 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), Stroke (Hemorrhagic stroke) Kidney Stones Hiatal Hernia Fractures Diabetes, Non-Insulin dep Blood Disorders: No Family Medical History Cancer 03 FATHER (SKIN CANCER) 03 MOTHER (LUNG CANCER) Cataract 03 FATHER Congestive heart failure 03 MOTHER Dementia 03 MOTHER Family history: Diabetes mellitus 03 FATHER Family history: Hypertension 03 FATHER 03 MOTHER Family history: Osteoporosis 03 MOTHER Family history: Thyroid disorder 03 FATHER (HYPERTHYROIDISM) Hearing loss 03 FATHER No Family History of: Abdominal aortic aneurysm Dillingham's disease Alcoholism Aphasia Cancer of colon Chest pain Congenital heart disease Cystic fibrosis Dysphagia Family history: Allergy Family history: Alzheimer's disease Family history: Arthritis Family history: Asthma Family history: Breast disease Family history: Cardiovascular disease Family history: Coronary thrombosis Family history: Gastrointestinal disease Family history: Glaucoma Headache Heart disease Hereditary disease History of - anemia History of - disorder History of - respiratory disease History of drug abuse Human immunodeficiency virus (HIV) seropositivity Hypercholesterolemia Infertile Kidney disease Malignant neoplasm of lung Myocardial infarction Parkinson's disease Prostate cancer Psychotic disorder Seizure disorder Stroke Tuberculosis Visual impairment Cerebral Aneurysm, Diabetes, Stroke Review of Systems Constitutional: No no symptoms reported, No see HPI, No chills, No diaphoresis, No dizziness, No fever, No malaise, No weakness, No weight gain, No weight loss, No other EENTM: No see HPI, No no symptoms reported, No ear discharge, No hearing loss, No ear pain, No blurred vision, No double vision, No eye pain, No tearing, No vision loss, No dental problems, No hoarseness, No mouth pain, No mouth swelling, No epistaxis, No nose congestion, No nose pain, No throat pain, No throat swelling, No other Respiratory: No no symptoms reported, No see HPI, No cough, No dyspnea on exertion, No hemoptysis, No orthopnea, No phlegm, No short of breath, No stridor, No wheezing, No other Cardiovascular: No no symptoms reported, No see HPI, No chest pain, No edema, No Hx of Intervention, No palpitations, No syncope, No vascular heart diseas, No other Gastrointestinal: No RUQ, No LUQ, No RLQ, No LLQ, No no symptoms reported, No see HPI, No abdominal pain, No constipation, No diarrhea, No dysphagia, No hematemesis, No heartburn, No jaundice, No loss of appetite, No melena, No nausea, No vomiting, No other Genitourinary: No no symptoms reported, No see HPI, No decreased output, No discharge, No dysuria, No frequency, No hematuria, No hesitancy, No incontinence, No nocturia, No pain, No other Musculoskeletal: No no symptoms reported, No see HPI, No back pain, No gout, No joint pain, No joint swelling, No muscle pain, No muscle stiffness, No muscle cramps, No muscle twitching, No muscle weakness, No neck pain, No other Skin: No no symptoms reported, No see HPI, No change in color, No change in hair/nails, No dryness, No hx of skin cancer, No lesions, No lumps, No pruritus, No rash, No other Psychiatric/Neurological: Anxiety, Tremors Physical Exam Vital Signs Vital Signs - First Documented 03/05/22 03/05/22 17:30 21:45 Temp 36.6 Pulse 72 Resp 16 B/P (MAP) 182/99 (126) Pulse Ox 98 O2 Delivery Room Air Capillary Refill : Less Than 3 Seconds Height, Weight, BMI Height: 6'1.00" Weight: 190lbs. 14.0oz. 86.193948pm; 24.41 BMI Method:Stated General Appearance: No Apparent Distress HEENT: Normal ENT Inspection Neck: Supple Respiratory: Lungs Clear Cardiovascular: Regular Rate, Rhythm, Gallop/S4 Gastrointestinal: Normal Bowel Sounds, Non Tender, Soft Rectal: Deferred Back: No CVA Tenderness Extremity: Non Tender, No Calf Tenderness, No Pedal Edema Neurologic/Psychiatric: Alert, Oriented x3, Other (right hand tremor) Skin: Warm/Dry Comments Laboratory Tests 03/05/22 17:34: White Blood Count 9.3, Red Blood Count 4.20L, Hemoglobin 12.5L, Hematocrit 38L, Mean Corpuscular Volume 90, Mean Corpuscular Hemoglobin 30, Mean Corpuscular Hemoglobin Concent 33, Red Cell Distribution Width 13.2, Platelet Count 180, Mean Platelet Volume 10.5, Immature Granulocyte % (Auto) 1, Neutrophils (%) (Auto) 74, Lymphocytes (%) (Auto) 21, Monocytes (%) (Auto) 5, Eosinophils (%) (Auto) 0, Basophils (%) (Auto) 0, Neutrophils # (Auto) 6.9, Lymphocytes # (Auto) 1.9, Monocytes # (Auto) 0.4, Eosinophils # (Auto) 0.0, Basophils # (Auto) 0.0, Immature Granulocyte # (Auto) 0.1, Sodium Level 137, Potassium Level 4.9, Chloride Level 101, Carbon Dioxide Level 28, Anion Gap 8, Blood Urea Nitrogen 21H, Creatinine 1.51H, Estimat Glomerular Filtration Rate 48, BUN/Creatinine Ratio 14, Glucose Level 337H, Calcium Level 9.1, Corrected Calcium 9.1, Magnesium Level 2.1, Total Bilirubin 0.5, Aspartate Amino Transf (AST/SGOT) 17, Alanine Aminotransferase (ALT/SGPT) 24, Alkaline Phosphatase 43, Total Protein 6.7, Albumin 4.0, Free Thyroxine 1.33, TSH [place] Testing 0.01L 03/05/22 17:39: Glucometer 328H 03/05/22 22:00: Glucometer 146H 03/06/22 04:30: White Blood Count 7.0, Red Blood Count 4.28L, Hemoglobin 12.6L, Hematocrit 38L, Mean Corpuscular Volume 89, Mean Corpuscular Hemoglobin 29, Mean Corpuscular Hemoglobin Concent 33, Red Cell Distribution Width 13.1, Platelet Count 179, Mean Platelet Volume 10.5, Immature Granulocyte % (Auto) 0, Neutrophils (%) (Auto) 63, Lymphocytes (%) (Auto) 28, Monocytes (%) (Auto) 8, Eosinophils (%) (Auto) 1, Basophils (%) (Auto) 0, Neutrophils # (Auto) 4.4, Lymphocytes # (Auto) 1.9, Monocytes # (Auto) 0.5, Eosinophils # (Auto) 0.1, Basophils # (Auto) 0.0, Immature Granulocyte # (Auto) 0.0, Sodium Level 140, Potassium Level 3.5L, Chloride Level 104, Carbon Dioxide Level 25, Anion Gap 11, Blood Urea Nitrogen 16, Creatinine 1.12, Estimat Glomerular Filtration Rate 69, BUN/Creatinine Ratio 14, Glucose Level 68L, Calcium Level 9.0, Corrected Calcium 9.2, Magnesium Level 2.2, Total Bilirubin 0.5, Aspartate Amino Transf (AST/SGOT) 16, Alanine A minotransferase (ALT/SGPT) 22, Alkaline Phosphatase 39L, Total Protein 6.4, Albumin 3.7, Phosphorus Level 4.4 03/06/22 05:48: Glucometer 71 Assessment/Plan Assessment and Plan 1. Hypertensive Urgency--admit to ICU on Cardene drip and metoprolol, cardiology consulted, they have started clonidine but patient does have a history of bradycardia with clonidine earlier this year 2. History of Intracranial Hemorrhage--CTA of head negative 3. History of Renal Failure--BUN/Cr mildly up on admit but improved today 4. Anxiety--restart sertraline 5. DMII--on accuchecks with SSI Admission Diagnosis Admission Status: Inpatient Order (span 2 midnights) Reason for Inpatient Admission: Will need ICU and cardene drip until BP controlled then converted to orals VICTORIA LIZ DO Mar 06, 2022 12:24
--- NOTE | 2022-03-06 12:27 | Tele-ICU Progress Note ---
Subjective Date Seen by a Provider: Mar 06, 2022 Time Seen by a Provider: 12:02 Subjective/Events-last exam (Tele-ICU Physician , consultation) Available chart/ vitals / labs / Images reviewed H&P is from ER notes Patient's information available about PMH, allergy reviewed in EMR. ROS as per chart and RN report Video assessment done using teleICU camera, rest of exam as per RN Discussed with RN. Sepsis Event Evaluation Height, Weight, BMI Height: 6'1.00" Weight: 190lbs. 14.0oz. 86.330812hs; 24.41 BMI Method:Stated Exam Exam Patient acknowledged, consented, and participated in this virtual visit which was conducted using real time audio/video Vital Signs Date Time Temp Pulse Resp B/P (MAP) Pulse Ox O2 Delivery O2 Flow Rate FiO2 03/06/22 12:00 64 17 150/73 97 Room Air 03/06/22 11:58 36.5 03/06/22 11:00 68 15 135/69 96 Room Air 03/06/22 10:00 71 15 143/75 97 Room Air 03/06/22 09:00 67 13 140/70 99 Room Air 03/06/22 08:00 36.1 03/06/22 08:00 63 12 142/73 98 Room Air 03/06/22 08:00 98 Room Air 03/06/22 07:00 61 133/70 03/06/22 07:00 60 03/06/22 07:00 60 13 134/68 96 Room Air 03/06/22 06:00 68 12 135/70 97 Room Air 03/06/22 05:00 61 11 139/68 95 Room Air 03/06/22 04:00 65 9 140/76 97 Room Air 03/06/22 04:00 97 Room Air 03/06/22 03:58 36.4 03/06/22 03:00 74 14 141/74 100 Room Air 03/06/22 02:00 61 7 126/70 96 Room Air 03/06/22 01:00 62 03/06/22 01:00 58 8 132/72 99 Room Air 03/06/22 00:00 62 13 136/75 97 Room Air 03/05/22 23:30 65 14 135/71 97 Room Air 03/05/22 23:00 67 13 146/73 97 Room Air 03/05/22 22:45 63 15 152/79 96 Room Air 03/05/22 22:30 63 15 163/81 97 Room Air 03/05/22 22:15 68 15 147/80 98 Room Air 03/05/22 22:00 36.3 71 15 95/70 97 Room Air 03/05/22 21:56 75 03/05/22 21:45 97 Room Air 03/05/22 21:30 68 16 151/69 97 03/05/22 19:43 58 211/89 03/05/22 17:30 36.6 72 16 182/99 (126) 98 I & O 03/06/22 07:00 Intake Total 1450 ml Output Total 1350 ml Balance 100 ml Height & Weight Height: 6'1.00" Weight: 190lbs. 14.0oz. 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 Stiff shuffled gait observed by daughter and nurse.) Skin: Normal Color, Warm/Dry Lymphatic: No Adenopathy Results Lab Laboratory Tests 03/05/22 17:34 03/06/22 04:30 Assessment/Plan Assessment/Plan 1. Hypertensive urgency. Patient on nicardipine drip Clonidine and metoprolol has been started and nicardipine to stop and see the response. VTE prophylaxis SCDs Stress prophylaxis N/A Plans in collaboration with the bedside consultants and primary MD. RN to reach out if any questions or concerns. Critical Care: Critically Ill Patient Time spent with patient (mins): 15 KEIRA RICHARD MD Mar 06, 2022 12:27
[2022-03-06] MEDS: inSUlin ASPART (NovoLOG) 1 UNIT/0.01 ML (CHARGE PER UNIT) SC SCH ×2 (16:51→20:55)
[2022-03-06] MEDS: SERTRALINE 50 MG (ZOLOFT) TABLET PO SCH (20:54)
[2022-03-07] MEDS: niCARdipine IV FOR DRIP 50 MG in NS (IVPB) 230 ML IV SCH ×3 (02:21→21:30)
[2022-03-07 04:52] LABS: BASOPHILS % (AUTO) 0 % (0-10); EOSINOPHILS # (AUTO) 0.1 10^3/uL (0.0-0.3); EOSINOPHILS % (AUTO) 1 % (0-10); HEMATOCRIT 39 % (40-54); HEMOGLOBIN 12.7 g/dL (13.3-17.7); LYMPHOCYTES % (AUTO) 25 % (12-44); MEAN CORPUSCULAR HEMOGLOBIN 29 pg (25-34); MEAN CORPUSCULAR HGB CONC 33 g/dL (32-36); MEAN CORPUSCULAR VOLUME 88 fL (80-99); MEAN PLATELET VOLUME 11.1 fL (9.0-12.2); MONOCYTES # (AUTO) 0.6 10^3/uL (0.0-1.0); MONOCYTES % (AUTO) 7 % (0-12); NEUTROPHILS # (AUTO) 5.4 10^3/uL (1.8-7.8); NEUTROPHILS % (AUTO) 66 % (42-75); PLATELET COUNT 202 10^3/uL (130-400); WHITE BLOOD COUNT 8.2 10^3/uL (4.3-11.0)
[2022-03-07 05:25] LABS: ALBUMIN 3.8 GM/DL (3.2-4.5); BILIRUBIN,TOTAL 0.5 MG/DL (0.1-1.0); CALCIUM 9.1 MG/DL (8.5-10.1); CREATININE SERUM 1.38 MG/DL (0.60-1.30); MAGNESIUM 2.1 MG/DL (1.6-2.4); POTASSIUM 4.3 MMOL/L (3.6-5.0); TOTAL PROTEIN 6.9 GM/DL (6.4-8.2)
[2022-03-07] MEDS: POTASSIUM CL 10MEQ/50ML IVPB 50 ML IV SCH (06:03)
[2022-03-07] MEDS: inSUlin ASPART (NovoLOG) 1 UNIT/0.01 ML (CHARGE PER UNIT) SC SCH ×4 (06:04→20:51)
[2022-03-07] MEDS: CATHETER FLUSH 10 ML SYR IVP SCH ×3 (06:04→20:51)
[2022-03-07] MEDS: KCL 20 MEQ TAB (K-DUR) PO SCH (06:04)
[2022-03-07] MEDS: MAGNESIUM 1 GM/100 ML IVPB 100 ML IV SCH (06:04)
--- NOTE | 2022-03-07 08:00 | Tele-ICU Progress Note ---
Subjective Date Seen by a Provider: Mar 07, 2022 Time Seen by a Provider: 07:59 Subjective/Events-last exam (Tele-ICU Physician , consultation) Available chart/ vitals / labs / Images reviewed H&P is from ER notes Patient's information available about PMH, allergy reviewed in EMR. ROS as per chart and RN report Video assessment done using teleICU camera, rest of exam as per RN Discussed with RN. Patient last night needed nicardipine drip. In again because of the high blood pressure but the wood calker today increasing his Catapres to 0.2 mg p.o. twice daily and continued metoprolol hoping that it will control the blood pressure. Currently nicardipine drip is on hold. We will await and see the response today. Keep the patient in the ICU for today. Sepsis Event Evaluation Height, Weight, BMI Height: 6'1.00" Weight: 190lbs. 14.0oz. 86.129819yd; 24.41 BMI Method:Stated Exam Exam Patient acknowledged, consented, and participated in this virtual visit which was conducted using real time audio/video Vital Signs Date Time Temp Pulse Resp B/P (MAP) Pulse Ox O2 Delivery O2 Flow Rate FiO2 03/07/22 07:46 36.8 03/07/22 07:00 75 03/07/22 07:00 72 22 150/69 96 Room Air 03/07/22 06:00 70 134/71 97 Room Air 03/07/22 05:00 73 150/75 94 Room Air 03/07/22 04:00 100 Room Air 03/07/22 04:00 73 145/73 98 Room Air 03/07/22 03:00 70 138/65 95 Room Air 03/07/22 02:21 78 150/72 03/07/22 02:00 72 149/76 96 Room Air 03/07/22 01:00 71 03/07/22 01:00 75 143/69 96 Room Air 03/07/22 00:00 100 Room Air 03/07/22 00:00 86 155/71 96 Room Air 03/06/22 23:00 74 183/87 98 Room Air 03/06/22 22:00 71 160/72 97 Room Air 03/06/22 21:00 71 172/88 97 Room Air 03/06/22 20:00 69 171/79 98 Room Air 03/06/22 20:00 100 Room Air 03/06/22 19:54 36.7 03/06/22 19:00 48 03/06/22 19:00 71 165/77 97 Room Air 03/06/22 18:00 72 160/84 98 Room Air 03/06/22 17:00 66 13 159/80 98 Room Air 03/06/22 16:00 66 16 140/73 96 Room Air 03/06/22 16:00 100 Room Air 03/06/22 15:58 36.6 03/06/22 15:20 68 140/69 03/06/22 15:00 68 7 140/69 95 Room Air 03/06/22 14:00 64 17 156/76 98 Room Air 03/06/22 13:00 64 10 162/75 99 Room Air 03/06/22 12:39 65 03/06/22 12:00 99 Room Air 03/06/22 12:00 64 17 150/73 97 Room Air 03/06/22 11:58 36.5 03/06/22 11:00 68 15 135/69 96 Room Air 03/06/22 10:45 71 143/75 03/06/22 10:00 71 15 143/75 97 Room Air 03/06/22 09:00 67 13 140/70 99 Room Air 03/06/22 08:00 36.1 03/06/22 08:00 63 12 142/73 98 Room Air 03/06/22 08:00 98 Room Air I & O 03/07/22 07:00 Intake Total 3670 ml Output Total 3125 ml Balance 545 ml Height & Weight Height: 6'1.00" Weight: 190lbs. 14.0oz. 86.025489gn; 24.41 BMI Method:Stated General Appearance: No Apparent Distress HEENT: Normal ENT Inspection Neck: Supple Respiratory: Lungs Clear Cardiovascular: Regular Rate, Rhythm, Gallop/S4 Capillary Refill: Less Than 3 Seconds Extremity: Non Tender, No Calf Tenderness, No Pedal Edema Neurologic/Psychiatric: Alert, Oriented x3, Other (right hand tremor) Skin: Warm/Dry Lymphatic: No Adenopathy Results Lab Laboratory Tests 03/05/22 17:34 03/06/22 04:30 03/07/22 04:01 Assessment/Plan Assessment/Plan 1. Hypertensive urgency. Patient on nicardipine drip but now on hold Clonidine dose increased to 0.2 mg bid and metoprolol continued. will awit and see the response. VTE prophylaxis SCDs Stress prophylaxis N/A Plans in collaboration with the bedside consultants and primary MD. RN to reach out if any questions or concerns Critical Care: Critically Ill Patient Time spent with patient (mins): 15 KEIRA RICHARD MD Mar 07, 2022 08:00
[2022-03-07] MEDS: cloNIDine 0.2 MG (CATAPRES) TAB PO SCH ×2 (08:21→20:51)
[2022-03-07] MEDS: meTOprolol TARTRATE 50 MG (LOPRESSOR) TAB PO SCH ×2 (08:21→20:51)
--- NOTE | 2022-03-07 09:17 | Cardiology Progress Note ---
Subjective Date Seen by Provider: Mar 07, 2022 Time Seen by Provider: 09:15 Subjective/Events-last exam Patient was seen at bedside, still having mild headache Had difficulty achieving adequate blood pressure control last night and Cardene drip was restarted Review of Systems General: No Chills, No Night Sweats; Fatigue, Malaise; No Appetite, No Other HEENT: No Head Aches, No Visual Changes, No Eye Pain, No Ear Pain, No Dysphasia, No Sinus Congestion, No Post Nasal Drip, No Sore Throat, No Other Pulmonary: No Dyspnea, No Cough, No Pleuritic Chest Pain, No Other Cardiovascular: No: Chest Pain, Palpitations, Orthopnea, Paroxysmal Noc. Dyspnea, Edema, Lt Headedness, Other Objective-Cardiology Exam Last Set of Vital Signs Vital Signs 03/07/22 03/07/22 07:46 08:00 Temp 36.8 Pulse 74 Resp 31 B/P (MAP) 159/83 Pulse Ox 96 O2 Delivery Room Air I&O Intake and Output 03/07/22 00:00 Intake Total 2470 ml Output Total 2900 ml Balance -430 ml Intake Oral 2470 ml Output Urine Total 2900 ml # Voids 1 # Bowel Movements 1 General: Alert, Oriented X3, Cooperative HEENT: Atraumatic, PERRLA Neck: Supple, No JVD, No Thyromegaly Lungs: Clear to Auscultation, Normal Air Movement Heart: Regular Rate, Normal S1, Normal S2, Gallops (S3) Abdomen: Normal Bowel Sounds, Soft, No Tenderness, No Hepatosplenomegaly, No Masses Extremities: No Clubbing, No Cyanosis, No Edema, Normal Pulses, No Tenderness/Swelling Skin: No Rashes, No Breakdown, No Significant Lesion Neuro: Normal Gait, Normal Speech, Strength at 5/5 X4 Ext, Normal Tone, Sensation Intact Psych/Mental Status: Mental Status NL, Mood NL Results Lab Laboratory Tests 03/07/22 04:01 A/P-Cardiology Admission Diagnosis Hypertensive emergency Change in mental status Acute renal insufficiency Peripheral edema Assessment/Plan Hypertensive emergency. Labile blood pressure Intolerance to hydralazine with questionable lupus-like symptoms resulted in renal failure Intolerance to LU inhibitor and/or ARB and or diuretics. Intolerance to calcium channel blockers with bradycardia Currently on Cardene drip. Maintained on metoprolol I will increase clonidine to 0.2 mg twice daily and evaluate tolerance and response Try to wean him off the Cardene again. 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 History of seizure activity, following with a neurologist in [place] History of tachycardia, underwent ablation in 2011 at . Acute on chronic renal insufficiency. Mild deterioration of renal function History of renal failure. Following with a business solutions analyst in [place] Peripheral edema on and off, currently stable. Will use diuretics cautiously Diabetes mellitus, followed and managed by primary care physician BASIL SHIPLEY MD Mar 07, 2022 09:17
--- NOTE | 2022-03-07 09:36 | Progress Note ---
Subjective Date Seen by a Provider: Mar 07, 2022 Time Seen by a Provider: 09:32 Subjective/Events-last exam Fwup hypertensive urgency, history of intracranial hemorrhage, history of renal failure, DMII, anxiety. Was off cardene drip most of the day yesterday but had to go back on Cardene drip overnight. Objective Exam Vital Signs Date Time Temp Pulse Resp B/P (MAP) Pulse Ox O2 Delivery O2 Flow Rate FiO2 03/07/22 09:00 71 17 160/82 97 Room Air 03/07/22 08:00 96 Room Air 03/07/22 08:00 74 31 159/83 98 Room Air 03/07/22 07:46 36.8 03/07/22 07:00 75 03/07/22 07:00 72 22 150/69 96 Room Air 03/07/22 06:00 70 134/71 97 Room Air 03/07/22 05:00 73 150/75 94 Room Air 03/07/22 04:00 100 Room Air 03/07/22 04:00 73 145/73 98 Room Air 03/07/22 03:00 70 138/65 95 Room Air 03/07/22 02:21 78 150/72 03/07/22 02:00 72 149/76 96 Room Air 03/07/22 01:00 71 03/07/22 01:00 75 143/69 96 Room Air 03/07/22 00:00 100 Room Air 03/07/22 00:00 86 155/71 96 Room Air 03/06/22 23:00 74 183/87 98 Room Air 03/06/22 22:00 71 160/72 97 Room Air 03/06/22 21:00 71 172/88 97 Room Air 03/06/22 20:00 69 171/79 98 Room Air 03/06/22 20:00 100 Room Air 03/06/22 19:54 36.7 03/06/22 19:00 48 03/06/22 19:00 71 165/77 97 Room Air 03/06/22 18:00 72 160/84 98 Room Air 03/06/22 17:00 66 13 159/80 98 Room Air 03/06/22 16:00 66 16 140/73 96 Room Air 03/06/22 16:00 100 Room Air 03/06/22 15:58 36.6 03/06/22 15:20 68 140/69 03/06/22 15:00 68 7 140/69 95 Room Air 03/06/22 14:00 64 17 156/76 98 Room Air 03/06/22 13:00 64 10 162/75 99 Room Air 03/06/22 12:39 65 03/06/22 12:00 99 Room Air 03/06/22 12:00 64 17 150/73 97 Room Air 03/06/22 11:58 36.5 03/06/22 11:00 68 15 135/69 96 Room Air 03/06/22 10:45 71 143/75 03/06/22 10:00 71 15 143/75 97 Room Air I & O 03/07/22 07:00 Intake Total 3670 ml Output Total 3125 ml Balance 545 ml Capillary Refill : Less Than 3 Seconds General Appearance: No Apparent Distress Neck: Supple Respiratory: Lungs Clear Cardiovascular: Regular Rate, Rhythm, Systolic Murmur Gastrointestinal: normal bowel sounds, non tender, soft Extremity: Non Tender, No Calf Tenderness, No Pedal Edema Neurologic/Psychiatric: Alert, Oriented x3 Results Lab Laboratory Tests 03/06/22 16:41: Glucometer 176H 03/06/22 20:42: Glucometer 135H 03/07/22 04:01: White Blood Count 8.2, Red Blood Count 4.40, Hemoglobin 12.7L, Hematocrit 39L, Mean Corpuscular Volume 88, Mean Corpuscular Hemoglobin 29, Mean Corpuscular Hemoglobin Concent 33, Red Cell Distribution Width 13.1, Platelet Count 202, Mean Platelet Volume 11.1, Immature Granulocyte % (Auto) 0, Neutrophils (%) (Auto) 66, Lymphocytes (%) (Auto) 25, Monocytes (%) (Auto) 7, Eosinophils (%) (Auto) 1, Basophils (%) (Auto) 0, Neutrophils # (Auto) 5.4, Lymphocytes # (Auto) 2.0, Monocytes # (Auto) 0.6, Eosinophils # (Auto) 0.1, Basophils # (Auto) 0.0, Immature Granulocyte # (Auto) 0.0, Sodium Level 139, Potassium Level 4.3, Chloride Level 103, Carbon Dioxide Level 24, Anion Gap 12, Blood Urea Nitrogen 20H, Creatinine 1.38H, Estimat Glomerular Filtration Rate 54, BUN/Creatinine Ra clover 14, Glucose Level 111H, Calcium Level 9.1, Corrected Calcium 9.3, Phosphorus Level 4.0, Magnesium Level 2.1, Total Bilirubin 0.5, Aspartate Amino Transf (AST/SGOT) 15, Alanine Aminotransferase (ALT/SGPT) 21, Alkaline Phosphatase 40, Total Protein 6.9, Albumin 3.8 Assessment/Plan Assessment/Plan Assess & Plan/Chief Complaint 1. Hypertensive Urgency/Labile Hypertension--on metoprolol and doxazosin, clonidine increased and will try to DC cardene drip again, monitor pulse with clonidine, will proceed with urine and serum catecholamines 2. History of Renal Failure with current mild renal insufficiency--monitor BUN/Cr 3. History of Intracranial Hemorrhage--CTA of head negative on admit 4. DMII--on accuchecks with SSI 5. Anxiety--back on sertraline 6. Up to chair today Clinical Quality Measures Admission Status Admission Dx 1. Hypertensive Urgency--admit to ICU on Cardene drip and metoprolol, car diology consulted, they have started clonidine but patient does have a history of bradycardia with clonidine earlier this year 2. History of Intracranial Hemorrhage--CTA of head negative 3. History of Renal Failure--BUN/Cr mildly up on admit but improved today 4. Anxiety--restart sertraline 5. DMII--on accuchecks with SSI VICTORIA BARRON DO Mar 07, 2022 09:36
[2022-03-07] MEDS: SERTRALINE 50 MG (ZOLOFT) TABLET PO SCH (20:51)
[2022-03-07] MEDS ORDERED: cloNIDine 0.1 MG (CATAPRES) TAB PO ONE (22:00)
[2022-03-07] MEDS ORDERED: cloNIDine 0.1 MG (CATAPRES) TAB ONE (22:01)
[2022-03-08 04:52] LABS: BASOPHILS % (AUTO) 0 % (0-10); EOSINOPHILS # (AUTO) 0.1 10^3/uL (0.0-0.3); EOSINOPHILS % (AUTO) 1 % (0-10); HEMATOCRIT 37 % (40-54); HEMOGLOBIN 12.5 g/dL (13.3-17.7); LYMPHOCYTES % (AUTO) 25 % (12-44); MEAN CORPUSCULAR HEMOGLOBIN 29 pg (25-34); MEAN CORPUSCULAR HGB CONC 33 g/dL (32-36); MEAN CORPUSCULAR VOLUME 87 fL (80-99); MEAN PLATELET VOLUME 10.6 fL (9.0-12.2); MONOCYTES # (AUTO) 0.7 10^3/uL (0.0-1.0); MONOCYTES % (AUTO) 8 % (0-12); NEUTROPHILS # (AUTO) 5.3 10^3/uL (1.8-7.8); NEUTROPHILS % (AUTO) 65 % (42-75); PLATELET COUNT 183 10^3/uL (130-400); WHITE BLOOD COUNT 8.1 10^3/uL (4.3-11.0)
[2022-03-08 05:14] LABS: ALBUMIN 3.6 GM/DL (3.2-4.5); BILIRUBIN,TOTAL 0.5 MG/DL (0.1-1.0); CALCIUM 8.8 MG/DL (8.5-10.1); CREATININE SERUM 1.48 MG/DL (0.60-1.30); MAGNESIUM 2.1 MG/DL (1.6-2.4); PHOSPHORUS 4.1 MG/DL (2.3-4.7); TOTAL PROTEIN 6.2 GM/DL (6.4-8.2)
[2022-03-08] MEDS: KCL 20 MEQ TAB (K-DUR) PO SCH (06:10)
[2022-03-08] MEDS: inSUlin ASPART (NovoLOG) 1 UNIT/0.01 ML (CHARGE PER UNIT) SC SCH ×4 (06:10→20:40)
[2022-03-08] MEDS: CATHETER FLUSH 10 ML SYR IVP SCH ×3 (06:10→21:06)
[2022-03-08] MEDS: POTASSIUM CL 10MEQ/50ML IVPB 50 ML IV SCH (06:10)
[2022-03-08] MEDS: MAGNESIUM 1 GM/100 ML IVPB 100 ML IV SCH (06:10)
[2022-03-08] MEDS: niCARdipine IV FOR DRIP 50 MG in NS (IVPB) 230 ML IV SCH ×2 (07:30→17:30)
[2022-03-08] MEDS: cloNIDine 0.2 MG (CATAPRES) TAB PO SCH ×4 (08:12→21:06)
[2022-03-08] MEDS: meTOprolol TARTRATE 50 MG (LOPRESSOR) TAB PO SCH (08:12)
--- NOTE | 2022-03-08 08:33 | Tele-ICU Progress Note ---
Subjective Date Seen by a Provider: Mar 08, 2022 Time Seen by a Provider: 08:40 Subjective/Events-last exam (Tele-ICU Physician , consultation) Available chart/ vitals / labs / Images reviewed H&P is from ER notes Patient's information available about PMH, allergy reviewed in EMR. ROS as per chart and RN report Video assessment done using teleICU camera, rest of exam as per RN Discussed with RN. Patient last night needed nicardipine drip again because of the high blood pressure but the tongue and quarter stitcher today increasing his Catapres to 0.2 mg p.o. Q hrs daily and continued metoprolol hoping that it will control the blood pressure. Currently nicardipine drip is on hold. We will await and see the response today. IF bp is under control hem be transferred to medical floor Sepsis Event Evaluation Height, Weight, BMI Height: 6'1.00" Weight: 190lbs. 14.0oz. 86.813616gd; 24.41 BMI Method:Stated Exam Exam Patient acknowledged, consented, and participated in this virtual visit which was conducted using real time audio/video Vital Signs Date Time Temp Pulse Resp B/P (MAP) Pulse Ox O2 Delivery O2 Flow Rate FiO2 03/08/22 07:59 36.6 03/08/22 07:40 64 03/08/22 06:00 64 22 160/72 96 Room Air 03/08/22 05:00 65 22 160/66 95 Room Air 03/08/22 04:00 68 24 153/68 96 Room Air 03/08/22 04:00 97 Room Air 03/08/22 03:00 68 15 143/65 93 Room Air 03/08/22 02:00 70 21 141/66 98 Room Air 03/08/22 01:00 73 03/08/22 01:00 76 13 150/68 94 Room Air 03/08/22 00:00 37.0 03/08/22 00:00 76 20 144/66 96 Room Air 03/08/22 00:00 97 Room Air 03/07/22 23:00 66 20 179/80 97 Room Air 03/07/22 22:00 68 20 174/82 99 Room Air 03/07/22 21:00 68 20 200/90 97 Room Air 03/07/22 20:00 68 18 168/69 96 Room Air 03/07/22 20:00 97 Room Air 03/07/22 19:54 36.8 03/07/22 19:00 71 03/07/22 19:00 71 20 169/83 96 Room Air 03/07/22 18:00 72 12 171/80 99 Room Air 03/07/22 17:00 66 18 185/85 98 Room Air 03/07/22 16:00 66 15 146/72 97 Room Air 03/07/22 16:00 97 Room Air 03/07/22 16:00 36.6 03/07/22 15:00 70 16 128/68 96 Room Air 03/07/22 14:00 73 19 123/63 96 Room Air 03/07/22 13:00 68 10 116/65 98 Room Air 03/07/22 12:56 71 03/07/22 12:00 36.8 03/07/22 12:00 89 Room Air 03/07/22 12:00 70 13 124/69 98 Room Air 03/07/22 11:30 71 124/69 03/07/22 11:00 68 28 127/63 94 Room Air 03/07/22 10:00 72 15 133/64 94 Room Air 03/07/22 09:00 71 17 160/82 97 Room Air I & O 03/08/22 07:00 Intake Total 4050 ml Output Total 1625 ml Balance 2425 ml Height & Weight Height: 6'1.00" Weight: 190lbs. 14.0oz. 86.792902tc; 24.41 BMI Method:Stated General Appearance: No Apparent Distress HEENT: Normal ENT Inspection Neck: Supple Respiratory: Lungs Clear Cardiovascular: Regular Rate, Rhythm, Gallop/S4 Capillary Refill: Less Than 3 Seconds Gastrointestinal: normal bowel sounds, non tender, soft Extremity: Non Tender, No Calf Tenderness, No Pedal Edema Neurologic/Psychiatric: Alert, Oriented x3, Other (right hand tremor) Skin: Warm/Dry Lymphatic: No Adenopathy Results Lab Laboratory Tests 03/07/22 04:01 03/08/22 04:00 Assessment/Plan Assessment/Plan 1. Hypertensive urgency. Patient on nicardipine drip but now on hold Clonidine dose increased to 0.2 mg Q8 hrs. and metoprolol continued.. will awit and see the response. bystolic ordered for standby if bp continues to be high VTE prophylaxis SCDs Stress prophylaxis N/A Plans in collaboration with the bedside consultants and primary MD. RN to reach out if any questions or concerns Critical Care: Critically Ill Patient Time spent with patient (mins): 15 KEIRA RICHARD MD Mar 08, 2022 08:33
--- NOTE | 2022-03-08 08:41 | Progress Note ---
LYLY PABON 03/08/22 0841: Subjective Date Seen by a Provider: Mar 08, 2022 Time Seen by a Provider: 08:35 Subjective/Events-last exam Pt is awake and alert this morning. Pt states that his headaches have not improved, but is not currently experiencing one. Pt also reports having some vision trouble this morning and last night. Pt's right arm has a tremor. Objective Exam Last Set of Vital Signs Vital Signs Date Time Temp Pulse Resp B/P (MAP) Pulse Ox O2 Delivery O2 Flow Rate FiO2 03/08/22 07:59 36.6 03/08/22 07:40 64 03/08/22 06:00 22 160/72 96 Room Air Capillary Refill : Less Than 3 Seconds I&O Intake and Output 03/08/22 00:00 Intake Total 4700 ml Output Total 2500 ml Balance 2200 ml Intake Oral 4700 ml Output Urine Total 2500 ml # Voids 4 # Bowel Movements 2 General: Alert, Oriented X3, No Acute Distress Lungs: Clear to Auscultation Heart: Regular Rate, No Murmurs Extremities: No Clubbing, No Edema, No Tenderness/Swelling Skin: No Rashes Neuro: Normal Speech Results Lab Laboratory Tests 03/07/22 10:49: Glucometer 186H 03/07/22 16:17: Glucometer 181H 03/07/22 20:34: Glucometer 136H 03/07/22 21:33: 03/08/22 04:00: White Blood Count 8.1, Red Blood Count 4.28L, Hemoglobin 12.5L, Hematocrit 37L, Mean Corpuscular Volume 87, Mean Corpuscular Hemoglobin 29, Mean Corpuscular Hemoglobin Concent 33, Red Cell Distribution Width 13.2, Platelet Count 183, Mean Platelet Volume 10.6, Immature Granulocyte % (Auto) 0, Neutrophils (%) (Auto) 65, Lymphocytes (%) (Auto) 25, Monocytes (%) (Auto) 8, Eosinophils (%) (Auto) 1, Basophils (%) (Auto) 0, Neutrophils # (Auto) 5.3, Lymphocytes # (Auto) 2.0, Monocytes # (Auto) 0.7, Eosinophils # (Auto) 0.1, Basophils # (Auto) 0.0, Immature Granulocyte # (Auto) 0.0, Sodium Level 140, Potassium Level 4.0, Chloride Level 106, Carbon Dioxide Level 22, Anion Gap 12, Blood Urea Nitrogen 22H, Creatinine 1.48H, Estimat Glomerular Filtration Rate 50, BUN/Creatinine Ratio 15, Glucose Level 146H, Calcium Level 8.8, Corrected Calcium 9.1, Phosphorus Level 4.1, Magnesium Level 2.1, Total Bilirubin 0.5, Aspartate Amino Transf (AST/SGOT) 14, Alanine Aminotransferase (ALT/SGPT) 19, Alkaline Phosphatase 39L, Total Protein 6.2L, Albumin 3.6 Assessment/Plan Assessment/Plan Assess & Plan/Chief Complaint 1. Hypertensive Urgency/Labile Hypertension--on doxazosin, clonidine. Start ca rdine drip again to lower blood pressure. Monitor pulse for bradycardia. 2. History of Renal Failure with current mild renal insufficiency--monitor BUN/Cr VICTORIA BARRON DO 03/08/22 1248: Supervisory-Addendum Brief Verification & Attestation Participated in pt care: history, physical Personally performed: exam, supervision of care Care discussed with: Medical Student Procedures: n/a Results interpretation: Verified all documentation Patient seen and evaluated with both daughter and Dr. Al in room. Had to go back on Cardene drip last night. Dr. Al going to increase his clonidine to 0.2mg po TID and change the metoprolol to bystolic. I did check urine and serum catecholamines yesterday. Will start PT/OT as well. LYLY PABON Mar 08, 2022 08:41 VICTORIA BARRON DO Mar 08, 2022 12:48
[2022-03-08] MEDS ORDERED: NEBIVOLOL 10 MG PO SCH (09:00)
[2022-03-08] MEDS ORDERED: SCOPOLAMINE 1.5 MG (TRANSDERM-SCOP) PATCH TD ONE (09:00)
--- NOTE | 2022-03-08 10:21 | Cardiology Progress Note ---
Subjective Date Seen by Provider: Mar 08, 2022 Time Seen by Provider: 10:20 Subjective/Events-last exam Patient was seen at bedside, laying down comfortably, complaining of blurred vision. Review of Systems General: No Chills, No Night Sweats; Fatigue, Malaise; No Appetite, No Other HEENT: No Head Aches, No Visual Changes, No Eye Pain, No Ear Pain, No Dysphasia, No Sinus Congestion, No Post Nasal Drip, No Sore Throat, No Other Pulmonary: No Dyspnea, No Cough, No Pleuritic Chest Pain, No Other Cardiovascular: No: Chest Pain, Palpitations, Orthopnea, Paroxysmal Noc. Dyspnea, Edema, Lt Headedness, Other Objective-Cardiology Exam Last Set of Vital Signs Vital Signs 03/08/22 03/08/22 03/08/22 07:59 08:00 08:15 Temp 36.6 Pulse 63 Resp 28 B/P (MAP) 111/87 Pulse Ox 95 O2 Delivery Room Air I&O Intake and Output 03/08/22 00:00 Intake Total 4700 ml Output Total 2500 ml Balance 2200 ml Intake Oral 4700 ml Output Urine Total 2500 ml # Voids 4 # Bowel Movements 2 General: Alert, Oriented X3, No Acute Distress HEENT: Atraumatic, PERRLA Neck: Supple, No JVD, No Thyromegaly Lungs: Clear to Auscultation Heart: Regular Rate, Normal S1, Normal S2, No Murmurs Abdomen: Normal Bowel Sounds, Soft, No Tenderness, No Hepatosplenomegaly, No Masses Extremities: No Clubbing, No Edema, No Tenderness/Swelling Skin: No Rashes Neuro: Normal Speech Psych/Mental Status: Mental Status NL, Mood NL Results Lab Laboratory Tests 03/08/22 04:00 A/P-Cardiology Admission Diagnosis Hypertensive emergency Change in mental status Acute renal insufficiency Peripheral edema Assessment/Plan Hypertensive emergency. Labile blood pressure Intolerance to hydralazine with questionable lupus-like symptoms resulted in renal failure Intolerance to LU inhibitor and/or ARB and or diuretics. Intolerance to calcium channel blockers with bradycardia Back on Cardene drip due to elevated blood pressure last night. I will increase clonidine to 0.2 mg 3 times a day am changing metoprolol to Bystolic 20 mg daily and evaluate tolerance and response. 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 History of seizure activity, following with a neurologist in [place] History of tachycardia, underwent ablation in 2011 at . Acute on chronic renal insufficiency. Mild deterioration of renal function History of renal failure. Following with a timber management assistant in [place] Peripheral edema on and off, currently stable. Will use diuretics cautiously Diabetes mellitus, followed and managed by primary care physician BASIL SHIPLEY MD Mar 08, 2022 10:21
[2022-03-08] MEDS ORDERED: HYOS-20 PO (10:44)
[2022-03-08] MEDS ORDERED: GLIP5TAB26 PO ×2 (10:44)
[2022-03-08] MEDS ORDERED: PANT40TA52 PO (10:44)
[2022-03-08] MEDS ORDERED: MTP100TCR PO (10:44)
[2022-03-08] MEDS ORDERED: PRD20T PO (10:44)
[2022-03-08] MEDS ORDERED: ERGO1250 PO (10:44)
--- NOTE | 2022-03-08 11:26 | Physical Therapy Evaluation ---
PT Evaluation-General Medical Diagnosis Admission Date Mar 05, 2022 at 19:43 Medical Diagnosis: hypertensive emergency Onset Date: Mar 05, 2022 Therapy Diagnosis Therapy Diagnosis: impaired mobility Height/Weight Height (Feet): 6 Height (Inches): 1.00 Weight (Pounds): 190 Weight (Ounces): 14.0 Precautions Precautions/Isolations: Fall Prevention, Standard Precautions Referral Physician: Shalonda Reason for Referral: Evaluation/Treatment Medical History Pertinent Medical History: DM, HTN Additional Medical History Past Medical History Surgeries: Abdominal, Appendectomy Currently Using CPAP: No Currently Using BIPAP: No Hypertension 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 8-Glrtmoywpl-cbcelbn completes the activity by him/herself with no assistance from a helper. 5-Set-up or Clean-up Assistance-helper sets up or cleans up; patient completes activity. [place] assists only prior to or following the activity. 4-Supervision or Touching Assistance-helper provides verbal cues and/or touching/steadying and/or contact guard assistance as patient completes activity. Assistance may be provided throughout the activity or intermittently. 3-Partial/Moderate Assistance-helper does LESS THAN HALF the effort. [place] lifts, holds or supports trunk or limbs, but provides less than half the effort. 2-Substantial/Maximal Assistance-helper does MORE THAN HALF the effort. [place] lifts or holds trunk or limbs and provides more than half the effort. 3-Mdfzpcpyf-viqwda does ALL the effort. Patient does none of the effort to c omplete the activity. Or, the assistance of 2 or more helpers is required for the patient to complete the activity. If activity was not attempted, code reason: 7-Patient Refused. 9-Not Applicable-not attempted and the patient did not perform the activity before the current illness, exacerbation or injury. 10-Not Attempted due to Environmental Limitations-(lack of equipment, weather restraints, etc.). 88-Not Attempted due to Medical Conditions or Safety Concerns. Bed Mobility: 6 Transfers (B,C,W/C): 6 Gait: 6 Indoor Mobility (Ambulation): Independent Prior Devices Use: None PT Evaluation-Current Subjective Patient in bed pre tx, agrees to PT, has no complaints of pain. Pt/Family Goals to be independent at home Objective Patient Orientation: Person, Place, Situation ROM/Strength ROM Lower Extremities WNL Strength Lower Extremities LLE (hip flexion 4+/5, knee flexion 5/5, knee extension 5/5, dorsiflexion 5/5), RLE (hip flexion 4+/5, knee flexion 5/5, knee extension 5/5, dorsiflexion 5/5), patient had virtually the same strength in right and left leg but patient states he has some weakness in RLE Neuromuscular (Tone, Coordination, Reflexes) Patient states he has some visual blurriness. He has slightly decreased right peripheral vision and trouble tracking on the right side. Sensory Hearing: Functional Sensation Right Lower Extremit: Intact Sensation Left Lower Extremity: Intact Transfers Roll Left to Right (QC): 6 Sit to Lying (QC): 6 Lying to Sitting/Side of Bed(Q: 6 Sit to Stand (QC): 4 Chair/Wqj-uo-Ihwrt Xfer(QC): 4 Gait Does the Patient Walk?: Yes Mode of Locomotion: Walk Anticipated Mode of Locomotion: Walk Walk 10 feet (QC): 4 Walk 50 ft with 2 Turns(QC): 4 Walk 150 ft (QC): 4 Distance: 250' Gait Assistive Device: FWW Comments/Gait Description slow ambulation, tends to lean heavily on his arms, slumped posture with slightly flexed knees Balance Sitting Static: Normal Sitting Dynamic: Normal Standing Static: Fair Standing Dynamic: Fair Assessment/Needs Patient sitting EOB post tx, OT in room, will hand patient off to her. Patient has impaired mobility. Needs CGA for ambulation mostly when turning, SBA when going straight down the hallway. Rehab Potential: Fair PT Interpreter Goals Care Home Goals PT Care Home Goals Time Frame: Mar 15, 2022 Roll Left & Right (QC): 6 Sit to Lying (QC): 6 Lying-Sitting on Side/Bed(QC): 6 Sit to Stand (QC): 6 Chair/Yth-mo-Peeiv Xfer(QC): 6 Walk 10 feet (QC): 6 Walk 50ft with 2 Turns (QC): 6 Walk 150 ft (QC): 6 PT Plan Problem List Problem List: Activity Tolerance, Functional Strength, Safety, Balance, Gait, Transfer, Bed Mobility, ROM Treatment/Plan Treatment Plan: Continue Plan of Care Treatment Plan: Bed Mobility, Education, Functional Activity Nabil, Functional Strength, Gait, Safety, Therapeutic Exercise, Transfers Treatment Duration: Mar 15, 2022 Frequency: 6 times per week Estimated Hrs Per Day: .25 hour per day Patient and/or Family Agrees t: Yes Safety Risks/Education Patient Education: Gait Training, Transfer Techniques, Correct Positioning, Safety Issues Teaching Recipient: Patient Teaching Methods: Demonstration, Discussion Response to Teaching: Reinforcement Needed Discharge Recommendations Plan Patient will perform bed mobility and transfer training, balance and endurance training, functional strengthening, stair training, gait training, and education, to improve functional mobility and independence at home. Therapy Discharge Recommendati: Home & Family, Post Acute PT Time/GCodes Time In: 1054 Time Out: 1110 Total Billed Treatment Time: 16 Total Billed Treatment 1 visit EVL 16' KUN JEROME PT Mar 08, 2022 11:26
--- NOTE | 2022-03-08 11:45 | Occupational Therapy Eval ---
OT Evaluation-General/PLF Medical Diagnosis Admission Date Mar 05, 2022 at 19:43 Medical Diagnosis: hypertensive emergency Onset Date: Mar 05, 2022 Therapy Diagnosis Therapy Diagnosis: reduced endurance, balance Height/Weight Height (Feet): 6 Height (Inches): 1.00 Weight (Pounds): 190 Weight (Ounces): 14.0 Precautions Precautions/Isolations: Seizure, Fall Prevention, Standard Precautions Referral Physician: Shalonda Referral Reason: Evaluation/Treatment Medical History Pertinent Medical History: CVA, DM, HTN Additional Medical History seizures Current History Pt presented to ER with hypertensive urgency. Per patient, he lives with his in a single story home. He was indep with adls and cleaning. His manages the cooking and laundry. Pt owns a walker but was not using prior to admission. Reviewed History: Yes Social History Current Living Status: Spouse Entry Into Home: [facility] ADL-Prior Level of Function SCALE: Activities may be completed with or without assistive devices. 3-Zjiseevpvp-nncxdwo completes the activity by him/herself with no assistance from a helper. 5-Set-up or Clean-up Assistance-helper sets up or cleans up; patient completes activity. [place] assists only prior to or following the activity. 4-Supervision or Touching Assistance-helper provides verbal cues and/or touching/steadying and/or contact guard assistance as patient completes activity. Assistance may be provided throughout the activity or intermittently. 3-Partial/Moderate Assistance-helper does LESS THAN HALF the effort. [place] lift s, holds or supports trunk or limbs, but provides less than half the effort. 2-Substantial/Maximal Assistance-helper does MORE THAN HALF the effort. [place] lifts or holds trunk or limbs and provides more than half the effort. 8-Yxfkvzxct-dlabqc does ALL the effort. Patient does none of the effort to complete the activity. Or, the assistance of 2 or more helpers is required for the patient to complete the activity. If activity was not attempted, code reason: 7-Patient Refused. 9-Not Applicable-not attempted and the patient did not perform the activity before the current illness, exacerbation or injury. 10-Not Attempted due to Environmental Limitations-(lack of equipment, weather restraints, etc.). 88-Not Attempted due to Medical Conditions or Safety Concerns. Self Care: Independent Functional Cognition: Independent Drive Self: No OT Current Status Subjective Pt denies pain, reports feeling better than when he arrived. Appearance Pt returned to supine in bed, all needs within reach. Mental Status/Objective Patient Orientation: Person, Place, Situation Attachments: IV, Telemetry Current Glasses/Contacts: Yes Hearing Aids: No Hand Dominance: Right Upper Extremity ROM WNL Upper Extremity Coordination Fair+ dysdiadochokinesia Upper Extremity Strength 4/5 grossly ADL-Treatment Eating (QC): 5 Lower Body Dressing (QC): 4 On/Off Footwear (QC): 5 Pt ambulating in halls with physical therapist at OT arrival. SBA-CGA with use of walker. Flexed posture, heavy reliance on UE support. Once returned to room, pt able to demonstrate donning/doffing of socks with extra time only secondary to tremors (more notable in RUE). Pt denies any difficulty with feeding self. Anticipate no assist required when threading LB clothing over feet. He stood to simulate clothing management with steadying assist. Slightly unsteady with zero UE support but no significant LOB. Pt returned to supine with SBA. Education OT Patient Education: Correct positioning, Modified ADL techniques, Purpose of tx/functional activities, Safety issues, Transfer techniques Teaching Recipient: Patient Teaching Methods: Demonstration, Discussion Response to Teaching: Verbalize Understanding, Return Demonstration, Reinforcement Needed OT Fpc Goals Buck Swamper Goals Time Frame: Mar 15, 2022 Eating (QC): 6 Oral Hygiene (QC): 5 Toileting Hygiene (QC): 4 Shower/Bathe Self (QC): 4 Upper Body Dressing (QC): 5 Lower Body Dressing (QC): 5 On/Off Footwear (QC): 6 1=Demonstrate adherence to instructed precautions during ADL tasks. 2=Patient will verbalize/demonstrate understanding of assistive devices/modifications for ADL. 3=Patient will improve strength/tolerance for activity to enable patient to perform ADL's. OT Education/Plan Problem List/Assessment Assessment: Decreased Activ Tolerance, Decreased UE Strength, Impaired Coordination, Impaired Funct Balance, Impaired I ADL's, Impaired Self-Care Skills Discharge Recommendations Plan/Recommendations: Continue POC Target Placement Home health pending progress Treatment Plan/Plan of Care Treatment,Training & Education: Yes Patient would benefit from OT for education, treatment and training to promote independence in ADL's, mobility, safety and/or upper extremity function for ADL's. Plan of Care: ADL Retraining, Functional Mobility, Group Exercise/Act as Ind, UE Funct Exercise/Act, UE Neuromus Re-Ed/Coord, Visual/Perceptual Retrain Treatment Duration: Mar 15, 2022 Frequency: 3 times per week (3-5x/week) Estimated Hrs Per Day: .25 hour per day Agreement: Yes Rehab Potential: Fair Time/GCodes Start Time: 11:08 Stop Time: 11:20 Total Time Billed (hr/min): 12 Billed Treatment Time 1 visit Jessica Pleitez OT Mar 08, 2022 11:45
[2022-03-08] MEDS: NEBIVOLOL 10 MG PO SCH (13:26)
[2022-03-08] MEDS: LOSARTAN 100 MG (COZAAR) TABLET PO SCH (17:27)
[2022-03-08] MEDS: SERTRALINE 50 MG (ZOLOFT) TABLET PO SCH (20:39)
[2022-03-09] MEDS: niCARdipine IV FOR DRIP 50 MG in NS (IVPB) 230 ML IV SCH ×2 (04:38→14:16)
[2022-03-09 05:31] LABS: BASOPHILS % (AUTO) 0 % (0-10); EOSINOPHILS # (AUTO) 0.1 10^3/uL (0.0-0.3); EOSINOPHILS % (AUTO) 2 % (0-10); HEMATOCRIT 37 % (40-54); HEMOGLOBIN 12.3 g/dL (13.3-17.7); LYMPHOCYTES # (AUTO) 2.1 10^3/uL (1.0-4.0); LYMPHOCYTES % (AUTO) 29 % (12-44); MEAN CORPUSCULAR HEMOGLOBIN 29 pg (25-34); MEAN CORPUSCULAR HGB CONC 34 g/dL (32-36); MEAN CORPUSCULAR VOLUME 86 fL (80-99); MEAN PLATELET VOLUME 10.8 fL (9.0-12.2); MONOCYTES # (AUTO) 0.7 10^3/uL (0.0-1.0); MONOCYTES % (AUTO) 9 % (0-12); NEUTROPHILS # (AUTO) 4.4 10^3/uL (1.8-7.8); NEUTROPHILS % (AUTO) 60 % (42-75); PLATELET COUNT 184 10^3/uL (130-400); WHITE BLOOD COUNT 7.3 10^3/uL (4.3-11.0)
[2022-03-09 05:42] LABS: ALBUMIN 3.4 GM/DL (3.2-4.5); POTASSIUM 4.1 MMOL/L (3.6-5.0)
[2022-03-09 05:43] LABS: CALCIUM 8.8 MG/DL (8.5-10.1)
[2022-03-09 05:44] LABS: TOTAL PROTEIN 6.2 GM/DL (6.4-8.2)
[2022-03-09 05:46] LABS: BILIRUBIN,TOTAL 0.6 MG/DL (0.1-1.0)
[2022-03-09 05:47] LABS: PHOSPHORUS 4.2 MG/DL (2.3-4.7)
[2022-03-09 05:48] LABS: CREATININE SERUM 1.4 MG/DL (0.60-1.30)
[2022-03-09] MEDS: POTASSIUM CL 10MEQ/50ML IVPB 50 ML IV SCH (05:55)
[2022-03-09] MEDS: MAGNESIUM 1 GM/100 ML IVPB 100 ML IV SCH (05:56)
[2022-03-09] MEDS: inSUlin ASPART (NovoLOG) 1 UNIT/0.01 ML (CHARGE PER UNIT) SC SCH ×4 (05:56→21:01)
[2022-03-09] MEDS: KCL 20 MEQ TAB (K-DUR) PO SCH (05:56)
[2022-03-09] MEDS: cloNIDine 0.2 MG (CATAPRES) TAB PO SCH ×3 (06:19→21:00)
[2022-03-09] MEDS: CATHETER FLUSH 10 ML SYR IVP SCH ×2 (06:19→15:00)
--- NOTE | 2022-03-09 08:22 | Cardiology Progress Note ---
Subjective Date Seen by Provider: Mar 09, 2022 Time Seen by Provider: 08:20 Subjective/Events-last exam Patient was seen at bedside, laying down comfortably, feeling better. No new complaint Blood pressure is better Review of Systems General: No Chills, No Night Sweats, No Fatigue, No Malaise, No Appetite, No Other HEENT: No Head Aches, No Visual Changes, No Eye Pain, No Ear Pain, No Dysphasia, No Sinus Congestion, No Post Nasal Drip, No Sore Throat, No Other Pulmonary: No Dyspnea, No Cough, No Pleuritic Chest Pain, No Other Cardiovascular: No: Chest Pain, Palpitations, Orthopnea, Paroxysmal Noc. Dyspnea, Edema, Lt Headedness, Other Objective-Cardiology Exam Last Set of Vital Signs Vital Signs 03/09/22 03/09/22 03/09/22 06:00 07:31 07:53 Temp 36.2 Pulse 59 Resp 14 B/P (MAP) 121/57 Pulse Ox 95 O2 Delivery Room Air I&O Intake and Output 03/09/22 00:00 Intake Total 3230 ml Output Total 2475 ml Balance 755 ml Intake Oral 3230 ml Output Urine Total 2475 ml # Voids 1 General: Alert, Oriented X3, No Acute Distress HEENT: Atraumatic, PERRLA Neck: Supple, No JVD, No Thyromegaly Lungs: Clear to Auscultation Heart: Regular Rate, Normal S1, Normal S2, No Murmurs Abdomen: Normal Bowel Sounds, Soft, No Tenderness, No Hepatosplenomegaly, No Masses Extremities: No Clubbing, No Edema, No Tenderness/Swelling Skin: No Rashes Neuro: Normal Speech Psych/Mental Status: Mental Status NL, Mood NL Results Lab Laboratory Tests 03/09/22 04:35 A/P-Cardiology Admission Diagnosis Hypertensive emergency Change in mental status Acute renal insufficiency Peripheral edema Assessment/Plan Hypertensive emergency. Labile blood pressure Intolerance to hydralazine with questionable lupus-like symptoms resulted in renal failure Intolerance to LU inhibitor and/or ARB and or diuretics. Intolerance to calcium channel blockers with bradycardia Back on Cardene drip due to elevated blood pressure last night. Currently maintained on clonidine 0.2 mg 3 times daily, Bystolic 20 mg daily, I added losartan 100 mg daily Blood pressure is better controlled Consider nephrology consultation History of CVA with intracranial hemorrhage in September 2021, had residual weakness. History of seizure activity, following with a neurologist in [place] History of tachycardia, underwent ablation in 2011 at . Acute on chronic renal insufficiency. Mild deterioration of renal function History of renal failure. Following with a sales representative gas service in [place] Consider nephrology consultation Peripheral edema on and off, currently stable. Will use diuretics cautiously Diabetes mellitus, followed and managed by primary care physician BASIL SHIPLEY MD Mar 09, 2022 08:22
--- NOTE | 2022-03-09 08:25 | Progress Note ---
LYLY PABON 03/09/22 0825: Subjective Date Seen by a Provider: Mar 09, 2022 Time Seen by a Provider: 08:20 Subjective/Events-last exam Pt is awake and alert this morning. Pt's blood pressure is improved this morning. Pt also states that he has not had any headaches this morning or last night, and that he has also not had any dizziness as well. Pt still complains of vision changes, stating that his vision is blurry both far and up close. Review of Systems General: No Chills, No Night Sweats HEENT: Visual Changes Pulmonary: No Dyspnea, No Cough Cardiovascular: No: Chest Pain, Palpitations Gastrointestinal: No: Nausea, Vomiting, Abdominal Pain Genitourinary: No Dysuria, No Incontinence, No Hematuria Neurological: No: Weakness, Numbness, Confusion Objective Exam Last Set of Vital Signs Vital Signs Date Time Temp Pulse Resp B/P (MAP) Pulse Ox O2 Delivery O2 Flow Rate FiO2 03/09/22 07:53 36.2 03/09/22 07:31 59 03/09/22 06:00 14 121/57 95 Room Air Capillary Refill : Less Than 3 Seconds I&O Intake and Output 03/09/22 00:00 Intake Total 3230 ml Output Total 2475 ml Balance 755 ml Intake Oral 3230 ml Output Urine Total 2475 ml # Voids 1 General: Alert, Oriented X3 HEENT: Atraumatic Neck: Supple, No JVD Lungs: Clear to Auscultation Heart: Regular Rate, No Murmurs Extremities: No Clubbing, No Cyanosis Skin: No Rashes Neuro: Normal Speech Results Lab Laboratory Tests 03/08/22 10:59: Glucometer 276H 03/08/22 15:21: Glucometer 152H 03/08/22 20:13: Glucometer 240H 03/09/22 04:35: White Blood Count 7.3, Red Blood Count 4.23L, Hemoglobin 12.3L, Hematocrit 37L, Mean Corpuscular Volume 86, Mean Corpuscular Hemoglobin 29, Mean Corpuscular Hemoglobin Concent 34, Red Cell Distribution Width 13.2, Platelet Count 184, Mean Platelet Volume 10.8, Immature Granulocyte % (Auto) 0, Neutrophils (%) (Auto) 60, Lymphocytes (%) (Auto) 29, Monocytes (%) (Auto) 9, Eosinophils (%) (Auto) 2, Basophils (%) (Auto) 0, Neutrophils # (Auto) 4.4, Lymphocytes # (Auto) 2.1, Monocytes # (Auto) 0.7, Eosinophils # (Auto) 0.1, Basophils # (Auto) 0.0, Immature Granulocyte # (Auto) 0.0, Sodium Level 138, Potassium Level 4.1, Chloride Level 106, Carbon Dioxide Level 21, Anion Gap 11, Blood Urea Nitrogen 22H, Creatinine 1.40H, Estimat Glomerular Filtration Rate 53, BUN/Creatinine Ratio 16, Glucose Level 148H, Calcium Level 8.8, Corrected Calcium 9.3, Phosphorus Level 4.2, Magnesium Level 2.0, Total Bilirubin 0.6, Aspartate Amino Transf (AST/SGOT) 13, Alanine Aminotransferase (ALT/SGPT) 16, Alkaline Phosphatase 44, Total Protein 6.2L, Albumin 3.4 Assessment/Plan Assessment/Plan Assess & Plan/Chief Complaint 1. Hypertensive Urgency/Labile Hypertension--on doxazosin, clonidine, and cardine. Consulted cardiology. Monitor pulse for bradycardia. 2. History of Renal Failure with current mild renal insufficiency--monitor BUN/Cr VICTORIA BARRON DO 03/09/22 1248: Supervisory-Addendum Brief Verification & Attestation Participated in pt care: history, physical Personally performed: exam, history, supervision of care Care discussed with: Medical Student Procedures: n/a Results interpretation: Verified all documentation Patient seen and evaluated. Had to go back on Cardene drip last night but this morning BP is running low and got weak with PT. Will continue current meds and monitor. Clonazepam given because is more tense and tremulous this morning. Dizziness is better with scopolamine patch. LYLY PABON Mar 09, 2022 08:25 VICTORIA BARRON DO Mar 09, 2022 12:48
[2022-03-09] MEDS: ALPRAZolam 0.25 MG (XANAX) TAB PO PRN (08:48)
--- NOTE | 2022-03-09 09:20 | Physical Therapy Daily Note ---
PT Daily Note-Current Subjective Patient agrees to PT. Mental Status Patient Orientation: Normal For Age Transfers SCALE: Activities may be completed with or without assistive devices. 8-Qtjslftned-neearnh completes the activity by him/herself with no assistance from a helper. 5-Set-up or Clean-up Assistance-helper sets up or cleans up; patient completes activity. [place] assists only prior to or following the activity. 4-Supervision or Touching Assistance-helper provides verbal cues and/or touching/steadying and/or contact guard assistance as patient completes activity. Assistance may be provided throughout the activity or intermittently. 3-Partial/Moderate Assistance-helper does LESS THAN HALF the effort. [place] lifts, holds or supports trunk or limbs, but provides less than half the effort. 2-Substantial/Maximal Assistance-helper does MORE THAN HALF the effort. [place] lifts or holds trunk or limbs and provides more than half the effort. 8-Icemqyhec-shdoea does ALL the effort. Patient does none of the effort to complete the activity. Or, the assistance of 2 or more helpers is required for the patient to complete the activity. If activity was not attempted, code reason: 7-Patient Refused. 9-Not Applicable-not attempted and the patient did not perform the activity befo re the current illness, exacerbation or injury. 10-Not Attempted due to Environmental Limitations-(lack of equipment, weather re straints, etc.). 88-Not Attempted due to Medical Conditions or Safety Concerns. Lying to Sitting/Side of Bed(Q: 6 Sit to Stand (QC): 3 Chair/Bhh-tx-Bljzf Xfer(QC): 3 Gait Training Distance: 225' Walk 10 feet (QC): 3 Walk 50 ft with 2 Turns(QC): 3 Walk 150 ft (QC): 3 Gait Assistive Device: FWW VC's and tactile stimuli for body placement in FWW and with gait sequence. Patient relies heavily on his UE's with FWW use. Assessment Noted "twitching" of total body at rest after gait training. RN present due to patient had episode of weakness requiring max assist to sit in chair in hallway. Patient unable to complete gait training. BP taken after seated in recliner (refer to nursing notes). PT to increase activity as tolerated by patient. PT Mold Stacker Goals Mold Stacker Goals PT Mold Stacker Goals Time Frame: Mar 15, 2022 Roll Left & Right (QC): 6 Sit to Lying (QC): 6 Lying-Sitting on Side/Bed(QC): 6 Sit to Stand (QC): 6 Chair/Paz-qi-Vdkyz Xfer(QC): 6 Walk 10 feet (QC): 6 Walk 50ft with 2 Turns (QC): 6 Walk 150 ft (QC): 6 PT Plan Treatment/Plan Treatment Plan: Continue Plan of Care Treatment Plan: Bed Mobility, Education, Functional Activity Nabil, Functional Strength, Gait, Safety, Therapeutic Exercise, Transfers Treatment Duration: Mar 15, 2022 Frequency: 6 times per week Estimated Hrs Per Day: .25 hour per day Patient and/or Family Agrees t: Yes Discharge Recommendations Therapy Discharge Recommendati: Other, See Comments (ARU), Post Acute PT Time/GCodes Time In: 808 Time Out: 831 Total Billed Treatment Time: 23 Total Billed Treatment 1 visit GT x 2 23 min CRISTINA LAWRENCE PT Mar 09, 2022 09:20
--- NOTE | 2022-03-09 10:09 | Tele-ICU Progress Note ---
Subjective Date Seen by a Provider: Mar 09, 2022 Time Seen by a Provider: 10:08 Subjective/Events-last exam (Tele-ICU Physician , Progress Note ) Available chart/ vitals / labs / Images reviewed Video assessment done using teleICU camera, rest of exam as per RN Discussed with RN Events overnight : Afebrile hemodynamically stable Respiratory - ra I/O =even Drips: Pressors- no Consultants: jose francisco Hospital course: (03/05) 71yM Admit HTN Urgency, Disequilibrium, [place]ARCE (03/08) Nicardipine continues A/P Hypertensive urgency with h/o intolerance to LU, hydralazine, CaCh bl , - as per cards - clonidine and metoprolol ( overnign on cardene ) h/o CVA and ICH- CTH no new finfding on admission h/o SZ - Keppra CKD DM Lines : , (Central Line Necessity Reviewed) Wright: OG: Nutrition: Analgesia: Anxiety/ delirium VTE Prophylaxis: SCD Stress Ulcer Prophylaxis:NA Plans in collaboration with bedside consultants and IM MDs. Discussed with RN to reach out if any questions or concerns A total of 15 minutes of critical care time was devoted to this patient today, required to treat and/or prevent further deterioration of critical care condition ( as above ) Sepsis Event Evaluation Height, Weight, BMI Height: 6'1.00" Weight: 190lbs. 14.0oz. [id number]; 24.26 BMI Method:Stated Exam Exam Patient acknowledged, consented, and participated in this virtual visit which was conducted using real time audio/video Vital Signs Date Time Temp Pulse Resp B/P (MAP) Pulse Ox O2 Delivery O2 Flow Rate FiO2 03/09/22 10:00 65 15 120/62 97 Room Air 03/09/22 09:00 65 15 115/60 97 Room Air 03/09/22 08:00 96 Room Air 03/09/22 08:00 55 9 124/70 99 Room Air 03/09/22 07:53 36.2 03/09/22 07:31 59 03/09/22 07:00 52 8 118/57 98 Room Air 03/09/22 06:00 56 14 121/57 95 Room Air 03/09/22 05:00 56 12 159/68 95 Room Air 03/09/22 04:38 56 153/68 03/09/22 04:00 36.0 03/09/22 04:00 61 14 139/69 95 Room Air 03/09/22 04:00 96 Room Air 03/09/22 03:00 60 16 144/71 94 Room Air 03/09/22 02:00 62 16 136/63 96 Room Air 03/09/22 01:00 65 03/09/22 01:00 65 16 145/64 95 Room Air 03/09/22 00:00 95 Room Air 03/09/22 00:00 36.2 03/09/22 00:00 57 19 173/69 96 Room Air 03/08/22 23:00 58 19 140/62 97 Room Air 03/08/22 22:00 61 18 169/75 97 Room Air 03/08/22 21:00 61 18 173/74 96 Room Air 03/08/22 20:08 98 Room Air 03/08/22 20:00 68 20 154/123 96 Room Air 03/08/22 19:22 36.6 03/08/22 19:00 75 03/08/22 19:00 75 14 165/64 96 Room Air 03/08/22 18:00 68 21 182/75 96 Room Air 03/08/22 16:45 64 9 202/87 98 Room Air 03/08/22 16:00 97 Room Air 03/08/22 16:00 56 14 191/81 98 Room Air 03/08/22 15:48 36.8 03/08/22 15:00 60 25 179/72 98 Room Air 03/08/22 14:00 65 15 144/59 96 Room Air 03/08/22 13:02 59 03/08/22 13:00 60 7 174/86 99 Room Air 03/08/22 12:00 36.2 03/08/22 12:00 99 Room Air 03/08/22 12:00 60 14 159/74 97 Room Air 03/08/22 11:00 64 9 99 Room Air I & O 03/09/22 07:00 Intake Total 2580 ml Output Total 3150 ml Balance -570 ml Height & Weight Height: 6'1.00" Weight: 190lbs. 14.0oz. 86.127674pr; 24.26 BMI Method:Stated General Appearance: No Apparent Distress HEENT: Normal ENT Inspection Neck: Supple Respiratory: Lungs Clear Cardiovascular: Regular Rate, Rhythm, Gallop/S4 Capillary Refill: Less Than 3 Seconds Gastrointestinal: normal bowel sounds, non tender, soft Extremity: Non Tender, No Calf Tenderness, No Pedal Edema Neurologic/Psychiatric: Alert, Oriented x3, Other (right hand tremor) Skin: Warm/Dry Lymphatic: No Adenopathy Results Lab Laboratory Tests 03/08/22 04:00 03/09/22 04:35 Assessment/Plan Assessment/Plan 1 MARIE RODRIGUEZ MD Mar 09, 2022 10:09
--- NOTE | 2022-03-09 10:42 | Occupational Ther Daily Note ---
OT Current Status-Daily Note Subjective Pt dozing in recliner, woke slowly to name. Pt agrees to therapy. Pt states that his body feels achy because of his nerves, per pt [facility] has given meds for this. Mental Status/Objective Patient Orientation: Person, Place, Time, Situation Attachments: IV, Telemetry ADL-Treatment Initially pt wanted to ambulate to sink to complete oral care. Pt's BP in sitting was 122/45, ENRIQUEZ had pt remain in chair to complete task and reported this to nrsg. Pt able to complete oral care after supplies were gathered. Pt hands were shaky and slow movement. After therapy, pt sitting in recliner with B KAREN's elevated. Call light/phone in reach. All needs met in room. Therapy Code Descriptions/Definitions Functional [place] Measure: 0=Not Assessed/NA 4=Minimal Assistance 1=Total Assistance 5=Supervision or Setup 2=Maximal Assistance 6=Modified [place] 3=Moderate Assistance 7=Complete IndependenceSCALE: Activities may be completed with or without assistive devices. 3-Gqlrppsgml-gobwgvd completes the activity by him/herself with no assistance from a helper. 5-Set-up or Clean-up Assistance-helper sets up or cleans up; patient completes activity. [place] assists only prior to or following the activity. 4-Supervision or Touching Assistance-helper provides verbal cues and/or touching/steadying and/or contact guard assistance as patient completes activity. Assistance may be provided throughout the activity or intermittently. 3-Partial/Moderate Assistance-helper does LESS THAN HALF the effort. [place] lifts, holds or supports trunk or limbs, but provides less than half the effort. 2-Substantial/Maximal Assistance-helper does MORE THAN HALF the effort. [place] lifts or holds trunk or limbs and provides more than half the effort. 6-Wpfdxlyga-wbibvm does ALL the effort. Patient does none of the effort to complete the activity. Or, the assistance of 2 or more helpers is required for the patient to complete the activity. If activity was not attempted, code reason: 7-Patient Refused. 9-Not Applicable-not attempted and the patient did not perform the activity before the current illness, exacerbation or injury. 10-Not Attempted due to Environmental Limitations-(lack of equipment, weather restraints, etc.). 88-Not Attempted due to Medical Conditions or Safety Concerns. Oral Hygiene (QC): 5 OT Belt Sander Goals Belt Sander Goals Time Frame: Mar 15, 2022 Eating (QC): 6 Oral Hygiene (QC): 5 Toileting Hygiene (QC): 4 Shower/Bathe Self (QC): 4 Upper Body Dressing (QC): 5 Lower Body Dressing (QC): 5 On/Off Footwear (QC): 6 1=Demonstrate adherence to instructed precautions during ADL tasks. 2=Patient will verbalize/demonstrate understanding of assistive devices/modifications for ADL. 3=Patient will improve strength/tolerance for activity to enable patient to perform ADL's. OT Education/Plan Problem List/Assessment Assessment: Decreased Activ Tolerance, Decreased UE Strength, Impaired Self- Care Skills Discharge Recommendations Plan/Recommendations: Continue POC Treatment Plan/Plan of Care Patient would benefit from OT for education, treatment and training to promote independence in ADL's, mobility, safety and/or upper extremity function for ADL's. Plan of Care: ADL Retraining, Functional Mobility, Group Exercise/Act as Ind, UE Funct Exercise/Act, UE Neuromus Re-Ed/Coord, Visual/Perceptual Retrain Treatment Duration: Mar 15, 2022 Frequency: 3 times per week (3-5x/week) Estimated Hrs Per Day: .25 hour per day Agreement: Yes Rehab Potential: Fair Time/GCodes Start Time: 09:26 Stop Time: 09:39 Total Time Billed (hr/min): 13 Billed Treatment Time 1 visit-ADL 1 (13 min) LIN DODD Mar 09, 2022 10:42
[2022-03-09] MEDS: LOSARTAN 100 MG (COZAAR) TABLET PO SCH (16:24)
[2022-03-09] MEDS: NEBIVOLOL 10 MG PO SCH (17:35)
[2022-03-09] MEDS: SERTRALINE 50 MG (ZOLOFT) TABLET PO SCH (21:00)
[2022-03-10] MEDS: niCARdipine IV FOR DRIP 50 MG in NS (IVPB) 230 ML IV SCH ×2 (00:09→09:00)
[2022-03-10] MEDS: CATHETER FLUSH 10 ML SYR IVP SCH ×4 (00:09→22:22)
[2022-03-10 05:38] LABS: BASOPHILS % (AUTO) 0 % (0-10); EOSINOPHILS # (AUTO) 0.1 10^3/uL (0.0-0.3); EOSINOPHILS % (AUTO) 2 % (0-10); HEMATOCRIT 38 % (40-54); HEMOGLOBIN 12.9 g/dL (13.3-17.7); LYMPHOCYTES # (AUTO) 1.9 10^3/uL (1.0-4.0); LYMPHOCYTES % (AUTO) 26 % (12-44); MEAN CORPUSCULAR HEMOGLOBIN 30 pg (25-34); MEAN CORPUSCULAR HGB CONC 34 g/dL (32-36); MEAN CORPUSCULAR VOLUME 87 fL (80-99); MEAN PLATELET VOLUME 10.7 fL (9.0-12.2); MONOCYTES # (AUTO) 0.6 10^3/uL (0.0-1.0); MONOCYTES % (AUTO) 8 % (0-12); NEUTROPHILS # (AUTO) 4.5 10^3/uL (1.8-7.8); NEUTROPHILS % (AUTO) 63 % (42-75); PLATELET COUNT 200 10^3/uL (130-400); WHITE BLOOD COUNT 7.1 10^3/uL (4.3-11.0)
[2022-03-10 06:04] LABS: ALBUMIN 3.6 GM/DL (3.2-4.5)
[2022-03-10 06:07] LABS: TOTAL PROTEIN 6.6 GM/DL (6.4-8.2)
[2022-03-10 06:09] LABS: BILIRUBIN,TOTAL 0.5 MG/DL (0.1-1.0)
[2022-03-10 06:11] LABS: CREATININE SERUM 1.36 MG/DL (0.60-1.30)
[2022-03-10 06:14] LABS: MAGNESIUM 2.1 MG/DL (1.6-2.4)
[2022-03-10] MEDS: inSUlin ASPART (NovoLOG) 1 UNIT/0.01 ML (CHARGE PER UNIT) SC SCH ×4 (06:14→20:58)
[2022-03-10] MEDS: cloNIDine 0.2 MG (CATAPRES) TAB PO SCH (06:14)
[2022-03-10] MEDS: KCL 20 MEQ TAB (K-DUR) PO SCH (06:25)
[2022-03-10] MEDS: MAGNESIUM 1 GM/100 ML IVPB 100 ML IV SCH (06:25)
[2022-03-10] MEDS: POTASSIUM CL 10MEQ/50ML IVPB 50 ML IV SCH (06:25)
[2022-03-10] MEDS ORDERED: cloNIDine 0.1 MG (CATAPRES) TAB PO ONE (08:00)
[2022-03-10] MEDS ORDERED: cloNIDine 0.2 MG (CATAPRES) TAB PO SCH ×3 (08:00→14:00)
--- NOTE | 2022-03-10 08:04 | Progress Note ---
LYLY PABON 03/10/22 0804: Subjective Date Seen by a Provider: Mar 10, 2022 Time Seen by a Provider: 08:01 Subjective/Events-last exam Pt is awake and alert this morning. Pt reports that they did have another headache this morning, but no lightheadedness or dizziness. Pt was up and walking last night with assistance but reported feeling weak and stated that the nurses had to catch him twice. Pt had not yet had his morning medicine when examined. Review of Systems General: No Chills, No Night Sweats HEENT: Head Aches, Visual Changes Pulmonary: No Dyspnea, No Cough Cardiovascular: No: Chest Pain, Palpitations Gastrointestinal: No: Nausea, Vomiting, Abdominal Pain, Diarrhea Genitourinary: No Dysuria, No Frequency, No Incontinence Neurological: No: Numbness, Seizures Objective Exam Last Set of Vital Signs Vital Signs Date Time Temp Pulse Resp B/P (MAP) Pulse Ox O2 Delivery O2 Flow Rate FiO2 03/10/22 07:59 36.3 03/10/22 06:00 60 12 144/75 97 Room Air Capillary Refill : Less Than 3 Seconds I&O Intake and Output 03/09/22 23:59 Intake Total 1890 ml Output Total 3505 ml Balance -1615 ml Intake Oral 1640 ml IV Total 250 ml Output Urine Total 3505 ml # Voids 5 Results Lab Laboratory Tests 03/09/22 10:24: Glucometer 268H 03/09/22 15:40: Glucometer 188H 03/09/22 20:32: Glucometer 165H 03/10/22 04:35: White Blood Count 7.1, Red Blood Count 4.34, Hemoglobin 12.9L, Hematocrit 38L, Mean Corpuscular Volume 87, Mean Corpuscular Hemoglobin 30, Mean Corpuscular Hemoglobin Concent 34, Red Cell Distribution Width 13.2, Platelet Count 200, Mean Platelet Volume 10.7, Immature Granulocyte % (Auto) 0, Neutrophils (%) (Auto) 63, Lymphocytes (%) (Auto) 26, Monocytes (%) (Auto) 8, Eosinophils (%) (Auto) 2, Basophils (%) (Auto) 0, Neutrophils # (Auto) 4.5, Lymphocytes # (Auto) 1.9, Monocytes # (Auto) 0.6, Eosinophils # (Auto) 0.1, Basophils # (Auto) 0.0, Immature Granulocyte # (Auto) 0.0, Sodium Level 137, Potassium Level 4.0, Chloride Level 104, Carbon Dioxide Level 22, Anion Gap 11, Blood Urea Nitrogen 23H, Creatinine 1.36H, Estimat Glomerular Filtration Rate 55, BUN/Creatinine Ratio 17, Glucose Level 163H, Calcium Level 9.0, Corrected Calcium 9.3, Phosphorus Level 4.0, Magnesium Level 2.1, Total Bilirubin 0.5, Aspartate Amino Transf (AST/SGOT) 15, Alanine Aminotransferase (ALT/SGPT) 18, Alkaline Phosphatase 52, Total Protein 6.6, Albumin 3.6 Assessment/Plan Assessment/Plan Assess & Plan/Chief Complaint 1. Hypertensive Urgency/Labile Hypertension--on doxazosin, clonidine, and losartan. Start cardine drip again to lower blood pressure. Monitor pulse for bradycardia. Cardiology consulted. 2. History of Renal Failure with current mild renal insufficiency--monitor BUN/Cr VICTORIA BARRON DO 03/10/22 1236: Supervisory-Addendum Brief Verification & Attestation Participated in pt care: history, physical Personally performed: exam, history, supervision of care Care discussed with: Medical Student Procedures: n/a Results interpretation: Verified all documentation Patient see and assessed. Patient very fatigued with weak legs--almost fell ambulating overnight. Feel like the clonidine is causing the fatigue but this is a very complex case due to his history. Discussed with Dr. Al and will continue bystolic, losartan and doxazosin. Will decrease clonidine to 0.1mg TID and amlodopine has been added. Did discuss with both the patient and daughter that he may have edema with the amlodopine and assured them we are monitoring his kidney function with the addition of the ARB. Will completely DC the cardene drip with above adjustments. LYLY PABON Mar 10, 2022 08:04 VICTORIA BARRON DO Mar 10, 2022 12:36
[2022-03-10] MEDS: ALPRAZolam 0.25 MG (XANAX) TAB PO PRN (08:06)
[2022-03-10] MEDS: LOSARTAN 100 MG (COZAAR) TABLET PO SCH (08:07)
[2022-03-10] MEDS: NEBIVOLOL 10 MG PO SCH (08:40)
[2022-03-10] MEDS ORDERED: amLODIPine 5 MG (NORVASC) TAB PO SCH (09:00)
--- NOTE | 2022-03-10 09:31 | Tele-ICU Progress Note ---
Subjective Date Seen by a Provider: Mar 10, 2022 Time Seen by a Provider: 09:30 Subjective/Events-last exam (Tele-ICU Physician , Progress Note ) Available chart/ vitals / labs / Images reviewed Video assessment done using teleICU camera, rest of exam as per RN Discussed with RN Events overnight : Afebrile hemodynamically stable Respiratory - ra I/O =even Drips: Pressors- no Consultants: jose francisco Hospital course: (03/05) 71yM Admit HTN Urgency, Disequilibrium, PEARCE (03/08) Nicardipine continues A/P Hypertensive urgency with h/o intolerance to LU, hydralazine, CaCh bl , - as per cards - clonidine and metoprolol ,( overnign on cardene h/o CVA and ICH- CTH no new finfding on admission h/o SZ - Keppra CKD- stable DM- controlled Lines : perIph , (Central Line Necessity Reviewed) Wright: void OG: Nutrition: po Analgesia: Anxiety/ delirium VTE Prophylaxis: SCD Stress Ulcer Prophylaxis:NA Plans in collaboration with bedside consultants and IM MDs. Discussed with RN to reach out if any questions or concerns A total of 15 minutes of critical care time was devoted to this patient today, r equired to treat and/or prevent further deterioration of critical care condition ( as above ) Sepsis Event Evaluation Height, Weight, BMI Height: 6'1.00" Weight: 190lbs. 14.0oz. 86.208609yr; 24.89 BMI Method:Stated Exam Exam Patient acknowledged, consented, and participated in this virtual visit which was conducted using real time audio/video Vital Signs Date Time Temp Pulse Resp B/P (MAP) Pulse Ox O2 Delivery O2 Flow Rate FiO2 03/10/22 09:00 52 13 164/81 97 Room Air 03/10/22 08:00 56 13 156/83 98 Room Air 03/10/22 07:59 36.3 03/10/22 07:00 58 15 187/91 97 Room Air 03/10/22 06:00 60 12 144/75 97 Room Air 03/10/22 05:00 53 15 178/75 96 Room Air 03/10/22 04:00 54 14 171/72 96 Room Air 03/10/22 04:00 36.4 03/10/22 04:00 98 Room Air 03/10/22 03:00 66 11 170/88 96 Room Air 03/10/22 02:00 62 18 165/81 96 Room Air 03/10/22 01:00 68 03/10/22 01:00 68 18 110/68 96 Room Air 03/10/22 00:00 96 Room Air 03/10/22 00:00 63 152/67 96 Room Air 03/09/22 23:30 65 17 152/71 96 Room Air 03/09/22 23:00 63 17 172/78 96 Room Air 03/09/22 22:00 68 11 142/74 95 Room Air 03/09/22 21:15 61 10 166/94 96 Room Air 03/09/22 21:00 54 10 205/106 97 Room Air 03/09/22 20:00 97 Room Air 03/09/22 20:00 64 10 138/72 98 Room Air 03/09/22 19:05 62 19 159/101 97 Room Air 03/09/22 19:00 66 03/09/22 19:00 36.4 03/09/22 18:05 56 12 187/77 97 Room Air 03/09/22 17:03 46 15 99 Room Air 03/09/22 16:15 96 Room Air 03/09/22 16:04 54 13 152/ 100 Room Air 03/09/22 15:30 36.1 03/09/22 15:08 60 14 153/71 98 Room Air 03/09/22 14:03 54 17 155/69 99 Room Air 03/09/22 13:00 52 16 110/74 98 Room Air 03/09/22 12:41 56 03/09/22 12:01 54 23 98/66 98 Room Air 03/09/22 12:00 96 Room Air 03/09/22 11:00 57 15 148/68 98 Room Air 03/09/22 10:00 65 15 120/62 97 Room Air I & O 03/10/22 07:00 Intake Total 1540 ml Output Total 2780 ml Balance -1240 ml Height & Weight Height: 6'1.00" Weight: 190lbs. 14.0oz. 86.631889pc; 24.89 BMI Method:Stated General Appearance: No Apparent Distress HEENT: Normal ENT Inspection Neck: Supple Respiratory: Lungs Clear Cardiovascular: Regular Rate, Rhythm, Gallop/S4 Capillary Refill: Less Than 3 Seconds Gastrointestinal: normal bowel sounds, non tender, soft Extremity: Non Tender, No Calf Tenderness, No Pedal Edema Neurologic/Psychiatric: Alert, Oriented x3, Other (right hand tremor) Skin: Warm/Dry Lymphatic: No Adenopathy Results Lab Laboratory Tests 03/09/22 04:35 03/10/22 04:35 Assessment/Plan Assessment/Plan 1 MARIE RODRIGUEZ MD Mar 10, 2022 09:31
--- NOTE | 2022-03-10 10:29 | Physical Therapy Daily Note ---
PT Daily Note-Current Subjective Patient in bed pre tx, agrees to PT, has no complaints of pain. Patient states he feels weak. Appearance Patient in recliner post tx with nurse call, phone, tray, all needs met. Mental Status Patient Orientation: Person, Place, Situation Transfers SCALE: Activities may be completed with or without assistive devices. 4-Kdtapjbpzo-lgeygzm completes the activity by him/herself with no assistance from a helper. 5-Set-up or Clean-up Assistance-helper sets up or cleans up; patient completes activity. [place] assists only prior to or following the activity. 4-Supervision or Touching Assistance-helper provides verbal cues and/or touching/steadying and/or contact guard assistance as patient completes activity. Assistance may be provided throughout the activity or intermittently. 3-Partial/Moderate Assistance-helper does LESS THAN HALF the effort. [place] lifts, holds or supports trunk or limbs, but provides less than half the effort. 2-Substantial/Maximal Assistance-helper does MORE THAN HALF the effort. [place] lifts or holds trunk or limbs and provides more than half the effort. 1-Maywggwao-ahomou does ALL the effort. Patient does none of the effort to complete the activity. Or, the assistance of 2 or more helpers is required for the patient to complete the activity. If activity was not attempted, code reason: 7-Patient Refused. 9-Not Applicable-not attempted and the patient did not perform the activity before the current illness, exacerbation or injury. 10-Not Attempted due to Environmental Limitations-(lack of equipment, weather restraints, etc.). 88-Not Attempted due to Medical Conditions or Safety Concerns. Roll Left & Right (QC): 3 Lying to Sitting/Side of Bed(Q: 3 Sit to Stand (QC): 3 Chair/Ikw-wv-Qaogo Xfer(QC): 3 Gait Training Distance: 100' Walk 10 feet (QC): 3 Gait Persons Needed: 1 Gait Assistive Device: FWW Patient ambulates in a slumped posture, knees flexed, needs assist guiding walker, cues to stand up straighter, tends to slowly collapse, almost needed a chair to sit in but he was able to make it back to recliner. Exercises Seated Therapy Exercises: Ankle pumps, Long arc quads Seated Reps: 20 Treatments bed mobility and transfers, ambulation, LE ROM Assessment Current Status: Poor Progress decrease in endurance PT Fitness Floor Attendant Goals Fitness Floor Attendant Goals PT Fitness Floor Attendant Goals Time Frame: Mar 15, 2022 Roll Left & Right (QC): 6 Sit to Lying (QC): 6 Lying-Sitting on Side/Bed(QC): 6 Sit to Stand (QC): 6 Chair/Tdx-yd-Jniyj Xfer(QC): 6 Walk 10 feet (QC): 6 Walk 50ft with 2 Turns (QC): 6 Walk 150 ft (QC): 6 PT Plan Problem List Problem List: Activity Tolerance, Functional Strength, Safety, Balance, Gait, Transfer, Bed Mobility, ROM Treatment/Plan Treatment Plan: Continue Plan of Care Treatment Plan: Bed Mobility, Education, Functional Activity Nabil, Functional Strength, Gait, Safety, Therapeutic Exercise, Transfers Treatment Duration: Mar 15, 2022 Frequency: 6 times per week Estimated Hrs Per Day: .25 hour per day Patient and/or Family Agrees t: Yes Safety Risks/Education Patient Education: Gait Training, Transfer Techniques, Correct Positioning, Safety Issues Teaching Recipient: Patient Teaching Methods: Demonstration, Discussion Response to Teaching: Reinforcement Needed Time/GCodes Time In: 0956 Time Out: 1006 Total Billed Treatment Time: 10 Total Billed Treatment 1 visit FA Ej' KUN JEROME PT Mar 10, 2022 10:29
--- NOTE | 2022-03-10 10:47 | Cardiology Progress Note ---
Subjective Date Seen by Provider: Mar 10, 2022 Time Seen by Provider: 10:44 Subjective/Events-last exam Patient was seen at bedside Complaining of worsening weakness, generalized fatigue and loss of energy. Review of Systems General: No Chills, No Night Sweats; Fatigue, Malaise; No Appetite, No Other HEENT: No Head Aches, No Visual Changes, No Eye Pain, No Ear Pain, No Dysphasia, No Sinus Congestion, No Post Nasal Drip, No Sore Throat, No Other Pulmonary: No Dyspnea, No Cough, No Pleuritic Chest Pain, No Other Cardiovascular: No: Chest Pain, Palpitations, Orthopnea, Paroxysmal Noc. Dyspnea, Edema, Lt Headedness, Other Objective-Cardiology Exam Last Set of Vital Signs Vital Signs 03/10/22 03/10/22 07:59 09:00 Temp 36.3 Pulse 52 Resp 13 B/P (MAP) 164/81 Pulse Ox 97 O2 Delivery Room Air I&O Intake and Output 03/10/22 00:00 Intake Total 1890 ml Output Total 3505 ml Balance -1615 ml Intake Oral 1640 ml IV Total 250 ml Output Urine Total 3505 ml # Voids 5 General: Alert, Oriented X3, No Acute Distress HEENT: Atraumatic, PERRLA Neck: Supple, No JVD, No Thyromegaly Lungs: Clear to Auscultation Heart: Regular Rate, Normal S1, Normal S2, No Murmurs Abdomen: Normal Bowel Sounds, Soft, No Tenderness, No Hepatosplenomegaly, No Masses Extremities: No Clubbing, No Edema, No Tenderness/Swelling Skin: No Rashes Neuro: Normal Speech Psych/Mental Status: Mental Status NL, Mood NL Results Lab Laboratory Tests 03/10/22 04:35 A/P-Cardiology Admission Diagnosis Hypertensive emergency Change in mental status Acute renal insufficiency Peripheral edema Assessment/Plan Hypertensive emergency. Labile blood pressure Intolerance to hydralazine with questionable lupus-like symptoms resulted in renal failure Intolerance to LU inhibitor and/or ARB and or diuretics. Intolerance to calcium channel blockers with bradycardia Intolerant to high-dose clonidine due to generalized fatigue and loss of energy. I had a long discussion with Dr. Liz, patient is presenting with resistant malignant hypertension. Intolerant to multiple medication. I restarted losartan 100 mg and will continue to monitor renal function Clonidine will be dialed down back to 0.1 mg 4 times a day Taking Bystolic 20 mg daily and doxazosin 8 mg daily Starting Norvasc 5 mg daily and evaluate tolerance and response Discussed the possibility of nephrology consultation History of CVA with intracranial hemorrhage in September 2021, had residual weakness. History of seizure activity, following with a neurologist in [place] History of tachycardia, underwent ablation in 2011 at . Acute on chronic renal insufficiency. Mild deterioration of renal function History of renal failure. Following with a bus transportation manager in [place] Consider nephrology consultation Peripheral edema on and off, currently stable. Will use diuretics cautiously Diabetes mellitus, followed and managed by primary care physician BASIL SHIPLEY MD Mar 10, 2022 10:47
--- NOTE | 2022-03-10 13:58 | Occupational Ther Daily Note ---
OT Current Status-Daily Note Subjective Pt alert and agreed to therapy. Pt's BP when ENRIQUEZ entered room 169/84 while pt supine in bed. Mental Status/Objective Patient Orientation: Person, Place, Time, Situation Attachments: IV, Telemetry ADL-Treatment Therapy Code Descriptions/Definitions Functional [place] Measure: 0=Not Assessed/NA 4=Minimal Assistance 1=Total Assistance 5=Supervision or Setup 2=Maximal Assistance 6=Modified [place] 3=Moderate Assistance 7=Complete IndependenceSCALE: Activities may be completed with or without assistive devices. 6-Mpvlphidnr-mxqhgzk completes the activity by him/herself with no assistance from a helper. 5-Set-up or Clean-up Assistance-helper sets up or cleans up; patient completes activity. [place] assists only prior to or following the activity. 4-Supervision or Touching Assistance-helper provides verbal cues and/or touching/steadying and/or contact guard assistance as patient completes activity. Assistance may be provided throughout the activity or intermittently. 3-Partial/Moderate Assistance-helper does LESS THAN HALF the effort. [place] lifts, holds or supports trunk or limbs, but provides less than half the effort. 2-Substantial/Maximal Assistance-helper does MORE THAN HALF the effort. [place] lifts or holds trunk or limbs and provides more than half the effort. 1-Hohjnvxgi-zvicwx does ALL the effort. Patient does none of the effort to complete the activity. Or, the assistance of 2 or more helpers is required for the patient to complete the activity. If activity was not attempted, code reason: 7-Patient Refused. 9-Not Applicable-not attempted and the patient did not perform the activity before the current illness, exacerbation or injury. 10-Not Attempted due to Environmental Limitations-(lack of equipment, weather restraints, etc.). 88-Not Attempted due to Medical Conditions or Safety Concerns. Other Treatment Pt participated in 1 set of 10 reps of 3 arm exercises to work on B UE strength for daily functional tasks. Due to R shoulder pain pt only participated in distal arm portion of exercise. Pt uncoordinated while completing crossing midline exercise and required 3 verbal cues, after fatigue. Pt c/o R shldr pain stating that it may have been strained prior to hospital stay. After palpation of R shldr, increased tightness and irritation of anterior area of shldr noted. Warm compress applied to area with stretch and massage preceding to decrease pain. After therapy, pt lying in bed with call light/phone in reach. All needs met in room. OT Orchid Worker Goals Longterm Goals Time Frame: Mar 15, 2022 Eating (QC): 6 Oral Hygiene (QC): 5 Toileting Hygiene (QC): 4 Shower/Bathe Self (QC): 4 Upper Body Dressing (QC): 5 Lower Body Dressing (QC): 5 On/Off Footwear (QC): 6 1=Demonstrate adherence to instructed precautions during ADL tasks. 2=Patient will verbalize/demonstrate understanding of assistive devices/modifications for ADL. 3=Patient will improve strength/tolerance for activity to enable patient to perform ADL's. OT Education/Plan Problem List/Assessment Assessment: Decreased Activ Tolerance, Decreased UE Strength, Impaired Coordination, Impaired Self-Care Skills, Restricted Funct UE ROM Discharge Recommendations Plan/Recommendations: Continue POC Treatment Plan/Plan of Care Patient would benefit from OT for education, treatment and training to promote independence in ADL's, mobility, safety and/or upper extremity function for ADL's. Plan of Care: ADL Retraining, Functional Mobility, Group Exercise/Act as Ind, UE Funct Exercise/Act, UE Neuromus Re-Ed/Coord, Visual/Perceptual Retrain Treatment Duration: Mar 15, 2022 Frequency: 3 times per week (3-5x/week) Estimated Hrs Per Day: .25 hour per day Agreement: Yes Rehab Potential: Fair Time/GCodes Start Time: 13:25 Stop Time: 13:45 Total Time Billed (hr/min): 20 Billed Treatment Time 1 visit-EX 1 (20 min) LIN DODD Mar 10, 2022 13:58
[2022-03-10] MEDS ORDERED: cloNIDine 0.1 MG (CATAPRES) TAB PO SCH ×2 (14:00→21:00)
[2022-03-10] MEDS ORDERED: amLODIPine 5 MG (NORVASC) TAB PO NR (15:45)
[2022-03-10] MEDS: ISOSORBIDE MONONITRATE 30 MG (IMDUR) TAB PO SCH (16:28)
[2022-03-10] MEDS: cloNIDine 0.1 MG (CATAPRES) TAB PO SCH (20:58)
[2022-03-10] MEDS: SERTRALINE 50 MG (ZOLOFT) TABLET PO SCH (20:58)
[2022-03-10] MEDS: amLODIPine 5 MG (NORVASC) TAB PO SCH (20:58)
[2022-03-11 05:06] LABS: BASOPHILS % (AUTO) 0 % (0-10); EOSINOPHILS # (AUTO) 0.1 10^3/uL (0.0-0.3); EOSINOPHILS % (AUTO) 1 % (0-10); HEMATOCRIT 36 % (40-54); HEMOGLOBIN 12.1 g/dL (13.3-17.7); LYMPHOCYTES # (AUTO) 2.1 10^3/uL (1.0-4.0); LYMPHOCYTES % (AUTO) 27 % (12-44); MEAN CORPUSCULAR HEMOGLOBIN 29 pg (25-34); MEAN CORPUSCULAR HGB CONC 33 g/dL (32-36); MEAN CORPUSCULAR VOLUME 87 fL (80-99); MEAN PLATELET VOLUME 10.7 fL (9.0-12.2); MONOCYTES # (AUTO) 0.6 10^3/uL (0.0-1.0); MONOCYTES % (AUTO) 8 % (0-12); NEUTROPHILS # (AUTO) 4.9 10^3/uL (1.8-7.8); NEUTROPHILS % (AUTO) 63 % (42-75); PLATELET COUNT 197 10^3/uL (130-400); WHITE BLOOD COUNT 7.9 10^3/uL (4.3-11.0)
[2022-03-11 05:23] LABS: ALBUMIN 3.5 GM/DL (3.2-4.5)
[2022-03-11 05:24] LABS: CALCIUM 8.8 MG/DL (8.5-10.1)
[2022-03-11 05:26] LABS: TOTAL PROTEIN 6.4 GM/DL (6.4-8.2)
[2022-03-11 05:27] LABS: BILIRUBIN,TOTAL 0.5 MG/DL (0.1-1.0)
[2022-03-11 05:29] LABS: CREATININE SERUM 1.45 MG/DL (0.60-1.30); PHOSPHORUS 3.9 MG/DL (2.3-4.7)
[2022-03-11 05:32] LABS: MAGNESIUM 2.1 MG/DL (1.6-2.4)
[2022-03-11] MEDS: POTASSIUM CL 10MEQ/50ML IVPB 50 ML IV SCH (06:04)
[2022-03-11] MEDS: inSUlin ASPART (NovoLOG) 1 UNIT/0.01 ML (CHARGE PER UNIT) SC SCH ×4 (06:04→20:40)
[2022-03-11] MEDS: MAGNESIUM 1 GM/100 ML IVPB 100 ML IV SCH (06:05)
[2022-03-11] MEDS: KCL 20 MEQ TAB (K-DUR) PO SCH (06:05)
[2022-03-11] MEDS: CATHETER FLUSH 10 ML SYR IVP SCH ×3 (06:05→19:25)
--- NOTE | 2022-03-11 07:42 | Cardiology Progress Note ---
Subjective Date Seen by Provider: Mar 11, 2022 Time Seen by Provider: 07:41 Subjective/Events-last exam Patient was seen at bedside, laying down comfortably Smiling and feeling better today, no new complaint Review of Systems General: No Chills, No Night Sweats, No Fatigue, No Malaise, No Appetite, No Other HEENT: No Head Aches, No Visual Changes, No Eye Pain, No Ear Pain, No Dysphasia, No Sinus Congestion, No Post Nasal Drip, No Sore Throat, No Other Pulmonary: No Dyspnea, No Cough, No Pleuritic Chest Pain, No Other Cardiovascular: No: Chest Pain, Palpitations, Orthopnea, Paroxysmal Noc. Dyspnea, Edema, Lt Headedness, Other Objective-Cardiology Exam Last Set of Vital Signs Vital Signs 03/11/22 03/11/22 06:00 07:25 Temp 36.9 Pulse 61 Resp 10 B/P (MAP) 146/65 Pulse Ox 94 O2 Delivery Room Air I&O Intake and Output 03/11/22 00:00 Intake Total 1440 ml Output Total 1625 ml Balance -185 ml Intake Oral 1440 ml Output Urine Total 1625 ml # Voids 2 General: Alert, Oriented X3, No Acute Distress HEENT: Atraumatic, PERRLA Neck: Supple, No JVD, No Thyromegaly Lungs: Clear to Auscultation Heart: Regular Rate, Normal S1, Normal S2, No Murmurs Abdomen: Normal Bowel Sounds, Soft, No Tenderness, No Hepatosplenomegaly, No Masses Extremities: No Clubbing, No Edema, No Tenderness/Swelling Skin: No Rashes Neuro: Normal Speech Psych/Mental Status: Mental Status NL, Mood NL Results Lab Laboratory Tests 03/11/22 04:35 A/P-Cardiology Admission Diagnosis Hypertensive emergency Change in mental status Acute renal insufficiency Peripheral edema Assessment/Plan Hypertensive emergency. Labile blood pressure Intolerance to hydralazine with questionable lupus-like symptoms resulted in renal failure Intolerance to LU inhibitor and/or ARB and or diuretics. Intolerance to calcium channel blockers with bradycardia Intolerant to high-dose clonidine due to generalized fatigue and loss of energy. I had a long discussion with Dr. Liz, patient is presenting with resistant malignant hypertension. Intolerant to multiple medication. I restarted losartan 100 mg and will continue to monitor renal function Clonidine will be dialed down back to 0.1 mg 4 times a day Taking Bystolic 20 mg daily and doxazosin 8 mg daily Starting Norvasc 5 mg daily and evaluate tolerance and response Currently on losartan 100 mg daily, Bystolic 20 mg daily, amlodipine 5 mg twice daily, Imdur 30 mg daily, clonidine 0.1 mg 3 times daily Blood pressure is better and tolerating current medication well. Discussed the management plan with Dr. 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 History of seizure activity, following with a neurologist in [place] History of tachycardia, underwent ablation in 2011 at . Acute on chronic renal insufficiency. Mild deterioration of renal function History of renal failure. Following with a gum remover in [place] Consider nephrology consultation Peripheral edema on and off, currently stable. Will use diuretics cautiously Diabetes mellitus, followed and managed by primary care physician BASIL SHIPLEY MD Mar 11, 2022 07:42
--- NOTE | 2022-03-11 08:07 | Progress Note ---
LYLY PABON 03/11/22 0807: Subjective Date Seen by a Provider: Mar 11, 2022 Time Seen by a Provider: 08:02 Subjective/Events-last exam Pt is awake and alert this morning. Pt states that he has not had any headaches this morning/last night. Pt stated that they were up and walking around yesterday, but still felt weak and couldn't walk very far. Review of Systems General: No Chills, No Night Sweats Pulmonary: No Dyspnea, No Cough Cardiovascular: No: Chest Pain, Palpitations, Orthopnea, Edema Gastrointestinal: No: Nausea, Vomiting, Abdominal Pain, Diarrhea, Constipation Genitourinary: No Dysuria, No Frequency, No Incontinence, No Hematuria Neurological: Weakness Objective Exam Last Set of Vital Signs Vital Signs Date Time Temp Pulse Resp B/P (MAP) Pulse Ox O2 Delivery O2 Flow Rate FiO2 03/11/22 07:25 36.9 03/11/22 06:00 61 10 146/65 94 Room Air Capillary Refill : Less Than 3 Seconds I&O Intake and Output 03/11/22 00:00 Intake Total 1440 ml Output Total 1625 ml Balance -185 ml Intake Oral 1440 ml Output Urine Total 1625 ml # Voids 2 General: Alert, Oriented X3 HEENT: Atraumatic Neck: Supple Lungs: Clear to Auscultation Heart: Regular Rate, Normal S1, Normal S2, No Murmurs Extremities: No Clubbing, No Cyanosis, No Edema Skin: No Rashes Neuro: Normal Speech Results Lab Laboratory Tests 03/10/22 12:17: Glucometer 174H 03/10/22 16:29: Glucometer 221H 03/10/22 20:57: Glucometer 181H 03/11/22 04:35: White Blood Count 7.9, Red Blood Count 4.20L, Hemoglobin 12.1L, Hematocrit 36L, Mean Corpuscular Volume 87, Mean Corpuscular Hemoglobin 29, Mean Corpuscular Hemoglobin Concent 33, Red Cell Distribution Width 13.2, Platelet Count 197, Mean Platelet Volume 10.7, Immature Granulocyte % (Auto) 0, Neutrophils (%) (Auto) 63, Lymphocytes (%) (Auto) 27, Monocytes (%) (Auto) 8, Eosinophils (%) (Auto) 1, Basophils (%) (Auto) 0, Neutrophils # (Auto) 4.9, Lymphocytes # (Auto) 2.1, Monocytes # (Auto) 0.6, Eosinophils # (Auto) 0.1, Basophils # (Auto) 0.0, Immature Granulocyte # (Auto) 0.0, Sodium Level 138, Potassium Level 4.0, Chlori de Level 105, Carbon Dioxide Level 21, Anion Gap 12, Blood Urea Nitrogen 23H, Creatinine 1.45H, Estimat Glomerular Filtration Rate 51, BUN/Creatinine Ratio 16, Glucose Level 147H, Calcium Level 8.8, Corrected Calcium 9.2, Phosphorus Level 3.9, Magnesium Level 2.1, Total Bilirubin 0.5, Aspartate Amino Transf (AST/SGOT) 14, Alanine Aminotransferase (ALT/SGPT) 18, Alkaline Phosphatase 46, Total Protein 6.4, Albumin 3.5 03/11/22 05:20: Glucometer 157H Assessment/Plan Assessment/Plan Assess & Plan/Chief Complaint 1. Hypertensive Urgency/Labile Hypertension--on doxazosin, clonidine, nebivolol, and losartan. Monitor pulse for bradycardia. Cardiology consulted. 2. History of Renal Failure with current mild renal insufficiency--monitor BUN/Cr VICTORIA BARRON DO 03/11/22 1241: Supervisory-Addendum Brief Verification & Attestation Participated in pt care: history, physical Personally performed: exam, supervision of care Care discussed with: Medical Student Procedures: n/a Results interpretation: Verified all documentation Patient seen and evaluated. BP much better. Still weak but feeling a little better. Will transfer to medical floor and see how he does with PT/OT. Will put in SWING bed evaluation. LYLY PABON Mar 11, 2022 08:07 VICTORIA BARRON DO Mar 11, 2022 12:41
[2022-03-11] MEDS: ISOSORBIDE MONONITRATE 30 MG (IMDUR) TAB PO SCH (08:20)
[2022-03-11] MEDS: cloNIDine 0.1 MG (CATAPRES) TAB PO SCH ×3 (08:20→19:24)
[2022-03-11] MEDS: LOSARTAN 100 MG (COZAAR) TABLET PO SCH (08:20)
[2022-03-11] MEDS: amLODIPine 5 MG (NORVASC) TAB PO SCH ×2 (08:21→19:24)
[2022-03-11] MEDS ORDERED: SCOPOLAMINE PATCH REMOVAL TP SCH (09:00)
[2022-03-11] MEDS: NEBIVOLOL 10 MG PO SCH (09:28)
--- NOTE | 2022-03-11 10:00 | Tele-ICU Progress Note ---
Subjective Date Seen by a Provider: Mar 11, 2022 Time Seen by a Provider: 09:59 Subjective/Events-last exam (Tele-ICU Physician , Progress Note ) Available chart/ vitals / labs / Images reviewed Video assessment done using teleICU camera, rest of exam as per RN Discussed with RN Events overnight : Afebrile hemodynamically stable Respiratory - ra I/O =even Drips: Pressors- no Consultants: jose francisco Hospital course: (03/05) 71yM Admit HTN Urgency, Disequilibrium, PEARCE (03/08) Nicardipine continues A/P Hypertensive urgency with h/o intolerance to LU, hydralazine, CaCh bl , - as per cards - clonidine and metoprolol h/o CVA and ICH- CTH no new finfding on admission h/o SZ - [place] CKD- stable DM- controlled Lines : perIph , (Central Line Necessity Reviewed) Wright: void OG: Nutrition: po Analgesia: Anxiety/ delirium VTE Prophylaxis: SCD Stress Ulcer Prophylaxis:NA Plans in collaboration with bedside consultants and IM MDs. Discussed with RN to reach out if any questions or concerns A total of 7 minutes of critical care time was devoted to this patient today, required to treat and/or prevent further deterioration of critical care condition ( as above ) Sepsis Event Evaluation Height, Weight, BMI Height: 6'1.00" Weight: 190lbs. 14.0oz. 86.250041tg; 24.89 BMI Method:Stated Exam Exam Patient acknowledged, consented, and participated in this virtual visit which was conducted using real time audio/video Vital Signs Date Time Temp Pulse Resp B/P (MAP) Pulse Ox O2 Delivery O2 Flow Rate FiO2 03/11/22 09:00 63 135/69 97 Room Air 03/11/22 08:00 63 137/70 97 Room Air 03/11/22 08:00 Room Air 03/11/22 07:25 36.9 03/11/22 07:00 64 23 136/63 96 Room Air 03/11/22 07:00 66 03/11/22 06:00 61 10 146/65 94 Room Air 03/11/22 05:00 62 14 141/67 96 Room Air 03/11/22 04:00 Room Air 03/11/22 04:00 64 17 150/67 96 Room Air 03/11/22 03:43 36.6 03/11/22 03:00 61 13 138/65 96 Room Air 03/11/22 02:00 59 18 145/68 96 Room Air 03/11/22 01:00 67 21 147/65 97 Room Air 03/11/22 01:00 67 03/11/22 00:00 63 18 135/67 94 Room Air 03/10/22 23:59 Room Air 03/10/22 23:58 37.1 03/10/22 23:00 63 16 141/68 95 Room Air 03/10/22 22:30 65 128/64 96 Room Air 03/10/22 22:00 60 14 157/75 97 Room Air 03/10/22 21:30 63 18 134/65 96 Room Air 03/10/22 21:00 62 12 138/70 96 Room Air 03/10/22 20:30 66 19 128/64 95 Room Air 03/10/22 20:00 63 11 130/66 98 Room Air 03/10/22 20:00 Room Air 03/10/22 20:00 36.6 03/10/22 19:00 74 03/10/22 19:00 74 16 146/66 97 Room Air 03/10/22 18:00 71 14 122/61 96 Room Air 03/10/22 17:00 61 23 195/79 98 Room Air 03/10/22 16:14 Room Air 03/10/22 16:00 36.7 03/10/22 16:00 61 21 201/82 99 Room Air 03/10/22 15:00 59 14 189/79 95 Room Air 03/10/22 14:00 59 17 192/77 97 Room Air 03/10/22 13:00 68 17 163/86 98 Room Air 03/10/22 12:39 61 03/10/22 12:28 36.4 03/10/22 12:08 Room Air 03/10/22 12:00 54 16 162/74 97 Room Air 03/10/22 11:00 58 15 142/68 97 Room Air 03/10/22 10:00 61 10 138/71 97 Room Air I & O 03/11/22 07:00 Intake Total 2240 ml Output Total 1800 ml Balance 440 ml Height & Weight Height: 6'1.00" Weight: 190lbs. 14.0oz. [id number]; 24.89 BMI Method:Stated General Appearance: No Apparent Distress HEENT: Normal ENT Inspection Neck: Supple Respiratory: Lungs Clear Cardiovascular: Regular Rate, Rhythm, Gallop/S4 Capillary Refill: Less Than 3 Seconds Gastrointestinal: normal bowel sounds, non tender, soft Extremity: Non Tender, No Calf Tenderness, No Pedal Edema Neurologic/Psychiatric: Alert, Oriented x3, Other (right hand tremor) Skin: Warm/Dry Lymphatic: No Adenopathy Results Lab Laboratory Tests 03/10/22 04:35 03/11/22 04:35 Assessment/Plan Assessment/Plan ` MARIE RODRIGUEZ MD Mar 11, 2022 10:00
--- NOTE | 2022-03-11 11:45 | Physical Therapy Daily Note ---
PT Daily Note-Current Subjective Patient in bed pre tx, agrees to PT, has no complaints of pain. Appearance Patient in recliner post tx with nurse call, phone, tray, all needs met. Mental Status Patient Orientation: Person, Place, Situation Transfers SCALE: Activities may be completed with or without assistive devices. 7-Fgvnwjltob-fsvktvh completes the activity by him/herself with no assistance from a helper. 5-Set-up or Clean-up Assistance-helper sets up or cleans up; patient completes activity. [place] assists only prior to or following the activity. 4-Supervision or Touching Assistance-helper provides verbal cues and/or touching /steadying and/or contact guard assistance as patient completes activity. Assistance may be provided throughout the activity or intermittently. 3-Partial/Moderate Assistance-helper does LESS THAN HALF the effort. [place] lifts, holds or supports trunk or limbs, but provides less than half the effort. 2-Substantial/Maximal Assistance-helper does MORE THAN HALF the effort. [place] lifts or holds trunk or limbs and provides more than half the effort. 5-Yclvkhpnk-efkzfz does ALL the effort. Patient does none of the effort to complete the activity. Or, the assistance of 2 or more helpers is required for the patient to complete the activity. If activity was not attempted, code reason: 7-Patient Refused. 9-Not Applicable-not attempted and the patient did not perform the activity before the current illness, exacerbation or injury. 10-Not Attempted due to Environmental Limitations-(lack of equipment, weather restraints, etc.). 88-Not Attempted due to Medical Conditions or Safety Concerns. Roll Left & Right (QC): 6 Lying to Sitting/Side of Bed(Q: 6 Sit to Stand (QC): 4 Chair/Dsq-hr-Ibtyn Xfer(QC): 4 Gait Training Distance: 200' Walk 10 feet (QC): 4 Walk 50 ft with 2 Turns(QC): 4 Gait Persons Needed: 1 Gait Assistive Device: FWW CGA, still slightly slouched ambulation with flexed knees but not as bad as y day, patient very fatigued after ambulating 200' with increased knee flexion, needed cues to stand straight Exercises Seated Therapy Exercises: Ankle pumps, Long arc quads Seated Reps: 20 Treatments bed mobility and transfers, ambulation, LE strengthening Assessment Current Status: Fair Progress improved endurance PT Manager Payroll Goals Mcfp Goals PT Mcfp Goals Time Frame: Mar 15, 2022 Roll Left & Right (QC): 6 Sit to Lying (QC): 6 Lying-Sitting on Side/Bed(QC): 6 Sit to Stand (QC): 6 Chair/Bcp-ey-Jcwiy Xfer(QC): 6 Walk 10 feet (QC): 6 Walk 50ft with 2 Turns (QC): 6 Walk 150 ft (QC): 6 PT Plan Problem List Problem List: Activity Tolerance, Functional Strength, Safety, Balance, Gait, Transfer, Bed Mobility, ROM Treatment/Plan Treatment Plan: Continue Plan of Care Treatment Plan: Bed Mobility, Education, Functional Activity Nabil, Functional Strength, Gait, Safety, Therapeutic Exercise, Transfers Treatment Duration: Mar 15, 2022 Frequency: 6 times per week Estimated Hrs Per Day: .25 hour per day Patient and/or Family Agrees t: Yes Safety Risks/Education Patient Education: Gait Training, Transfer Techniques, Correct Positioning, Safety Issues Teaching Recipient: Patient Teaching Methods: Demonstration, Discussion Response to Teaching: Reinforcement Needed Time/GCodes Time In: 1112 Time Out: 1125 Total Billed Treatment Time: 13 Total Billed Treatment 1 visit FA 13 KUN JEROME PT Mar 11, 2022 11:45
--- NOTE | 2022-03-11 12:35 | Occupational Ther Daily Note ---
OT Current Status-Daily Note Subjective Pt alert, sitting in recliner. Pt agrees to therapy. Pt states that he was ambulating in hallways with PT just before ENRIQUEZ arrived in room. Mental Status/Objective Patient Orientation: Person, Place, Time, Situation Attachments: IV, Telemetry ADL-Treatment After supplies gathered, pt able to complete oral care independently. Therapy Code Descriptions/Definitions Functional [place] Measure: 0=Not Assessed/NA 4=Minimal Assistance 1=Total Assistance 5=Supervision or Setup 2=Maximal Assistance 6=Modified [place] 3=Moderate Assistance 7=Complete IndependenceSCALE: Activities may be completed with or without assistive devices. 2-Icyfmtokod-zivybgh completes the activity by him/herself with no assistance from a helper. 5-Set-up or Clean-up Assistance-helper sets up or cleans up; patient completes activity. [place] assists only prior to or following the activity. 4-Supervision or Touching Assistance-helper provides verbal cues and/or touching/steadying and/or contact guard assistance as patient completes activity. Assistance may be provided throughout the activity or intermittently. 3-Partial/Moderate Assistance-helper does LESS THAN HALF the effort. [place] lifts, holds or supports trunk or limbs, but provides less than half the effort. 2-Substantial/Maximal Assistance-helper does MORE THAN HALF the effort. [place] lifts or holds trunk or limbs and provides more than half the effort. 8-Zhctfwmkc-qkcsef does ALL the effort. Patient does none of the effort to complete the activity. Or, the assistance of 2 or more helpers is required for the patient to complete the activity. If activity was not attempted, code reason: 7-Patient Refused. 9-Not Applicable-not attempted and the patient did not perform the activity before the current illness, exacerbation or injury. 10-Not Attempted due to Environmental Limitations-(lack of equipment, weather restraints, etc.). 88-Not Attempted due to Medical Conditions or Safety Concerns. Oral Hygiene (QC): 5 Other Treatment Pt completed 3 B UE exercises 1 set 15 reps to increase strength for daily functional task. Skilled instruction for correct techniques for B UE's. After therapy, pt sitting in recliner with call light/phone in reach. All needs met in room. OT Fdc Goals Fdc Goals Time Frame: Mar 15, 2022 Eating (QC): 6 Oral Hygiene (QC): 5 Toileting Hygiene (QC): 4 Shower/Bathe Self (QC): 4 Upper Body Dressing (QC): 5 Lower Body Dressing (QC): 5 On/Off Footwear (QC): 6 1=Demonstrate adherence to instructed precautions during ADL tasks. 2=Patient will verbalize/demonstrate understanding of assistive devices/modifications for ADL. 3=Patient will improve strength/tolerance for activity to enable patient to perform ADL's. OT Education/Plan Problem List/Assessment Assessment: Decreased Activ Tolerance, Decreased UE Strength, Impaired Self- Care Skills Discharge Recommendations Plan/Recommendations: Continue POC Treatment Plan/Plan of Care Patient would benefit from OT for education, treatment and training to promote independence in ADL's, mobility, safety and/or upper extremity function for ADL's. Plan of Care: ADL Retraining, Functional Mobility, Group Exercise/Act as Ind, UE Funct Exercise/Act, UE Neuromus Re-Ed/Coord, Visual/Perceptual Retrain Treatment Duration: Mar 15, 2022 Frequency: 3 times per week (3-5x/week) Estimated Hrs Per Day: .25 hour per day Agreement: Yes Rehab Potential: Fair Time/GCodes Start Time: 11:30 Stop Time: 11:45 Total Time Billed (hr/min): 15 Billed Treatment Time 1 visit-FA 1 (15 min) LIN DODD Mar 11, 2022 12:35
[2022-03-11 16:49] LABS: CREATININE CAT FR MG/DL 103 mg/dL; EPINEPHRINE RATIO 1 ug/g CRT (0-20)
[2022-03-11] MEDS: SERTRALINE 50 MG (ZOLOFT) TABLET PO SCH (19:24)
[2022-03-11] MEDS ORDERED: cloNIDine 0.1 MG (CATAPRES) TAB PO ONE (23:45)
[2022-03-12] MEDS: inSUlin ASPART (NovoLOG) 1 UNIT/0.01 ML (CHARGE PER UNIT) SC SCH ×4 (04:42→20:49)
[2022-03-12] MEDS: CATHETER FLUSH 10 ML SYR IVP SCH ×3 (04:44→20:49)
[2022-03-12 05:42] LABS: BASOPHILS % (AUTO) 0 % (0-10); EOSINOPHILS # (AUTO) 0.1 10^3/uL (0.0-0.3); EOSINOPHILS % (AUTO) 1 % (0-10); HEMATOCRIT 34 % (40-54); HEMOGLOBIN 11.5 g/dL (13.3-17.7); LYMPHOCYTES # (AUTO) 1.7 10^3/uL (1.0-4.0); LYMPHOCYTES % (AUTO) 27 % (12-44); MEAN CORPUSCULAR HEMOGLOBIN 29 pg (25-34); MEAN CORPUSCULAR HGB CONC 34 g/dL (32-36); MEAN CORPUSCULAR VOLUME 86 fL (80-99); MEAN PLATELET VOLUME 10.3 fL (9.0-12.2); MONOCYTES # (AUTO) 0.7 10^3/uL (0.0-1.0); MONOCYTES % (AUTO) 11 % (0-12); NEUTROPHILS # (AUTO) 3.8 10^3/uL (1.8-7.8); NEUTROPHILS % (AUTO) 60 % (42-75); PLATELET COUNT 183 10^3/uL (130-400); WHITE BLOOD COUNT 6.4 10^3/uL (4.3-11.0)
[2022-03-12 06:04] LABS: ALBUMIN 3.5 GM/DL (3.2-4.5); POTASSIUM 3.8 MMOL/L (3.6-5.0)
[2022-03-12 06:05] LABS: CALCIUM 8.7 MG/DL (8.5-10.1)
[2022-03-12 06:06] LABS: TOTAL PROTEIN 6.3 GM/DL (6.4-8.2)
[2022-03-12 06:08] LABS: BILIRUBIN,TOTAL 0.5 MG/DL (0.1-1.0)
[2022-03-12 06:10] LABS: CREATININE SERUM 1.52 MG/DL (0.60-1.30)
[2022-03-12] MEDS: LOSARTAN 100 MG (COZAAR) TABLET PO SCH (08:48)
[2022-03-12] MEDS: cloNIDine 0.1 MG (CATAPRES) TAB PO SCH ×3 (08:48→20:48)
[2022-03-12] MEDS: ISOSORBIDE MONONITRATE 30 MG (IMDUR) TAB PO SCH (08:48)
[2022-03-12] MEDS: amLODIPine 5 MG (NORVASC) TAB PO SCH ×2 (08:48→20:48)
[2022-03-12] MEDS: NEBIVOLOL 10 MG PO SCH ×2 (08:57→21:46)
--- NOTE | 2022-03-12 09:01 | Progress Note ---
LYLY PABON 03/12/22 0900: Subjective Date Seen by a Provider: Mar 12, 2022 Time Seen by a Provider: 08:57 Subjective/Events-last exam Pt is awake and alert in his chair this morning. Pt reports that they had some mild headaches and one severe headache last night. Pt reports that his progress with physical therapy is improving and is able to walk longer distances, but still tends to slouch and bend his knees while walking. Review of Systems General: No Chills, No Night Sweats HEENT: Head Aches, Visual Changes Pulmonary: No Cough, No Pleuritic Chest Pain Cardiovascular: No: Chest Pain, Palpitations, Orthopnea Gastrointestinal: No: Nausea, Vomiting, Abdominal Pain, Diarrhea, Constipation Genitourinary: No Dysuria, No Frequency, No Incontinence, No Hematuria Neurological: No: Change in speech, Confusion Objective Exam Last Set of Vital Signs Vital Signs Date Time Temp Pulse Resp B/P (MAP) Pulse Ox O2 Delivery O2 Flow Rate FiO2 03/12/22 07:57 Room Air 03/12/22 07:49 36.9 76 16 148/66 97 Capillary Refill : Less Than 3 Seconds I&O Intake and Output 03/12/22 00:00 Intake Total 2140 ml Output Total 1127 ml Balance 1013 ml Intake Oral 2140 ml Output Urine Total 1127 ml # Voids 2 # Bowel Movements 1 General: Alert, Oriented X3 HEENT: Atraumatic Neck: Supple Lungs: Clear to Auscultation Heart: Regular Rate, No Murmurs Extremities: No Clubbing, No Edema Skin: No Rashes Neuro: Normal Speech Results Lab Laboratory Tests 03/11/22 11:45: Glucometer 196H 03/11/22 16:04: Glucometer 161H 03/12/22 04:39: Glucometer 138H 03/12/22 05:23: White Blood Count 6.4, Red Blood Count 3.97L, Hemoglobin 11.5L, Hematocrit 34L, Mean Corpuscular Volume 86, Mean Corpuscular Hemoglobin 29, Mean Corpuscular Hemoglobin Concent 34, Red Cell Distribution Width 13.2, Platelet Count 183, Mean Platelet Volume 10.3, Immature Granulocyte % (Auto) 1, Neutrophils (%) (Auto) 60, Lymphocytes (%) (Auto) 27, Monocytes (%) (Auto) 11, Eosinophils (%) (Auto) 1, Basophils (%) (Auto) 0, Neutrophils # (Auto) 3.8, Lymphocytes # (Auto) 1.7, Monocytes # (Auto) 0.7, Eosinophils # (Auto) 0.1, Basophils # (Auto) 0.0, Immature Granulocyte # (Auto) 0.0, Sodium Level 139, Potassium Level 3.8, Chloride Level 109H, Carbon Dioxide Level 20L, Anion Gap 10, Blood Urea Nitrogen 22H, Creatinine 1.52H, Estimat Glomerular Filtration Rate 48, BUN/Creatinine Ratio 14, Glucose Level 143H, Calcium Level 8.7, Corrected Calcium 9.1, Total Bilirubin 0.5, Aspartate Amino Transf (AST/SGOT) 15, Alanine Aminotransferase (ALT/SGPT) 17, Alkaline Phosphatase 44, Total Protein 6.3L, Albumin 3.5 Assessment/Plan Assessment/Plan Assess & Plan/Chief Complaint 1. Hypertensive Urgency/Labile Hypertension--on doxazosin, clonidine, nebivolol, and losartan. Monitor pulse for bradycardia. Cardiology consulted. 2. History of Renal Failure with current mild renal insufficiency--monitor BUN/Cr VICTORIA BARRON DO 03/12/22 0948: Supervisory-Addendum Brief Verification & Attestation Participated in pt care: history, physical Personally performed: exam, supervision of care Care discussed with: Medical Student Procedures: n/a Results interpretation: Verified all documentation Patient seen and evaluated. PT states is getting stronger but still not able to go home without help. Still some unsteadiness and having some random HAs. BP more stable but BUN/Cr have gone up so need to stop losartan. Will increase Bystolic to 40mg po BID since pulse 60s-70 and need to DC losartan due to worsening renal insufficiency. Unable to SWING bed at this time. Will monitor progress and plan home either this or Tuesday with home health. LYLY PABON Mar 12, 2022 09:00 VICTORIA BARRON DO Mar 12, 2022 09:48
--- NOTE | 2022-03-12 09:52 | Physical Therapy Daily Note ---
PT Daily Note-Current Subjective Patient reports he had an episode during the night. Feels better this morning. Daughter present Mental Status Patient Orientation: Normal For Age Transfers SCALE: Activities may be completed with or without assistive devices. 3-Irfvvekxan-plmyieh completes the activity by him/herself with no assistance from a helper. 5-Set-up or Clean-up Assistance-helper sets up or cleans up; patient completes activity. [place] assists only prior to or following the activity. 4-Supervision or Touching Assistance-helper provides verbal cues and/or touching/steadying and/or contact guard assistance as patient completes activity. Assistance may be provided throughout the activity or intermittently. 3-Partial/Moderate Assistance-helper does LESS THAN HALF the effort. [place] lifts, holds or supports trunk or limbs, but provides less than half the effort. 2-Substantial/Maximal Assistance-helper does MORE THAN HALF the effort. [place] lifts or holds trunk or limbs and provides more than half the effort. 8-Qctixfjev-keipmf does ALL the effort. Patient does none of the effort to complete the activity. Or, the assistance of 2 or more helpers is required for the patient to complete the activity. If activity was not attempted, code reason: 7-Patient Refused. 9-Not Applicable-not attempted and the patient did not perform the activity before the current illness, exacerbation or injury. 10-Not Attempted due to Environmental Limitations-(lack of equipment, weather restraints, etc.). 88-Not Attempted due to Medical Conditions or Safety Concerns. Lying to Sitting/Side of Bed(Q: 6 Sit to Stand (QC): 4 Chair/Vku-kf-Qftfg Xfer(QC): 4 Gait Training Distance: 450' Walk 10 feet (QC): 4 Walk 50 ft with 2 Turns(QC): 4 Walk 150 ft (QC): 4 Gait Assistive Device: FWW VC's for body placement in FWW and posture with patient presenting with flexed bilateral knee posture. 4 standing recovery periods to correct posture and body placement Exercises Seated Therapy Exercises: Ankle pumps, Long arc quads, Hip flexion Seated Reps: 15 Assessment Patient improved on this date, however, continues to display impaired mobility. Physician consulted on POC. PT [facility] Goals [facility] Goals PT [facility] Goals Time Frame: Mar 15, 2022 Roll Left & Right (QC): 6 Sit to Lying (QC): 6 Lying-Sitting on Side/Bed(QC): 6 Sit to Stand (QC): 6 Chair/Xwp-tu-Vfveb Xfer(QC): 6 Walk 10 feet (QC): 6 Walk 50ft with 2 Turns (QC): 6 Walk 150 ft (QC): 6 PT Plan Treatment/Plan Treatment Plan: Continue Plan of Care Treatment Plan: Bed Mobility, Education, Functional Activity Nabil, Functional Strength, Gait, Safety, Therapeutic Exercise, Transfers Treatment Duration: Mar 15, 2022 Frequency: 6 times per week Estimated Hrs Per Day: .25 hour per day Patient and/or Family Agrees t: Yes Time/GCodes Time In: 807 Time Out: 838 Total Billed Treatment Time: 31 Total Billed Treatment 1 visit GT 18 min EX 13 min CRISTINA LAWRENCE PT Mar 12, 2022 09:52
--- NOTE | 2022-03-12 09:52 | Cardiology Progress Note ---
Subjective Date Seen by Provider: Mar 12, 2022 Time Seen by Provider: 09:51 Subjective/Events-last exam Patient was seen at bedside, has slight elevation in blood pressure last night, currently blood pressure is stable and he is feeling better. Review of Systems General: No Chills, No Night Sweats; Fatigue; No Malaise, No Appetite, No Other HEENT: No Head Aches, No Visual Changes, No Eye Pain, No Ear Pain, No Dysphasia, No Sinus Congestion, No Post Nasal Drip, No Sore Throat, No Other Pulmonary: No Dyspnea, No Cough, No Pleuritic Chest Pain, No Other Cardiovascular: No: Chest Pain, Palpitations, Orthopnea, Paroxysmal Noc. Dyspnea, Edema, Lt Headedness, Other Objective-Cardiology Exam Last Set of Vital Signs Vital Signs 03/12/22 03/12/22 07:49 07:57 Temp 36.9 Pulse 76 Resp 16 B/P (MAP) 148/66 Pulse Ox 97 O2 Delivery Room Air I&O Intake and Output 03/12/22 00:00 Intake Total 2140 ml Output Total 1127 ml Balance 1013 ml Intake Oral 2140 ml Output Urine Total 1127 ml # Voids 2 # Bowel Movements 1 General: Alert, Oriented X3 HEENT: Atraumatic Neck: Supple Lungs: Clear to Auscultation Heart: Regular Rate, No Murmurs Abdomen: Normal Bowel Sounds, Soft, No Tenderness, No Hepatosplenomegaly, No Masses Extremities: No Clubbing, No Edema Skin: No Rashes Neuro: Normal Speech Psych/Mental Status: Mental Status NL, Mood NL Results Lab Laboratory Tests 03/12/22 05:23 A/P-Cardiology Admission Diagnosis Hypertensive emergency Change in mental status Acute renal insufficiency Peripheral edema Assessment/Plan Hypertensive emergency. Labile blood pressure Intolerance to hydralazine with questionable lupus-like symptoms resulted in renal failure Intolerance to LU inhibitor and/or ARB and or diuretics. Intolerance to calcium channel blockers with bradycardia Intolerant to high-dose clonidine due to generalized fatigue and loss of energy. I had a long discussion with Dr. Liz, patient is presenting with resistant malignant hypertension. Intolerant to multiple medication. I restarted losartan 100 mg and will continue to monitor renal function Clonidine will be dialed down back to 0.1 mg 4 times a day Taking Bystolic 20 mg daily and doxazosin 8 mg daily Starting Norvasc 5 mg daily and evaluate tolerance and response Currently on losartan 100 mg daily, Bystolic 20 mg daily, amlodipine 5 mg twice daily, Imdur 30 mg daily, clonidine 0.1 mg 3 times daily Blood pressure is better and tolerating current medication well. Discussed the management plan with Dr. 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 History of seizure activity, following with a neurologist in [place] History of tachycardia, underwent ablation in 2011 at . Acute on chronic renal insufficiency. Mild deterioration of renal function History of renal failure. Following with a wheel presser in [place] Consider nephrology consultation Peripheral edema on and off, currently stable. Will use diuretics cautiously Diabetes mellitus, followed and managed by primary care physician BASIL SHIPLEY MD Mar 12, 2022 09:51
--- NOTE | 2022-03-12 10:07 | Occupational Ther Daily Note ---
OT Current Status-Daily Note Subjective Pt alert, lying in bed. Pt states that physician wants him to stay the weekend. Pt agrees to therapy. No c/o pain. Mental Status/Objective Patient Orientation: Person, Place, Time, Situation Attachments: IV, Telemetry ADL-Treatment Pt agrees to shower. Min A to transfer into shower for safety due to fatiguing quickly. Pt independent with doffing socks. Pt able to complete shower using shower bench, grabbars and hand held shower independently. Pt able to don/doff hospital gown by self after set up. Pt required Min A to don lower body clothing. After demonstration pt able to don socks using figure four, sitting EOB. Pt left lying in bed with call light/phone in reach. All needs met in room. Therapy Code Descriptions/Definitions Functional [place] Measure: 0=Not Assessed/NA 4=Minimal Assistance 1=Total Assistance 5=Supervision or Setup 2=Maximal Assistance 6=Modified [place] 3=Moderate Assistance 7=Complete IndependenceSCALE: Activities may be completed with or without assistive devices. 2-Cnbhuqelbl-yilulso completes the activity by him/herself with no assistance from a helper. 5-Set-up or Clean-up Assistance-helper sets up or cleans up; patient completes activity. [place] assists only prior to or following the activity. 4-Supervision or Touching Assistance-helper provides verbal cues and/or touching/steadying and/or contact guard assistance as patient completes activity . Assistance may be provided throughout the activity or intermittently. 3-Partial/Moderate Assistance-helper does LESS THAN HALF the effort. [place] lifts, holds or supports trunk or limbs, but provides less than half the effort. 2-Substantial/Maximal Assistance-helper does MORE THAN HALF the effort. [place] lifts or holds trunk or limbs and provides more than half the effort. 2-Hlswepalx-ftacph does ALL the effort. Patient does none of the effort to complete the activity. Or, the assistance of 2 or more helpers is required for the patient to complete the activity. If activity was not attempted, code reason: 7-Patient Refused. 9-Not Applicable-not attempted and the patient did not perform the activity before the current illness, exacerbation or injury. 10-Not Attempted due to Environmental Limitations-(lack of equipment, weather restraints, etc.). 88-Not Attempted due to Medical Conditions or Safety Concerns. Shower/Bathe Self (QC): 6 Upper Body Dressing (QC): 6 OT [facility] Goals [facility] Goals Time Frame: Mar 15, 2022 Eating (QC): 6 Oral Hygiene (QC): 5 Toileting Hygiene (QC): 4 Shower/Bathe Self (QC): 4 Upper Body Dressing (QC): 5 Lower Body Dressing (QC): 5 On/Off Footwear (QC): 6 1=Demonstrate adherence to instructed precautions during ADL tasks. 2=Patient will verbalize/demonstrate understanding of assistive devices/modifications for ADL. 3=Patient will improve strength/tolerance for activity to enable patient to perform ADL's. OT Education/Plan Problem List/Assessment Assessment: Decreased Activ Tolerance, Decreased Safety Aware, Impaired Self- Care Skills Discharge Recommendations Plan/Recommendations: Continue POC Treatment Plan/Plan of Care Patient would benefit from OT for education, treatment and training to promote independence in ADL's, mobility, safety and/or upper extremity function for ADL's. Plan of Care: ADL Retraining, Functional Mobility, Group Exercise/Act as Ind, UE Funct Exercise/Act, UE Neuromus Re-Ed/Coord, Visual/Perceptual Retrain Treatment Duration: Mar 15, 2022 Frequency: 3 times per week (3-5x/week) Estimated Hrs Per Day: .25 hour per day Agreement: Yes Rehab Potential: Fair Time/GCodes Start Time: 09:50 Stop Time: 10:19 Total Time Billed (hr/min): 29 Billed Treatment Time 1 visit-ADL 2 (29 min) LIN DODD Mar 12, 2022 10:07
[2022-03-12 15:57] VITALS: BP 131/63
[2022-03-12 19:37] VITALS: BP 141/64
[2022-03-12] MEDS: SERTRALINE 50 MG (ZOLOFT) TABLET PO SCH (20:48)
[2022-03-12 23:30] VITALS: BP 176/77
[2022-03-12] MEDS ORDERED: cloNIDine 0.1 MG (CATAPRES) TAB PO ONE (23:45)
[2022-03-13 03:41] VITALS: BP 147/62
[2022-03-13] MEDS: CATHETER FLUSH 10 ML SYR IVP SCH ×3 (05:34→20:17)
[2022-03-13 05:53] LABS: BASOPHILS % (AUTO) 0 % (0-10); EOSINOPHILS # (AUTO) 0.1 10^3/uL (0.0-0.3); EOSINOPHILS % (AUTO) 2 % (0-10); HEMATOCRIT 34 % (40-54); HEMOGLOBIN 11.6 g/dL (13.3-17.7); LYMPHOCYTES # (AUTO) 1.9 10^3/uL (1.0-4.0); LYMPHOCYTES % (AUTO) 27 % (12-44); MEAN CORPUSCULAR HEMOGLOBIN 29 pg (25-34); MEAN CORPUSCULAR HGB CONC 34 g/dL (32-36); MEAN CORPUSCULAR VOLUME 86 fL (80-99); MEAN PLATELET VOLUME 10.3 fL (9.0-12.2); MONOCYTES # (AUTO) 0.8 10^3/uL (0.0-1.0); MONOCYTES % (AUTO) 11 % (0-12); NEUTROPHILS # (AUTO) 4.2 10^3/uL (1.8-7.8); NEUTROPHILS % (AUTO) 59 % (42-75); PLATELET COUNT 184 10^3/uL (130-400)
[2022-03-13] MEDS: inSUlin ASPART (NovoLOG) 1 UNIT/0.01 ML (CHARGE PER UNIT) SC SCH ×4 (05:55→20:16)
[2022-03-13 06:05] LABS: ALBUMIN 3.5 GM/DL (3.2-4.5); POTASSIUM 3.9 MMOL/L (3.6-5.0)
[2022-03-13 06:07] LABS: CALCIUM 9.1 MG/DL (8.5-10.1)
[2022-03-13 06:08] LABS: TOTAL PROTEIN 6.4 GM/DL (6.4-8.2)
[2022-03-13 06:10] LABS: BILIRUBIN,TOTAL 0.4 MG/DL (0.1-1.0)
[2022-03-13 06:11] LABS: CREATININE SERUM 1.27 MG/DL (0.60-1.30)
[2022-03-13 07:16] VITALS: BP 166/78
--- NOTE | 2022-03-13 09:27 | Physical Therapy Daily Note ---
PT Daily Note-Current Subjective Patient agrees to PT. Mental Status Patient Orientation: Normal For Age Transfers SCALE: Activities may be completed with or without assistive devices. 2-Txbetatkrp-vkwewzt completes the activity by him/herself with no assistance from a helper. 5-Set-up or Clean-up Assistance-helper sets up or cleans up; patient completes activity. [place] assists only prior to or following the activity. 4-Supervision or Touching Assistance-helper provides verbal cues and/or touching/steadying and/or contact guard assistance as patient completes activity. Assistance may be provided throughout the activity or intermittently. 3-Partial/Moderate Assistance-helper does LESS THAN HALF the effort. [place] lifts, holds or supports trunk or limbs, but provides less than half the effort. 2-Substantial/Maximal Assistance-helper does MORE THAN HALF the effort. [place] lifts or holds trunk or limbs and provides more than half the effort. 4-Cbfbjupvk-xgrvnd does ALL the effort. Patient does none of the effort to complete the activity. Or, the assistance of 2 or more helpers is required for the patient to complete the activity. If activity was not attempted, code reason: 7-Patient Refused. 9-Not Applicable-not attempted and the patient did not perform the activity befo re the current illness, exacerbation or injury. 10-Not Attempted due to Environmental Limitations-(lack of equipment, weather re straints, etc.). 88-Not Attempted due to Medical Conditions or Safety Concerns. Sit to Lying (QC): 6 Lying to Sitting/Side of Bed(Q: 6 Sit to Stand (QC): 6 Gait Training Distance: 800' Walk 10 feet (QC): 5 Walk 50 ft with 2 Turns(QC): 5 Walk 150 ft (QC): 5 Gait Assistive Device: FWW much improved gait sequence and distance Assessment Patient and nursing staff instructed to ambulate in hallway PRN. Much improved with gross motor skills. PT [place] Goals [place] Goals PT [place] Goals Time Frame: Mar 15, 2022 Roll Left & Right (QC): 6 Sit to Lying (QC): 6 Lying-Sitting on Side/Bed(QC): 6 Sit to Stand (QC): 6 Chair/Ang-jm-Hgqgp Xfer(QC): 6 Walk 10 feet (QC): 6 Walk 50ft with 2 Turns (QC): 6 Walk 150 ft (QC): 6 PT Plan Treatment/Plan Treatment Plan: Continue Plan of Care Treatment Plan: Bed Mobility, Education, Functional Activity Nabil, Functional Strength, Gait, Safety, Therapeutic Exercise, Transfers Treatment Duration: Mar 15, 2022 Frequency: 6 times per week Estimated Hrs Per Day: .25 hour per day Patient and/or Family Agrees t: Yes Time/GCodes Time In: 847 Time Out: 857 Total Billed Treatment Time: 10 Total Billed Treatment 1 visit FA 10 min CRISTINA LAWRENCE PT Mar 13, 2022 09:27
[2022-03-13] MEDS: NEBIVOLOL 10 MG PO SCH ×2 (09:51→20:16)
[2022-03-13] MEDS: cloNIDine 0.1 MG (CATAPRES) TAB PO SCH ×3 (09:51→20:16)
[2022-03-13] MEDS: ISOSORBIDE MONONITRATE 30 MG (IMDUR) TAB PO SCH (09:51)
[2022-03-13] MEDS: amLODIPine 5 MG (NORVASC) TAB PO SCH ×2 (09:52→20:16)
--- NOTE | 2022-03-13 10:48 | Cardiology Progress Note ---
Progress Note-Cardiology Events since last exam Date Seen by Provider: Mar 13, 2022 Time Seen by Provider: 10:41 Events since last exam We are following him due to hypertensive urgency. He denies chest pain, dys pnea, palpitations, syncope, or ankle edema. Certain portions of this document may have been dictated utilizing voice recognition technology. Inherent to this technology, typographical and grammatical errors may exist. As much as I am diligent to identify and correct these mistakes, some errors may remain in the document. Vitals Last set of Vitals Signs Vital Signs 03/13/22 03/13/22 07:16 08:15 Temp 36.5 Pulse 74 Resp 18 B/P (MAP) 166/78 (107) Pulse Ox 96 O2 Delivery Room Air Labs Labs Laboratory Tests 03/13/22 05:42 Exam Vital Signs Vital Signs Date Time Temp Pulse Resp B/P (MAP) Pulse Ox O2 Delivery O2 Flow Rate FiO2 03/13/22 08:15 Room Air 03/13/22 07:16 36.5 74 18 166/78 (107) 96 Physical Exam General: Alert. No acute distress. Eye: No xanthelasma. HENT: Normocephalic. Neck: Jugular venous pressure does not appear elevated. Respiratory: Lungs are clear to auscultation. Respirations are non-labored. Breath sounds are equal. Symmetrical chest wall expansion. Cardiovascular: Normal rate. Regular rhythm. No murmur. No gallop. No edema. Gastrointestinal: Soft. Normal bowel sounds. Skin: Warm. Dry. Neurologic: Alert and oriented to person, place, time. Cranial nerves 3-11 grossly intact. Resting tremor of both hands, worse on the right. Psychiatric: Cooperative. Appropriate mood & affect. Labs Laboratory Tests Test 03/12/22 15:22 03/12/22 20:05 03/13/22 05:10 03/13/22 05:42 Range/Units Glucometer 212 H 221 H 163 H 70-110 MG/DL White Blood Count 7.0 4.3-11.0 10^3/uL Red Blood Count 3.95 L 4.30-5.52 10^6/uL Hemoglobin 11.6 L 13.3-17.7 g/dL Hematocrit 34 L 40-54 % Mean Corpuscular Volume 86 80-99 fL Mean Corpuscular Hemoglobin 29 25-34 pg Mean Corpuscular Hemoglobin Concent 34 32-36 g/dL Red Cell Distribution Width 13.0 10.0-14.5 % Platelet Count 184 130-400 10^3/uL Mean Platelet Volume 10.3 9.0-12.2 fL Immature Granulocyte % (Auto) 0 % Neutrophils (%) (Auto) 59 42-75 % Lymphocytes (%) (Auto) 27 12-44 % Monocytes (%) (Auto) 11 0-12 % Eosinophils (%) (Auto) 2 0-10 % Basophils (%) (Auto) 0 0-10 % Neutrophils # (Auto) 4.2 1.8-7.8 10^3/uL Lymphocytes # (Auto) 1.9 1.0-4.0 10^3/uL Monocytes # (Auto) 0.8 0.0-1.0 10^3/uL Eosinophils # (Auto) 0.1 0.0-0.3 10^3/uL Basophils # (Auto) 0.0 0.0-0.1 10^3/uL Immature Granulocyte # (Auto) 0.0 0.0-0.1 10^3/uL Sodium Level 138 135-145 MMOL/L Potassium Level 3.9 3.6-5.0 MMOL/L Chloride Level 108 H 98-107 MMOL/L Carbon Dioxide Level 21 21-32 MMOL/L Anion Gap 9 5-14 MMOL/L Blood Urea Nitrogen 19 H 7-18 MG/DL Creatinine 1.27 0.60-1.30 MG/DL Estimat Glomerular Filtration Rate 60 BUN/Creatinine Ratio 15 Glucose Level 165 H 70-105 MG/DL Calcium Level 9.1 8.5-10.1 MG/DL Corrected Calcium 9.5 8.5-10.1 MG/DL Total Bilirubin 0.4 0.1-1.0 MG/DL Aspartate Amino Transf (AST/SGOT) 14 5-34 U/L Alanine Aminotransferase (ALT/SGPT) 17 0-55 U/L Alkaline Phosphatase 43 40-136 U/L Total Protein 6.4 6.4-8.2 GM/DL Albumin 3.5 3.2-4.5 GM/DL Diagnosis/Problems Diagnosis/Problems (1) Hypertensive urgency Status: Acute Assessment & Plan: His blood pressure is still intermittently elevated. His losartan was discontinued due to worsening renal function. He was on an alpha-victor m at home which has not been resumed. He was also started on long- acting nitrates which in general do not have much of any antihypertensive effect. I recommend we stop the long-acting nitrate and resume doxazosin which he was taking at home. I will start with half of the dose that he was taking at home to see how he responds. (2) Stage 3a chronic kidney disease Assessment & Plan: As above, losartan was discontinued due to worsening renal function which has now improved. (3) History of hemorrhagic cerebrovascular accident (CVA) with residual deficit Assessment & Plan: He has residual weakness following the stroke that occurred in September 2019. He has not had any new neurologic complaints during this ad mission although has had some intermittent headaches. He had a head CT at the time of this admission that did not show any evidence of new hemorrhaging. I do not see any recent lipid panel in our system. I have ordered a lipid panel to be added to his previous blood work. (4) Essential tremor Assessment & Plan: He has had essential tremor for the past several years. He had seen a neurologist in the past and was told this was not due to Parkinson's disease. Beta-victor m can often help with this condition. SAE LOPEZ JR, MD Mar 13, 2022 10:48
[2022-03-13 11:01] LABS: TRIGLYCERIDES 67 MG/DL (<150); VLDL CHOLESTEROL 13 MG/DL (5-40)
[2022-03-13 11:06] LABS: CHOLESTEROL 152 MG/DL (< 200)
[2022-03-13 11:07] LABS: HDL CHOLESTEROL 34 MG/DL (40-60)
[2022-03-13 11:13] VITALS: BP 178/80
[2022-03-13 15:23] VITALS: BP 148/73
--- NOTE | 2022-03-13 16:51 | Progress Note - Hospitalist ---
Subjective HPI/CC On Admission Date Seen by Provider: Mar 13, 2022 Time Seen by Provider: 11:25 Subjective/Events-last exam He reports headache. He denies any other pain. He denies shortness of breath. He denies chest pain. He has been eating and drinking. He has been working with therapy. Objective Exam Vital Signs Vital Signs Date Time Temp Pulse Resp B/P (MAP) Pulse Ox O2 Delivery O2 Flow Rate FiO2 03/13/22 15:23 37.0 62 18 148/73 (98) 97 Room Air Capillary Refill : Less Than 3 Seconds General Appearance: No Apparent Distress, WD/WN Respiratory: Lungs Clear, No Respiratory Distress Cardiovascular: Regular Rate, Rhythm, No Murmur Gastrointestinal: Normal Bowel Sounds, Soft Extremity: Normal Inspection, Non Tender Neurologic/Psychiatric: Alert, No Motor/Sensory Deficits, Normal Mood/Affect Results/Procedures Lab Laboratory Tests 03/13/22 05:42 Patient resulted labs reviewed. Assessment/Plan Assessment and Plan Assess & Plan/Chief Complaint HTN urgency Continue Nebivolol, Clonidine, Amlodipine Begin Doxazosin Debility PT/OT T2DM Sliding scale insulin GERD Depression Seizure disorder Continue home meds DVT prophylaxis: Lovenox Diagnosis/Problems Diagnosis/Problems (1) Hypertensive urgency Status: Acute (2) Debility Status: Acute (3) Seizure disorder Status: Chronic (4) T2DM (type 2 diabetes mellitus) Status: Chronic (5) GERD (gastroesophageal reflux disease) Status: Chronic (6) Depression Status: Chronic CINTHIA HEARD MD Mar 13, 2022 16:51
[2022-03-13 19:58] VITALS: BP 149/67
[2022-03-13] MEDS: SERTRALINE 50 MG (ZOLOFT) TABLET PO SCH (20:16)
[2022-03-13] MEDS: doxAzosin 2 MG (CARDURA) TAB PO SCH (20:16)
[2022-03-13 23:06] VITALS: BP 143/72
[2022-03-14 03:43] VITALS: BP 131/66
[2022-03-14] MEDS: inSUlin ASPART (NovoLOG) 1 UNIT/0.01 ML (CHARGE PER UNIT) SC SCH ×4 (05:56→21:32)
[2022-03-14] MEDS: CATHETER FLUSH 10 ML SYR IVP SCH (05:56)
[2022-03-14 06:28] LABS: BASOPHILS % (AUTO) 0 % (0-10); EOSINOPHILS # (AUTO) 0.1 10^3/uL (0.0-0.3); EOSINOPHILS % (AUTO) 2 % (0-10); HEMATOCRIT 35 % (40-54); HEMOGLOBIN 11.6 g/dL (13.3-17.7); LYMPHOCYTES # (AUTO) 1.6 10^3/uL (1.0-4.0); LYMPHOCYTES % (AUTO) 30 % (12-44); MEAN CORPUSCULAR HEMOGLOBIN 29 pg (25-34); MEAN CORPUSCULAR HGB CONC 34 g/dL (32-36); MEAN CORPUSCULAR VOLUME 86 fL (80-99); MEAN PLATELET VOLUME 10.6 fL (9.0-12.2); MONOCYTES # (AUTO) 0.6 10^3/uL (0.0-1.0); MONOCYTES % (AUTO) 11 % (0-12); NEUTROPHILS # (AUTO) 3.1 10^3/uL (1.8-7.8); NEUTROPHILS % (AUTO) 57 % (42-75); PLATELET COUNT 180 10^3/uL (130-400); WHITE BLOOD COUNT 5.4 10^3/uL (4.3-11.0)
[2022-03-14 06:53] LABS: ALBUMIN 3.5 GM/DL (3.2-4.5); POTASSIUM 3.7 MMOL/L (3.6-5.0)
[2022-03-14 06:55] LABS: TOTAL PROTEIN 6.4 GM/DL (6.4-8.2)
[2022-03-14 06:57] LABS: BILIRUBIN,TOTAL 0.4 MG/DL (0.1-1.0)
[2022-03-14 06:59] LABS: CREATININE SERUM 1.2 MG/DL (0.60-1.30)
[2022-03-14 07:28] VITALS: BP 135/70
[2022-03-14] MEDS: cloNIDine 0.1 MG (CATAPRES) TAB PO SCH ×3 (08:17→20:29)
[2022-03-14] MEDS: amLODIPine 5 MG (NORVASC) TAB PO SCH ×2 (08:17→20:29)
[2022-03-14] MEDS: NEBIVOLOL 10 MG PO SCH ×2 (08:18→20:29)
--- NOTE | 2022-03-14 10:56 | Cardiology Progress Note ---
Progress Note-Cardiology Events since last exam Date Seen by Provider: Mar 14, 2022 Time Seen by Provider: 10:50 Events since last exam We are following him due to hypertension. He denies chest pain, dyspnea, pa lpitations, syncope, or ankle edema. He is hoping that he might be able to go home tomorrow. Certain portions of this document may have been dictated utilizing voice recognition technology. Inherent to this technology, typographical and grammatical errors may exist. As much as I am diligent to identify and correct these mistakes, some errors may remain in the document. Vitals Last set of Vitals Signs Vital Signs 03/14/22 03/14/22 07:28 08:09 Temp 36.4 Pulse 74 Resp 20 B/P (MAP) 135/70 (91) Pulse Ox 95 O2 Delivery Room Air Labs Labs Laboratory Tests 03/14/22 06:03 Exam Vital Signs Vital Signs Date Time Temp Pulse Resp B/P (MAP) Pulse Ox O2 Delivery O2 Flow Rate FiO2 03/14/22 08:09 95 Room Air 03/14/22 07:28 36.4 74 20 135/70 (91) Physical Exam General: Alert. No acute distress. Eye: No xanthelasma. HENT: Normocephalic. Neck: Jugular venous pressure does not appear elevated. Respiratory: Lungs are clear to auscultation. Respirations are non-labored. Breath sounds are equal. Symmetrical chest wall expansion. Cardiovascular: Normal rate. Regular rhythm. No murmur. No gallop. No edema. Gastrointestinal: Soft. Normal bowel sounds. Skin: Warm. Dry. Neurologic: Alert and oriented to person, place, time. Cranial nerves 3-11 grossly intact. Resting tremor of both hands, worse on the right. Psychiatric: Cooperative. Appropriate mood & affect. Labs Laboratory Tests Test 03/13/22 11:03 03/13/22 15:05 03/13/22 20:05 03/14/22 05:08 Range/Units Glucometer 242 H 187 H 269 H 157 H 70-110 MG/DL Test 03/14/22 06:03 Range/Units White Blood Count 5.4 4.3-11.0 10^3/uL Red Blood Count 4.01 L 4.30-5.52 10^6/uL Hemoglobin 11.6 L 13.3-17.7 g/dL Hematocrit 35 L 40-54 % Mean Corpuscular Volume 86 80-99 fL Mean Corpuscular Hemoglobin 29 25-34 pg Mean Corpuscular Hemoglobin Concent 34 32-36 g/dL Red Cell Distribution Width 13.2 10.0-14.5 % Platelet Count 180 130-400 10^3/uL Mean Platelet Volume 10.6 9.0-12.2 fL Immature Granulocyte % (Auto) 0 % Neutrophils (%) (Auto) 57 42-75 % Lymphocytes (%) (Auto) 30 12-44 % Monocytes (%) (Auto) 11 0-12 % Eosinophils (%) (Auto) 2 0-10 % Basophils (%) (Auto) 0 0-10 % Neutrophils # (Auto) 3.1 1.8-7.8 10^3/uL Lymphocytes # (Auto) 1.6 1.0-4.0 10^3/uL Monocytes # (Auto) 0.6 0.0-1.0 10^3/uL Eosinophils # (Auto) 0.1 0.0-0.3 10^3/uL Basophils # (Auto) 0.0 0.0-0.1 10^3/uL Immature Granulocyte # (Auto) 0.0 0.0-0.1 10^3/uL Sodium Level 143 135-145 MMOL/L Potassium Level 3.7 3.6-5.0 MMOL/L Chloride Level 109 H 98-107 MMOL/L Carbon Dioxide Level 23 21-32 MMOL/L Anion Gap 11 5-14 MMOL/L Blood Urea Nitrogen 18 7-18 MG/DL Creatinine 1.20 0.60-1.30 MG/DL Estimat Glomerular Filtration Rate 64 BUN/Creatinine Ratio 15 Glucose Level 158 H 70-105 MG/DL Calcium Level 9.0 8.5-10.1 MG/DL Corrected Calcium 9.4 8.5-10.1 MG/DL Total Bilirubin 0.4 0.1-1.0 MG/DL Aspartate Amino Transf (AST/SGOT) 14 5-34 U/L Alanine Aminotransferase (ALT/SGPT) 12 0-55 U/L Alkaline Phosphatase 43 40-136 U/L Total Protein 6.4 6.4-8.2 GM/DL Albumin 3.5 3.2-4.5 GM/DL Diagnosis/Problems Diagnosis/Problems (1) Hypertensive urgency Status: Acute Assessment & Plan: I restarted a lower dose of doxazosin on 03/13 and his blood pressure has now improved. His losartan was discontinued due to worsening renal function. I discontinued long-acting nitrates because in general, these do not have a good antihypertensive effect. To my knowledge, he has not been having any angina and he is also on nebivolol. If his blood pressure remains controlled, he can probably be discharged with the current combination of medic ations. (2) History of hemorrhagic cerebrovascular accident (CVA) with residual deficit Assessment & Plan: He has residual weakness following the stroke that occurred in September 2019. He has not had any new neurologic complaints during this admission although has had some intermittent headaches. He had a head CT at the time of this admission that did not show any evidence of new hemorrhaging. (3) Tachycardia Assessment & Plan: He apparently had some sort of tachycardia with a previous ablation. He has not had significant tachycardia documented here in the hospital. We will continue beta-victor m (4) Mixed hyperlipidemia Assessment & Plan: ToHis LDL level was slightly elevated. 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 (6) Essential tremor Assessment & Plan: He has had essential tremor for the past several years. He had seen a neurologist in the past and was told this was not due to Parkinson's disease. Beta-victor m can often help with this condition. SAE LOPEZ JR, MD Mar 14, 2022 10:56
[2022-03-14 11:02] VITALS: BP 162/72
--- NOTE | 2022-03-14 11:08 | Progress Note - Hospitalist ---
Subjective HPI/CC On Admission Date Seen by Provider: Mar 14, 2022 Time Seen by Provider: 09:55 Subjective/Events-last exam He is feeling better. His headache is resolved. He denies pain. He denies shortness of breath. He has been up and moving around. His appetite is good. Objective Exam Vital Signs Vital Signs Date Time Temp Pulse Resp B/P (MAP) Pulse Ox O2 Delivery O2 Flow Rate FiO2 03/14/22 11:02 37.0 70 18 162/72 (102) 95 Room Air Capillary Refill : Less Than 3 Seconds General Appearance: No Apparent Distress, WD/WN Respiratory: Lungs Clear, No Respiratory Distress Cardiovascular: Regular Rate, Rhythm, No Murmur Gastrointestinal: Normal Bowel Sounds, Soft Extremity: Normal Inspection, No Pedal Edema Neurologic/Psychiatric: Alert, Normal Mood/Affect, Other (tremor) Skin: Normal Color, Warm/Dry Results/Procedures Lab Laboratory Tests 03/14/22 06:03 Patient resulted labs reviewed. Assessment/Plan Assessment and Plan Assess & Plan/Chief Complaint HTN urgency Continue Nebivolol, Clonidine, Amlodipine, and Doxazosin Additional Clonidine as needed Debility PT/OT T2DM Sliding scale insulin GERD Depression Seizure disorder Continue home meds DVT prophylaxis: Lovenox Diagnosis/Problems Diagnosis/Problems (1) Hypertensive urgency Status: Acute (2) Debility Status: Acute (3) Seizure disorder Status: Chronic (4) T2DM (type 2 diabetes mellitus) Status: Chronic (5) GERD (gastroesophageal reflux disease) Status: Chronic (6) Depression Status: Chronic CINTHIA HEARD MD Mar 14, 2022 11:08
[2022-03-14] MEDS ORDERED: cloNIDine 0.1 MG (CATAPRES) TAB PO PRN (11:15)
[2022-03-14 16:14] VITALS: BP 168/75
[2022-03-14 20:00] VITALS: BP 144/63
[2022-03-14] MEDS: doxAzosin 2 MG (CARDURA) TAB PO SCH (20:29)
[2022-03-14] MEDS: SERTRALINE 50 MG (ZOLOFT) TABLET PO SCH (20:29)
[2022-03-14 23:11] VITALS: BP 156/68
[2022-03-15 03:20] VITALS: BP 154/72
[2022-03-15] MEDS: inSUlin ASPART (NovoLOG) 1 UNIT/0.01 ML (CHARGE PER UNIT) SC SCH (05:42)
[2022-03-15 05:53] LABS: BASOPHILS % (AUTO) 0 % (0-10); EOSINOPHILS # (AUTO) 0.1 10^3/uL (0.0-0.3); EOSINOPHILS % (AUTO) 2 % (0-10); HEMATOCRIT 36 % (40-54); LYMPHOCYTES # (AUTO) 1.8 10^3/uL (1.0-4.0); LYMPHOCYTES % (AUTO) 32 % (12-44); MEAN CORPUSCULAR HEMOGLOBIN 29 pg (25-34); MEAN CORPUSCULAR HGB CONC 34 g/dL (32-36); MEAN CORPUSCULAR VOLUME 86 fL (80-99); MEAN PLATELET VOLUME 10.7 fL (9.0-12.2); MONOCYTES # (AUTO) 0.5 10^3/uL (0.0-1.0); MONOCYTES % (AUTO) 9 % (0-12); NEUTROPHILS # (AUTO) 3.2 10^3/uL (1.8-7.8); NEUTROPHILS % (AUTO) 57 % (42-75); PLATELET COUNT 201 10^3/uL (130-400); WHITE BLOOD COUNT 5.6 10^3/uL (4.3-11.0)
[2022-03-15 06:08] LABS: ALBUMIN 3.7 GM/DL (3.2-4.5)
[2022-03-15 06:09] LABS: POTASSIUM 3.9 MMOL/L (3.6-5.0)
[2022-03-15 06:10] LABS: CALCIUM 9.1 MG/DL (8.5-10.1)
[2022-03-15 06:11] LABS: TOTAL PROTEIN 6.8 GM/DL (6.4-8.2)
[2022-03-15 06:13] LABS: BILIRUBIN,TOTAL 0.4 MG/DL (0.1-1.0)
[2022-03-15 06:15] LABS: CREATININE SERUM 1.43 MG/DL (0.60-1.30)
[2022-03-15 08:00] VITALS: BP 149/70
--- NOTE | 2022-03-15 08:20 | Progress Note ---
LYLY PABON 03/15/22 0820: Subjective Date Seen by a Provider: Mar 15, 2022 Time Seen by a Provider: 08:17 Subjective/Events-last exam Follow up for labile hypertension. Pt is awake and alert this morning. Pt states that they have not been having any headaches this morning and that they have been able to walk more since doing PT. Pt does have swelling in his right foot which he states he noticed on Tuesday. Review of Systems General: No Chills, No Night Sweats Pulmonary: No Dyspnea, No Cough Cardiovascular: No: Chest Pain, Palpitations Gastrointestinal: No: Nausea, Vomiting, Diarrhea, Constipation Genitourinary: No Dysuria, No Incontinence Objective Exam Last Set of Vital Signs Vital Signs Date Time Temp Pulse Resp B/P (MAP) Pulse Ox O2 Delivery O2 Flow Rate FiO2 03/15/22 03:20 36.7 66 18 154/72 (99) 97 Room Air Capillary Refill : Less Than 3 Seconds I&O Intake and Output 03/15/22 00:00 Intake Total 1600 ml Output Total 1475 ml Balance 125 ml Intake Oral 1600 ml Output Urine Total 1475 ml # Bowel Movements 1 General: Alert, Oriented X3, No Acute Distress HEENT: Atraumatic Neck: Supple Lungs: Clear to Auscultation Heart: Regular Rate, No Murmurs Extremities: No Clubbing, No Cyanosis Skin: No Rashes Neuro: Normal Speech Results Lab Laboratory Tests 03/14/22 11:01: Glucometer 263H 03/14/22 15:59: Glucometer 204H 03/14/22 20:43: Glucometer 172H 03/15/22 05:05: Glucometer 161H 03/15/22 05:19: White Blood Count 5.6, Red Blood Count 4.12L, Hemoglobin 12.0L, Hematocrit 36L, Mean Corpuscular Volume 86, Mean Corpuscular Hemoglobin 29, Mean Corpuscular Hemoglobin Concent 34, Red Cell Distribution Width 13.1, Platelet Count 201, Mean Platelet Volume 10.7, Immature Granulocyte % (Auto) 0, Neutrophils (%) (Auto) 57, Lymphocytes (%) (Auto) 32, Monocytes (%) (Auto) 9, Eosinophils (%) (Auto) 2, Basophils (%) (Auto) 0, Neutrophils # (Auto) 3.2, Lymphocytes # (Auto) 1.8, Monocytes # (Auto) 0.5, Eosinophils # (Auto) 0.1, Basophils # (Auto) 0.0, Immature Granulocyte # (Auto) 0.0, Sodium Level 142, Potassium Level 3.9, Chloride Level 108H, Carbon Dioxide Level 21, Anion Gap 13, Blood Urea Nitrogen 19H, Creatinine 1.43H, Estimat Glomerular Filtration Rate 52, BUN/Creatinine Ratio 13, Glucose Level 145H, Calcium Level 9.1, Corrected Calcium 9.3, Total Bilirubin 0.4, Aspartate Amino Transf (AST/SGOT) 15, Alanine Aminotransferase (ALT/SGPT) 15, Alkaline Phosphatase 48, Total Protein 6.8, Albumin 3.7 Assessment/Plan Assessment/Plan Assess & Plan/Chief Complaint 1. Hypertensive Urgency/Labile Hypertension--on doxazosin, clonidine, nebivolol, and amlodipine. Monitor pulse for bradycardia. Cardiology consulted. 2. History of Renal Failure with current mild renal insufficiency--monitor BUN/Cr 3. Weakness- Patient is improving with PT/OT. 4. Diabetes- Have been monitoring blood glucose levels. VICTORIA BARRON DO 03/15/22 1756: Supervisory-Addendum Brief Verification & Attestation Participated in pt care: history, physical Personally performed: exam, history, supervision of care Care discussed with: Medical Student Procedures: n/a Results interpretation: Verified all documentation Patient seen and evaluated. Plan for DC to home with HH. See DC summary. LYLY PABON Mar 15, 2022 08:20 VICTORIA BARRON DO Mar 15, 2022 17:56
[2022-03-15] MEDS ORDERED: CLN.1T PO ×2 (08:39)
[2022-03-15] MEDS ORDERED: PRED5TAB PO (08:39)
[2022-03-15] MEDS ORDERED: AMLO-250 PO (08:39)
[2022-03-15] MEDS ORDERED: NFNEB10T PO (08:39)
[2022-03-15] MEDS ORDERED: DOXA2TAB2 PO (08:40)
--- NOTE | 2022-03-15 08:43 | D/C HH Face to Face Order ---
D/C Face to Face Orders Reconcile Patient Problems Problems Reviewed?: Yes Instructions for Patient Via [facility], Patient Instructions/FollowUp: Fwup with Dr. Liz on Mar 25 as scheduled Physician to follow Patient: Shalonda Discharge Diet for Home: ADA Diet Patient Data-Allergies,Ht & Wt Patient Allergies: Coded Allergies: aspirin (Verified Allergy, Severe, CHOKING, 04/16/16) acetaminophen (Verified Allergy, Mild, 04/16/16) hydrocodone (Verified Allergy, Mild, 04/16/16) fentanyl (Verified Allergy, Unknown, BREATHING TROUBLE, pt has rec meperidine in the past, 03/03/21) ONLY PATCH NOT INTRAVENOUS FENTANYL gabapentin (Verified Allergy, Unknown, 03/05/22) hydralazine (Verified Allergy, Unknown, 03/05/22) oxycodone (Verified Allergy, Unknown, NIGHTMARES, 03/02/21) Height (Feet): 6 Height (Inches): 1.00 Weight (Pounds): 190 Weight (Ounces): 14.0 Home Health Need/Face to Face Date of Face to Face: Mar 15, 2022 Clinical Findings: Generalized weakness and fatigue, Muscle weakness, Unsteady gait I have seen Pt [id number]: Yes Discharged To: Home Diagnosis/Conditions: Labile Hypertension Weakness DMII Patient is Homebound due to: Muscle weakness Homebound Status Due to the above stated illness, injury or surgical procedure (medical condition or diagnosis) and associated clinical findings, the patient is homebound because of his/her inability to leave home except with aid of a supportive device and/or person AND leaving the home requires a considerable and taxing effort or is medically contraindicated. Pt req the following assistanc: Walker Home Health Nursing Orders Home Health Services Order: Nursing Services, Physical Therapy-Evaluate & Treat Home Health Infusion Therapy Line Start Date: Mar 05, 2022 Certify Stmt I certify that this patient is under my care and that I, a nurse practitioner or a physician; a integration assistant working with me, had a face to face encounter that - meets the physician face to face encounter requirements with this patient as dated. VICTORIA LIZ DO Mar 15, 2022 08:43
[2022-03-15] MEDS: cloNIDine 0.1 MG (CATAPRES) TAB PO SCH (09:07)
[2022-03-15] MEDS: amLODIPine 5 MG (NORVASC) TAB PO SCH (09:07)
[2022-03-15] MEDS: NEBIVOLOL 10 MG PO SCH (09:07)
[2022-03-15 09:43] VITALS: BP 149/70
--- NOTE | 2022-03-15 09:57 | Cardiology Progress Note ---
Subjective Date Seen by Provider: Mar 15, 2022 Time Seen by Provider: 08:00 Subjective/Events-last exam Patient was seen at bedside, laying down comfortably and feeling better Review of Systems General: No Chills, No Night Sweats, No Fatigue, No Malaise, No Appetite, No Other HEENT: No Head Aches, No Visual Changes, No Eye Pain, No Ear Pain, No Dysphasia, No Sinus Congestion, No Post Nasal Drip, No Sore Throat, No Other Pulmonary: No Dyspnea, No Cough, No Pleuritic Chest Pain, No Other Cardiovascular: No: Chest Pain, Palpitations, Orthopnea, Paroxysmal Noc. Dyspnea, Edema, Lt Headedness, Other Objective-Cardiology Exam Last Set of Vital Signs Vital Signs 03/15/22 09:43 Temp 36.8 Pulse 62 Resp 20 B/P (MAP) 149/70 Pulse Ox 95 O2 Delivery Room Air I&O Intake and Output 03/15/22 00:00 Intake Total 1600 ml Output Total 1475 ml Balance 125 ml Intake Oral 1600 ml Output Urine Total 1475 ml # Bowel Movements 1 General: Alert, Oriented X3, No Acute Distress HEENT: Atraumatic Neck: Supple Lungs: Clear to Auscultation Heart: Regular Rate, No Murmurs Abdomen: Normal Bowel Sounds, Soft, No Tenderness, No Hepatosplenomegaly, No Masses Extremities: No Clubbing, No Cyanosis Skin: No Rashes Neuro: Normal Speech Psych/Mental Status: Mental Status NL, Mood NL Results Lab Laboratory Tests 03/15/22 05:19 A/P-Cardiology Admission Diagnosis Hypertensive emergency Change in mental status Acute renal insufficiency Peripheral edema Assessment/Plan Hypertensive emergency. Labile blood pressure Intolerance to hydralazine with questionable lupus-like symptoms resulted in renal failure Intolerance to LU inhibitor and/or ARB and or diuretics. Intolerance to calcium channel blockers with bradycardia Intolerant to high-dose clonidine due to generalized fatigue and loss of energy. Intolerant to losartan with worsening renal failure Blood pressure improved over the weekend, feeling better today. 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 History of seizure activity, following with a neurologist in [place] History of tachycardia, underwent ablation in 2011 at . Acute on chronic renal insufficiency. Mild deterioration of renal function History of renal failure. Following with a media marketing coordinator in [place] Consider nephrology consultation Peripheral edema on and off, currently stable. Will use diuretics cautiously Diabetes mellitus, followed and managed by primary care physician BASIL SHIPLEY MD Mar 15, 2022 09:57
--- NOTE | 2022-03-15 18:02 | Discharge Summary ---
Diagnosis/Chief Complaint Date of Admission Mar 05, 2022 at 19:43 Date of Discharge Mar 15, 2022 at 09:47 Discharge Date: Mar 15, 2022 Discharge Diagnosis 1. Hypertensive Urgency with ongoing Labile Hypertension 2. History of Intracranial Hemorrhage--CTA of head negative 3. History of Renal Failure with acute renal insufficiency 4. Anxiety--stable 5. DMII--stable 6. Weakness--improving 7. Tremors of Arms--Right greater than Left--stable 8. Vision Change--stable 9. Cephalgia--improved Reason Hospital Visit This is a 71 year old male with a history of labile hypertension, intracranial hemorrhage and renal failure. He had weaned off of several of his medications recently due to low blood pressure as well as less edema and pain. The past 1-2 weeks he had been having some elevated blood pressures so his doxazosin dose was increased. Yesterday his systolic blood pressure was up to 200 and he had some altered mental status and weakness so he was brought to the emergency room and found to be in hypetensive urgency. CTA of head showed no evidence of intracranial hemorrhage. He was started on a Cardene drip and admitted to the ICU with cardiology consult. Discharge Summary Hospital Course Was the Problem List Reviewed?: Yes Hospital Course This is a 71 year old male with a history of labile hypertension, intracranial hemorrhage and renal failure. He had weaned off of several of his medications recently due to low blood pressure as well as less edema and pain. The past 1-2 weeks he had been having some elevated blood pressures so his doxazosin dose was increased. The day of his admission, his systolic blood pressure was up to 200 and he had some altered mental status and weakness so he was brought to the emergency room and found to be in hypetensive urgency. CTA of head showed no evidence of intracranial hemorrhage. He was started on a Cardene drip and admitted to the ICU with cardiology consult. He remained in the ICU for 4 days due to having to be put back on a Cardene drip overnight due to blood pressure spikes. His oral blood pressure medications were adjusted during that time and he became very weak with difficulty ambulating so the clonidine had to be decreased. His BUN and creatinine also started to rise so the losartan had to be discontinued. Imdur was tried but he had headaches with the imdur so it also had to be discontinued. His metoprolol was change to nevibilol and amlodopine was added. His pulse remained in the 60s even with the bystolic, amlodopine and clonidine. Doxazosin 4mg was discontinued due to dizzines but had to be restarted at a lower dose of 4mg prior to discharge. He has been up walking up to 800 feet with PT and is feeling much better with much better blood pressure c ontrol so he will be discharged home with home health for nursing due to numerous medication changes as well as continued PT for strengthening. He will be discharged home on bystolic 20mg po BID, amlodopine 5mg po BID, clonidine 0.1mg po TID and doxazosin 4mg po q HS. He can use extra clonidine 0.1mg with clonazepam 0.5mg po prn for BP greater than 160/90. He will call to move his optometry appointment up from April to as soon as possible. He will follow up with me in my office on March 25 as scheduled. He has been warned of edema in his legs due to the amlodopine and instructed to stick to a low Na diet and wear his compression socks. Labs Laboratory Tests 03/12/22 20:05: Glucometer 221H 03/13/22 05:10: Glucometer 163H 03/13/22 05:42: Red Blood Count 3.95L, Hemoglobin 11.6L, Hematocrit 34L, Chloride Level 108H, Blood Urea Nitrogen 19H, Glucose Level 165H, HDL Cholesterol 34L 03/13/22 11:03: Glucometer 242H 03/13/22 15:05: Glucometer 187H 03/13/22 20:05: Glucometer 269H 03/14/22 05:08: Glucometer 157H 03/14/22 06:03: Red Blood Count 4.01L, Hemoglobin 11.6L, Hematocrit 35L, Chloride Level 109H, Glucose Level 158H 03/14/22 11:01: Glucometer 263H 03/14/22 15:59: Glucometer 204H 03/14/22 20:43: Glucometer 172H 03/15/22 05:05: Glucometer 161H 03/15/22 05:19: Red Blood Count 4.12L, Hemoglobin 12.0L, Hematocrit 36L, Chloride Level 108H, Blood Urea Nitrogen 19H, Creatinine 1.43H, Glucose Level 145H Procedures None. Discharge Physical Examination Allergies: Coded Allergies: aspirin (Verified Allergy, Severe, CHOKING, 04/16/16) acetaminophen (Verified Allergy, Mild, 04/16/16) hydrocodone (Verified Allergy, Mild, 04/16/16) fentanyl (Verified Allergy, Unknown, BREATHING TROUBLE, pt has rec meperidine in the past, 03/03/21) ONLY PATCH NOT INTRAVENOUS FENTANYL gabapentin (Verified Allergy, Unknown, 03/05/22) hydralazine (Verified Allergy, Unknown, 03/05/22) oxycodone (Verified Allergy, Unknown, NIGHTMARES, 03/02/21) Vitals & I&Os Vital Signs Date Time Temp Pulse Resp B/P (MAP) Pulse Ox O2 Delivery O2 Flow Rate FiO2 03/15/22 09:43 36.8 62 20 149/70 95 Room Air General Appearance: Alert, Oriented X3 Respiratory: Clear to Auscultation Cardiovascular: Regular Rate Abdominal: Normal Bowel Sounds, Soft, No Tenderness Neuro: Other (right arm tremor) Psych/Mental Status: Mental Status NL, Mood NL Discharge Home Medications Reviewed and agree with Discharge Medication list on patient's Discharge Inst ruction sheet Instructions to Patient/Family Please see electronic discharge instructions given to patient. VICTORIA BARRON DO Mar 15, 2022 18:02
== END 2022-03-15 09:47 | disposition home health service (06) | DRG 305 ==
LOC: EDUNIT# 17:14 → ER 17:16 → ICU 19:43 → 4TH 03-11 10:29
PROVIDERS: ADMIT Family Medicine; ATTEND Family Medicine
PROC: 4A03X5D Measurement of Arterial Flow, Intracranial, External Approach (ICD-10-PCS; principal; 2022-03-05)
DX: I16.1 Hypertensive emergency (principal); I69.154 Hemiplegia and hemiparesis following nontraumatic intracerebral hemorrhage affecting left non-dominant side; F41.9 Anxiety disorder, unspecified; E87.8 Other disorders of electrolyte and fluid balance, not elsewhere classified; G40.909 Epilepsy, unspecified, not intractable, without status epilepticus; R27.0 Ataxia, unspecified; R60.9 Edema, unspecified; E11.22 Type 2 diabetes mellitus with diabetic chronic kidney disease; I12.9 Hypertensive chronic kidney disease with stage 1 through stage 4 chronic kidney disease, or unspecified chronic kidney disease; E78.2 Mixed hyperlipidemia; R00.0 Tachycardia, unspecified; N18.31 Chronic kidney disease, stage 3a; G25.0 Essential tremor; F32.A Depression, unspecified; K21.9 Gastro-esophageal reflux disease without esophagitis; R53.81 Other malaise
CPT/HCPCS: 36415; 70450; 70496; 70498; 80053; 80061; 82384; 82947; 83735; 84100; 84439; 84443; 85025; 93005; 93041; 93306; 96361; 96374; 96375

== ENCOUNTER → 2022-04-05 | Outpatient (CLI) | payer MEDICARE ==
[~2022-04-05] MED LIST changes: +AMLO-250 PO; +DOXA2TAB2 PO; +ERGO1250 PO; +NFNEB10T PO; +PRED5TAB PO
--- NOTE | 2022-04-05 18:35 | Diagnostic Imaging Report ---
PROCEDURE: US Thyroid. TECHNIQUE: Multiple real-time grayscale images were obtained of the thyroid in various projections. INDICATION: Abnormal thyroid function tests. Both lobes of the thyroid gland are enlarged. Right lobe measures 7.0 x 2.6 x 2.9 cm and the left lobe measures 7.0 x 2.3 x 2.7 cm. Isthmus is 6 mm in thickness. Both lobes are fairly homogeneous. There is a cyst in the upper pole of the right lobe of the thyroid which appears to be fairly simple measuring 13 x 6 x 10 mm. Several subcentimeter nodules are identified in the mid to lower portion of the left lobe of the thyroid, largest 6 mm x 5 mm x 4 mm. No dominant thyroid mass is detected. IMPRESSION: Thyromegaly. There are bilateral thyroid nodules, as described. No dominant thyroid mass is detected. Dictated by: Dictated on workstation # [id number]
== END ==
LOC: RAD 13:00
PROVIDERS: ATTEND Family Medicine
DX: E04.2 Nontoxic multinodular goiter (principal)
CPT/HCPCS: 76536

== ENCOUNTER 2022-04-13 02:21 | Inpatient (IN) | payer MEDICARE ==
[~2022-04-13] VITALS: Ht 182 cm; Wt 88.5 kg
[2022-04-13] VITALS (7 sets, daily range): BP systolic 120–159; BP diastolic 51–67
[2022-04-13] MEDS ORDERED: morphine INJ 10 MG/ML 1ML (SYR OR VIAL) IVP STA ×2 (02:43→05:15)
[2022-04-13] MEDS ORDERED: ONDANSETRON 4 MG/2 ML (SDV) Z0FRAN IVP ONE (02:45)
[2022-04-13] MEDS ORDERED: KETOROLAC 30 MG/ML VIAL IVP STA (02:50)
[2022-04-13 03:15] LABS: BASOPHILS % (AUTO) 0 % (0-10); EOSINOPHILS # (AUTO) 0.1 10^3/uL (0.0-0.3); EOSINOPHILS % (AUTO) 1 % (0-10); HEMATOCRIT 34 % (40-54); HEMOGLOBIN 11.6 g/dL (13.3-17.7); LYMPHOCYTES # (AUTO) 1.9 10^3/uL (1.0-4.0); LYMPHOCYTES % (AUTO) 18 % (12-44); MEAN CORPUSCULAR HEMOGLOBIN 29 pg (25-34); MEAN CORPUSCULAR HGB CONC 34 g/dL (32-36); MEAN CORPUSCULAR VOLUME 85 fL (80-99); MEAN PLATELET VOLUME 10.5 fL (9.0-12.2); MONOCYTES # (AUTO) 0.8 10^3/uL (0.0-1.0); MONOCYTES % (AUTO) 8 % (0-12); NEUTROPHILS # (AUTO) 7.6 10^3/uL (1.8-7.8); NEUTROPHILS % (AUTO) 73 % (42-75); PLATELET COUNT 215 10^3/uL (130-400); WHITE BLOOD COUNT 10.4 10^3/uL (4.3-11.0)
[2022-04-13 03:25] LABS: BILIRUBIN,URINE NEGATIVE (NEGATIVE); CLARITY,URINE CLEAR; COLOR,URINE YELLOW; GLUCOSE, URINE (UA) 2+ (NEGATIVE); KETONES,URINE NEGATIVE (NEGATIVE); LEUKOCYTE ESTERASE ,URINE NEGATIVE (NEGATIVE); NITRITE,URINE NEGATIVE (NEGATIVE); PH,URINE 5.5 (5-9); PROTEIN,URINE TRACE (NEGATIVE)
[2022-04-13 03:32] LABS: MAGNESIUM 2.3 MG/DL (1.6-2.4)
[2022-04-13 03:35] LABS: BACTERIA,URINE NEGATIVE /HPF; HYALINE CASTS, URINE RARE /LPF
[2022-04-13 03:35] LABS: ERYTHROCYTE SEDIMENTATION RATE 30 MM/HR (0-30)
[2022-04-13 03:53] LABS: ALBUMIN 4.1 GM/DL (3.2-4.5); POTASSIUM 4.4 MMOL/L (3.6-5.0)
[2022-04-13 03:54] LABS: CALCIUM 9.2 MG/DL (8.5-10.1)
[2022-04-13 03:57] LABS: BILIRUBIN,TOTAL 0.4 MG/DL (0.1-1.0)
[2022-04-13 03:59] LABS: CREATININE SERUM 2.32 MG/DL (0.60-1.30)
--- NOTE | 2022-04-13 04:33 | ED General ---
General Chief Complaint: Abdominal/GI Problems Stated Complaint: HIGH BLOOD PRESSURE 203/91,VOMITNG Nursing Triage Note: PT ARRIVAL TO ER VIA WHEELCHAIR WITH COMPLAINT OF ABDOMINAL PAIN, N/V SINCE 2199. PT ALSO COMPLAINS OF HYPERTENSION, BUT DID TAKE AN EXTRA CLONIDINE JUST PRIOR TO ARRIVAL TO ER. DAUGHTER WHO IS AT BEDSIDE STATES THAT HE HAS HAD SCANS AND MRI'S WITH NO ABNORMAL FINDINGS. PAIN IS SHARP AT A 8/10. Source of Information: Patient, Other (DAUGHTER) (MUNIR MATTHEW DO) History of Present Illness Date Seen by Provider: Apr 13, 2022 Time Seen by Provider: 02:35 Initial Comments PT ARRIVES VIA POV FROM HOME, WHEELCHAIR ON ARRIVAL PT STATES HE HAS HAD SEVERE, INTERMITTENT LOWER ABDOMINAL PAIN SINCE 2199 HAS HAD NAUSEA AND VOMITED X 2 HAD NORMAL BM TODAY NO URINARY SYMPTOMS NO FEVER NO BACK PAIN PT STATES HE HAS BEEN HAVING THESE PROBLEMS "ON AND OFF FOR A LONG TIME--THEY ME A SHOT FOR PAIN AND THEN PUT ME ON A DRIP FOR MY BLOOD PRESSURE--CARDENE DRIP" PT STATES HE HAS HAD "ALL KINDS OF SCANS AND MRI'S AND THEY CAN'T EVER FIND ANYTHING" ( ON REVIEW OF OLD RECORDS, PT HAS BEEN DX WITH KIDNEY STONES, LAST TIME WAS 02/2021--ON DISCUSSING THIS WITH PT AND DAUGHTER, THEY NOW STATE THAT HE HAS HAD KIDNEY STONES SEVERAL TIMES" NO COUGH OR URI SYMPTOMS NO SHORTNESS OF BREATH NO CHEST PAIN NO PALPITATIONS NO DIZZINESS NO SYNCOPE NO HEADACHE NO VISION CHANGES NO PARESTHESIAS OR MOTOR DEFICITS HAS BEEN CHECKING HIS BLOOD PRESSURE SINCE THE PAIN BEGAN AT 2200, AND IT HAS BEEN HIGH 203 SYSTOLIC PT HAS BEEN TOLD TO TAKE CLONIDINE EVERY HOUR, ALONG WITH A CLONAZEPAM IF HIS BLOOD PRESSURE IS > 160/90. HE TOOK A CLONIDINE AND A CLONAZEPAM AT 2200 AND AGAIN AT 0200 WITHOUT RELIEF PT HAS HAD AN INTRACRANIAL BLEED THEN A SEIZURE DUE TO SEVERELY ELEVATED BLOOD PRESSURE IN THE PAST PT HOSPITALIZED 03/03/22-03/15/22 FOR HYPERTENSIVE URGENCY. HAS NOT TAKEN ANYTHING FOR PAIN AT ANY TIME. (MUNIR MATTHEW DO) Allergies and Home Medications Allergies Coded Allergies: aspirin (Verified Allergy, Severe, CHOKING, 04/16/16) acetaminophen (Verified Allergy, Mild, 04/16/16) hydrocodone (Verified Allergy, Mild, 04/16/16) fentanyl (Verified Allergy, Unknown, BREATHING TROUBLE, pt has rec meperidine in the past, 03/03/21) ONLY PATCH NOT INTRAVENOUS FENTANYL gabapentin (Verified Allergy, Unknown, 03/05/22) hydralazine (Verified Allergy, Unknown, 03/05/22) oxycodone (Verified Allergy, Unknown, NIGHTMARES, 03/02/21) Patient Home Medication List Home Medication List Reviewed: Yes (MATT CESPEDES MD) Amlodipine Besylate (Amlodipine Besylate) 5 Mg Tablet, 5 MG PO BID Prescribed by: VICTORIA LIZ on 03/15/22 0839 Clonidine HCl (Clonidine HCl) 0.1 Mg Tablet, 0.1 MG PO BID PRN for BLOOD PRESSURE Prescribed by: VICTORIA LIZ on 03/15/22 0839 Clonidine HCl (Clonidine HCl) 0.1 Mg Tablet, 0.1 MG PO TID PRN for SYSTOLIC BLOOD PRESSURE Prescribed by: VICTORIA LIZ on 03/15/22 0839 Doxazosin Mesylate (Doxazosin Mesylate) 2 Mg Tablet, 4 MG PO HS Prescribed by: VICTORIA LZI on 03/15/22 0840 Ergocalciferol (Vitamin D2) (Vitamin D2) 1,250 Mcg (70706 Unit) Capsule, 1,250 MCG PO THUR, (Reported) Entered as Reported by: RUPALI CHAUHAN on 03/08/22 1044 Glipizide (Glipizide ER) 5 Mg Tab.er.24, 10 MG PO 1300 AFTER MEAL, (Reported) Entered as Reported by: RUPALI CHAUHAN on 03/08/22 1044 Glipizide (Glipizide ER) 5 Mg Tab.er.24, 5 MG PO DAILY , (Reported) Entered as Reported by: RUPALI CHAUHAN on 03/08/22 1044 Levetiracetam (Levetiracetam) 500 Mg Tablet, 500 MG PO BID, (Reported) Entered as Reported by: VICENTE ALVAREZ on 11/27/21 1113 Nebivolol HCl (Bystolic) 10 Mg Tab, 20 MG PO BID Prescribed by: VICTORIA LIZ on 03/15/22 0839 Pantoprazole Sodium (Pantoprazole Sodium) 40 Mg Tablet.dr, 40 MG PO DAILY, (Reported) Entered as Reported by: RUPALI CHAUHAN on 03/08/22 1044 Prednisone (Prednisone) 5 Mg Tablet, 5 MG PO DAILY Prescribed by: VICTORIA LIZ on 03/15/22 0839 Sertraline HCl (Sertraline HCl) 50 Mg Tablet, 50 MG PO HS, (Reported) Entered as Reported by: VICENTE ALVAREZ on 11/27/21 1113 Review of Systems Review of Systems Constitutional: no symptoms reported EENTM: no symptoms reported Respiratory: no symptoms reported Cardiovascular: see HPI; No chest pain, No edema, No palpitations, No syncope Gastrointestinal: see HPI, abdominal pain; No constipation, No diarrhea; nausea, vomiting Genitourinary: no symptoms reported Musculoskeletal: no symptoms reported Skin: no symptoms reported Psychiatric/Neurological: See HPI, Anxiety; Denies Headache, Denies Numbness, Denies Paresthesia, Denies Seizure, Denies Tingling, Denies Tremors, Denies Weakness Hematologic/Lymphatic: No Symptoms Reported Immunological/Allergic: no symptoms reported (MUNIR MATTHEW DO) Past Zkazmdr-Vlirpc-Ydjoso Hx Patient Social History Tobacco Use?: No Use of E-Cig and/or Vaping dev: No Substance use?: No Alcohol Use?: No Pt feels they are or have been: No (MUNIR MATTHEW DO) Immunizations Up To Date Influenza Vaccine Up-to-Date: Yes; Up-to-Date First/Initial COVID19 Vaccinat: SEPTEMBER 2020 ARTEMIO/ARTEMIO Second COVID19 Vaccination Lukas: 2020 MODERNA Third COVID19 Vaccination Date: NO (MUNIR MATTHEW DO) Seasonal Allergies Seasonal Allergies: No (MUNIR MATTHEW DO) Past Medical History Surgery/Hospitalization HX: kidney stones, HTN, diabetic, muscle spams, abdominal pain Surgeries: Yes (APPENDECTOMY, HERNIA REPAIRS, ABLATION 2011, BASKET STONE RETRIEVAL) Abdominal, Appendectomy, Cardiac, Renal Respiratory: No Currently Using CPAP: No Currently Using BIPAP: No Cardiac: Yes (SVT, HEART ABLATION DECEMBER 2011) Hypertension Neurological: Yes (NERVE DAMAGE, MUSCLE SPASMS,TREMOR; intracranial hemorrhage) Seizure Disorder, Stroke Reproductive Disorders: No Genitourinary: Yes Kidney Stones Gastrointestinal: Yes (INGUIMAL HERNIA) Hiatal Hernia Musculoskeletal: Yes (C7 CERVICAL SPINE FX--NO SURGERY) Fractures Endocrine: Yes Diabetes, Non-Insulin dep HEENT: Yes (EYE LID SURGERY) Cancer: No Psychosocial: Yes Anxiety Integumentary: No Blood Disorders: No (GEORGIAMUNIR Buddy MOONEY) Family Medical History Cancer 03 FATHER (SKIN CANCER) 03 MOTHER (LUNG CANCER) Cataract 03 FATHER Congestive heart failure 03 MOTHER Dementia 03 MOTHER Family history: Diabetes mellitus 03 FATHER Family history: Hypertension 03 FATHER 03 MOTHER Family history: Osteoporosis 03 MOTHER Family history: Thyroid disorder 03 FATHER (HYPERTHYROIDISM) Hearing loss 03 FATHER No Family History of: Abdominal aortic aneurysm [place] disease Alcoholism Aphasia Cancer of colon Chest pain Congenital heart disease Cystic fibrosis Dysphagia Family history: Allergy Family history: Alzheimer's disease Family history: Arthritis Family history: Asthma Family history: Breast disease Family history: Cardiovascular disease Family history: Coronary thrombosis Family history: Gastrointestinal disease Family history: Glaucoma Headache Heart disease Hereditary disease History of - anemia History of - disorder History of - respiratory disease History of drug abuse Human immunodeficiency virus (HIV) seropositivity Hypercholesterolemia Infertile Kidney disease Malignant neoplasm of lung Myocardial infarction Parkinson's disease Prostate cancer Psychotic disorder Seizure disorder Stroke Tuberculosis Visual impairment Cerebral Aneurysm, Diabetes, Stroke (GEORGIAMUNIR Goodwin ) Physical Exam Vital Signs Vital Signs - First Documented 04/13/22 02:26 Temp 36.8 Pulse 85 Resp 20 B/P (MAP) 198/85 (122) Pulse Ox 99 O2 Delivery Room Air (MATT CESPEDES MD) Vital Signs Capillary Refill : Less Than 3 Seconds (GEORGIAMUNIR Goodwin ) Height, Weight, BMI Height: 6'1.00" Weight: 190lbs. 14.0oz. 86.620809cr; 24.89 BMI Method:Stated General Appearance: No Apparent Distress, WD/WN, Anxious, Other (PERIODICALLY SCREAMS AND CLUTCHES HIS LOWER ABDMEN/SUPRAPUBIC AREA AND GROIN AREA. ANXIOUS. TREMORS. REMAINS IN POSITION, HOLDING LOWER ABDOMEN) HEENT: PERRL/EOMI Neck: Normal Inspection Respiratory: Normal Breath Sounds, No Accessory Muscle Use, No Respiratory Distress Cardiovascular: Regular Rate, Rhythm, No Murmur Gastrointestinal: Soft, Tenderness (DIFFUSE SUPRAPUBIC TENDERNESS. PT REMAINS IN POSITION, AND WILL NOT STRAIGHTEN LEGS, EXAM LIMITED DUE TO THIS. ) Back: No CVA Tenderness Extremity: Normal Range of Motion, No Pedal Edema Neurologic/Psychiatric: Alert, Oriented x3, No Motor/Sensory Deficits, Other (VERY ANXIOUS. RESTING TREMORS --MOST PRONOUNCED IN RIGHT HAND AND LEFT FO) Skin: Normal Color, Warm/Dry (MUNIR MATTHEW DO) Progress/Results/Core Measures Suspected Sepsis SIRS Temperature: Pulse: 85 Respiratory Rate: 20 Laboratory Tests 04/13/22 03:04: White Blood Count 10.4 Blood Pressure 198 /85 Mean: 122 Laboratory Tests 04/13/22 03:04: Creatinine 2.32H, Platelet Count 215, Total Bilirubin 0.4 (GEORGIAMUNIR Goodwin ) Results/Orders Lab Results Laboratory Tests Test 04/13/22 03:04 04/13/22 03:23 Range/Units White Blood Count 10.4 4.3-11.0 10^3/uL Red Blood Count 4.02 L 4.30-5.52 10^6/uL Hemoglobin 11.6 L 13.3-17.7 g/dL Hematocrit 34 L 40-54 % Mean Corpuscular Volume 85 80-99 fL Mean Corpuscular Hemoglobin 29 25-34 pg Mean Corpuscular Hemoglobin Concent 34 32-36 g/dL Red Cell Distribution Width 13.1 10.0-14.5 % Platelet Count 215 130-400 10^3/uL Mean Platelet Volume 10.5 9.0-12.2 fL Immature Granulocyte % (Auto) 0 % Neutrophils (%) (Auto) 73 42-75 % Lymphocytes (%) (Auto) 18 12-44 % Monocytes (%) (Auto) 8 0-12 % Eosinophils (%) (Auto) 1 0-10 % Basophils (%) (Auto) 0 0-10 % Neutrophils # (Auto) 7.6 1.8-7.8 10^3/uL Lymphocytes # (Auto) 1.9 1.0-4.0 10^3/uL Monocytes # (Auto) 0.8 0.0-1.0 10^3/uL Eosinophils # (Auto) 0.1 0.0-0.3 10^3/uL Basophils # (Auto) 0.0 0.0-0.1 10^3/uL Immature Granulocyte # (Auto) 0.0 0.0-0.1 10^3/uL Erythrocyte Sedimentation Rate 30 0-30 MM/HR Sodium Level 144 135-145 MMOL/L Potassium Level 4.4 3.6-5.0 MMOL/L Chloride Level 109 H 98-107 MMOL/L Carbon Dioxide Level 19 L 21-32 MMOL/L Anion Gap 16 H 5-14 MMOL/L Blood Urea Nitrogen 31 H 7-18 MG/DL Creatinine 2.32 H 0.60-1.30 MG/DL Estimat Glomerular Filtration Rate 29 BUN/Creatinine Ratio 13 Glucose Level 287 H 70-105 MG/DL Calcium Level 9.2 8.5-10.1 MG/DL Corrected Calcium 9.1 8.5-10.1 MG/DL Magnesium Level 2.3 1.6-2.4 MG/DL Total Bilirubin 0.4 0.1-1.0 MG/DL Aspartate Amino Transf (AST/SGOT) 15 5-34 U/L Alanine Aminotransferase (ALT/SGPT) 19 0-55 U/L Alkaline Phosphatase 38 L 40-136 U/L C-Reactive Protein High Sensitivity 0.11 0.00-0.50 MG/DL Total Protein 7.0 6.4-8.2 GM/DL Albumin 4.1 3.2-4.5 GM/DL Amylase Level 62 25-125 U/L Lipase 31 8-78 U/L Urine Color YELLOW Urine Clarity CLEAR Urine pH 5.5 5-9 Urine Specific [place] 1.025 H 1.016-1.022 Urine Protein TRACE H NEGATIVE Urine Glucose (UA) 2+ H NEGATIVE Urine Ketones NEGATIVE NEGATIVE Urine Nitrite NEGATIVE NEGATIVE Urine Bilirubin NEGATIVE NEGATIVE Urine Urobilinogen 0.2 < = 1.0 MG/DL Urine Leukocyte Esterase NEGATIVE NEGATIVE Urine RBC (Auto) TRACE-I H NEGATIVE Urine RBC NONE /HPF Urine WBC NONE /HPF Urine Crystals NONE /LPF Urine Bacteria NEGATIVE /HPF Urine Casts PRESENT /LPF Urine Hyaline Casts RARE /LPF Urine Mucus NEGATIVE /LPF Urine Culture Indicated NO (MATT CESPEEDS MD) My Orders Orders - MATT CESPEDES MD Ns (Ivpb) (Sodium C... W/Nicardipine Iv (04/13/22 06:45) Levetiracetam Injection (Keppra Injectio (04/13/22 06:38) (MATT CESPEDES MD) Medications Given in ED Current Medications Medications Dose Ordered Sig/Trae Route Start Time Stop Time Status Last Admin Dose Admin Ondansetron HCl 4 mg ONCE ONCE IVP 04/13/22 02:45 04/13/22 02:49 DC 04/13/22 03:08 4 MG (MATT CESPEDES MD) Vital Signs/I&O 04/13/22 04/13/22 02:26 07:00 Temp 36.8 Pulse 85 66 Resp 20 B/P (MAP) 198/85 (122) 188/81 Pulse Ox 99 O2 Delivery Room Air (MATT CESPEDES MD) Vital Signs/I&O Capillary Refill : Less Than 3 Seconds (MUNIR MATTHEW DO) Blood Pressure Mean: 122 Progress Note : Progress Note GIVEN: -IV FLUIDS -ZOFRAN -TORADOL PAIN RELIEVED, AND BP DOWN WITHOUT TREATMENT PT THEN WAS ABLE TO SLEEP PAIN STARTING TO COME BACK, MORPHINE GIVEN MARKED DELAY IN OBTAINING CT REPORT, DUE HIGH VOLUME WITH [facility]. 0600--CARE TURNED OVER TO DR. CESPEDES, CT RESULTS PENDING. (MUNIR MATTHEW DO) Progress Note #1: Time: 06:50 Progress Note I assumed care of this patient from Dr. Matthew at shift change. Verbal report was received. CT scan report arrived shortly after. Patient was found to have an incarcerated right inguinal hernia. I attempted to reduce the hernia after patient was treated with morphine. Patient was placed in Trendelenburg and a frog-leg position, but I was unable to reduce the hernia after multiple attempts. Dr. Salamanca was contacted. He will assess the patient and anticipates surgery this morning. Dr. LIZ was consulted for medical management. Nicardipine drip has been ordered for blood pressure management. His Keppra has been ordered for IV administration. I discussed CODE STATUS with patient and his daughter. He wishes to remain full code at this time. His daughter and are power of traffic law attorney should he ever be incapacitated. Patient's pain and nausea are controlled at this time. Progress Note #2: Time: 07:[address] Salamanca has been into the ER to evaluate the patient. He was unable to reduce the hernia and anticipates surgery soon. Report was given to eICU. (MATT CESPEDES MD) ECG Initial ECG Impression Date: Apr 13, 2022 Initial ECG Impression Time: 02:59 Initial ECG Rate: 66 Initial ECG Rhythm: Normal Sinus (MUNIR MATTHEW DO) Diagnostic Imaging Comments KUB--NO ACUTE PROCESS, PENDING RADIOLOGIST REVIEW CT ABDOMEN/PELVIS-- Reviewed: Reviewed by Me (MUNIR MATTHEW DO) Diagonstic Imaging: CT Plain Films/CT/US/NM/MRI: abdomen, pelvis Comments [facility] CT report reviewed. There is an incarcerated right inguinal hernia with obstruction. (MATT CESPEDES MD) Departure Communication (Admissions) Time/Spoke to Admitting Phy: 06:30 Dr. Salamanca Time/Spoke to Consulting Phy: 06:35 Dr. Liz (MATT CESPEDES MD) Impression Primary Impression: Incarcerated right inguinal hernia Additional Impressions: Intermittent lower abdominal pain Anxiety Acute on chronic renal insufficiency Uncontrolled hypertension Suprapubic pain T2DM (type 2 diabetes mellitus) Disposition: ADMITTED INPATIENT Condition: Stable Admissions Decision to Admit Reason: Admit from ER (General) Decision to Admit/Date: Apr 13, 2022 Time/Decision to Admit Time: 06:30 (MATT CESPEDES MD) Departure-Patient Inst. Referrals: VICTORIA LIZ DO (PCP/Family) Primary Care Physician MUNIR MATTHEW DO Apr 13, 2022 04:33 MATT CESPEDES MD Apr 13, 2022 06:54
[2022-04-13] MEDS ORDERED: NS IV 1000 ML 1,000 ML IV SCH (04:45)
[2022-04-13] MEDS ORDERED: niCARdipine IV (Pyxis drip kit 50 MG in NS (IVPB) 230 ML IV SCH (06:45)
[2022-04-13] MEDS ORDERED: LACTATED RINGERS 1,000 ML IV PRN (07:30)
[2022-04-13] MEDS ORDERED: SEVOFLURANE (ULTANE) 15 ML INHAL SOLN ONE (07:37)
[2022-04-13] MEDS ORDERED: proPOfol 200 MG/20 ML (DIPRIVAN) VIAL IV ONE (07:37)
[2022-04-13] MEDS ORDERED: fentaNYL INJ 100 MCG/2 ML AMP ONE (07:37)
[2022-04-13] MEDS ORDERED: ROCURONIUM 10 MG/ML 5 ML SYRINGE IV ONE (07:37)
[2022-04-13] MEDS ORDERED: LIDOCAINE PF 2% 5 ML (XYLOCAINE) VIAL ONE (07:37)
[2022-04-13] MEDS ORDERED: MIDAZOLAM 2 MG/2 ML (VERSED) VIAL ONE (07:37)
[2022-04-13] MEDS ORDERED: ONDANSETRON 4 MG/2 ML (SDV) Z0FRAN ONE (07:37)
[2022-04-13] MEDS ORDERED: BUP/EPI 0.5% 1:200,000 (MARCAINE) 10ML VIAL IJ ONE ×2 (07:41→09:12)
--- NOTE | 2022-04-13 07:45 | Consultation - Surgery ---
History of Present Illness History of Present Illness Patient Consulted On(jax/time) 04/13/22 07:40 Date Seen by Provider: Apr 13, 2022 Time Seen by Provider: 07:40 History of Present Illness Consult requested by Dr. Gasca for incarcerated right inguinal hernia. Patient is a 71 year old male who came in to ED last night with nausea and vomiting and abdominal pain. Moderate abdominal pain. Nothing making better or worse. Not had before. Went to cat scan and started having pain in the right groin. Did not notice the right groin hernia before. Has had previous repair. Patient states this area is now tender. Was unable to be reduced by Dr. Gasca. Ct scan showing incarcerated right inguinal hernia causing slightly dilated loops of small bowel proximally. Denies fever sweats chills shortness of breath or chest pain. Allergies and Home Medications Allergies Coded Allergies: aspirin (Verified Allergy, Severe, CHOKING, 04/16/16) acetaminophen (Verified Allergy, Mild, 04/16/16) hydrocodone (Verified Allergy, Mild, 04/16/16) fentanyl (Verified Allergy, Unknown, BREATHING TROUBLE, pt has rec meperidine in the past, 03/03/21) ONLY PATCH NOT INTRAVENOUS FENTANYL gabapentin (Verified Allergy, Unknown, 03/05/22) hydralazine (Verified Allergy, Unknown, 03/05/22) oxycodone (Verified Allergy, Unknown, NIGHTMARES, 03/02/21) Patient Home Medication List Home Medication List Reviewed: Yes Amlodipine Besylate (Amlodipine Besylate) 5 Mg Tablet, 5 MG PO BID Prescribed by: VICTORIA BARRON on 03/15/22 0839 Clonidine HCl (Clonidine HCl) 0.1 Mg Tablet, 0.1 MG PO BID PRN for BLOOD PRESSURE Prescribed by: VICTORIA BARRON on 03/15/22 0839 Clonidine HCl (Clonidine HCl) 0.1 Mg Tablet, 0.1 MG PO TID PRN for SYSTOLIC BLOOD PRESSURE Prescribed by: VICTORIA BARRON on 03/15/22 0839 Doxazosin Mesylate (Doxazosin Mesylate) 2 Mg Tablet, 4 MG PO HS Prescribed by: VICTORIA BARRON on 03/15/22 0840 Ergocalciferol (Vitamin D2) (Vitamin D2) 1,250 Mcg (93129 Unit) Capsule, 1,250 MCG PO THUR, (Reported) Entered as Reported by: RUPALI CHAUHAN on 03/08/22 1044 Glipizide (Glipizide ER) 5 Mg Tab.er.24, 10 MG PO 1300 AFTER MEAL, (Reported) Entered as Reported by: RUPALI CHAUHAN on 03/08/22 1044 Glipizide (Glipizide ER) 5 Mg Tab.er.24, 5 MG PO DAILY , (Reported) Entered as Reported by: RUPALI CHAUHAN on 03/08/22 1044 Levetiracetam (Levetiracetam) 500 Mg Tablet, 500 MG PO BID, (Reported) Entered as Reported by: VICENTE ALVAREZ on 11/27/21 1113 Nebivolol HCl (Bystolic) 10 Mg Tab, 20 MG PO BID Prescribed by: VICTORIA BARRON on 03/15/22 0839 Pantoprazole Sodium (Pantoprazole Sodium) 40 Mg Tablet.dr, 40 MG PO DAILY, (Reported) Entered as Reported by: RUPALI CHAUHAN on 03/08/22 1044 Prednisone (Prednisone) 5 Mg Tablet, 5 MG PO DAILY Prescribed by: VICTORIA BARRON on 03/15/22 0839 Sertraline HCl (Sertraline HCl) 50 Mg Tablet, 50 MG PO HS, (Reported) Entered as Reported by: VICENTE ALVAREZ on 11/27/21 1113 Past Kdmqzxb-Iehbgd-Neympf Hx Patient Social History Smoking Status: Never a Smoker 2nd Hand Smoke Exposure: No Recent Hopitalizations: No Alcohol Use?: No Have you traveled recently?: No Immunizations Up To Date Date of Pneumonia Vaccine: December 07, 2010 Date of Influenza Vaccine: Apr 24, 2021 Seasonal Allergies Seasonal Allergies: No Surgeries History of Surgeries: Yes (APPENDECTOMY, HERNIA REPAIRS, ABLATION 2011, BASKET STONE RETRIEVAL) Surgeries: Abdominal, Appendectomy, Cardiac, Renal Respiratory History of Respiratory Disorde: No Cardiovascular History of Cardiac Disorders: Yes (SVT, HEART ABLATION DECEMBER 2011) Cardiac Disorders: Hypertension Neurological History of Neurological Disord: Yes (NERVE DAMAGE, MUSCLE SPASMS,TREMOR; intracranial hemorrhage) Neurological Disorders: Seizure Disorder, Stroke Reproductive System Hx Reproductive Disorders: No Genitourinary History of Genitourinary Disor: Yes Genitourinary Disorders: Kidney Stones Gastrointestinal History of Gastrointestinal Di: Yes (INGUIMAL HERNIA) Gastrointestinal Disorders: Hiatal Hernia Musculoskeletal History of Musculoskeletal Dis: Yes (C7 CERVICAL SPINE FX--NO SURGERY) Musculoskeletal Disorders: Fractures Endocrine History of Endocrine Disorders: Yes Endocrine Disorders: Diabetes, Non-Insulin dep HEENT History of HEENT Disorders: Yes (EYE LID SURGERY) Cancer History of Cancer: No Psychosocial History of Psychiatric Problem: Yes Behavioral Health Disorders: Anxiety Integumentary History of Skin or Integumenta: No Blood Transfusions History of Blood Disorders: No Reviewed Nursing Assessment Reviewed/Agree w Nursing PMH: Yes Family Medical History Significant Family History: Cerebral Aneurysm, Diabetes, Stroke Family Medial History: Cancer 03 FATHER (SKIN CANCER) 03 MOTHER (LUNG CANCER) Cataract 03 FATHER Congestive heart failure 03 MOTHER Dementia 03 MOTHER Family history: Diabetes mellitus 03 FATHER Family history: Hypertension 03 FATHER 03 MOTHER Family history: Osteoporosis 03 MOTHER Family history: Thyroid disorder 03 FATHER (HYPERTHYROIDISM) Hearing loss 03 FATHER No Family History of: Abdominal aortic aneurysm [place]'s disease Alcoholism Aphasia Cancer of colon Chest pain Congenital heart disease Cystic fibrosis Dysphagia Family history: Allergy Family history: Alzheimer's disease Family history: Arthritis Family history: Asthma Family history: Breast disease Family history: Cardiovascular disease Family history: Coronary thrombosis Family history: Gastrointestinal disease Family history: Glaucoma Headache Heart disease Hereditary disease History of - anemia History of - disorder History of - respiratory disease History of drug abuse Human immunodeficiency virus (HIV) seropositivity Hypercholesterolemia Infertile Kidney disease Malignant neoplasm of lung Myocardial infarction Parkinson's disease Prostate cancer Psychotic disorder Seizure disorder Stroke Tuberculosis Visual impairment Review of Systems-General Constitutional: No chills, No diaphoresis EENTM: No blurred vision, No double vision Respiratory: No cough, No dyspnea on exertion Cardiovascular: No chest pain, No palpitations Gastrointestinal: abdominal pain, nausea, vomiting Genitourinary: No decreased output, No discharge Musculoskeletal: No gout, No joint pain Skin: No change in color, No change in hair/nails Psychiatric/Neurological: Denies Anxiety, Denies Depressed, Denies Emotional Problems All Other Systems Reviewed Negative Unless Noted: Yes (Negative excepted noted.) Physical Exam-General Problems Physical Exam Vital Signs Vital Signs - First Documented 04/13/22 02:26 Temp 36.8 Pulse 85 Resp 20 B/P (MAP) 198/85 (122) Pulse Ox 99 O2 Delivery Room Air Capillary Refill : Less Than 3 Seconds General Appearance: WD/WN, no apparent distress (tremmor to right upper extremity (daughter says normal for him)) HEENT: PERRL/EOMI, normal ENT inspection Neck: non-tender, supple Respiratory: chest non-tender, no respiratory distress, no accessory muscle use Cardiovascular: regular rate, rhythm, no gallop Gastrointestinal: soft, other (incarcerated right inguinal hernia tender to touch) Rectal: deferred Back: no CVA tenderness, no vertebral tenderness Extremities: non-tender, normal inspection Neurologic/Psychiatric: alert, normal mood/affect, oriented x 3 Skin: normal color, warm/dry Lymphatic: no adenopathy Data Review Labs Laboratory Tests 04/13/22 03:04: White Blood Count 10.4, Red Blood Count 4.02L, Hemoglobin 11.6L, Hematocrit 34L, Mean Corpuscular Volume 85, Mean Corpuscular Hemoglobin 29, Mean Corpuscular Hemoglobin Concent 34, Red Cell Distribution Width 13.1, Platelet Count 215, Mean Platelet Volume 10.5, Immature Granulocyte % (Auto) 0, Neutrophils (%) (Auto) 73, Lymphocytes (%) (Auto) 18, Monocytes (%) (Auto) 8, Eosinophils (%) (Auto) 1, Basophils (%) (Auto) 0, Neutrophils # (Auto) 7.6, Lymphocytes # (Auto) 1.9, Monocytes # (Auto) 0.8, Eosinophils # (Auto) 0.1, Basophils # (Auto) 0.0, Immature Granulocyte # (Auto) 0.0, Erythrocyte Sedimentation Rate 30, Sodium Level 144, Potassium Level 4.4, Chloride Level 109H, Carbon Dioxide Level 19L, Anion Gap 16H, Blood Urea Nitrogen 31H, Creatinine 2.32H, Estimat Glomerular Filtration Rate 29, BUN/Creatinine Ratio 13, Glucose Level 287H, Calcium Level 9.2, Corrected Calcium 9.1, Magnesium Level 2.3, Total Bilirubin 0.4, Aspartate Amino Transf (AST/SGOT) 15, Alanine Aminotransferase (ALT/SGPT) 19, Alkaline Phosphatase 38L, C-Reactive Protein High Sensitivity 0.11, Total Protein 7.0, Albumin 4.1, Amylase Level 62, Lipase 31 04/13/22 03:23: Urine Color YELLOW, Urine Clarity CLEAR, Urine pH 5.5, Urine Specific [place] 1.025H, Urine Protein TRACEH, Urine Glucose (UA) 2+H, Urine Ketones NEGATIVE, Urine Nitrite NEGATIVE, Urine Bilirubin NEGATIVE, Urine Urobilinogen 0.2, Urine Leukocyte Esterase NEGATIVE, Urine RBC (Auto) TRACE-IH, Urine RBC NONE, Urine WBC NONE, Urine Crystals NONE, Urine Bacteria NEGATIVE, Urine Casts PRESENT, Urine Hyaline Casts RARE, Urine Mucus NEGATIVE, Urine Culture Indicated NO Assessment/Plan Assessment/Plan Assessment/Plan recurrent incarcerated right inguinal hernia discussed ct scan results and physical findings we discussed risks and benefits of open right inguinal hernia repair with possible need for diagnostic laparoscopy, possible bowel resection and all other indicated procedures. patient and daught understand and wish to proceed. To OR. NPO IV hydration Pain control, patient can take hydrocodone but makes him constipated confirmed by both daughter and patient. KATELYNN COLE DO Apr 13, 2022 07:45
[2022-04-13] MEDS ORDERED: ceFAZolin INJECTION 2,000 MG in NS (IVPB) 50 ML IV SCH (08:00)
[2022-04-13] MEDS ORDERED: ceFAZolin INJECTION 2,000 MG ONE (08:05)
[2022-04-13] MEDS ORDERED: NS (IVPB) 50 ML ONE (08:05)
--- NOTE | 2022-04-13 08:43 | Diagnostic Imaging Report ---
REASON FOR EXAM: Abdominal pain. COMPARISON: 11/12/2021. TECHNIQUE: Two views of the abdomen. FINDINGS: The bowel gas pattern is nondistended. No large collection of free intraperitoneal air is seen. A moderate amount of gas and fecal material is present in the colon. No abnormal extraosseous calcifications are present. Scattered phleboliths are seen in the pelvis. The osseous structures are age-appropriate. IMPRESSION: 1. No evidence of bowel obstruction or large collection of free intraperitoneal air. 2. Moderate amount of stool in the colon, suggestive of constipation. Dictated by: Dictated on workstation # [id number]
[2022-04-13] MEDS ORDERED: BUP/EPI 0.5% 1:200,000 (SENSORCAINE) 30 ML VIAL INJ ONE ×2 (08:45→09:30)
[2022-04-13] MEDS ORDERED: BUP/EPI 0.5% 1:200,000 (SENSORCAINE) 30 ML VIAL INJ NR (09:00)
[2022-04-13] MEDS ORDERED: ceFAZolin INJECTION 2,000 MG in NS (IVPB) 50 ML IV ONE (09:00)
[2022-04-13] MEDS ORDERED: ATROPINE INJ 0.4 MG/ML SDV ONE (09:13)
[2022-04-13] MEDS ORDERED: NEOSTIGMINE (BLOXIVERZ ) 1 MG/1ML 10 ML VIAL ONE (09:46)
[2022-04-13] MEDS ORDERED: GLYCOPYRROLATE 0.2 MG/ML (ROBINUL) 2 ML VIAL ONE (09:46)
[2022-04-13] MEDS ORDERED: MEPERIDINE (DEMEROL) INJ 50 MG/ML IVP ONE (10:00)
[2022-04-13] MEDS ORDERED: morphine INJ 10 MG/ML 1ML (SYR OR VIAL) IVP ONE (10:00)
[2022-04-13] MEDS ORDERED: ONDANSETRON 4 MG/2 ML (SDV) Z0FRAN IVP PRN (10:00)
--- NOTE | 2022-04-13 10:02 | Anesthesia-General Post-Op ---
General Patient Condition Mental Status/LOC: Same as Preop Cardiovascular: Satisfactory Nausea/Vomiting: Absent Respiratory: Satisfactory Pain: Controlled Complications: Absent Post Op Complications Complications None Follow Up Care/Instructions Patient Instructions None needed. Anesthesia/Patient Condition Patient Condition Patient is doing well, no complaints, stable vital signs, no apparent adverse anesthesia problems. No complications reported per nursing. AIXA GUSMAN CRNA Apr 13, 2022 10:02
--- NOTE | 2022-04-13 10:06 | Progress Note-Post Operative ---
Post-Operative Progess Note Surgeon (s)/Cobol Developer (s) Surgeon KATELYNN COLE DO Cobol Developer: Deidre Pre-Operative Diagnosis incarcerated right inguinal hernia Post-Operative Diagnosis strangulated right inguinal hernia Procedure & Operative Findings Date of Procedure 04/13/22 Procedure Performed/Findings open right recurrent strangulated inguinal hernia repair, diagnostic laparoscopy, open small bowel resection. Anesthesia Type general Estimated Blood Loss Estimated blood loss (mL): minimal Specimens/Packing Specimens Removed small bowel KATELYNN COLE DO Apr 13, 2022 10:06
--- NOTE | 2022-04-13 10:11 | Diagnostic Imaging Report ---
PROCEDURE: CT urinary tract, rule out kidney stone. TECHNIQUE: Multiple contiguous axial images were obtained through the abdomen and pelvis without the use of intravenous contrast. Auto Exposure Controls were utilized during the CT exam to meet ALARA standards for radiation dose reduction. INDICATION: Lower abdominal pain. COMPARISON: 09/22/2021. FINDINGS: The heart is prominent with trace pericardial fluid. Nodules are seen in the right lung base, some of which are cavitary. The largest measures 1.9 cm. Benign-appearing cyst or hemangioma is seen in the left hepatic lobe measuring 2.4 cm. The gallbladder is decompressed. No evidence of obstructing calculi or hydronephrosis. Punctate nonobstructing calculi are seen bilaterally. The urinary bladder is decompressed. There is bladder wall thickening. The spleen, pancreas, and adrenal glands have a normal noncontrast CT appearance. There is no pathologically enlarged mesenteric or retroperitoneal adenopathy. Fluid-filled mildly prominent loops of small bowel are seen in the abdomen and pelvis. A loop of small bowel is visualized within a moderate right inguinal hernia. This appears to be the transition point. There is no free fluid or free air. No acute osseous abnormalities. There is calcified aortic and iliac atherosclerotic plaque without aneurysm. There is no free air, loculated collection, or adenopathy in the pelvis. IMPRESSION: 1. Findings concerning for early small bowel obstruction with a transition point involving a loop of small bowel located within a moderate-sized right inguinal hernia. No free air or free fluid. Recommend surgical consultation to further evaluate. 2. No obstructing calculi or hydronephrosis. Punctate nonobstructing calculi are seen bilaterally. 3. Nodules in the right lung base measuring up to 1.9 cm, some of which are cavitary. These findings can be seen with septic emboli and malignancy. Recommend correlation with patient history and CT chest to further evaluate. 4. Cardiomegaly with trace pericardial fluid. Dictated by: Dictated on workstation # [id number]
[2022-04-13] MEDS ORDERED: HYDROcodone/APAP 5 MG/325 MG (LORTAB) TAB PO PRN (10:15)
[2022-04-13] MEDS: ceFAZolin INJECTION 2,000 MG in NS (IVPB) 50 ML IV SCH ×2 (10:50→17:25)
[2022-04-13] MEDS ORDERED: LORazepam INJ 2 MG/ML (ATIVAN) VIAL IVP PRN (12:00)
--- NOTE | 2022-04-13 12:57 | Consultation ---
History of Present Illness History of Present Illness Patient Consulted On(lukas/time) 04/13/22 12:53 Date Seen by Provider: Apr 13, 2022 Time Seen by Provider: 12:53 History of Present Illness This is a 71 year old male with a history of labile hypertension who presented to the emergency room with abdominal pain and vomiting. He was found to have a right incarcerated inguinal hernia. He was taken to surgery by Dr. Salamanca and is currently in the ICU on a cardene drip. Allergies and Home Medications Allergies Coded Allergies: aspirin (Verified Allergy, Severe, CHOKING, 04/16/16) acetaminophen (Verified Allergy, Mild, 04/16/16) hydrocodone (Verified Allergy, Mild, 04/16/16) fentanyl (Verified Allergy, Unknown, BREATHING TROUBLE, pt has rec meperidine in the past, 03/03/21) ONLY PATCH NOT INTRAVENOUS FENTANYL gabapentin (Verified Allergy, Unknown, 03/05/22) hydralazine (Verified Allergy, Unknown, 03/05/22) oxycodone (Verified Allergy, Unknown, [place]IGHT[place]ES, 03/02/21) Patient Home Medication List Home Medication List Reviewed: Yes Amlodipine Besylate (Amlodipine Besylate) 5 Mg Tablet, 5 MG PO BID Prescribed by: VICTORIA BARRON on 03/15/22 0839 Clonidine HCl (Clonidine HCl) 0.1 Mg Tablet, 0.1 MG PO BID PRN for BLOOD PRESSURE Prescribed by: VICTORIA BARRON on 03/15/22 0839 Clonidine HCl (Clonidine HCl) 0.1 Mg Tablet, 0.1 MG PO TID PRN for SYSTOLIC BLOOD PRESSURE Prescribed by: VICTORIA BARRON on 03/15/22 0839 Doxazosin Mesylate (Doxazosin Mesylate) 2 Mg Tablet, 4 MG PO HS Prescribed by: VICTORIA BARRON on 03/15/22 0840 Ergocalciferol (Vitamin D2) (Vitamin D2) 1,250 Mcg (23628 Unit) Capsule, 1,250 MCG PO THUR, (Reported) Entered as Reported by: RUPALI CHAUHAN on 03/08/22 1044 Glipizide (Glipizide ER) 5 Mg Tab.er.24, 10 MG PO 1300 AFTER MEAL, (Reported) Entered as Reported by: RUPALI CHAUHAN on 03/08/22 1044 Glipizide (Glipizide ER) 5 Mg Tab.er.24, 5 MG PO DAILY , (Reported) Entered as Reported by: RUPALI CHAUHAN on 03/08/22 1044 Levetiracetam (Levetiracetam) 500 Mg Tablet, 500 MG PO BID, (Reported) Entered as Reported by: VICENTE ALVAREZ on 11/27/21 1113 Nebivolol HCl (Bystolic) 10 Mg Tab, 20 MG PO BID Prescribed by: VICTORIA BARRON on 03/15/22 0839 Pantoprazole Sodium (Pantoprazole Sodium) 40 Mg Tablet.dr, 40 MG PO DAILY, (Reported) Entered as Reported by: RUPALI CHAUHAN on 03/08/22 1044 Prednisone (Prednisone) 5 Mg Tablet, 5 MG PO DAILY Prescribed by: VICTORIA BARRON on 03/15/22 0839 Sertraline HCl (Sertraline HCl) 50 Mg Tablet, 50 MG PO HS, (Reported) Entered as Reported by: VICENTE ALVAREZ on 11/27/21 111 Past Phyztgh-Hyiapn-Oqbgrk Hx Patient Social History Tobacco Use?: No Smoking Status: Never a Smoker Smokeless Tobacco Frequency: Never a User Use of E-Cig and/or Vaping dev: No Use of E-Cig and/or Vaping Marcus: Never a User Substance use?: No Alcohol Use?: No Pt feels they are or have been: No Immunizations Up To Date Date of Influenza Vaccine: Apr 24, 2021 First/Initial COVID19 Vaccinat: SEPTEMBER 2020 ARTEMIO/ARTEMIO Second COVID19 Vaccination Lukas: 2020 MODERNA Tetanus Booster (TDap): Unknown Hepatitis A: No Hepatitis B: No Date of Pneumonia Vaccine: December 07, 2010 Seasonal Allergies Seasonal Allergies: No Current Status Advance Directives: No Communicates: Verbally Primary Language: Indonesian Preferred Spoken Language: Indonesian Is interpretation needed?: No Implanted or Applied Medical D: None Past Medical History Surgeries: Abdominal, Appendectomy, Cardiac, Renal Currently Using CPAP: No Currently Using BIPAP: No Hypertension Seizure Disorder, Stroke Kidney Stones Hiatal Hernia Fractures Diabetes, Non-Insulin dep Anxiety Blood Disorders: No Family Medical History Cancer 03 FATHER (SKIN CANCER) 03 MOTHER (LUNG CANCER) Cataract 03 FATHER Congestive heart failure 03 MOTHER Dementia 03 MOTHER Family history: Diabetes mellitus 03 FATHER Family history: Hypertension 03 FATHER 03 MOTHER Family history: Osteoporosis 03 MOTHER Family history: Thyroid disorder 03 FATHER (HYPERTHYROIDISM) Hearing loss 03 FATHER No Family History of: Abdominal aortic aneurysm Stan's disease Alcoholism Aphasia Cancer of colon Chest pain Congenital heart disease Cystic fibrosis Dysphagia Family history: Allergy Family history: Alzheimer's disease Family history: Arthritis Family history: Asthma Family history: Breast disease Family history: Cardiovascular disease Family history: Coronary thrombosis Family history: Gastrointestinal disease Family history: Glaucoma Headache Heart disease Hereditary disease History of - anemia History of - disorder History of - respiratory disease History of drug abuse Human immunodeficiency virus (HIV) seropositivity Hypercholesterolemia Infertile Kidney disease Malignant neoplasm of lung Myocardial infarction Parkinson's disease Prostate cancer Psychotic disorder Seizure disorder Stroke Tuberculosis Visual impairment Cerebral Aneurysm, Diabetes, Stroke Review of Systems All Other Systems Reviewed All Other Systems Reviewed: Yes (Negative excepted noted.) Physical Exam Vital Signs Vital Signs - First Documented 04/13/22 02:26 Temp 36.8 Pulse 85 Resp 20 B/P (MAP) 198/85 (122) Pulse Ox 99 O2 Delivery Room Air Capillary Refill : Less Than 3 SecondsLess Than 3 Seconds Height, Weight, BMI Height: 6'1.00" Weight: 190lbs. 14.0oz. 86.593293tf; 27.17 BMI Method:Stated General Appearance: Mild Distress Neck: Supple Respiratory: Lungs Clear Cardiovascular: Regular Rate, Rhythm, Systolic Murmur Gastrointestinal: Soft, Abnormal Bowel Sounds, Other (dry dressings in place) Back: No CVA Tenderness Extremity: Non Tender, No Calf Tenderness, No Pedal Edema Neurologic/Psychiatric: Alert, Oriented x3 Skin: Warm/Dry Comments Laboratory Tests 04/13/22 03:04: White Blood Count 10.4, Red Blood Count 4.02L, Hemoglobin 11.6L, Hematocrit 34L, Mean Corpuscular Volume 85, Mean Corpuscular Hemoglobin 29, Mean Corpuscular Hemoglobin Concent 34, Red Cell Distribution Width 13.1, Platelet Count 215, Mean Platelet Volume 10.5, Immature Granulocyte % (Auto) 0, Neutrophils (%) (Auto) 73, Lymphocytes (%) (Auto) 18, Monocytes (%) (Auto) 8, Eosinophils (%) (Auto) 1, Basophils (%) (Auto) 0, Neutrophils # (Auto) 7.6, Lymphocytes # (Auto) 1.9, Monocytes # (Auto) 0.8, Eosinophils # (Auto) 0.1, Basophils # (Auto) 0.0, Immature Granulocyte # (Auto) 0.0, Erythrocyte Sedimentation Rate 30, Sodium Level 144, Potassium Level 4.4, Chloride Level 109H, Carbon Dioxide Level 19L, Anion Gap 16H, Blood Urea Nitrogen 31H, Creatinine 2.32H, Estimat Glomerular Filtration Rate 29, BUN/Creatinine Ratio 13, Glucose Level 287H, Calcium Level 9.2, Corrected Calcium 9.1, Magnesium Level 2.3, Total Bilirubin 0.4, Aspartate Amino Transf (AST/SGOT) 15, Alanine Aminotransferase (ALT/SGPT) 19, Alkaline Phosphatase 38L, C-Reactive Protein High Sensitivity 0.11, Total Protein 7.0, Albumin 4.1, Amylase Level 62, Lipase 31 04/13/22 03:23: Urine Color YELLOW, Urine Clarity CLEAR, Urine pH 5.5, Urine Specific [place] 1.025H, Urine Protein TRACEH, Urine Glucose (UA) 2+H, Urine Ketones NEGATIVE, Urine Nitrite NEGATIVE, Urine Bilirubin NEGATIVE, Urine Urobilinogen 0.2, Urine Leukocyte Esterase NEGATIVE, Urine RBC (Auto) TRACE-IH, Urine RBC NONE, Urine WBC NONE, Urine Crystals NONE, Urine Bacteria NEGATIVE, Urine Casts PRESENT, Urine Hyaline Casts RARE, Urine Mucus NEGATIVE, Urine Culture Indicated NO 04/13/22 09:59: Glucometer 165H 04/13/22 11:39: Glucometer 174H Assessment/Plan Assessment/Plan Admission Dx 1. Right Incarcerated Inguinal Hernia--S/P surgery, pain control, IS, lovenox for DVT prophylaxis, protonix for GI prophylaxis 2. Labile Hypertension--on cardene drip 3. DMII--accuchecks with SSI 4. Chronic Renal Insufficiency--hydrate and monitor BUN/Cr VICTORIA BARRON DO Apr 13, 2022 12:57
[2022-04-13] MEDS: PANTOPRAZOLE 40 MG (PROTONIX) VIAL IV SCH (12:58)
[2022-04-13] MEDS: morphine INJ 10 MG/ML 1ML (SYR OR VIAL) IV PRN ×4 (12:58→22:32)
[2022-04-13] MEDS: niCARdipine IV (Pyxis drip kit 50 MG in NS (IVPB) 230 ML IV SCH ×2 (12:58→17:38)
--- NOTE | 2022-04-13 13:19 | Tele-ICU Progress Note ---
Subjective Date Seen by a Provider: Apr 13, 2022 Time Seen by a Provider: 13:19 Subjective/Events-last exam (Tele-ICU Physician , consultation) Available chart/ vitals / labs / Images reviewed H&P is from ER notes Patient's information available about PMH, allergy reviewed in EMR. ROS as per chart and RN report Video assessment done using teleICU camera, rest of exam as per RN Discussed with RN. This patient presented to the emergency room with a complaint of abdominal pain nausea vomiting. Patient also found to have a right inguinal area tenderness. CT of the abdomen and pelvis revealed a right inguinal hernia incarcerated with proximal small bowel loop dilated. It could not be reduced by the surgeon as well as the ER doctor. Hence he was taken to the operating room and exploratory laparotomy done and found to have a strangulated hernia requiring small bowel resection and repair of inguinal hernia. Postoperatively he is brought to the intensive care unit for close monitoring. Also found to have acute kidney injury. Postoperatively he is on room air and blood pressure is elevated and on Cardene drip. Patient has a history of anxiety. Sepsis Event Evaluation Height, Weight, BMI Height: 6'1.00" Weight: 190lbs. 14.0oz. 86.731742fi; 27.17 BMI Method:Stated Exam Exam Patient acknowledged, consented, and participated in this virtual visit which was conducted using real time audio/video Vital Signs Date Time Temp Pulse Resp B/P (MAP) Pulse Ox O2 Delivery O2 Flow Rate FiO2 04/13/22 12:58 58 130/59 04/13/22 12:00 58 11 130/59 (82) 93 Room Air 04/13/22 11:30 36.1 04/13/22 11:02 36.0 63 20 131/58 (82) 94 Room Air 04/13/22 11:00 62 22 131/58 (82) 92 Room Air 04/13/22 10:52 82 04/13/22 10:50 36.5 20 126/57 (80) 94 Room Air 04/13/22 10:50 Room Air 04/13/22 10:45 Room Air 04/13/22 10:40 20 130/62 (84) 94 Room Air 04/13/22 10:30 20 128/57 (80) 96 Room Air 04/13/22 10:30 Room Air 04/13/22 10:20 20 120/52 (74) 99 OxyMask 3.00 04/13/22 10:15 OxyMask 3.00 04/13/22 10:10 20 122/51 (74) 99 OxyMask 3.00 04/13/22 10:00 OxyMask 3.00 04/13/22 10:00 20 140/54 (82) 99 OxyMask 3.00 04/13/22 09:51 OxyMask 3.00 04/13/22 09:51 36.8 20 159/67 (97) 100 OxyMask 3.00 04/13/22 07:55 36.8 71 20 151/64 98 Room Air 04/13/22 07:00 66 188/81 04/13/22 02:26 36.8 85 20 198/85 (122) 99 Room Air Height & Weight Height: 6'1.00" Weight: 190lbs. 14.0oz. 86.615343bp; 27.17 BMI Method:Stated General Appearance: Mild Distress HEENT: PERRL/EOMI Neck: Supple Respiratory: Lungs Clear Cardiovascular: Regular Rate, Rhythm, Systolic Murmur Capillary Refill: Less Than 3 Seconds Gastrointestinal: soft, other (incarcerated right inguinal hernia tender to touch) Extremity: Non Tender, No Calf Tenderness, No Pedal Edema Neurologic/Psychiatric: Alert, Oriented x3 Skin: Warm/Dry Other comments PE PER RN Results Lab Laboratory Tests 04/13/22 03:04 Assessment/Plan Assessment/Plan 1. Strangulated hernia requiring exploratory laparotomy and small bowel resection. Status post hernia repair. 2. Severe dehydration with acute kidney injury. 3. Hyperglycemia. Recommendations 1. Continue IV hydration 2. Analgesia per pain management 3. Hyperglycemia management per primary care. 4. DVT prophylaxis and ulcer prophylaxis. Critical Care: Critically Ill Patient Time spent with patient (mins): 20 KEIRA RICHARD MD Apr 13, 2022 13:19
[2022-04-13] MEDS ORDERED: CLN.1T PO ×2 (15:03)
[2022-04-13] MEDS ORDERED: METH5TAB95 PO (15:03)
[2022-04-13] MEDS ORDERED: PRED5TAB PO (15:03)
[2022-04-13] MEDS ORDERED: NEBI20TA6 PO (15:03)
[2022-04-13] MEDS ORDERED: CLON0.5T4 PO (15:03)
[2022-04-13] MEDS ORDERED: AMLO-250 PO (15:03)
[2022-04-13] MEDS ORDERED: DOXA4TAB2 PO (15:03)
[2022-04-13] MEDS: metroNIDAZOLE 500MG/100ML IVPB 100 ML IV SCH ×2 (15:05→21:21)
[2022-04-13] MEDS: LACTATED RINGERS 1,000 ML IV SCH (15:05)
[2022-04-14] MEDS: LACTATED RINGERS 1,000 ML IV SCH ×2 (01:43→06:23)
[2022-04-14 05:14] LABS: BASOPHILS % (AUTO) 0 % (0-10); EOSINOPHILS # (AUTO) 0.1 10^3/uL (0.0-0.3); EOSINOPHILS % (AUTO) 1 % (0-10); HEMATOCRIT 31 % (40-54); HEMOGLOBIN 10.3 g/dL (13.3-17.7); LYMPHOCYTES % (AUTO) 21 % (12-44); MEAN CORPUSCULAR HEMOGLOBIN 29 pg (25-34); MEAN CORPUSCULAR HGB CONC 33 g/dL (32-36); MEAN CORPUSCULAR VOLUME 87 fL (80-99); MEAN PLATELET VOLUME 10.5 fL (9.0-12.2); MONOCYTES # (AUTO) 0.7 10^3/uL (0.0-1.0); MONOCYTES % (AUTO) 7 % (0-12); NEUTROPHILS # (AUTO) 6.8 10^3/uL (1.8-7.8); NEUTROPHILS % (AUTO) 71 % (42-75); PLATELET COUNT 162 10^3/uL (130-400); WHITE BLOOD COUNT 9.6 10^3/uL (4.3-11.0)
[2022-04-14 05:27] LABS: ALBUMIN 3.4 GM/DL (3.2-4.5); POTASSIUM 4.3 MMOL/L (3.6-5.0)
[2022-04-14 05:28] LABS: CALCIUM 8.6 MG/DL (8.5-10.1)
[2022-04-14 05:31] LABS: BILIRUBIN,TOTAL 0.5 MG/DL (0.1-1.0)
[2022-04-14 05:32] LABS: PHOSPHORUS 4.2 MG/DL (2.3-4.7)
[2022-04-14 05:33] LABS: CREATININE SERUM 1.49 MG/DL (0.60-1.30)
[2022-04-14] MEDS: morphine INJ 10 MG/ML 1ML (SYR OR VIAL) IV PRN ×5 (05:40→20:41)
--- NOTE | 2022-04-14 07:12 | OPERATIVE REPORT ---
DATE OF SERVICE: 04/13/2022 PREOPERATIVE DIAGNOSIS: Recurrent incarcerated right inguinal hernia. POSTOPERATIVE DIAGNOSIS: Strangulated recurrent right inguinal hernia. PROCEDURE: Open right recurrent strangulated inguinal hernia repair, diagnostic laparoscopy, open small bowel resection. SURGEON: Katelynn Salamanca DO IT SALES REPRESENTATIVE: Dr. Jiang, assisted in retraction, dissection and closure. ANESTHESIA: General. ESTIMATED BLOOD LOSS: Minimal. COMPLICATIONS: None. SPECIMENS: Small bowel. INDICATIONS: The patient is a 71-year-old male who presented to the Emergency Department with nausea, vomiting, abdominal pain. He was found to have an incarcerated right inguinal hernia and findings are suggestive of small bowel obstruction. The patient's hernia was unable to be reduced. He understands risks and benefits of procedure and wished to proceed. Consent was signed in the chart. He had noted previous right inguinal hernia repair without mesh. DESCRIPTION OF PROCEDURE: The patient was taken to the operating suite, was prepped and draped in sterile fashion. Timeout was performed. Local anesthetic was infiltrated in the skin in the right lower quadrant. An incision was made through the skin. Cautery was used to dissect down through subcutaneous tissues to the external oblique, which local anesthetic was infiltrated, and the external oblique was then opened down through the external ring. Hernia sac was present, which was then opened down, noting fat present and very narrow hernia defect. Everything was incarcerated through. There appeared to be a small portion of bowel that was present was questionable if it is ischemic or bruising, but there was no gross contamination of this area. This was an indirect defect. The hernia contents were reduced because the bowel was unable to be brought up further to inspect. The hernia defect was then closed after the spermatic cord was dissected around and Ramon drain was placed around it. The hernia defect was then closed with 0 Vicryl suture. Due to not be any gross contamination, elected to go ahead and place mesh, which was secured to Ian's ligament and incorporated around the spermatic cord and placing it under the external oblique. The external oblique was then closed using 2-0 Vicryl, recreating external ring. No direct defect present. The wound was irrigated and suctioned and the skin was stapled closed. At this time, we determined to go ahead and inspect the abdomen during diagnostic laparoscopy to further evaluate the bowel viability. Incision was made just inferior to the umbilicus. Cautery was used to dissect down to the fascia, which was scored and opened. A lawton trocar was inserted, and pneumoperitoneum was achieved. Under direct visualization of the laparoscope, a 5 mm trocar was placed in the left lower quadrant. Bowel was then inspected. The bowel was dilated proximal to the area that had been incarcerated through the area. There was a part that appeared to be ischemic on the bowel along with erythematous changes present. No other pathology was able to be visualized. The bowel was grasped with a grasper. It was elected to resect this portion of the small bowel, so a 12 mm trocar was then removed. The incision was expanded, so the small bowel was able to be brought out through it. We resected the bowel in the two-step fashion, dissecting around the bowel proximal and distal to the area that needed to be removed and two openings were made in the small bowel with the linear stapler was able to be inserted down both limbs and fired. A reload was then used to close the remainder of the anastomosis. Hemostats were used to dissect the mesentery and clamp, and the bowel was removed. Using 0 Vicryl ties, the mesentery was divided and tied off. The mesenteric defect was then closed using 2-0 Vicryl. A crotch stitch was also placed at the anastomosis. The bowel was then placed back in the abdomen. The fascia was then closed using 1-0 looped PDS. The wound was then irrigated. The skin was then closed with greg. The abdomen was then reinsufflated. A 5 mm trocar was placed in the left lower quadrant 5 mm trocar site. No other pathology noted. The abdomen was then desufflated. The trocar was removed. The remaining skin was stapled closed. The patient tolerated the procedure well without any complications, taken to recovery room in stable condition. Job ID: [id number] DocumentID: [id number] Dictated Date: 04/13/2022 22:28:57 Professional Nursing Tutor Date: 04/14/2022 07:11:21 Dictated By: KATELYNN SALAMANCA DO
--- NOTE | 2022-04-14 07:35 | Progress Note - Surgery ---
LYLY PABON 04/14/22 0735: Subjective Date Seen by a Provider: Apr 14, 2022 Time Seen by a Provider: 07:30 Subjective/Events-last exam Patient is awake and alert in his bed this morning, no family at bedside. Patient reports incisional pain, but that it is controlled with the pain medicine. Patient reports having no nausea or vomiting. Patient states that he has not been passing gas or having bowel movements since the surgery. Patient states that he has not been ambulating or using his incentive spirometer. Patient has no new complaints. Review of Systems General: No Chills, No Night Sweats HEENT: No Head Aches, No Visual Changes Pulmonary: No Dyspnea, No Cough Cardiovascular: No: Chest Pain, Palpitations Gastrointestinal: No: Nausea, Vomiting Genitourinary: No Dysuria, No Frequency Musculoskeletal: No: neck pain, shoulder pain Neurological: No: Weakness, Numbness Objective Exam Vital Signs Date Time Temp Pulse Resp B/P (MAP) Pulse Ox O2 Delivery O2 Flow Rate FiO2 04/14/22 06:01 95 12 163/67 (99) 92 Nasal Cannula 2.00 04/14/22 05:01 92 19 175/70 (105) 92 Nasal Cannula 2.00 04/14/22 04:01 84 14 154/66 (95) 94 Nasal Cannula 2.00 04/14/22 04:00 Nasal Cannula 2.00 04/14/22 03:01 85 14 153/67 (95) 93 Nasal Cannula 2.00 04/14/22 02:01 80 9 149/64 (92) 92 Nasal Cannula 2.00 04/14/22 01:00 80 04/14/22 00:58 37.5 Nasal Cannula 2.00 04/14/22 00:00 Nasal Cannula 2.00 04/13/22 23:01 77 14 138/64 (88) 96 Nasal Cannula 2.00 04/13/22 22:01 79 13 143/62 (89) 98 Nasal Cannula 2.00 04/13/22 21:00 37.0 Nasal Cannula 2.00 04/13/22 20:16 Nasal Cannula 2.00 04/13/22 20:00 Nasal Cannula 2.00 04/13/22 19:00 71 04/13/22 18:00 84 15 132/62 (85) 93 Room Air 04/13/22 17:38 67 138/71 04/13/22 17:00 67 25 138/71 (93) 93 Room Air 04/13/22 16:00 Room Air 04/13/22 16:00 67 28 139/63 (88) 91 Room Air 04/13/22 15:00 74 13 144/69 (94) 95 Room Air 04/13/22 14:00 66 17 130/59 (82) 94 Room Air 04/13/22 13:00 67 04/13/22 13:00 63 12 146/65 (92) 97 Room Air 04/13/22 12:58 58 130/59 04/13/22 12:00 Room Air 04/13/22 12:00 58 11 130/59 (82) 93 Room Air 04/13/22 11:30 36.1 04/13/22 11:02 36.0 63 20 131/58 (82) 94 Room Air 04/13/22 11:00 62 22 131/58 (82) 92 Room Air 04/13/22 10:52 82 04/13/22 10:50 36.5 20 126/57 (80) 94 Room Air 04/13/22 10:50 Room Air 04/13/22 10:45 Room Air 04/13/22 10:40 20 130/62 (84) 94 Room Air 04/13/22 10:30 20 128/57 (80) 96 Room Air 04/13/22 10:30 Room Air 04/13/22 10:20 20 120/52 (74) 99 OxyMask 3.00 04/13/22 10:15 OxyMask 3.00 04/13/22 10:10 20 122/51 (74) 99 OxyMask 3.00 04/13/22 10:00 OxyMask 3.00 04/13/22 10:00 20 140/54 (82) 99 OxyMask 3.00 04/13/22 09:51 OxyMask 3.00 04/13/22 09:51 36.8 20 159/67 (97) 100 OxyMask 3.00 04/13/22 07:55 36.8 71 20 151/64 98 Room Air I & O 04/14/22 07:00 Intake Total 1250 ml Output Total 1475 ml Balance -225 ml Capillary Refill : Less Than 3 SecondsLess Than 3 Seconds General Appearance: No Apparent Distress, WD/WN HEENT: PERRL/EOMI, Pharynx Normal Neck: Non Tender, Supple Respiratory: Chest Non Tender, Lungs Clear Cardiovascular: Regular Rate, Rhythm, Normal Peripheral Pulses Gastrointestinal: soft, no pulsatile mass, other (incarcerated right inguinal hernia tender to touch) Extremity: Normal Inspection, Non Tender Neurologic/Psychiatric: Alert, Oriented x3 Skin: Normal Color, Warm/Dry Lymphatic: No Adenopathy Results Lab Laboratory Tests 04/13/22 09:59: Glucometer 165H 04/13/22 11:39: Glucometer 174H 04/13/22 18:19: Glucometer 132H 04/14/22 04:40: White Blood Count 9.6, Red Blood Count 3.59L, Hemoglobin 10.3L, Hematocrit 31L, Mean Corpuscular Volume 87, Mean Corpuscular Hemoglobin 29, Mean Corpuscular Hemoglobin Concent 33, Red Cell Distribution Width 13.3, Platelet Count 162, Mean Platelet Volume 10.5, Immature Granulocyte % (Auto) 0, Neutrophils (%) (Auto) 71, Lymphocytes (%) (Auto) 21, Monocytes (%) (Auto) 7, Eosinophils (%) (Auto) 1, Basophils (%) (Auto) 0, Neutrophils # (Auto) 6.8, Lymphocytes # (Auto) 2.0, Monocytes # (Auto) 0.7, Eosinophils # (Auto) 0.1, Basophils # (Auto) 0.0, Immature Granulocyte # (Auto) 0.0, Sodium Level 149H, Potassium Level 4.3, Chloride Level 113H, Carbon Dioxide Level 23, Anion Gap 13, Blood Urea Nitrogen 24H, Creatinine 1.49H, Estimat Glomerular Filtration Rate 49, BUN/Creatinine Ratio 16, Glucose Level 119H, Calcium Level 8.6, Corrected Calcium 9.1, Phosphorus Level 4.2, Magnesium Level 2.0, Total Bilirubin 0.5, Aspartate Amino Transf (AST/SGOT) 15, Alanine Aminotransferase (ALT/SGPT) 14, Alkaline Phosphatase 40, Total Protein 6.0L, Albumin 3.4 Assessment/Plan Assessment/Plan Assessment/Plan S/P open right recurrent strangulated inguinal hernia repair, diagnostic laparoscopy, open small bowel resection POD 1 Chronic renal insufficiency Maintain NPO Continue IV hydration Continue pain control, patient can take hydrocodone but makes him constipated confirmed by both daughter and patient. Encouraged patient to ambulate and use his incentive spirometer KATELYNN SALAMANCA DO 04/14/227: Subjective Subjective/Events-last exam Patient with right lower quadrant pain. Did take some morphine helped a little. Not ambulating or using IS. No flatus or bm. Denies n/v fever sweats chills shortness of breath or chest pain at this time. Objective Exam General Appearance: No Apparent Distress, WD/WN (laying in bed, right arm with tremor) HEENT: PERRL/EOMI, Normal ENT Inspection Neck: Non Tender, Supple Respiratory: Chest Non Tender, No Accessory Muscle Use, No Respiratory Distress Cardiovascular: Regular Rate, Rhythm, No JVD Gastrointestinal: soft, other (incisions c/d/i, incisional tenderness) Extremity: Normal Inspection, Non Tender Neurologic/Psychiatric: Alert, Oriented x3 Skin: Normal Color, Warm/Dry Lymphatic: No Adenopathy Assessment/Plan Assessment/Plan Assessment/Plan S/P open right recurrent strangulated inguinal hernia repair, diagnostic laparoscopy, open small bowel resection POD 1 Chronic renal insufficiency History of hemorrhagic stroke Maintain NPO will likely start clears tomorrow. Continue IV hydration SCD's for dvt prophylaxis, can't have anticoagluation Continue pain control, patient can take hydrocodone but makes him constipated confirmed by both daughter and patient. Encouraged patient to ambulate and use his incentive spirometer Supervisory-Addendum Brief Verification & Attestation Participated in pt care: history, MDM, physical Personally performed: exam, history, MDM, supervision of care Care discussed with: Medical Student Procedures: n/a Results interpretation: Verified all documentation Verification and Attestation of Medical Student E/M Service A medical student performed and documented this service in my presence. I reviewed and verified all information documented by the medical student and made modifications to such information, when appropriate. I personally performed the physical exam and medical decision making. Katelynn Salamanca, Apr 14, 2022,17:17 LYLY PABON Apr 14, 2022 07:35 KATELYNN SALAMANCA DO Apr 14, 2022 17:17
[2022-04-14] MEDS: niCARdipine IV (Pyxis drip kit 50 MG in NS (IVPB) 230 ML IV SCH ×2 (08:03→16:38)
--- NOTE | 2022-04-14 08:45 | Tele-ICU Progress Note ---
Subjective Date Seen by a Provider: Apr 14, 2022 Time Seen by a Provider: 08:44 Subjective/Events-last exam (Tele-ICU Physician , Progress note.) Available chart/ vitals / labs / Images reviewed H&P is from ER notes Patient's information available about PMH, allergy reviewed in EMR. ROS as per chart and RN report Video assessment done using teleICU camera, rest of exam as per RN Discussed with RN. This patient presented to the emergency room with a complaint of abdominal pain nausea vomiting. Patient also found to have a right inguinal area tenderness. CT of the abdomen and pelvis revealed a right inguinal hernia incarcerated with proximal small bowel loop dilated. It could not be reduced by the surgeon as well as the ER doctor. Hence he was taken to the operating room and exploratory laparotomy done and found to have a strangulated hernia requiring small bowel resection and repair of inguinal hernia. Postoperatively he is brought to the intensive care unit for close monitoring. Also found to have acute kidney injury. Postoperatively he is on room air and blood pressure is elevated and on Cardene drip. Patient has a history of anxiety. Sepsis Event Evaluation Height, Weight, BMI Height: 6'1.00" Weight: 190lbs. 14.0oz. [id number]; 26.14 BMI Method:Stated Exam Exam Patient acknowledged, consented, and participated in this virtual visit which was conducted using real time audio/video Vital Signs Date Time Temp Pulse Resp B/P (MAP) Pulse Ox O2 Delivery O2 Flow Rate FiO2 04/14/22 08:00 99 14 168/72 (104) 94 Nasal Cannula 2.00 04/14/22 08:00 37.9 04/14/22 07:00 101 16 165/76 (105) 90 Nasal Cannula 2.00 04/14/22 07:00 91 04/14/22 06:01 95 12 163/67 (99) 92 Nasal Cannula 2.00 04/14/22 05:01 92 19 175/70 (105) 92 Nasal Cannula 2.00 04/14/22 04:01 84 14 154/66 (95) 94 Nasal Cannula 2.00 04/14/22 04:00 Nasal Cannula 2.00 04/14/22 03:01 85 14 153/67 (95) 93 Nasal Cannula 2.00 04/14/22 02:01 80 9 149/64 (92) 92 Nasal Cannula 2.00 04/14/22 01:00 80 04/14/22 00:58 37.5 Nasal Cannula 2.00 04/14/22 00:00 Nasal Cannula 2.00 04/13/22 23:01 77 14 138/64 (88) 96 Nasal Cannula 2.00 04/13/22 22:01 79 13 143/62 (89) 98 Nasal Cannula 2.00 04/13/22 21:00 37.0 Nasal Cannula 2.00 04/13/22 20:16 Nasal Cannula 2.00 04/13/22 20:00 Nasal Cannula 2.00 04/13/22 19:00 71 04/13/22 18:00 84 15 132/62 (85) 93 Room Air 04/13/22 17:38 67 138/71 04/13/22 17:00 67 25 138/71 (93) 93 Room Air 04/13/22 16:00 Room Air 04/13/22 16:00 67 28 139/63 (88) 91 Room Air 04/13/22 15:00 74 13 144/69 (94) 95 Room Air 04/13/22 14:00 66 17 130/59 (82) 94 Room Air 04/13/22 13:00 67 04/13/22 13:00 63 12 146/65 (92) 97 Room Air 04/13/22 12:58 58 130/59 04/13/22 12:00 Room Air 04/13/22 12:00 58 11 130/59 (82) 93 Room Air 04/13/22 11:30 36.1 04/13/22 11:02 36.0 63 20 131/58 (82) 94 Room Air 04/13/22 11:00 62 22 131/58 (82) 92 Room Air 04/13/22 10:52 82 04/13/22 10:50 36.5 20 126/57 (80) 94 Room Air 04/13/22 10:50 Room Air 04/13/22 10:45 Room Air 04/13/22 10:40 20 130/62 (84) 94 Room Air 04/13/22 10:30 20 128/57 (80) 96 Room Air 04/13/22 10:30 Room Air 04/13/22 10:20 20 120/52 (74) 99 OxyMask 3.00 04/13/22 10:15 OxyMask 3.00 04/13/22 10:10 20 122/51 (74) 99 OxyMask 3.00 04/13/22 10:00 OxyMask 3.00 04/13/22 10:00 20 140/54 (82) 99 OxyMask 3.00 04/13/22 09:51 OxyMask 3.00 04/13/22 09:51 36.8 20 159/67 (97) 100 OxyMask 3.00 I & O 04/14/22 06:59 Intake Total 1250 ml Output Total 1475 ml Balance -225 ml Height & Weight Height: 6'1.00" Weight: 190lbs. 14.0oz. 86.551399bs; 26.14 BMI Method:Stated General Appearance: No Apparent Distress, WD/WN HEENT: PERRL/EOMI, Pharynx Normal Neck: Non Tender, Supple Respiratory: Chest Non Tender, Lungs Clear Cardiovascular: Regular Rate, Rhythm, Normal Peripheral Pulses Capillary Refill: Less Than 3 Seconds Gastrointestinal: soft, no pulsatile mass, other (incarcerated right inguinal hernia tender to touch) Extremity: Normal Inspection, Non Tender Neurologic/Psychiatric: Alert, Oriented x3 Skin: Normal Color, Warm/Dry Lymphatic: No Adenopathy Results Lab Laboratory Tests 04/13/22 03:04 04/14/22 04:40 Assessment/Plan Assessment/Plan 1. Strangulated hernia requiring exploratory laparotomy and small bowel resection. Status post hernia repair. 2. Severe dehydration with acute kidney injury improving. 3. Hyperglycemia. Recommendations 1. Change ivf to D5 !/2 ns due to hyper natremia 2. Analgesia per pain management 3. Hyperglycemia management per primary care. 4. DVT prophylaxis and ulcer prophylaxis. Critical Care: Critically Ill Patient Time spent with patient (mins): 15 KEIRA RICHARD MD Apr 14, 2022 08:45
[2022-04-14] MEDS: PANTOPRAZOLE 40 MG (PROTONIX) VIAL IV SCH (08:46)
[2022-04-14] MEDS: D5 1/2 NS 1000 ML IV SOLUTION 1,000 ML IV SCH ×2 (08:47→17:21)
[2022-04-14] MEDS ORDERED: ENOXAPARIN 40 MG/0.4 ML (LOVENOX) SYR SC SCH (12:30)
--- NOTE | 2022-04-14 12:56 | Occupational Therapy Eval ---
OT Evaluation-General/PLF Medical Diagnosis Admission Date Apr 13, 2022 at 10:00 Medical Diagnosis: Incarcerated R inguinal hernia, WARD Onset Date: Apr 13, 2022 Therapy Diagnosis Therapy Diagnosis: reduced adl status Height/Weight Height (Feet): 6 Height (Inches): 1.00 Weight (Pounds): 190 Weight (Ounces): 14.0 Precautions Precautions/Isolations: Fall Prevention, Standard Precautions Referral Referral Reason: Evaluation/Treatment Medical History Pertinent Medical History: CVA, DM, HTN Current History Pt arrived to ER with c/o abdominal pain and vomiting. Found to have inguinal hernia. Post op day 1 of open right recurrent strangulated inguinal hernia repair. Per patient, he lives with his in a single story home, [facility]. He was indep with adls and cleaning and his manages the cooking and laundry. He states that he uses a walker mostly when out in the community or on uneven surfaces. Otherwise, he does not use any AD. Reviewed History: Yes Social History Home: Single Level Current Living Status: Spouse Entry Into Home: [facility] ADL-Prior Level of Function SCALE: Activities may be completed with or without assistive devices. 7-Blodrfujhi-zmvdnbl completes the activity by him/herself with no assistance from a helper. 5-Set-up or Clean-up Assistance-helper sets up or cleans up; patient completes activity. [place] assists only prior to or following the activity. 4-Supervision or Touching Assistance-helper provides verbal cues and/or touching/steadying and/or contact guard assistance as patient completes activity. Assistance may be provided throughout the activity or intermittently. 3-Partial/Moderate Assistance-helper does LESS THAN HALF the effort. [place] lifts, holds or supports trunk or limbs, but provides less than half the effort. 2-Substantial/Maximal Assistance-helper does MORE THAN HALF the effort. [place] lifts or holds trunk or limbs and provides more than half the effort. 4-Vslcgjoyz-vyxfuu does ALL the effort. Patient does none of the effort to complete the activity. Or, the assistance of 2 or more helpers is required for the patient to complete the activity. If activity was not attempted, code reason: 7-Patient Refused. 9-Not Applicable-not attempted and the patient did not perform the activity before the current illness, exacerbation or injury. 10-Not Attempted due to Environmental Limitations-(lack of equipment, weather restraints, etc.). 88-Not Attempted due to Medical Conditions or Safety Concerns. Self Care: Independent Functional Cognition: Independent DME/Equipment: Bath Chair, Tub/Shower OT Current Status Subjective Pt denies pain at rest but 10/10 pain with all mobility. RN in at end of treatment, pain meds given. Appearance Pt returned to supine in bed with all needs within reach. RN and daughter in the room at OT departure. Mental Status/Objective Patient Orientation: Person, Place, Situation Attachments: Hahn Catheter, IV, SCD's, Telemetry Current Glasses/Contacts: Yes Hand Dominance: Right Upper Extremity ROM WFL Upper Extremity Strength 4/5 throughout ADL-Treatment On/Off Footwear (QC): 3 Toileting Hygiene (QC): 1 (hahn catheter) Pt supine in bed at OT arrival. He reports he has not gotten up since surgery but was willing to sit EOB. Mod a and extra time to elevate torso secondary to incisional pain in abdominal region. Cues needed to weight shift onto R hip as pt listing heavily towards L (again secondary to pain on right side). Once sitting upright, he exhibits good sitting balance. Education on compensatory techniques when completing LB bathing/dressing with goal to reduce pain. Pt was able to perform figure 4 method with bilateral LE's however with increased effort and time. Min a to don bilateral socks due to UE tremors (family reports tremors started ~9 months ago). With any slight movements, pt cries out in pain. Cues/education on breathing strategies. Pt stood with min-mod a x2 for safety and to ease patients anxiety. While standing, pt with flexed knees despite several cues to straighten. He was able to take 3-4 steps towards HOB with mod a and 2nd person CGA for safety. Pt will benefit from use of a walker. Mod Assist x2 to return to supine. Education OT Patient Education: Correct positioning, Energy conservation, Modified ADL techniques, Purpose of tx/functional activities, Safety issues, Transfer techniques Teaching Recipient: Patient, Family Teaching Methods: Demonstration, Discussion Response to Teaching: Verbalize Understanding, Return Demonstration, Reinforcement Needed OT Retirement Goals Retirement Goals Time Frame: Apr 28, 2022 Eating (QC): 5 Oral Hygiene (QC): 5 Toileting Hygiene (QC): 4 Shower/Bathe Self (QC): 4 Upper Body Dressing (QC): 5 Lower Body Dressing (QC): 4 On/Off Footwear (QC): 5 1=Demonstrate adherence to instructed precautions during ADL tasks. 2=Patient will verbalize/demonstrate understanding of assistive devices/modifications for ADL. 3=Patient will improve strength/tolerance for activity to enable patient to perform ADL's. OT Education/Plan Problem List/Assessment Assessment: Decreased Activ Tolerance, Edema, Impaired Bed Mobility, Impaired Funct Balance, Impaired I ADL's, Impaired Self-Care Skills Discharge Recommendations Plan/Recommendations: Continue POC Target Placement ongoing assessment warranted. Anticipate improved performance once pain subsides. Treatment Plan/Plan of Care Treatment,Training & Education: Yes Patient would benefit from OT for education, treatment and training to promote independence in ADL's, mobility, safety and/or upper extremity function for ADL's. Plan of Care: ADL Retraining, Functional Mobility, Group Exercise/Act as Ind, UE Funct Exercise/Act Treatment Duration: Apr 28, 2022 Frequency: 3 times per week (3-5x/week) Estimated Hrs Per Day: .25 hour per day Agreement: Yes Rehab Potential: Fair Time/GCodes Start Time: 11:46 Stop Time: 12:13 Total Time Billed (hr/min): 27 Billed Treatment Time 1 visit EVUna (10 min) NANDO (17 min) Jessica Culver OT Apr 14, 2022 12:56
--- NOTE | 2022-04-14 13:02 | Progress Note ---
Subjective Date Seen by a Provider: Apr 14, 2022 Time Seen by a Provider: 12:59 Subjective/Events-last exam Fwup right incarcerated inguinal hernia, labile hypertension, DMII. Off Cardene drip and BP and pulse running a little high. Pain control okay. Objective Exam Vital Signs Date Time Temp Pulse Resp B/P (MAP) Pulse Ox O2 Delivery O2 Flow Rate FiO2 04/14/22 11:54 37.7 04/14/22 11:27 Nasal Cannula 2.00 04/14/22 10:11 94 Nasal Cannula 2.00 04/14/22 08:00 99 14 168/72 (104) 94 Nasal Cannula 2.00 04/14/22 08:00 Nasal Cannula 2.00 04/14/22 08:00 37.9 04/14/22 07:00 101 16 165/76 (105) 90 Nasal Cannula 2.00 04/14/22 07:00 91 04/14/22 06:01 95 12 163/67 (99) 92 Nasal Cannula 2.00 04/14/22 05:01 92 19 175/70 (105) 92 Nasal Cannula 2.00 04/14/22 04:01 84 14 154/66 (95) 94 Nasal Cannula 2.00 04/14/22 04:00 Nasal Cannula 2.00 04/14/22 03:01 85 14 153/67 (95) 93 Nasal Cannula 2.00 04/14/22 02:01 80 9 149/64 (92) 92 Nasal Cannula 2.00 04/14/22 01:00 80 04/14/22 00:58 37.5 Nasal Cannula 2.00 04/14/22 00:00 Nasal Cannula 2.00 04/13/22 23:01 77 14 138/64 (88) 96 Nasal Cannula 2.00 04/13/22 22:01 79 13 143/62 (89) 98 Nasal Cannula 2.00 04/13/22 21:00 37.0 Nasal Cannula 2.00 04/13/22 20:16 Nasal Cannula 2.00 04/13/22 20:00 Nasal Cannula 2.00 04/13/22 19:00 71 04/13/22 18:00 84 15 132/62 (85) 93 Room Air 04/13/22 17:38 67 138/71 04/13/22 17:00 67 25 138/71 (93) 93 Room Air 04/13/22 16:00 Room Air 04/13/22 16:00 67 28 139/63 (88) 91 Room Air 04/13/22 15:00 74 13 144/69 (94) 95 Room Air 04/13/22 14:00 66 17 130/59 (82) 94 Room Air 04/13/22 13:00 67 04/13/22 13:00 63 12 146/65 (92) 97 Room Air l I & O 04/14/22 07:00 Intake Total 1250 ml Output Total 1475 ml Balance -225 ml Capillary Refill : Less Than 3 SecondsLess Than 3 Seconds General Appearance: No Apparent Distress Respiratory: Lungs Clear, Decreased Breath Sounds Cardiovascular: Gallop/S4, Tachycardia Gastrointestinal: soft, abnormal bowel sounds (no bowel sounds), other (dressings in place and dry) Extremity: Non Tender, No Calf Tenderness, No Pedal Edema Neurologic/Psychiatric: Alert, Oriented x3 Skin: Warm/Dry Results Lab Laboratory Tests 04/13/22 18:19: Glucometer 132H 04/14/22 04:40: White Blood Count 9.6, Red Blood Count 3.59L, Hemoglobin 10.3L, Hematocrit 31L, Mean Corpuscular Volume 87, Mean Corpuscular Hemoglobin 29, Mean Corpuscular Hemoglobin Concent 33, Red Cell Distribution Width 13.3, Platelet Count 162, Mean Platelet Volume 10.5, Immature Granulocyte % (Auto) 0, Neutrophils (%) (Auto) 71, Lymphocytes (%) (Auto) 21, Monocytes (%) (Auto) 7, Eosinophils (%) (Auto) 1, Basophils (%) (Auto) 0, Neutrophils # (Auto) 6.8, Lymphocytes # (Auto) 2.0, Monocytes # (Auto) 0.7, Eosinophils # (Auto) 0.1, Basophils # (Auto) 0.0, Immature Granulocyte # (Auto) 0.0, Sodium Level 149H, Potassium Level 4.3, Chloride Level 113H, Carbon Dioxide Level 23, Anion Gap 13, Blood Urea Nitrogen 24H, Creatinine 1.49H, Estimat Glomerular Filtration Rate 49, BUN/Creatinine Ratio 16, Glucose Level 119H, Calcium Level 8.6, Corrected Calcium 9.1, Phosphorus Level 4.2, Magnesium Level 2.0, Total Bilirubin 0.5, Aspartate Amino Transf (AST/SGOT) 15, Alanine Aminotransferase (ALT/SGPT) 14, Alkaline Phosphatase 40, Total Protein 6.0L, Albumin 3.4 04/14/22 11:52: Glucometer 120H Microbiology 04/13/22 MRSA Screen - Final, Complete MRSA not isolated Assessment/Plan Assessment/Plan Assess & Plan/Chief Complaint 1. Right Incarcerated Inguinal Hernia--post-op day 1, increase activity, Incentive spirometry, no lovenox due to history of hemorrhagic stroke so SCDs and up to chair and ambulate 2. Labile Hypertension/Sinus Tachycardia--off cardene drip so will add IV lopressor 3. DMi--on accuchecks with SSI 4. Acute on Chronic Renal Insufficiency--hydrate and monitor BUN/Cr Clinical Quality Measures Admission Status Admission Dx 1. Right Incarcerated Inguinal Hernia--S/P surgery, pain control, IS, lovenox for DVT prophylaxis, protonix for GI prophylaxis 2. Labile Hypertension--on cardene drip 3. DMII--accuchecks with SSI 4. Chronic Renal Insufficiency--hydrate and monitor BUN/Cr VICTORIA BARRON DO Apr 14, 2022 13:02
--- NOTE | 2022-04-14 14:11 | Physical Therapy Evaluation ---
PT Evaluation-General Medical Diagnosis Admission Date Apr 13, 2022 at 10:00 Medical Diagnosis: Incarcerated R inguinal hernia, WARD Onset Date: Apr 13, 2022 Therapy Diagnosis Therapy Diagnosis: impaired mobility Height/Weight Height (Feet): 6 Height (Inches): 1.00 Weight (Pounds): 190 Weight (Ounces): 14.0 Precautions Precautions/Isolations: Fall Prevention, Standard Precautions Referral Physician: Shalonda Reason for Referral: Evaluation/Treatment Medical History Pertinent Medical History: CVA, DM, HTN History of Falls (past yr): Unknown Prior Surgery (last 100 days): Unknown Reviewed History: Yes Social History Home: Single Level Current Living Status: Spouse Entry Into Home: Ramp Prior Prior Level of Function SCALE: Activities may be completed with or without assistive devices. 7-Ymuoxliizf-eljtmmb completes the activity by him/herself with no assistance from a helper. 5-Set-up or Clean-up Assistance-helper sets up or cleans up; patient completes activity. [place] assists only prior to or following the activity. 4-Supervision or Touching Assistance-helper provides verbal cues and/or touching/steadying and/or contact guard assistance as patient completes activity. Assistance may be provided throughout the activity or intermittently. 3-Partial/Moderate Assistance-helper does LESS THAN HALF the effort. [place] lifts, holds or supports trunk or limbs, but provides less than half the effort. 2-Substantial/Maximal Assistance-helper does MORE THAN HALF the effort. [place] lifts or holds trunk or limbs and provides more than half the effort. 1-Hwepmxfiv-pvyoqb does ALL the effort. Patient does none of the effort to complete the activity. Or, the assistance of 2 or more helpers is required for the patient to complete the activity. If activity was not attempted, code reason: 7-Patient Refused. 9-Not Applicable-not attempted and the patient did not perform the activity before the current illness, exacerbation or injury. 10-Not Attempted due to Environmental Limitations-(lack of equipment, weather restraints, etc.). 88-Not Attempted due to Medical Conditions or Safety Concerns. Bed Mobility: 6 Transfers (B,C,W/C): 6 Gait: 6 Indoor Mobility (Ambulation): Independent Prior Devices Use: Walker Patient states he sometimes uses a rolling walker outside of the home. PT Evaluation-Current Subjective Patient in bed pre tx, agrees to PT, has 5/10 abdominal pain. Pt/Family Goals to be independent at home Objective Patient Orientation: Person, Place, Situation Attachments: Wright Catheter, IV ROM/Strength ROM Lower Extremities WNL Sensory Hearing: Functional Hand Dominance: Right Sensation Right Lower Extremit: Intact Sensation Left Lower Extremity: Intact Transfers Roll Left to Right (QC): 3 Lying to Sitting/Side of Bed(Q: 3 Sit to Stand (QC): 3 Chair/Gju-yx-Ibgcv Xfer(QC): 4 Gait Distance: 5' Gait Assistive Device: FWW Comments/Gait Description CGA, very shaky, slumped posture bent at the knees and hips, slow antalgic steps Balance Sitting Static: Fair Sitting Dynamic: Fair Standing Dynamic: Fair Treatment BLE seated exercises x20 (AP, LAQ) Assessment/Needs Patient in recliner post tx with nurse call, phone, tray, all needs met. Patient has impaired mobility, strength, endurance, pain with activity. Needs min assist for supine to sit and sit to stand. Rehab Potential: Fair PT Engineering Specialist Technician Goals Engineering Specialist Technician Goals PT Engineering Specialist Technician Goals Time Frame: Apr 21, 2022 Roll Left & Right (QC): 4 (SBA) Sit to Lying (QC): 4 (CGA) Lying-Sitting on Side/Bed(QC): 4 (CGA) Sit to Stand (QC): 4 (SBA) Chair/Ftn-ff-Kaxqj Xfer(QC): 4 (SBA) Walk 10 feet (QC): 4 (SBA) Walk 50ft with 2 Turns (QC): 4 (SBA) PT Plan Problem List Problem List: Activity Tolerance, Functional Strength, Safety, Balance, Gait, Transfer, Bed Mobility, ROM Treatment/Plan Treatment Plan: Continue Plan of Care Treatment Plan: Bed Mobility, Education, Functional Activity Nabil, Functional Strength, Gait, Safety, Therapeutic Exercise, Transfers Treatment Duration: Apr 21, 2022 Frequency: 6 times per week Estimated Hrs Per Day: .25 hour per day Patient and/or Family Agrees t: Yes Safety Risks/Education Patient Education: Gait Training, Transfer Techniques, Correct Positioning, Safety Issues Teaching Recipient: Patient Teaching Methods: Demonstration, Discussion Response to Teaching: Reinforcement Needed Discharge Recommendations Plan Patient will perform bed mobility and transfer training, balance and endurance training, functional strengthening, stair training, gait training, and education, to improve functional mobility and independence at home. Therapy Discharge Recommendati: Scheduled Assistance, Home & Family, Post Acute PT Time/GCodes Time In: 1330 Time Out: 1343 Total Billed Treatment Time: 13 Total Billed Treatment 1 visit KUN MUNOZ PT Apr 14, 2022 14:11
[2022-04-14] MEDS: meTOprolol 5 MG/5 ML (LOPRESSOR) VIAL IV SCH (17:14)
[2022-04-15] MEDS: D5 1/2 NS 1000 ML IV SOLUTION 1,000 ML IV SCH ×3 (02:57→20:37)
[2022-04-15] MEDS: niCARdipine IV (Pyxis drip kit 50 MG in NS (IVPB) 230 ML IV SCH ×2 (04:19→14:01)
[2022-04-15 05:10] LABS: BASOPHILS % (AUTO) 0 % (0-10); EOSINOPHILS # (AUTO) 0.2 10^3/uL (0.0-0.3); EOSINOPHILS % (AUTO) 2 % (0-10); HEMATOCRIT 31 % (40-54); HEMOGLOBIN 10.4 g/dL (13.3-17.7); LYMPHOCYTES # (AUTO) 1.7 10^3/uL (1.0-4.0); LYMPHOCYTES % (AUTO) 19 % (12-44); MEAN CORPUSCULAR HEMOGLOBIN 29 pg (25-34); MEAN CORPUSCULAR HGB CONC 33 g/dL (32-36); MEAN CORPUSCULAR VOLUME 87 fL (80-99); MEAN PLATELET VOLUME 10.4 fL (9.0-12.2); MONOCYTES # (AUTO) 0.9 10^3/uL (0.0-1.0); MONOCYTES % (AUTO) 10 % (0-12); NEUTROPHILS % (AUTO) 69 % (42-75); PLATELET COUNT 155 10^3/uL (130-400); WHITE BLOOD COUNT 8.7 10^3/uL (4.3-11.0)
[2022-04-15 05:21] LABS: CALCIUM 8.7 MG/DL (8.5-10.1)
[2022-04-15] MEDS: meTOprolol 5 MG/5 ML (LOPRESSOR) VIAL IV SCH ×5 (05:23→23:52)
[2022-04-15 05:25] LABS: PHOSPHORUS 3.8 MG/DL (2.3-4.7)
[2022-04-15 05:26] LABS: CREATININE SERUM 1.26 MG/DL (0.60-1.30)
[2022-04-15 05:28] LABS: MAGNESIUM 1.8 MG/DL (1.6-2.4)
[2022-04-15] MEDS: morphine INJ 10 MG/ML 1ML (SYR OR VIAL) IV PRN ×5 (06:11→20:36)
--- NOTE | 2022-04-15 06:56 | Progress Note - Surgery ---
LYLY PABON 04/15/22 0656: Subjective Date Seen by a Provider: Apr 15, 2022 Time Seen by a Provider: 06:52 Subjective/Events-last exam Patient is awake and alert in his bed this morning, no family at bedside. Patient reports that he has incisional pain, but that it is well controlled with his pain medicine. Patient states that he has not had any flatus or BMs yet. Patient has been using his IS and has been getting up to sit in the chair. Patient is tender on palpation in the RLQ. Patient denies any n/v and has no new complaints. Review of Systems General: No Chills, No Night Sweats HEENT: No Head Aches, No Visual Changes Pulmonary: No Dyspnea, No Cough Cardiovascular: No: Chest Pain, Palpitations Gastrointestinal: Abdominal Pain (Incisional); No: Nausea, Vomiting Genitourinary: No Dysuria, No Frequency Musculoskeletal: No: neck pain, shoulder pain Neurological: No: Numbness, Incoordination Objective Exam Vital Signs Date Time Temp Pulse Resp B/P (MAP) Pulse Ox O2 Delivery O2 Flow Rate FiO2 04/15/22 06:00 81 29 162/65 (97) 95 Nasal Cannula 2.00 04/15/22 05:00 82 14 174/77 (109) 96 Nasal Cannula 2.00 04/15/22 04:19 77 157/65 04/15/22 04:00 Nasal Cannula 2.00 04/15/22 04:00 81 15 148/62 (90) 96 Nasal Cannula 2.00 04/15/22 03:00 81 12 173/73 (106) 99 Nasal Cannula 2.00 04/15/22 02:00 77 9 157/65 (95) 97 Nasal Cannula 2.00 04/15/22 01:56 37.1 Nasal Cannula 2.00 04/15/22 01:19 75 04/15/22 01:00 80 15 156/66 (96) 96 Nasal Cannula 2.00 04/15/22 00:00 78 16 150/63 (92) 97 Nasal Cannula 2.00 04/15/22 00:00 Nasal Cannula 2.00 04/14/22 23:00 82 13 140/60 (86) 97 Nasal Cannula 2.00 04/14/22 22:00 88 17 143/67 (92) 95 Nasal Cannula 2.00 04/14/22 21:00 110 20 168/73 (104) 92 Nasal Cannula 2.00 04/14/22 20:00 Nasal Cannula 2.00 04/14/22 20:00 100 14 186/82 (116) 97 Nasal Cannula 2.00 04/14/22 19:44 99 04/14/22 19:00 89 14 153/68 (96) 95 Nasal Cannula 2.00 04/14/22 19:00 37.8 Nasal Cannula 2.00 04/14/22 18:05 37.5 94 16 152/70 (97) 96 Nasal Cannula 2.00 04/14/22 18:00 93 17 146/77 (100) 91 Nasal Cannula 2.00 04/14/22 17:00 86 11 142/75 (97) 94 Nasal Cannula 2.00 04/14/22 16:00 87 12 149/66 (93) 95 Nasal Cannula 2.00 04/14/22 15:46 Nasal Cannula 2.00 04/14/22 15:00 90 11 143/62 (89) 94 Nasal Cannula 2.00 04/14/22 14:00 104 13 154/74 (100) 90 Nasal Cannula 2.00 04/14/22 13:00 98 04/14/22 13:00 98 12 150/66 (94) 90 Nasal Cannula 2.00 04/14/22 12:00 104 10 169/68 (101) 93 Nasal Cannula 2.00 04/14/22 11:54 37.7 04/14/22 11:27 Nasal Cannula 2.00 04/14/22 11:00 93 18 152/65 (94) 90 Nasal Cannula 2.00 04/14/22 10:11 94 Nasal Cannula 2.00 04/14/22 10:00 84 25 154/62 (92) 95 Nasal Cannula 2.00 04/14/22 09:00 Nasal Cannula 2.00 04/14/22 08:00 99 14 168/72 (104) 94 Nasal Cannula 2.00 04/14/22 08:00 Nasal Cannula 2.00 04/14/22 08:00 37.9 04/14/22 07:00 101 16 165/76 (105) 90 Nasal Cannula 2.00 04/14/22 07:00 91 I & O 04/15/22 07:00 Intake Total 1105 ml Output Total 2025 ml Balance -920 ml Capillary Refill : Less Than 3 SecondsLess Than 3 Seconds General Appearance: No Apparent Distress, WD/WN (laying in bed, right arm with tremor) HEENT: PERRL/EOMI, Normal ENT Inspection Neck: Non Tender, Supple Respiratory: Chest Non Tender, No Accessory Muscle Use, No Respiratory Distress Cardiovascular: Regular Rate, Rhythm, No JVD Gastrointestinal: soft, other (incisions c/d/i, incisional tenderness) Extremity: Normal Inspection, Non Tender Neurologic/Psychiatric: Alert, Oriented x3 Skin: Normal Color, Warm/Dry Lymphatic: No Adenopathy Results Lab Laboratory Tests 04/14/22 11:52: Glucometer 120H 04/14/22 16:28: Glucometer 141H 04/14/22 23:42: Glucometer 122H 04/15/22 04:50: White Blood Count 8.7, Red Blood Count 3.61L, Hemoglobin 10.4L, Hematocrit 31L, Mean Corpuscular Volume 87, Mean Corpuscular Hemoglobin 29, Mean Corpuscular Hemoglobin Concent 33, Red Cell Distribution Width 13.3, Platelet Count 155, Mean Platelet Volume 10.4, Immature Granulocyte % (Auto) 0, Neutrophils (%) (Auto) 69, Lymphocytes (%) (Auto) 19, Monocytes (%) (Auto) 10, Eosinophils (%) (Auto) 2, Basophils (%) (Auto) 0, Neutrophils # (Auto) 6.0, Lymphocytes # (Auto) 1.7, Monocytes # (Auto) 0.9, Eosinophils # (Auto) 0.2, Basophils # (Auto) 0.0, Immature Granulocyte # (Auto) 0.0, Sodium Level 145, Potassium Level 4.0, Chloride Level 111H, Carbon Dioxide Level 24, Anion Gap 10, Blood Urea Nitrogen 14, Creatinine 1.26, Estimat Glomerular Filtration Rate 60, BUN/Creatinine Ratio 11, Glucose Level 133H, Calcium Level 8.7, Phosphorus Level 3.8, Magnesium Level 1.8 Microbiology 04/13/22 MRSA Screen - Final, Complete MRSA not isolated Assessment/Plan Assessment/Plan Assessment/Plan S/P open right recurrent strangulated inguinal hernia repair, diagnostic laparoscopy, open small bowel resection POD 2 Chronic renal insufficiency History of hemorrhagic stroke Currently NPO Continue IV hydration SCD's for dvt prophylaxis, can't have anticoagluation Continue pain control, patient can take hydrocodone but makes him constipated confirmed by both daughter and patient. Encouraged patient to ambulate and use his incentive spirometer KATELYNN SALAMANCA DO 04/15/221815: Subjective Subjective/Events-last exam Patient pain little bit better controlled. He is ambulating in the [place]. Mainly incisional pain. He has had any flatus or bowel movement. He is using his incentive spirometer some. No new complaints. Denies any nausea vomiting fever sweats chills shortness of breath or chest pain. Objective Exam General Appearance: No Apparent Distress, Chronically ill HEENT: PERRL/EOMI, Normal ENT Inspection Neck: Non Tender, Supple Respiratory: Chest Non Tender, No Accessory Muscle Use, No Respiratory Distress Cardiovascular: Regular Rate, Rhythm, No JVD Gastrointestinal: soft, other (incisions c/d/i, incisional tenderness) Extremity: Normal Inspection, Non Tender Neurologic/Psychiatric: Alert, Oriented x3, Other (Right upper extremity slight tremor) Skin: Normal Color, Warm/Dry Lymphatic: No Adenopathy Assessment/Plan Assessment/Plan Assessment/Plan S/P open right recurrent strangulated inguinal hernia repair, diagnostic laparoscopy, open small bowel resection POD 2 Chronic renal insufficiency History of hemorrhagic stroke Currently NPO-start sips of clears awaiting bowel function Continue IV hydration SCD's for dvt prophylaxis, can't have anticoagluation Continue pain control, patient can take hydrocodone but makes him constipated confirmed by both daughter and patient. Encouraged patient to ambulate and use his incentive spirometer Supervisory-Addendum Brief Verification & Attestation Participated in pt care: history, MDM, physical Personally performed: exam, history, MDM, supervision of care Care discussed with: Medical Student Procedures: n/a Results interpretation: Verified all documentation Verification and Attestation of Medical Student E/M Service A medical student performed and documented this service in my presence. I reviewed and verified all information documented by the medical student and made modifications to such information, when appropriate. I personally performed the physical exam and medical decision making. Katelynn Salamanca, Apr 15, 2022,18:16 LYLY PABON Apr 15, 2022 06:56 KATELYNN SALAMANCA DO Apr 15, 2022 18:16
[2022-04-15] MEDS: PANTOPRAZOLE 40 MG (PROTONIX) VIAL IV SCH (08:46)
--- NOTE | 2022-04-15 08:46 | Tele-ICU Progress Note ---
Subjective Date Seen by a Provider: Apr 15, 2022 Time Seen by a Provider: 08:40 Subjective/Events-last exam (Tele-ICU Physician , Progress note.) Available chart/ vitals / labs / Images reviewed H&P is from ER notes Patient's information available about PMH, allergy reviewed in EMR. ROS as per chart and RN report Video assessment done using teleICU camera, rest of exam as per RN Discussed with RN. This patient presented to the emergency room with a complaint of abdominal pain nausea vomiting. Patient also found to have a right inguinal area tenderness. CT of the abdomen and pelvis revealed a right inguinal hernia incarcerated with proximal small bowel loop dilated. It could not be reduced by the surgeon as well as the ER doctor. Hence he was taken to the operating room and exploratory laparotomy done and found to have a strangulated hernia requiring small bowel resection and repair of inguinal hernia. Postoperatively he is brought to the intensive care unit for close monitoring. Also found to have acute kidney injury. Postoperatively he is on room air and blood pressure is elevated and on Cardene drip. Patient has a history of anxiety. today still have incision pain 10. bp is still high Review of Systems ROS PER RN Sepsis Event Evaluation Height, Weight, BMI Height: 6'1.00" Weight: 190lbs. 14.0oz. 86.601634xh; 26.02 BMI Method:Stated Exam Exam Patient acknowledged, consented, and participated in this virtual visit which was conducted using real time audio/video Vital Signs Date Time Temp Pulse Resp B/P (MAP) Pulse Ox O2 Delivery O2 Flow Rate FiO2 04/15/22 07:55 36.7 04/15/22 07:00 85 04/15/22 06:00 81 29 162/65 (97) 95 Nasal Cannula 2.00 04/15/22 05:00 82 14 174/77 (109) 96 Nasal Cannula 2.00 04/15/22 04:19 77 157/65 04/15/22 04:00 Nasal Cannula 2.00 04/15/22 04:00 81 15 148/62 (90) 96 Nasal Cannula 2.00 04/15/22 03:00 81 12 173/73 (106) 99 Nasal Cannula 2.00 04/15/22 02:00 77 9 157/65 (95) 97 Nasal Cannula 2.00 04/15/22 01:56 37.1 Nasal Cannula 2.00 04/15/22 01:19 75 04/15/22 01:00 80 15 156/66 (96) 96 Nasal Cannula 2.00 04/15/22 00:00 78 16 150/63 (92) 97 Nasal Cannula 2.00 04/15/22 00:00 Nasal Cannula 2.00 04/14/22 23:00 82 13 140/60 (86) 97 Nasal Cannula 2.00 04/14/22 22:00 88 17 143/67 (92) 95 Nasal Cannula 2.00 04/14/22 21:00 110 20 168/73 (104) 92 Nasal Cannula 2.00 04/14/22 20:00 Nasal Cannula 2.00 04/14/22 20:00 100 14 186/82 (116) 97 Nasal Cannula 2.00 04/14/22 19:44 99 04/14/22 19:00 89 14 153/68 (96) 95 Nasal Cannula 2.00 04/14/22 19:00 37.8 Nasal Cannula 2.00 04/14/22 18:05 37.5 94 16 152/70 (97) 96 Nasal Cannula 2.00 04/14/22 18:00 93 17 146/77 (100) 91 Nasal Cannula 2.00 04/14/22 17:00 86 11 142/75 (97) 94 Nasal Cannula 2.00 04/14/22 16:00 87 12 149/66 (93) 95 Nasal Cannula 2.00 04/14/22 15:46 Nasal Cannula 2.00 04/14/22 15:00 90 11 143/62 (89) 94 Nasal Cannula 2.00 04/14/22 14:00 104 13 154/74 (100) 90 Nasal Cannula 2.00 04/14/22 13:00 98 04/14/22 13:00 98 12 150/66 (94) 90 Nasal Cannula 2.00 04/14/22 12:00 104 10 169/68 (101) 93 Nasal Cannula 2.00 04/14/22 11:54 37.7 04/14/22 11:27 Nasal Cannula 2.00 04/14/22 11:00 93 18 152/65 (94) 90 Nasal Cannula 2.00 04/14/22 10:11 94 Nasal Cannula 2.00 04/14/22 10:00 84 25 154/62 (92) 95 Nasal Cannula 2.00 04/14/22 09:00 Nasal Cannula 2.00 I & O 04/15/22 07:00 Intake Total 1105 ml Output Total 2025 ml Balance -920 ml Height & Weight Height: 6'1.00" Weight: 190lbs. 14.0oz. 86.144288am; 26.02 BMI Method:Stated General Appearance: No Apparent Distress, WD/WN (laying in bed, right arm with tremor) HEENT: PERRL/EOMI, Normal ENT Inspection Neck: Non Tender, Supple Respiratory: Chest Non Tender, No Accessory Muscle Use, No Respiratory Distress Cardiovascular: Regular Rate, Rhythm, No JVD Capillary Refill: Less Than 3 Seconds Gastrointestinal: soft, other (incisions c/d/i, incisional tenderness) Extremity: Normal Inspection, Non Tender Neurologic/Psychiatric: Alert, Oriented x3 Skin: Normal Color, Warm/Dry Lymphatic: No Adenopathy Other comments PE PER RN Results Lab Laboratory Tests 04/14/22 04:40 04/15/22 04:50 Assessment/Plan Assessment/Plan 1. Strangulated hernia requiring exploratory laparotomy and small bowel resection. Status post hernia repair. 2. Severe dehydration with acute kidney injury improving. 3. Hyperglycemia improving 4. Hypertension on cardene drip. 5. Hypernatremia improving Recommendations 1. Continue ivf D5 !/2 ns due to hyper natremia 2. Analgesia per pain management 3. Hyperglycemia management per primary care. 4. DVT prophylaxis and ulcer prophylaxis. 5. start labetolol prn iv for hypertension and wean cardene. Critical Care: Critically Ill Patient Time spent with patient (mins): 20 KEIRA RICHARD MD Apr 15, 2022 08:46
--- NOTE | 2022-04-15 10:20 | Physical Therapy Daily Note ---
PT Daily Note-Current Subjective Patient is very agreeable to participate with PT. Pain Numeric Pain Scale: 5-Moderate Pain Location: Lower Location Body Site: Abdomen Pain Description: Acute Section J - Health Conditions 1. Rarely or not at all 2. Occasionally 3. Frequently 4. Almost constantly 8. Unable to answer Pain Effect on Sleep: 2 Pain Interference with Therapy: 2 Pain Interference w/Day-to-Day: 2 Mental Status Patient Orientation: Normal For Age Attachments: Oxygen, Wright Catheter, IV Transfers SCALE: Activities may be completed with or without assistive devices. 3-Hnhygnbmbb-mfelenr completes the activity by him/herself with no assistance from a helper. 5-Set-up or Clean-up Assistance-helper sets up or cleans up; patient completes activity. [place] assists only prior to or following the activity. 4-Supervision or Touching Assistance-helper provides verbal cues and/or touching/steadying and/or contact guard assistance as patient completes a ctivity. Assistance may be provided throughout the activity or intermittently. 3-Partial/Moderate Assistance-helper does LESS THAN HALF the effort. [place] lifts, holds or supports trunk or limbs, but provides less than half the effort. 2-Substantial/Maximal Assistance-helper does MORE THAN HALF the effort. [place] lifts or holds trunk or limbs and provides more than half the effort. 8-Zfzpbqvyx-lcvrur does ALL the effort. Patient does none of the effort to complete the activity. Or, the assistance of 2 or more helpers is required for the patient to complete the activity. If activity was not attempted, code reason: 7-Patient Refused. 9-Not Applicable-not attempted and the patient did not perform the activity before the current illness, exacerbation or injury. 10-Not Attempted due to Environmental Limitations-(lack of equipment, weather restraints, etc.). 88-Not Attempted due to Medical Conditions or Safety Concerns. Sit to Stand (QC): 4 Gait Training Distance: 500' Walk 10 feet (QC): 4 Walk 50 ft with 2 Turns(QC): 4 Walk 150 ft (QC): 4 Gait Assistive Device: FWW VC's for body placement in FWW/utilized bilateral UE's instead of body to stand erect. flexed knee posture with ambulation Exercises Seated Therapy Exercises: Ankle pumps, Long arc quads, Hip flexion Seated Reps: 12 Assessment Patient remains up in recliner with needs met. Patient tolerated treatment well. PT to increase activity as patient improves medically. PT Laboratory Equipment Cleaner Goals Laboratory Equipment Cleaner Goals PT Group Home Goals Time Frame: Apr 21, 2022 Roll Left & Right (QC): 4 (SBA) Sit to Lying (QC): 4 (CGA) Lying-Sitting on Side/Bed(QC): 4 (CGA) Sit to Stand (QC): 4 (SBA) Chair/Fhk-nr-Ifikr Xfer(QC): 4 (SBA) Walk 10 feet (QC): 4 (SBA) Walk 50ft with 2 Turns (QC): 4 (SBA) PT Plan Treatment/Plan Treatment Plan: Continue Plan of Care Treatment Plan: Bed Mobility, Education, Functional Activity Nabil, Functional Strength, Gait, Safety, Therapeutic Exercise, Transfers Treatment Duration: Apr 21, 2022 Frequency: 6 times per week Estimated Hrs Per Day: .25 hour per day Patient and/or Family Agrees t: Yes Time/GCodes Time In: 745 Time Out: 709 Total Billed Treatment Time: 24 Total Billed Treatment 1 visit FA x 2 24 min CRISTINA LAWRENCE PT Apr 15, 2022 10:20
--- NOTE | 2022-04-15 11:15 | Occupational Ther Daily Note ---
OT Current Status-Daily Note Subjective Pt alert, sitting in recliner. Pt agrees to therapy. No c/o pain. Mental Status/Objective Patient Orientation: Person, Place, Time, Situation Attachments: Wright Catheter, IV, Oxygen, Telemetry ADL-Treatment CGA to ambulate using FWW to room sink. SBA while standing at sink then requires assist to open toothpaste, completed rest by self. Mod A for EOB to s upine . After session, pt lying in bed with call light/phone in reach. All needs met in room. Therapy Code Descriptions/Definitions Functional [place] Measure: 0=Not Assessed/NA 4=Minimal Assistance 1=Total Assistance 5=Supervision or Setup 2=Maximal Assistance 6=Modified [place] 3=Moderate Assistance 7=Complete IndependenceSCALE: Activities may be completed with or without assistive devices. 2-Swpcsdepel-kmvgcfh completes the activity by him/herself with no assistance from a helper. 5-Set-up or Clean-up Assistance-helper sets up or cleans up; patient completes activity. [place] assists only prior to or following the activity. 4-Supervision or Touching Assistance-helper provides verbal cues and/or touching/steadying and/or contact guard assistance as patient completes activity. Assistance may be provided throughout the activity or intermittently. 3-Partial/Moderate Assistance-helper does LESS THAN HALF the effort. [place] lifts, holds or supports trunk or limbs, but provides less than half the effort. 2-Substantial/Maximal Assistance-helper does MORE THAN HALF the effort. [place] lifts or holds trunk or limbs and provides more than half the effort. 1-Laohziyco-wbdizs does ALL the effort. Patient does none of the effort to complete the activity. Or, the assistance of 2 or more helpers is required for the patient to complete the activity. If activity was not attempted, code reason: 7-Patient Refused. 9-Not Applicable-not attempted and the patient did not perform the activity before the current illness, exacerbation or injury. 10-Not Attempted due to Environmental Limitations-(lack of equipment, weather restraints, etc.). 88-Not Attempted due to Medical Conditions or Safety Concerns. Oral Hygiene (QC): 4 OT Half-Way Goals Half-Way Goals Time Frame: Apr 28, 2022 Eating (QC): 5 Oral Hygiene (QC): 5 Toileting Hygiene (QC): 4 Shower/Bathe Self (QC): 4 Upper Body Dressing (QC): 5 Lower Body Dressing (QC): 4 On/Off Footwear (QC): 5 1=Demonstrate adherence to instructed precautions during ADL tasks. 2=Patient will verbalize/demonstrate understanding of assistive devices/modifications for ADL. 3=Patient will improve strength/tolerance for activity to enable patient to perform ADL's. OT Education/Plan Problem List/Assessment Assessment: Decreased Activ Tolerance, Decreased UE Strength, Impaired Funct Balance, Impaired Self-Care Skills Discharge Recommendations Plan/Recommendations: Continue POC Treatment Plan/Plan of Care Patient would benefit from OT for education, treatment and training to promote independence in ADL's, mobility, safety and/or upper extremity function for ADL's. Plan of Care: ADL Retraining, Functional Mobility, Group Exercise/Act as Ind, UE Funct Exercise/Act Treatment Duration: Apr 28, 2022 Frequency: 3 times per week (3-5x/week) Estimated Hrs Per Day: .25 hour per day Agreement: Yes Rehab Potential: Fair Time/GCodes Start Time: 10:36 Stop Time: 10:59 Total Time Billed (hr/min): 23 Billed Treatment Time 1 visit-ADL 2 (23 min) LIN DODD Apr 15, 2022 11:15
--- NOTE | 2022-04-15 13:08 | Progress Note ---
Subjective Date Seen by a Provider: Apr 15, 2022 Time Seen by a Provider: 13:06 Subjective/Events-last exam Fwup right incarcerated inguinal hernia, labile hypertension, DMII. Pain controlled. No flatus or BM. Has been up walking with PT. Objective Exam Vital Signs Date Time Temp Pulse Resp B/P (MAP) Pulse Ox O2 Delivery O2 Flow Rate FiO2 04/15/22 12:14 Nasal Cannula 2.00 04/15/22 11:47 36.7 04/15/22 11:00 76 11 151/65 (93) 93 Nasal Cannula 2.00 04/15/22 10:00 73 11 136/64 (88) 93 Nasal Cannula 2.00 04/15/22 09:00 82 9 145/57 (86) 98 Nasal Cannula 2.00 04/15/22 08:00 79 17 169/71 (103) 98 Nasal Cannula 2.00 04/15/22 08:00 Nasal Cannula 2.00 04/15/22 07:55 36.7 04/15/22 07:00 85 10 149/68 (95) 97 Nasal Cannula 2.00 04/15/22 07:00 85 04/15/22 06:00 81 29 162/65 (97) 95 Nasal Cannula 2.00 04/15/22 05:00 82 14 174/77 (109) 96 Nasal Cannula 2.00 04/15/22 04:19 77 157/65 04/15/22 04:00 Nasal Cannula 2.00 04/15/22 04:00 81 15 148/62 (90) 96 Nasal Cannula 2.00 04/15/22 03:00 81 12 173/73 (106) 99 Nasal Cannula 2.00 04/15/22 02:00 77 9 157/65 (95) 97 Nasal Cannula 2.00 04/15/22 01:56 37.1 Nasal Cannula 2.00 04/15/22 01:19 75 04/15/22 01:00 80 15 156/66 (96) 96 Nasal Cannula 2.00 04/15/22 00:00 78 16 150/63 (92) 97 Nasal Cannula 2.00 04/15/22 00:00 Nasal Cannula 2.00 04/14/22 23:00 82 13 140/60 (86) 97 Nasal Cannula 2.00 04/14/22 22:00 88 17 143/67 (92) 95 Nasal Cannula 2.00 04/14/22 21:00 110 20 168/73 (104) 92 Nasal Cannula 2.00 04/14/22 20:00 Nasal Cannula 2.00 04/14/22 20:00 100 14 186/82 (116) 97 Nasal Cannula 2.00 04/14/22 19:44 99 04/14/22 19:00 89 14 153/68 (96) 95 Nasal Cannula 2.00 04/14/22 19:00 37.8 Nasal Cannula 2.00 04/14/22 18:05 37.5 94 16 152/70 (97) 96 Nasal Cannula 2.00 04/14/22 18:00 93 17 146/77 (100) 91 Nasal Cannula 2.00 04/14/22 17:00 86 11 142/75 (97) 94 Nasal Cannula 2.00 04/14/22 16:00 87 12 149/66 (93) 95 Nasal Cannula 2.00 04/14/22 15:46 Nasal Cannula 2.00 04/14/22 15:00 90 11 143/62 (89) 94 Nasal Cannula 2.00 04/14/22 14:00 104 13 154/74 (100) 90 Nasal Cannula 2.00 I & O 04/15/22 07:00 Intake Total 1105 ml Output Total 2025 ml Balance -920 ml Capillary Refill : Less Than 3 SecondsLess Than 3 Seconds General Appearance: No Apparent Distress Neck: Supple Respiratory: Lungs Clear Cardiovascular: Regular Rate, Rhythm Gastrointestinal: soft, abnormal bowel sounds (hypoactive), tenderness (rigth sided) Extremity: Non Tender, No Calf Tenderness, Calf Tenderness Neurologic/Psychiatric: Alert, Oriented x3 Results Lab Laboratory Tests 04/14/22 16:28: Glucometer 141H 04/14/22 23:42: Glucometer 122H 04/15/22 04:50: White Blood Count 8.7, Red Blood Count 3.61L, Hemoglobin 10.4L, Hematocrit 31L, Mean Corpuscular Volume 87, Mean Corpuscular Hemoglobin 29, Mean Corpuscular Hemoglobin Concent 33, Red Cell Distribution Width 13.3, Platelet Count 155, Mean Platelet Volume 10.4, Immature Granulocyte % (Auto) 0, Neutrophils (%) (Auto) 69, Lymphocytes (%) (Auto) 19, Monocytes (%) (Auto) 10, Eosinophils (%) (Auto) 2, Basophils (%) (Auto) 0, Neutrophils # (Auto) 6.0, Lymphocytes # (Auto) 1.7, Monocytes # (Auto) 0.9, Eosinophils # (Auto) 0.2, Basophils # (Auto) 0.0, Immature Granulocyte # (Auto) 0.0, Sodium Level 145, Potassium Level 4.0, Chloride Level 111H, Carbon Dioxide Level 24, Anion Gap 10, Blood Urea Nitrogen 14, Creatinine 1.26, Estimat Glomerular Filtration Rate 60, BUN/Creatinine Ratio 11, Glucose Level 133H, Calcium Level 8.7, Phosphorus Level 3.8, Magnesium Level 1.8 04/15/22 11:24: Glucometer 95 Microbiology 04/13/22 MRSA Screen - Final, Complete MRSA not isolated Assessment/Plan Assessment/Plan Assess & Plan/Chief Complaint 1. Right Incarcerated Inguinal Hernia--post-op day 2, increase activity, Incentive spirometry, no lovenox due to history of hemorrhagic stroke so SCDs routinely while in bed and up to chair and ambulate 2. Labile Hypertension/Sinus Tachycardia--on metoprolol IV with IV lopressor prn 3. DMi--on accuchecks with SSI 4. Acute on Chronic Renal Insufficiency--hydrate and monitor BUN/Cr--improving Clinical Quality Measures Admission Status Admission Dx 1. Right Incarcerated Inguinal Hernia--S/P surgery, pain control, IS, lovenox for DVT prophylaxis, protonix for GI prophylaxis 2. Labile Hypertension--on cardene drip 3. DMII--accuchecks with SSI 4. Chronic Renal Insufficiency--hydrate and monitor BUN/Cr VICTORIA BARRON DO Apr 15, 2022 13:08
[2022-04-15] MEDS: LABETALOL HCL 20 MG/4 ML VIAL IV PRN (19:04)
[2022-04-16] MEDS: morphine INJ 10 MG/ML 1ML (SYR OR VIAL) IV PRN ×3 (01:27→09:40)
[2022-04-16] MEDS: niCARdipine IV (Pyxis drip kit 50 MG in NS (IVPB) 230 ML IV SCH ×3 (01:49→20:14)
[2022-04-16 04:55] LABS: BASOPHILS % (AUTO) 0 % (0-10); EOSINOPHILS # (AUTO) 0.2 10^3/uL (0.0-0.3); EOSINOPHILS % (AUTO) 4 % (0-10); HEMATOCRIT 32 % (40-54); HEMOGLOBIN 10.6 g/dL (13.3-17.7); LYMPHOCYTES # (AUTO) 1.6 10^3/uL (1.0-4.0); LYMPHOCYTES % (AUTO) 26 % (12-44); MEAN CORPUSCULAR HEMOGLOBIN 29 pg (25-34); MEAN CORPUSCULAR HGB CONC 33 g/dL (32-36); MEAN CORPUSCULAR VOLUME 88 fL (80-99); MEAN PLATELET VOLUME 10.6 fL (9.0-12.2); MONOCYTES # (AUTO) 0.7 10^3/uL (0.0-1.0); MONOCYTES % (AUTO) 11 % (0-12); NEUTROPHILS # (AUTO) 3.7 10^3/uL (1.8-7.8); NEUTROPHILS % (AUTO) 60 % (42-75); PLATELET COUNT 164 10^3/uL (130-400); WHITE BLOOD COUNT 6.1 10^3/uL (4.3-11.0)
[2022-04-16 05:21] LABS: CALCIUM 8.7 MG/DL (8.5-10.1); CREATININE SERUM 1.08 MG/DL (0.60-1.30); MAGNESIUM 1.7 MG/DL (1.6-2.4); PHOSPHORUS 4.3 MG/DL (2.3-4.7); POTASSIUM 3.7 MMOL/L (3.6-5.0)
[2022-04-16] MEDS: meTOprolol 5 MG/5 ML (LOPRESSOR) VIAL IV SCH (05:21)
[2022-04-16] MEDS ORDERED: MAGNESIUM 1 GM/100 ML IVPB 200 ML IV ONE (06:28)
[2022-04-16] MEDS: MAGNESIUM 1 GM/100 ML IVPB 100 ML IV SCH ×2 (06:30→12:21)
--- NOTE | 2022-04-16 07:33 | Progress Note - Surgery ---
LYLY PABON 04/16/22 0733: Subjective Date Seen by a Provider: Apr 16, 2022 Time Seen by a Provider: 07:29 Subjective/Events-last exam Patient is awake and alert this morning, no family at bedside. Patient reports some incisional abdominal pain with tenderness on palpation in the LLQ, but that the pain is well controlled with the current medications. Patient reports passing some flatus yesterday, but no bowel movements. Patient has been ambulating with PT and continuing to use his IS. Patient has been taking small sips of tariq and has been tolerating it well. Patient has no new complaints. Review of Systems General: No Chills, No Night Sweats HEENT: No Visual Changes, No Eye Pain Pulmonary: No Dyspnea, No Cough Cardiovascular: No: Chest Pain, Palpitations Gastrointestinal: Abdominal Pain (Incisional); No: Nausea, Vomiting Genitourinary: No Dysuria, No Frequency Musculoskeletal: No: neck pain, shoulder pain Neurological: No: Numbness, Incoordination Objective Exam Vital Signs Date Time Temp Pulse Resp B/P (MAP) Pulse Ox O2 Delivery O2 Flow Rate FiO2 04/16/22 06:00 67 8 162/72 (102) 97 Nasal Cannula 2.00 04/16/22 05:00 61 7 174/71 (105) 96 Nasal Cannula 2.00 04/16/22 04:00 63 8 161/74 (103) 99 Nasal Cannula 2.00 04/16/22 03:33 Nasal Cannula 2.00 04/16/22 03:31 36.4 61 10 147/69 (95) 99 Nasal Cannula 2.00 04/16/22 03:00 60 8 160/68 (98) 99 Nasal Cannula 2.00 04/16/22 02:00 64 8 152/67 (95) 99 Nasal Cannula 2.00 04/16/22 01:00 64 7 187/81 (116) 98 Nasal Cannula 2.00 04/16/22 00:19 61 04/16/22 00:00 Nasal Cannula 2.00 04/16/22 00:00 67 7 160/69 (99) 98 Nasal Cannula 2.00 04/16/22 00:00 36.2 Nasal Cannula 2.00 04/15/22 23:00 61 7 153/69 (97) 99 Nasal Cannula 2.00 04/15/22 22:15 Nasal Cannula 2.00 04/15/22 22:00 66 15 140/62 (88) 98 Nasal Cannula 2.00 04/15/22 21:00 69 9 135/90 (105) 97 Nasal Cannula 2.00 04/15/22 20:00 Nasal Cannula 2.00 04/15/22 20:00 67 9 179/73 (108) 97 Nasal Cannula 2.00 04/15/22 19:04 84 04/15/22 19:00 67 9 141/101 (114) 96 Nasal Cannula 2.00 04/15/22 18:00 68 13 166/61 (96) 97 Nasal Cannula 2.00 04/15/22 17:00 72 11 172/68 (102) 97 Nasal Cannula 2.00 04/15/22 16:00 36.6 04/15/22 16:00 64 11 185/83 (117) 95 Nasal Cannula 2.00 04/15/22 16:00 Nasal Cannula 2.00 04/15/22 15:00 61 10 138/65 (89) 99 Nasal Cannula 2.00 04/15/22 14:00 64 15 134/62 (86) 100 Nasal Cannula 2.00 04/15/22 13:00 67 24 158/62 (94) 100 Nasal Cannula 2.00 04/15/22 13:00 75 04/15/22 12:14 Nasal Cannula 2.00 04/15/22 12:00 74 10 161/61 (94) 100 Nasal Cannula 2.00 04/15/22 11:47 36.7 04/15/22 11:00 76 11 151/65 (93) 93 Nasal Cannula 2.00 04/15/22 10:00 73 11 136/64 (88) 93 Nasal Cannula 2.00 04/15/22 09:00 82 9 145/57 (86) 98 Nasal Cannula 2.00 04/15/22 08:00 79 17 169/71 (103) 98 Nasal Cannula 2.00 04/15/22 08:00 Nasal Cannula 2.00 04/15/22 07:55 36.7 I & O 04/16/22 07:00 Intake Total 2210 ml Output Total 1575 ml Balance 635 ml Capillary Refill : Less Than 3 SecondsLess Than 3 Seconds General Appearance: No Apparent Distress, Chronically ill HEENT: PERRL/EOMI, Normal ENT Inspection Neck: Non Tender, Supple Respiratory: Chest Non Tender, No Accessory Muscle Use, No Respiratory Distress Cardiovascular: Regular Rate, Rhythm, No JVD Gastrointestinal: soft, other (incisions c/d/i, incisional tenderness) Extremity: Normal Inspection, Non Tender Neurologic/Psychiatric: Alert, Oriented x3, Other (Right upper extremity slight tremor) Skin: Normal Color, Warm/Dry Lymphatic: No Adenopathy Results Lab Laboratory Tests 04/15/22 11:24: Glucometer 95 04/15/22 17:39: Glucometer 93 04/15/22 23:53: Glucometer 101 04/16/22 04:22: White Blood Count 6.1, Red Blood Count 3.68L, Hemoglobin 10.6L, Hematocrit 32L, Mean Corpuscular Volume 88, Mean Corpuscular Hemoglobin 29, Mean Corpuscular Hemoglobin Concent 33, Red Cell Distribution Width 13.2, Platelet Count 164, Magali n Platelet Volume 10.6, Immature Granulocyte % (Auto) 0, Neutrophils (%) (Auto) 60, Lymphocytes (%) (Auto) 26, Monocytes (%) (Auto) 11, Eosinophils (%) (Auto) 4, Basophils (%) (Auto) 0, Neutrophils # (Auto) 3.7, Lymphocytes # (Auto) 1.6, Monocytes # (Auto) 0.7, Eosinophils # (Auto) 0.2, Basophils # (Auto) 0.0, Immature Granulocyte # (Auto) 0.0 04/16/22 04:33: Sodium Level 142, Potassium Level 3.7, Chloride Level 108H, Carbon Dioxide Level 23, Anion Gap 11, Blood Urea Nitrogen 12, Creatinine 1.08, Estimat Glomerular Filtration Rate 72, BUN/Creatinine Ratio 11, Glucose Level 102, Calcium Level 8.7, Phosphorus Level 4.3, Magnesium Level 1.7 Microbiology 04/13/22 MRSA Screen - Final, Complete MRSA not isolated Assessment/Plan Assessment/Plan Assessment/Plan S/P open right recurrent strangulated inguinal hernia repair, diagnostic laparoscopy, open small bowel resection POD 3 Chronic renal insufficiency History of hemorrhagic stroke Continue sips of clears, advance diet as tolerated Continue IV hydration SCD's for dvt prophylaxis, can't have anticoagluation Continue pain control, patient can take hydrocodone but makes him constipated confirmed by both daughter and patient. Encouraged patient to ambulate and use his incentive spirometer KATELYNN SALAMANCA DO 04/16/22 9715: Subjective Subjective/Events-last exam Patient states he is doing okay. He is passing flatus. He still has tenderness in the right lower quadrant where the incision is. Patient incisions are clean dry and intact. Patient using incentive spirometer. He is ambulating. He is tolerating some sips of clears. Denies any nausea vomiting fever sweats chills shortness of breath or chest pain at this time. Objective Exam General Appearance: No Apparent Distress, Chronically ill HEENT: PERRL/EOMI, Normal ENT Inspection Neck: Non Tender, Supple Respiratory: Chest Non Tender, No Accessory Muscle Use, No Respiratory Distress Cardiovascular: Regular Rate, Rhythm, No JVD Gastrointestinal: soft, other (incisions c/d/i, incisional tenderness) Extremity: Normal Inspection (TREMMOR RIGHT UPPER EXTREMITY), Non Tender Neurologic/Psychiatric: Alert, Oriented x3, Other (Right upper extremity slight tremor) Skin: Normal Color, Warm/Dry Lymphatic: No Adenopathy Assessment/Plan Assessment/Plan Assessment/Plan S/P open right recurrent strangulated inguinal hernia repair, diagnostic laparoscopy, open small bowel resection POD 3 Chronic renal insufficiency History of hemorrhagic stroke Clears, tomorrow advance diet as tolerated Continue IV hydration SCD's for dvt prophylaxis, can't have anticoagluation Continue pain control, patient can take hydrocodone but makes him constipated confirmed by both daughter and patient, he is still reluctant to use it. Encouraged patient to ambulate and use his incentive spirometer Supervisory-Addendum Brief Verification & Attestation Participated in pt care: history, MDM, physical Personally performed: exam, history, MDM, supervision of care Care discussed with: Medical Student Procedures: n/a Results interpretation: Verified all documentation Verification and Attestation of Medical Student E/M Service A medical student performed and documented this service in my presence. I reviewed and verified all information documented by the medical student and made modifications to such information, when appropriate. I personally performed the physical exam and medical decision making. Katelynn Salamanca, Apr 16, 2022,23:25 LYLY PABON Apr 16, 2022 07:33 KATELYNN SALAMANCA DO Apr 16, 2022 23:25
[2022-04-16] MEDS: ONDANSETRON 4 MG/2 ML (SDV) Z0FRAN IV PRN (08:39)
[2022-04-16] MEDS: PANTOPRAZOLE 40 MG (PROTONIX) VIAL IV SCH (08:39)
[2022-04-16] MEDS: D5 1/2 NS 1000 ML IV SOLUTION 1,000 ML IV SCH ×2 (08:40→22:53)
--- NOTE | 2022-04-16 08:45 | Physical Therapy Daily Note ---
PT Daily Note-Current Subjective Patient reports he had a dream and when he woke up he was pulling at things and is more sore in his abdomen on this date. Agrees to PT. Pain Section J - Health Conditions 1. Rarely or not at all 2. Occasionally 3. Frequently 4. Almost constantly 8. Unable to answer Pain Effect on Sleep: 2 Pain Interference with Therapy: 2 Pain Interference w/Day-to-Day: 2 Mental Status Patient Orientation: Normal For Age Attachments: Wright Catheter, IV Transfers SCALE: Activities may be completed with or without assistive devices. 7-Ibhlbvxgdf-xhivkpq completes the activity by him/herself with no assistance from a helper. 5-Set-up or Clean-up Assistance-helper sets up or cleans up; patient completes activity. [place] assists only prior to or following the activity. 4-Supervision or Touching Assistance-helper provides verbal cues and/or touching/steadying and/or contact guard assistance as patient completes activity. Assistance may be provided throughout the activity or intermittently. 3-Partial/Moderate Assistance-helper does LESS THAN HALF the effort. [place] lifts, holds or supports trunk or limbs, but provides less than half the effort. 2-Substantial/Maximal Assistance-helper does MORE THAN HALF the effort. [place] lifts or holds trunk or limbs and provides more than half the effort. 2-Krtkxwpuc-nkwohp does ALL the effort. Patient does none of the effort to complete the activity. Or, the assistance of 2 or more helpers is required for the patient to complete the activity. If activity was not attempted, code reason: 7-Patient Refused. 9-Not Applicable-not attempted and the patient did not perform the activity before the current illness, exacerbation or injury. 10-Not Attempted due to Environmental Limitations-(lack of equipment, weather restraints, etc.). 88-Not Attempted due to Medical Conditions or Safety Concerns. Lying to Sitting/Side of Bed(Q: 4 Sit to Stand (QC): 4 Chair/Fkh-jj-Shqpb Xfer(QC): 4 SBA with all mobility Gait Training Distance: 575' Walk 10 feet (QC): 4 Walk 50 ft with 2 Turns(QC): 4 Walk 150 ft (QC): 4 Gait Assistive Device: FWW continues with flexed bilateral knee posture ( noted bilateral hamstring tightness PLOF) Patient did self correct with body placement in FWW on this date. Exercises Seated Therapy Exercises: Ankle pumps, Long arc quads, Hip flexion Seated Reps: 12 Assessment Patient up in recliner with needs met. Patient progressing with treatment plan. Patient encouraged with progress. PT Mechatronics Engineer Goals Longterm Goals PT Mechatronics Engineer Goals Time Frame: Apr 21, 2022 Roll Left & Right (QC): 4 (SBA) Sit to Lying (QC): 4 (CGA) Lying-Sitting on Side/Bed(QC): 4 (CGA) Sit to Stand (QC): 4 (SBA) Chair/Zyp-br-Dzrgb Xfer(QC): 4 (SBA) Walk 10 feet (QC): 4 (SBA) Walk 50ft with 2 Turns (QC): 4 (SBA) PT Plan Treatment/Plan Treatment Plan: Continue Plan of Care Treatment Plan: Bed Mobility, Education, Functional Activity Nabil, Functional Strength, Gait, Safety, Therapeutic Exercise, Transfers Treatment Duration: Apr 21, 2022 Frequency: 6 times per week Estimated Hrs Per Day: .25 hour per day Patient and/or Family Agrees t: Yes Time/GCodes Time In: 735 Time Out: 758 Total Billed Treatment Time: 23 Total Billed Treatment 1 visit FA x 2 23 min CRISTINA LAWRENCE PT Apr 16, 2022 08:45
--- NOTE | 2022-04-16 11:00 | Occupational Ther Daily Note ---
OT Current Status-Daily Note Subjective Pt alert, lying in bed. Pt states that the physicians and PT are happy with his progress. Pt agrees to participate in OT session. Mental Status/Objective Patient Orientation: Person, Place, Time, Situation Attachments: IV, Telemetry ADL-Treatment Supine to EOB CGA for support then EOB to supine independent. While sitting EOB, pt able to thread B feet into briefs and pull up legs by self then CGA for safety as pt stood to hike pants over hips. Pt completed all tasks slowly to decrease pain at incision site. After therapy. pt lying in bed with call light/phone in reach. All needs met in room. Therapy Code Descriptions/Definitions Functional [place] Measure: 0=Not Assessed/NA 4=Minimal Assistance 1=Total Assistance 5=Supervision or Setup 2=Maximal Assistance 6=Modified [place] 3=Moderate Assistance 7=Complete IndependenceSCALE: Activities may be completed with or without assistive devices. 4-Owwduyychn-ofoeplt completes the activity by him/herself with no assistance from a helper. 5-Set-up or Clean-up Assistance-helper sets up or cleans up; patient completes activity. [place] assists only prior to or following the activity. 4-Supervision or Touching Assistance-helper provides verbal cues and/or touching/steadying and/or contact guard assistance as patient completes activity. Assistance may be provided throughout the activity or intermittently. 3-Partial/Moderate Assistance-helper does LESS THAN HALF the effort. [place] lifts, holds or supports trunk or limbs, but provides less than half the effort. 2-Substantial/Maximal Assistance-helper does MORE THAN HALF the effort. [place] lifts or holds trunk or limbs and provides more than half the effort. 8-Dcwinbefh-gwqaxa does ALL the effort. Patient does none of the effort to complete the activity. Or, the assistance of 2 or more helpers is required for the patient to complete the activity. If activity was not attempted, code reason: 7-Patient Refused. 9-Not Applicable-not attempted and the patient did not perform the activity before the current illness, exacerbation or injury. 10-Not Attempted due to Environmental Limitations-(lack of equipment, weather restraints, etc.). 88-Not Attempted due to Medical Conditions or Safety Concerns. Lower Body Dressing (QC): 4 OT Metals Analyst Goals [facility] Goals Time Frame: Apr 28, 2022 Eating (QC): 5 Oral Hygiene (QC): 5 Toileting Hygiene (QC): 4 Shower/Bathe Self (QC): 4 Upper Body Dressing (QC): 5 Lower Body Dressing (QC): 4 On/Off Footwear (QC): 5 1=Demonstrate adherence to instructed precautions during ADL tasks. 2=Patient will verbalize/demonstrate understanding of assistive devices/modifications for ADL. 3=Patient will improve strength/tolerance for activity to enable patient to perform ADL's. OT Education/Plan Problem List/Assessment Assessment: Decreased Activ Tolerance, Impaired Self-Care Skills Discharge Recommendations Plan/Recommendations: Continue POC Treatment Plan/Plan of Care Patient would benefit from OT for education, treatment and training to promote independence in ADL's, mobility, safety and/or upper extremity function for ADL's. Plan of Care: ADL Retraining, Functional Mobility, Group Exercise/Act as Ind, UE Funct Exercise/Act Treatment Duration: Apr 28, 2022 Frequency: 3 times per week (3-5x/week) Estimated Hrs Per Day: .25 hour per day Agreement: Yes Rehab Potential: Fair Time/GCodes Start Time: 10:29 Stop Time: 10:52 Total Time Billed (hr/min): 23 Billed Treatment Time 1 visit-ADL 2 (23 min) LIN DODD Apr 16, 2022 11:00
[2022-04-16] MEDS ORDERED: PATIENT MAY USE OWN MEDS, ALL MC SCH (11:45)
[2022-04-16] MEDS ORDERED: BYSTOLIC 20 MG PO SCH (11:45)
--- NOTE | 2022-04-16 12:15 | Tele-ICU Progress Note ---
Subjective Date Seen by a Provider: Apr 16, 2022 Time Seen by a Provider: 12:15 Subjective/Events-last exam (Tele-ICU Physician , Progress Note ) Available chart/ vitals / labs / Images reviewed Video assessment done using teleICU camera, rest of exam as per RN Discussed with RN Events overnight : Afebrile hemodynamically stable Respiratory - I/O = Drips: Pressors- no Consultants: Hospital course: (04/13) 71 y M from ER with abd pain CT concerns early small bowel obstruction and note HTN urgency on Nicardipine gtt. S/P Open R recurrent strangulated Inguinal Hernia Repair. Open SBR A/P Strangulated hernia requiring exploratory laparotomy and small bowel resection. -Status post hernia repair. - pain control - as per sx WARD - with Severe dehydration -resolved Hyperglycemia improving Hypertension - cardene drip -labetolol prn iv - starting PO Hypernatremia improving Sz dz - Keppra Lines : , (Central Line Necessity Reviewed) Wright: OUT OG: Nutrition: Analgesia: Anxiety/ delirium VTE Prophylaxis: PPI Stress Ulcer Prophylaxis: SCD Plans in collaboration with bedside consultants and IM MDs. Discussed with RN to reach out if any questions or concerns A total of 15 minutes of critical care time was devoted to this patient today, required to treat and/or prevent further deterioration of critical care condition ( as above ) . Sepsis Event Evaluation Height, Weight, BMI Height: 6'1.00" Weight: 190lbs. 14.0oz. 86.631982rt; 26.29 BMI Method:Stated Exam Exam Patient acknowledged, consented, and participated in this virtual visit which was conducted using real time audio/video Vital Signs Date Time Temp Pulse Resp B/P (MAP) Pulse Ox O2 Delivery O2 Flow Rate FiO2 04/16/22 12:00 78 183/91 (121) 96 Nasal Cannula 2.00 04/16/22 11:54 37.0 74 26 146/67 (93) 94 Nasal Cannula 2.00 04/16/22 11:00 75 10 146/67 (93) 93 Nasal Cannula 2.00 04/16/22 10:00 86 14 167/68 (101) 99 Nasal Cannula 2.00 04/16/22 09:00 75 13 153/70 (97) 98 Nasal Cannula 2.00 04/16/22 08:05 36.1 04/16/22 08:00 Nasal Cannula 2.00 04/16/22 08:00 78 14 157/70 (99) 97 Nasal Cannula 2.00 04/16/22 07:00 74 04/16/22 07:00 63 8 176/80 (112) 98 Nasal Cannula 2.00 04/16/22 06:00 67 8 162/72 (102) 97 Nasal Cannula 2.00 04/16/22 05:00 61 7 174/71 (105) 96 Nasal Cannula 2.00 04/16/22 04:00 63 8 161/74 (103) 99 Nasal Cannula 2.00 04/16/22 03:33 Nasal Cannula 2.00 04/16/22 03:31 36.4 61 10 147/69 (95) 99 Nasal Cannula 2.00 04/16/22 03:00 60 8 160/68 (98) 99 Nasal Cannula 2.00 04/16/22 02:00 64 8 152/67 (95) 99 Nasal Cannula 2.00 04/16/22 01:00 64 7 187/81 (116) 98 Nasal Cannula 2.00 04/16/22 00:19 61 04/16/22 00:00 Nasal Cannula 2.00 04/16/22 00:00 67 7 160/69 (99) 98 Nasal Cannula 2.00 04/16/22 00:00 36.2 Nasal Cannula 2.00 04/15/22 23:00 61 7 153/69 (97) 99 Nasal Cannula 2.00 04/15/22 22:15 Nasal Cannula 2.00 04/15/22 22:00 66 15 140/62 (88) 98 Nasal Cannula 2.00 04/15/22 21:00 69 9 135/90 (105) 97 Nasal Cannula 2.00 04/15/22 20:00 Nasal Cannula 2.00 04/15/22 20:00 67 9 179/73 (108) 97 Nasal Cannula 2.00 04/15/22 19:04 84 04/15/22 19:00 67 9 141/101 (114) 96 Nasal Cannula 2.00 04/15/22 18:00 68 13 166/61 (96) 97 Nasal Cannula 2.00 04/15/22 17:00 72 11 172/68 (102) 97 Nasal Cannula 2.00 04/15/22 16:00 36.6 04/15/22 16:00 64 11 185/83 (117) 95 Nasal Cannula 2.00 04/15/22 16:00 Nasal Cannula 2.00 04/15/22 15:00 61 10 138/65 (89) 99 Nasal Cannula 2.00 04/15/22 14:00 64 15 134/62 (86) 100 Nasal Cannula 2.00 04/15/22 13:00 67 24 158/62 (94) 100 Nasal Cannula 2.00 04/15/22 13:00 75 I & O 04/16/22 07:00 Intake Total 2210 ml Output Total 1575 ml Balance 635 ml Height & Weight Height: 6'1.00" Weight: 190lbs. 14.0oz. 86.269520qw; 26.29 BMI Method:Stated General Appearance: No Apparent Distress, Chronically ill HEENT: PERRL/EOMI, Normal ENT Inspection Neck: Non Tender, Supple Respiratory: Chest Non Tender, No Accessory Muscle Use, No Respiratory Distress Cardiovascular: Regular Rate, Rhythm, No JVD Capillary Refill: Less Than 3 Seconds Gastrointestinal: soft, other (incisions c/d/i, incisional tenderness) Extremity: Normal Inspection, Non Tender Neurologic/Psychiatric: Alert, Oriented x3, Other (Right upper extremity slight tremor) Skin: Normal Color, Warm/Dry Lymphatic: No Adenopathy Results Lab Laboratory Tests 04/15/22 04:50 04/16/22 04:22 04/16/22 04:33 Assessment/Plan Assessment/Plan 1 MARIE RODRIGUEZ MD Apr 16, 2022 12:15
[2022-04-16] MEDS: NEBIVOLOL 20 MG PO SCH (12:24)
[2022-04-16] MEDS: cloNIDine 0.1 MG (CATAPRES) TAB PO PRN (15:38)
--- NOTE | 2022-04-16 17:49 | Progress Note ---
Subjective Date Seen by a Provider: Apr 16, 2022 Time Seen by a Provider: 10:00 Subjective/Events-last exam Fwup right incarcerated inguinal hernia, labile hypertension, DMII, Hx of Hemorrhagic Stroke. Passing flatus. Doing well ambulating with PT. Objective Exam Vital Signs Date Time Temp Pulse Resp B/P (MAP) Pulse Ox O2 Delivery O2 Flow Rate FiO2 04/16/22 16:27 36.7 04/16/22 14:00 71 12 169/70 (103) 92 Nasal Cannula 2.00 04/16/22 13:00 94 04/16/22 13:00 79 13 167/72 (103) 95 Nasal Cannula 2.00 04/16/22 12:00 78 183/91 (121) 96 Nasal Cannula 2.00 04/16/22 11:54 37.0 74 26 146/67 (93) 94 Nasal Cannula 2.00 04/16/22 11:00 75 10 146/67 (93) 93 Nasal Cannula 2.00 04/16/22 10:00 86 14 167/68 (101) 99 Nasal Cannula 2.00 04/16/22 09:00 75 13 153/70 (97) 98 Nasal Cannula 2.00 04/16/22 08:05 36.1 04/16/22 08:00 Nasal Cannula 2.00 04/16/22 08:00 78 14 157/70 (99) 97 Nasal Cannula 2.00 04/16/22 07:00 74 04/16/22 07:00 63 8 176/80 (112) 98 Nasal Cannula 2.00 04/16/22 06:00 67 8 162/72 (102) 97 Nasal Cannula 2.00 04/16/22 05:00 61 7 174/71 (105) 96 Nasal Cannula 2.00 04/16/22 04:00 63 8 161/74 (103) 99 Nasal Cannula 2.00 04/16/22 03:33 Nasal Cannula 2.00 04/16/22 03:31 36.4 61 10 147/69 (95) 99 Nasal Cannula 2.00 04/16/22 03:00 60 8 160/68 (98) 99 Nasal Cannula 2.00 04/16/22 02:00 64 8 152/67 (95) 99 Nasal Cannula 2.00 04/16/22 01:00 64 7 187/81 (116) 98 Nasal Cannula 2.00 04/16/22 00:19 61 04/16/22 00:00 Nasal Cannula 2.00 04/16/22 00:00 67 7 160/69 (99) 98 Nasal Cannula 2.00 04/16/22 00:00 36.2 Nasal Cannula 2.00 04/15/22 23:00 61 7 153/69 (97) 99 Nasal Cannula 2.00 04/15/22 22:15 Nasal Cannula 2.00 04/15/22 22:00 66 15 140/62 (88) 98 Nasal Cannula 2.00 04/15/22 21:00 69 9 135/90 (105) 97 Nasal Cannula 2.00 04/15/22 20:00 Nasal Cannula 2.00 04/15/22 20:00 67 9 179/73 (108) 97 Nasal Cannula 2.00 04/15/22 19:04 84 04/15/22 19:00 67 9 141/101 (114) 96 Nasal Cannula 2.00 04/15/22 18:00 68 13 166/61 (96) 97 Nasal Cannula 2.00 I & O 04/16/22 07:00 Intake Total 2210 ml Output Total 1575 ml Balance 635 ml Capillary Refill : Less Than 3 SecondsLess Than 3 Seconds General Appearance: No Apparent Distress Neck: Supple Respiratory: Lungs Clear Cardiovascular: Regular Rate, Rhythm, Systolic Murmur Gastrointestinal: soft, abnormal bowel sounds (hypoactive), tenderness (RLQ), other (greg intact with no erythema of wound or drainage) Extremity: Non Tender, No Calf Tenderness, No Pedal Edema, Other (SCDs in place) Skin: Warm/Dry Results Lab Laboratory Tests 04/15/22 23:53: Glucometer 101 04/16/22 04:22: White Blood Count 6.1, Red Blood Count 3.68L, Hemoglobin 10.6L, Hematocrit 32L, Mean Corpuscular Volume 88, Mean Corpuscular Hemoglobin 29, Mean Corpuscular Hemoglobin Concent 33, Red Cell Distribution Width 13.2, Platelet Count 164, Mean Platelet Volume 10.6, Immature Granulocyte % (Auto) 0, Neutrophils (%) ( Auto) 60, Lymphocytes (%) (Auto) 26, Monocytes (%) (Auto) 11, Eosinophils (%) (Auto) 4, Basophils (%) (Auto) 0, Neutrophils # (Auto) 3.7, Lymphocytes # (Auto) 1.6, Monocytes # (Auto) 0.7, Eosinophils # (Auto) 0.2, Basophils # (Auto) 0.0, Immature Granulocyte # (Auto) 0.0 04/16/22 04:33: Sodium Level 142, Potassium Level 3.7, Chloride Level 108H, Carbon Dioxide Level 23, Anion Gap 11, Blood Urea Nitrogen 12, Creatinine 1.08, Estimat Glomerular Filtration Rate 72, BUN/Creatinine Ratio 11, Glucose Level 102, Calcium Level 8.7, Phosphorus Level 4.3, Magnesium Level 1.7 Microbiology 04/13/22 MRSA Screen - Final, Complete MRSA not isolated Assessment/Plan Assessment/Plan Assess & Plan/Chief Complaint 1. Right Incarcerated Inguinal Hernia--post-op day 3, increase activity, Incentive spirometry, no lovenox due to history of hemorrhagic stroke so SCDs routinely while in bed and up to chair and ambulate, passing flatus so surgery to start clear liquids 2. Labile Hypertension/Sinus Tachycardia--start oral bystolic, amlodopine and doxazosin and use clonidine prn 3. DMII--on accuchecks with SSI 4. Acute on Chronic Renal Insufficiency--BUN/Cr back to normal 5. Hx. of Hemorrhagic Stroke--change keppra to oral Clinical Quality Measures Admission Status Admission Dx 1. Right Incarcerated Inguinal Hernia--S/P surgery, pain control, IS, lovenox for DVT prophylaxis, protonix for GI prophylaxis 2. Labile Hypertension--on cardene drip 3. DMII--accuchecks with SSI 4. Chronic Renal Insufficiency--hydrate and monitor BUN/Cr VICTORIA BARRON DO Apr 16, 2022 17:49
[2022-04-16] MEDS: doxAzosin 4 MG (CARDURA) TAB PO SCH (20:09)
[2022-04-16] MEDS: LABETALOL HCL 20 MG/4 ML VIAL IV PRN (20:10)
[2022-04-16] MEDS: amLODIPine 5 MG (NORVASC) TAB PO SCH (20:10)
[2022-04-17 05:05] LABS: HEMATOCRIT 30 % (40-54); HEMOGLOBIN 10.1 g/dL (13.3-17.7); MEAN CORPUSCULAR HEMOGLOBIN 29 pg (25-34); MEAN CORPUSCULAR HGB CONC 33 g/dL (32-36); MEAN CORPUSCULAR VOLUME 85 fL (80-99); MEAN PLATELET VOLUME 10.4 fL (9.0-12.2); PLATELET COUNT 181 10^3/uL (130-400); WHITE BLOOD COUNT 4.3 10^3/uL (4.3-11.0)
[2022-04-17 05:20] LABS: BILIRUBIN,TOTAL 0.7 MG/DL (0.1-1.0); CALCIUM 8.7 MG/DL (8.5-10.1); CREATININE SERUM 1.09 MG/DL (0.60-1.30); POTASSIUM 3.2 MMOL/L (3.6-5.0); TOTAL PROTEIN 5.7 GM/DL (6.4-8.2)
[2022-04-17] MEDS: niCARdipine IV (Pyxis drip kit 50 MG in NS (IVPB) 230 ML IV SCH (05:53)
--- NOTE | 2022-04-17 08:07 | Progress Note - Surgery ---
LYLY PABON 04/17/22 0807: Subjective Date Seen by a Provider: Apr 17, 2022 Time Seen by a Provider: 08:03 Subjective/Events-last exam Patient is awake and alert in his chair this morning, no family at bedside. Patient had just finished ambulating with PT. Patient states that he still has incisional pain in his abdomen and is tender on palpation in the LLQ, but slightly less than yesterday. Patient reports that he felt a little weaker ambulating this morning and that he has been having some confusion for the past 2-3 days. Patient also reports having some mild nausea this morning. Review of Systems General: No Chills, No Night Sweats HEENT: No Visual Changes, No Eye Pain Pulmonary: No Dyspnea, No Cough Cardiovascular: No: Chest Pain, Palpitations Gastrointestinal: Nausea, Abdominal Pain (Incisional); No: Vomiting Genitourinary: No Dysuria, No Frequency Musculoskeletal: No: neck pain, shoulder pain Neurological: Weakness; No: Numbness, Incoordination Objective Exam Vital Signs Date Time Temp Pulse Resp B/P (MAP) Pulse Ox O2 Delivery O2 Flow Rate FiO2 04/17/22 07:00 76 04/17/22 07:00 81 9 176/81 (112) 96 Nasal Cannula 2.00 04/17/22 06:00 80 21 156/67 (96) 95 Nasal Cannula 2.00 04/17/22 05:00 87 21 155/74 (101) 94 Nasal Cannula 2.00 04/17/22 04:00 70 15 142/66 (91) 96 Nasal Cannula 2.00 04/17/22 04:00 94 Room Air 04/17/22 04:00 94 Room Air 04/17/22 03:00 71 15 132/60 (84) 94 Nasal Cannula 2.00 04/17/22 02:00 73 21 126/61 (82) 94 Nasal Cannula 2.00 04/17/22 01:00 80 04/17/22 01:00 75 21 125/57 (79) 92 Nasal Cannula 2.00 04/17/22 00:00 77 21 130/52 (78) 94 Nasal Cannula 2.00 04/17/22 00:00 94 Room Air 04/16/22 23:00 86 18 185/73 (110) 92 Nasal Cannula 2.00 04/16/22 22:51 36.7 04/16/22 22:00 77 17 154/70 (98) 94 Nasal Cannula 2.00 04/16/22 21:00 76 13 172/76 (108) 93 Nasal Cannula 2.00 04/16/22 20:13 36.9 04/16/22 20:00 94 Room Air 04/16/22 20:00 76 14 166/76 (106) 97 Nasal Cannula 2.00 04/16/22 19:00 71 13 168/77 (107) 95 Nasal Cannula 2.00 04/16/22 19:00 70 04/16/22 18:00 76 17 152/64 (93) 95 Nasal Cannula 2.00 04/16/22 17:00 93 18 168/84 (112) 94 Nasal Cannula 2.00 04/16/22 16:27 36.7 04/16/22 16:00 75 13 166/66 (99) 94 Nasal Cannula 2.00 04/16/22 16:00 Nasal Cannula 2.00 04/16/22 15:00 80 17 179/77 (111) 94 Nasal Cannula 2.00 04/16/22 14:00 71 12 169/70 (103) 92 Nasal Cannula 2.00 04/16/22 13:00 94 04/16/22 13:00 79 13 167/72 (103) 95 Nasal Cannula 2.00 04/16/22 12:00 Nasal Cannula 2.00 04/16/22 12:00 78 183/91 (121) 96 Nasal Cannula 2.00 04/16/22 11:54 37.0 74 26 146/67 (93) 94 Nasal Cannula 2.00 04/16/22 11:00 75 10 146/67 (93) 93 Nasal Cannula 2.00 04/16/22 10:00 86 14 167/68 (101) 99 Nasal Cannula 2.00 04/16/22 09:00 75 13 153/70 (97) 98 Nasal Cannula 2.00 04/16/22 08:05 36.1 I & O 04/17/22 07:00 Intake Total 725 ml Output Total 3025 ml Balance -2300 ml Capillary Refill : Less Than 3 SecondsLess Than 3 Seconds General Appearance: No Apparent Distress, Chronically ill HEENT: PERRL/EOMI, Normal ENT Inspection Neck: Non Tender, Supple Respiratory: Chest Non Tender, No Accessory Muscle Use, No Respiratory Distress Cardiovascular: Regular Rate, Rhythm, No JVD Gastrointestinal: soft, other (incisions c/d/i, incisional tenderness) Extremity: Normal Inspection (TREMOR RIGHT UPPER EXTREMITY), Non Tender Neurologic/Psychiatric: Alert, Oriented x3, Other (Right upper extremity slight tremor) Skin: Normal Color, Warm/Dry Lymphatic: No Adenopathy Results Lab Laboratory Tests 04/16/22 18:05: Glucometer 116H 04/17/22 00:44: Glucometer 112H 04/17/22 04:40: White Blood Count 4.3, Red Blood Count 3.55L, Hemoglobin 10.1L, Hematocrit 30L, Mean Corpuscular Volume 85, Mean Corpuscular Hemoglobin 29, Mean Corpuscular Hemoglobin Concent 33, Red Cell Distribution Width 12.7, Platelet Count 181, Mean Platelet Volume 10.4, Sodium Level 144, Potassium Level 3.2L, Chloride Level 109H, Carbon Dioxide Level 23, Anion Gap 12, Blood Urea Nitrogen 10, Creatinine 1.09, Estimat Glomerular Filtration Rate 72, BUN/Creatinine Ratio 9, Glucose Level 128H, Calcium Level 8.7, Corrected Calcium 9.5, Total Bilirubin 0.7, Aspartate Amino Transf (AST/SGOT) 19, Alanine Aminotransferase (ALT/SGPT) 15, Alkaline Phosphatase 42, Total Protein 5.7L, Albumin 3.0L Microbiology 04/13/22 MRSA Screen - Final, Complete MRSA not isolated Assessment/Plan Assessment/Plan Assessment/Plan S/P open right recurrent strangulated inguinal hernia repair, diagnostic laparoscopy, open small bowel resection POD 4 Chronic renal insufficiency History of hemorrhagic stroke Currently on clears, advance diet as tolerated Continue IV hydration SCD's for dvt prophylaxis, can't have anticoagluation Continue pain control, patient can take hydrocodone but makes him constipated confirmed by both daughter and patient, he is still reluctant to use it. Encouraged patient to ambulate and use his incentive spirometer KATELYNN SALAMANCA DO 04/17/22 3889: Subjective Subjective/Events-last exam Patient sitting in chair. Patient is tolerating liquids. Having flatus. No bowel movement. Patient states that he is feeling a little bit better but has little to confusion at times. He is not taking any oral pain medication he states. Denies nausea vomiting fever sweats chills shortness of breath or chest pain at this time. Using incentive spirometer and ambulating. Objective Exam General Appearance: No Apparent Distress, Chronically ill HEENT: PERRL/EOMI, Normal ENT Inspection Neck: Non Tender, Supple Respiratory: Chest Non Tender, No Accessory Muscle Use, No Respiratory Distress Cardiovascular: Regular Rate, Rhythm, No JVD Gastrointestinal: soft, other (incisions c/d/i, incisional tenderness improving) Extremity: Normal Inspection (TREMOR RIGHT UPPER EXTREMITY), Non Tender Neurologic/Psychiatric: Alert, Oriented x3 Skin: Normal Color, Warm/Dry Assessment/Plan Assessment/Plan Assessment/Plan S/P open right recurrent strangulated inguinal hernia repair, diagnostic laparoscopy, open small bowel resection POD 4 Chronic renal insufficiency History of hemorrhagic stroke diet as tolerated Continue IV hydration SCD's for dvt prophylaxis, can't have anticoagluation Continue pain control, patient can take hydrocodone but makes him constipated c onfirmed by both daughter and patient, he is still reluctant to still use it told not to use iv medication unless absolute need Encouraged patient to ambulate and use his incentive spirometer can transfer to floor, home soon. Supervisory-Addendum Brief Verification & Attestation Participated in pt care: history, MDM, physical Personally performed: exam, history, MDM, supervision of care Care discussed with: Medical Student Procedures: n/a Results interpretation: Verified all documentation Verification and Attestation of Medical Student E/M Service A medical student performed and documented this service in my presence. I reviewed and verified all information documented by the medical student and made modifications to such information, when appropriate. I personally performed the physical exam and medical decision making. Katelynn Salamanca, Apr 17, 2022,16:49 LYLY PABON Apr 17, 2022 08:07 KATELYNN SALAMANCA DO Apr 17, 2022 16:49
[2022-04-17] MEDS ORDERED: KCL 20 MEQ TAB (K-DUR) PO NR (08:30)
--- NOTE | 2022-04-17 08:51 | Physical Therapy Daily Note ---
PT Daily Note-Current Subjective Patient agrees to PT. Pain Section J - Health Conditions 1. Rarely or not at all 2. Occasionally 3. Frequently 4. Almost constantly 8. Unable to answer Pain Effect on Sleep: 2 Pain Interference with Therapy: 2 Pain Interference w/Day-to-Day: 2 Transfers SCALE: Activities may be completed with or without assistive devices. 0-Hlerjzfevj-yvxrfwa completes the activity by him/herself with no assistance from a helper. 5-Set-up or Clean-up Assistance-helper sets up or cleans up; patient completes activity. [place] assists only prior to or following the activity. 4-Supervision or Touching Assistance-helper provides verbal cues and/or touching/steadying and/or contact guard assistance as patient completes activity. Assistance may be provided throughout the activity or intermittently. 3-Partial/Moderate Assistance-helper does LESS THAN HALF the effort. [place] lifts, holds or supports trunk or limbs, but provides less than half the effort. 2-Substantial/Maximal Assistance-helper does MORE THAN HALF the effort. [place] lifts or holds trunk or limbs and provides more than half the effort. 1-Wqikkyugt-qbaqxv does ALL the effort. Patient does none of the effort to complete the activity. Or, the assistance of 2 or more helpers is required for the patient to complete the activity. If activity was not attempted, code reason: 7-Patient Refused. 9-Not Applicable-not attempted and the patient did not perform the activity before the current illness, exacerbation or injury. 10-Not Attempted due to Environmental Limitations-(lack of equipment, weather restraints, etc.). 88-Not Attempted due to Medical Conditions or Safety Concerns. Lying to Sitting/Side of Bed(Q: 4 Sit to Stand (QC): 4 Chair/Bfe-ty-Sqeyo Xfer(QC): 4 patient used urinal with set up in standing position Gait Training Distance: 800' Walk 10 feet (QC): 4 Walk 50 ft with 2 Turns(QC): 4 Walk 150 ft (QC): 4 Gait Assistive Device: FWW rapid pace with VC's to decrease speed/noted bilateral flexed knee posture with ambulation Exercises Seated Therapy Exercises: Ankle pumps, Long arc quads Seated Reps: 15 Assessment Patient progressing with treatment plan and is up in recliner with needs met. Patient is motivated with progress. PT Emissions Testing Technician Goals Senior Care Goals PT Emissions Testing Technician Goals Time Frame: Apr 21, 2022 Roll Left & Right (QC): 4 (SBA) Sit to Lying (QC): 4 (CGA) Lying-Sitting on Side/Bed(QC): 4 (CGA) Sit to Stand (QC): 4 (SBA) Chair/Qjl-xq-Vcvnj Xfer(QC): 4 (SBA) Walk 10 feet (QC): 4 (SBA) Walk 50ft with 2 Turns (QC): 4 (SBA) PT Plan Treatment/Plan Treatment Plan: Continue Plan of Care Treatment Plan: Bed Mobility, Education, Functional Activity Nabil, Functional Strength, Gait, Safety, Therapeutic Exercise, Transfers Treatment Duration: Apr 21, 2022 Frequency: 6 times per week Estimated Hrs Per Day: .25 hour per day Patient and/or Family Agrees t: Yes Time/GCodes Time In: 705 Time Out: 729 Total Billed Treatment Time: 24 Total Billed Treatment 1 visit FA x 2 24 min CRISTINA LAWRENCE PT Apr 17, 2022 08:51
[2022-04-17] MEDS: NEBIVOLOL 20 MG PO SCH (10:18)
[2022-04-17] MEDS: morphine IMMEDIATE RELEASE 15 MG TABLET PO PRN ×2 (10:18→23:40)
[2022-04-17] MEDS: ONDANSETRON 4 MG/2 ML (SDV) Z0FRAN IV PRN (10:19)
[2022-04-17] MEDS: PANTOPRAZOLE 40 MG (PROTONIX) VIAL IV SCH (10:19)
[2022-04-17] MEDS: D5 1/2 NS 1000 ML IV SOLUTION 1,000 ML IV SCH (11:45)
[2022-04-17 16:14] VITALS: BP 149/69
[2022-04-17 19:41] VITALS: BP 181/77
[2022-04-17] MEDS: doxAzosin 4 MG (CARDURA) TAB PO SCH (19:44)
[2022-04-17] MEDS: amLODIPine 5 MG (NORVASC) TAB PO SCH (19:44)
[2022-04-17 21:15] VITALS: BP 151/67
[2022-04-17 23:36] VITALS: BP 181/81
[2022-04-17] MEDS: cloNIDine 0.1 MG (CATAPRES) TAB PO PRN (23:39)
[2022-04-18] VITALS (8 sets, daily range): BP systolic 133–177; BP diastolic 54–78
[2022-04-18] MEDS: morphine IMMEDIATE RELEASE 15 MG TABLET PO PRN ×3 (05:07→10:38)
--- NOTE | 2022-04-18 08:03 | Progress Note - Surgery ---
LYLY PABON 04/18/22 0803: Subjective Date Seen by a Provider: Apr 18, 2022 Time Seen by a Provider: 07:58 Subjective/Events-last exam Patient is awake and alert in his bed this morning. Patient states that his overall pain has been slowly improving. He is tender on palpation in the RLQ, but less so than yesterday. He states that he has started taking the oral pain medication, with his last dose around 5:00 this morning. He states that he has been ambulating with PT and using his IS. Patient has been continuing to pass flatus, no BM. Patient has not had any more nausea, and states that he does not feel confused this morning. Review of Systems General: No Chills, No Night Sweats HEENT: No Head Aches, No Visual Changes Pulmonary: No Dyspnea, No Cough Cardiovascular: No: Chest Pain, Palpitations Gastrointestinal: Abdominal Pain (incisional); No: Nausea, Vomiting Genitourinary: No Dysuria, No Frequency Musculoskeletal: No: neck pain, shoulder pain Neurological: Weakness; No: Numbness, Incoordination Objective Exam Vital Signs Date Time Temp Pulse Resp B/P (MAP) Pulse Ox O2 Delivery O2 Flow Rate FiO2 04/18/22 04:59 37.1 76 20 146/66 (92) 93 Room Air 04/18/22 01:05 86 155/55 (88) 04/17/22 23:36 37.1 94 18 181/81 (114) 96 Room Air 04/17/22 21:15 151/67 (95) 04/17/22 19:50 Nasal Cannula 2.00 04/17/22 19:41 37.5 89 17 181/77 (111) 96 Room Air 04/17/22 16:14 37.2 80 16 149/69 (95) 95 Room Air 04/17/22 12:31 36.7 04/17/22 12:25 76 04/17/22 12:00 95 Room Air 04/17/22 12:00 64 18 178/83 (114) 95 Nasal Cannula 2.00 04/17/22 11:00 71 15 143/65 (91) 93 Nasal Cannula 2.00 04/17/22 10:00 73 13 151/68 (95) 92 Nasal Cannula 2.00 04/17/22 09:00 84 13 149/55 (86) 96 Nasal Cannula 2.00 04/17/22 08:17 37.0 04/17/22 08:00 93 11 119/79 (92) 98 Nasal Cannula 2.00 04/17/22 08:00 95 Room Air I & O 04/18/22 07:00 Intake Total 1512 ml Output Total 1010 ml Balance 502 ml Capillary Refill : Less Than 3 SecondsLess Than 3 Seconds General Appearance: No Apparent Distress, Chronically ill HEENT: PERRL/EOMI, Normal ENT Inspection Neck: Non Tender, Supple Respiratory: Chest Non Tender, No Accessory Muscle Use, No Respiratory Distress Cardiovascular: Regular Rate, Rhythm, No JVD Gastrointestinal: soft, other (incisions c/d/i, incisional tenderness improving) Extremity: Normal Inspection (TREMOR RIGHT UPPER EXTREMITY), Non Tender Neurologic/Psychiatric: Alert, Oriented x3 Skin: Normal Color, Warm/Dry Lymphatic: No Adenopathy Results Lab Laboratory Tests 04/17/22 12:40: Glucometer 131H 04/17/22 15:58: Glucometer 135H 04/18/22 05:10: Glucometer 134H Microbiology 04/13/22 MRSA Screen - Final, Complete MRSA not isolated Assessment/Plan Assessment/Plan Assessment/Plan S/P open right recurrent strangulated inguinal hernia repair, diagnostic laparoscopy, open small bowel resection POD 4 Chronic renal insufficiency History of hemorrhagic stroke On regular diet, tolerating well Continue IV hydration SCD's for dvt prophylaxis, can't have anticoagluation Continue pain control, patient currently taking oral morphine sulfate, patient can take oral hydrocodone, but makes him constipated as confirmed by patient and daughter. Encouraged patient to ambulate and use his incentive spirometer KATELYNN SALAMANCA DO 04/18/22 1229: Subjective Subjective/Events-last exam Patient resting right walking in the room. He states that he is feeling better than yesterday. Less pain. He is taking some oral pain medication which seems to be helping. He is using incentive spirometer. He is passing flatus. No bowel movement yet. Patient tolerating diet. Denies any nausea vomiting fever sweats chills shortness of breath or chest pain. Objective Exam General Appearance: No Apparent Distress, Chronically ill HEENT: PERRL/EOMI, Normal ENT Inspection Neck: Non Tender, Supple Respiratory: Chest Non Tender, No Accessory Muscle Use, No Respiratory Distress Cardiovascular: Regular Rate, Rhythm, No JVD Gastrointestinal: soft, tenderness (Right side lower abdomen), other (incisions c/d/i, incisional tenderness improving) Extremity: Normal Inspection (TREMOR RIGHT UPPER EXTREMITY), Non Tender Neurologic/Psychiatric: Alert, Oriented x3 Skin: Normal Color, Warm/Dry Lymphatic: No Adenopathy Assessment/Plan Assessment/Plan Assessment/Plan S/P open right recurrent strangulated inguinal hernia repair, diagnostic laparoscopy, open small bowel resection POD 4 Chronic renal insufficiency History of hemorrhagic stroke On regular diet, tolerating well Continue IV hydration SCD's for dvt prophylaxis, can't have anticoagluation Continue pain control, patient currently taking oral morphine sulfate, patient can take oral hydrocodone, but makes him constipated as confirmed by patient and daughter. Encouraged patient to ambulate and use his incentive spirometer Blood pressure medications adjusted, will consider sending home today but I think he be high risk for return therefore we will see how he does today and likely discharge home tomorrow. Supervisory-Addendum Brief Verification & Attestation Participated in pt care: history, MDM, physical Personally performed: exam, history, MDM, supervision of care Care discussed with: Medical Student Procedures: n/a Results interpretation: Verified all documentation Verification and Attestation of Medical Student E/M Service A medical student performed and documented this service in my presence. I reviewed and verified all information documented by the medical student and made modifications to such information, when appropriate. I personally performed the physical exam and medical decision making. Katelynn Salamanca, Apr 18, 2022,12:29 LYLY PABON Apr 18, 2022 08:03 KATELYNN SALAMANCA DO Apr 18, 2022 12:29
[2022-04-18] MEDS: NEBIVOLOL 20 MG PO SCH (08:05)
[2022-04-18] MEDS: PANTOPRAZOLE 40 MG (PROTONIX) VIAL IV SCH (08:05)
[2022-04-18] MEDS ORDERED: PANTOPRAZOLE 40 MG (PROTONIX) TAB PO NR (10:30)
[2022-04-18] MEDS: amLODIPine 5 MG (NORVASC) TAB PO SCH (10:38)
--- NOTE | 2022-04-18 11:17 | Progress Note - Hospitalist ---
Subjective HPI/CC On Admission Date Seen by Provider: Apr 17, 2022 (late entry note) Subjective/Events-last exam Late entry note from 04/17 Patient reports doing ok but having pain. Thinks that oral hydrocodone wont' help. It is listed on his allergy list and he reports the allergy in constipation. He also thinks it doesn't help with his pain. Discussed plan to switch to oral morphine since IV morphine is helping. He is agreeable to this plan. Objective Exam Vital Signs Vital Signs Date Time Temp Pulse Resp B/P (MAP) Pulse Ox O2 Delivery O2 Flow Rate FiO2 04/18/22 09:29 Room Air 0.00 04/18/22 09:02 73 157/54 (88) 94 04/18/22 07:54 37.3 16 Capillary Refill : Less Than 3 SecondsLess Than 3 Seconds General Appearance: No Apparent Distress, WD/WN Respiratory: Lungs Clear, No Respiratory Distress Cardiovascular: Regular Rate, Rhythm, No Murmur Gastrointestinal: Normal Bowel Sounds, Non Tender, Soft Neurologic/Psychiatric: Alert, Oriented x3 Results/Procedures Lab Patient resulted labs reviewed. Assessment/Plan Assessment and Plan Assess & Plan/Chief Complaint 1. Right Incarcerated Inguinal Hernia--post-op day 4, increase activity, Incentive spirometry, no lovenox due to history of hemorrhagic stroke so SCDs routinely while in bed and up to chair and ambulate, diet advanced per surgery, add oral morphine to attempt switch to oral pain regimen 2. Labile Hypertension/Sinus Tachycardia--Continue oral bystolic, amlodopine and doxazosin and use clonidine prn 3. DMII--on accuchecks with SSI 4. Acute on Chronic Renal Insufficiency--BUN/Cr back to normal 5. Hx. of Hemorrhagic Stroke--continue oral keppra Critical Care Critically Ill Patient DAVNI PATINO MD Apr 18, 2022 11:17
--- NOTE | 2022-04-18 11:18 | Progress Note - Hospitalist ---
Subjective HPI/CC On Admission Date Seen by Provider: Apr 18, 2022 Subjective/Events-last exam Pt reports doing ok but having pain. Was sleeping when I entered room and I had to awaken. He at first states oral morphine provides no pain relief. Discussed that he reports pain from 8/10 to 0/10 this morning after dose. Ultimately he thinks it's helping but not enough and doesn't last. Discussed plan to increase frequency of morphine. Objective Exam Vital Signs Vital Signs Date Time Temp Pulse Resp B/P (MAP) Pulse Ox O2 Delivery O2 Flow Rate FiO2 04/18/22 09:29 Room Air 0.00 04/18/22 09:02 73 157/54 (88) 94 04/18/22 07:54 37.3 16 Capillary Refill : Less Than 3 SecondsLess Than 3 Seconds General Appearance: No Apparent Distress, WD/WN, Anxious Respiratory: Lungs Clear, No Respiratory Distress Cardiovascular: Regular Rate, Rhythm, No Murmur Gastrointestinal: Normal Bowel Sounds, Non Tender (but jumped when I went to auscultate, did not have pain with palpation though), Soft Neurologic/Psychiatric: Alert, Oriented x3 Results/Procedures Lab Patient resulted labs reviewed. Assessment/Plan Assessment and Plan Assess & Plan/Chief Complaint 1. Right Incarcerated Inguinal Hernia--post-op day 5, increase activity, Incentive spirometry, no lovenox due to history of hemorrhagic stroke so SCDs routinely while in bed and up to chair and ambulate, continue regular diet, oral morphine but will increase frequency 2. Labile Hypertension/Sinus Tachycardia--Continue oral bystolic, and doxazosin and use clonidine prn, increase amlodipine dose given persistent hypertension 3. DMII--on accuchecks with SSI 4. Acute on Chronic Renal Insufficiency--resolved 5. Hx. of Hemorrhagic Stroke--continue oral keppra Critical Care Critically Ill Patient DAVIN PATINO MD Apr 18, 2022 11:18
[2022-04-18] MEDS: predniSONE 5 MG TAB PO SCH (12:45)
[2022-04-18] MEDS: doxAzosin 4 MG (CARDURA) TAB PO SCH (20:41)
[2022-04-18] MEDS ORDERED: amLODIPine 5 MG (NORVASC) TAB PO SCH (21:00)
[2022-04-18] MEDS ORDERED: SERTRALINE 50 MG (ZOLOFT) TABLET PO SCH (21:00)
[2022-04-19 04:00] VITALS: BP 171/65
[2022-04-19] MEDS: cloNIDine 0.1 MG (CATAPRES) TAB PO PRN (04:11)
[2022-04-19 07:51] VITALS: BP 181/74
--- NOTE | 2022-04-19 08:12 | Progress Note - Surgery ---
LYLY PABON 04/19/22 0812: Subjective Date Seen by a Provider: Apr 19, 2022 Time Seen by a Provider: 06:43 Subjective/Events-last exam Patient is awake and alert in his bed this morning, no family at bedside. Patient reports that his pain is well controlled. Patient reports some mild nausea when ambulating with PT, but no other episodes. Patient is much less tender on palpation in the RLQ today than previously. Patient has no new complaints and is tolerating his diet well. Patient reports passing flatus, no BM Review of Systems General: No Chills, No Night Sweats HEENT: No Head Aches, No Visual Changes, No Eye Pain Pulmonary: No Dyspnea, No Cough Cardiovascular: No: Chest Pain, Palpitations, Orthopnea Gastrointestinal: Nausea, Abdominal Pain (incisional, mild); No: Vomiting Genitourinary: No Dysuria, No Frequency Musculoskeletal: No: neck pain, shoulder pain Neurological: Weakness; No: Numbness, Incoordination Objective Exam Vital Signs Date Time Temp Pulse Resp B/P (MAP) Pulse Ox O2 Delivery O2 Flow Rate FiO2 04/19/22 07:51 36.9 76 18 181/74 (109) 95 Room Air 04/19/22 04:00 36.7 77 16 171/65 (100) 99 Room Air 04/18/22 23:45 36.6 73 14 156/78 (104) 93 Room Air 04/18/22 20:54 Room Air 04/18/22 20:02 95 Room Air 04/18/22 20:00 36.8 74 17 133/64 (87) 94 Room Air 04/18/22 15:30 36.5 74 17 161/72 (101) 94 Room Air 04/18/22 11:47 37.2 68 18 148/72 (97) 95 Room Air 04/18/22 09:29 Room Air 0.00 04/18/22 09:02 73 157/54 (88) 94 Room Air 04/18/22 08:14 Room Air I & O 04/19/22 07:00 Intake Total 1180 ml Output Total 1600 ml Balance -420 ml Capillary Refill : Less Than 3 SecondsLess Than 3 Seconds General Appearance: No Apparent Distress, Chronically ill HEENT: PERRL/EOMI, Normal ENT Inspection Neck: Non Tender, Supple Respiratory: Chest Non Tender, No Accessory Muscle Use, No Respiratory Distress Cardiovascular: Regular Rate, Rhythm, No JVD Gastrointestinal: soft, tenderness (RLQ, improving), other (incisions c/d/i, incisional tenderness improving) Extremity: Normal Inspection (TREMOR RIGHT UPPER EXTREMITY), Non Tender Neurologic/Psychiatric: Alert, Oriented x3 Skin: Normal Color, Warm/Dry Lymphatic: No Adenopathy Results Lab Laboratory Tests 04/18/22 15:32: Glucometer 145H 04/18/22 20:18: Glucometer 248H 04/19/22 05:47: Glucometer 135H Microbiology 04/13/22 MRSA Screen - Final, Complete MRSA not isolated Assessment/Plan Assessment/Plan Assessment/Plan S/P open right recurrent strangulated inguinal hernia repair, diagnostic laparoscopy, open small bowel resection Chronic renal insufficiency History of hemorrhagic stroke On regular diet, tolerating well Continue IV hydration SCD's for dvt prophylaxis, can't have anticoagluation Continue pain control, patient currently taking oral morphine sulfate, patient can take oral hydrocodone, but makes him constipated as confirmed by patient and daughter. Encouraged patient to ambulate and use his incentive spirometer . KATELYNN SALAMANCA DO 04/19/22 1213: Subjective Subjective/Events-last exam Pain controlled. Tolerating diet. Passing flatus. Denies n/v fever sweats chills shortness of breath or chest pain. Objective Exam General Appearance: No Apparent Distress, Chronically ill HEENT: PERRL/EOMI, Normal ENT Inspection Neck: Non Tender, Supple Respiratory: Chest Non Tender, No Accessory Muscle Use, No Respiratory Distress Cardiovascular: Regular Rate, Rhythm, No JVD Gastrointestinal: soft, tenderness (RLQ, improving), other (incisions c/d/i, incisional tenderness improving) Extremity: Normal Inspection (TREMOR RIGHT UPPER EXTREMITY), Non Tender Neurologic/Psychiatric: Alert, Oriented x3 Skin: Normal Color, Warm/Dry Lymphatic: No Adenopathy Assessment/Plan Assessment/Plan Assessment/Plan S/P open right recurrent strangulated inguinal hernia repair, diagnostic laparoscopy, open small bowel resection Chronic renal insufficiency History of hemorrhagic stroke On regular diet, tolerating well Continue IV hydration SCD's for dvt prophylaxis, can't have anticoagluation Continue pain control, patient currently taking oral morphine sulfate, patient can take oral hydrocodone, but makes him constipated as confirmed by patient and daughter and not willing to take. Encouraged patient to ambulate and use his incentive spirometer Dc home today. Supervisory-Addendum Brief Verification & Attestation Participated in pt care: history, MDM, physical Personally performed: exam, history, MDM, supervision of care Care discussed with: Medical Student Procedures: n/a Results interpretation: Verified all documentation Verification and Attestation of Medical Student E/M Service A medical student performed and documented this service in my presence. I reviewed and verified all information documented by the medical student and made modifications to such information, when appropriate. I personally performed the physical exam and medical decision making. Katelynn Salamanca, Apr 19, 2022,12:12 LYLY PABON Apr 19, 2022 08:12 KATELYNN SALAMANCA DO Apr 19, 2022 12:13
[2022-04-19] MEDS: morphine IMMEDIATE RELEASE 15 MG TABLET PO PRN (08:19)
[2022-04-19] MEDS: amLODIPine 5 MG (NORVASC) TAB PO SCH (08:19)
[2022-04-19] MEDS: NEBIVOLOL 20 MG PO SCH (08:22)
[2022-04-19] MEDS: LABETALOL HCL 20 MG/4 ML VIAL IV PRN (08:23)
[2022-04-19] MEDS ORDERED: PANTOPRAZOLE 40 MG (PROTONIX) TAB PO SCH (09:00)
--- NOTE | 2022-04-19 10:14 | Occupational Ther Daily Note ---
OT Current Status-Daily Note Subjective Pt asleep in bed, easily woke to name. Pt agrees to therapy. No c/o pain at this time. Mental Status/Objective Patient Orientation: Person, Place, Time, Situation Attachments: IV ADL-Treatment Pt supine to EOB independent. Pt ambulated to bathroom using FWW, min A due to fatigue. Pt completed oral care/ personal hygiene sitting at sink independent. Pt ambulated to EOB using FWW, min A due to fatigue. Pt EOB to supine independent. Pt left lying supine call light/phone in reach. All needs met in room. Therapy Code Descriptions/Definitions Functional [place] Measure: 0=Not Assessed/NA 4=Minimal Assistance 1=Total Assistance 5=Supervision or Setup 2=Maximal Assistance 6=Modified [place] 3=Moderate Assistance 7=Complete IndependenceSCALE: Activities may be completed with or without assistive devices. 8-Jtxgukzfww-vmdeeya completes the activity by him/herself with no assistance from a helper. 5-Set-up or Clean-up Assistance-helper sets up or cleans up; patient completes activity. [place] assists only prior to or following the activity. 4-Supervision or Touching Assistance-helper provides verbal cues and/or touching/steadying and/or contact guard assistance as patient completes activity. Assistance may be provided throughout the activity or intermittently. 3-Partial/Moderate Assistance-helper does LESS THAN HALF the effort. [place] lifts, holds or supports trunk or limbs, but provides less than half the effort. 2-Substantial/Maximal Assistance-helper does MORE THAN HALF the effort. [place] lifts or holds trunk or limbs and provides more than half the effort. 6-Cmyjrdenh-azxevh does ALL the effort. Patient does none of the effort to complete the activity. Or, the assistance of 2 or more helpers is required for the patient to complete the activity. If activity was not attempted, code reason: 7-Patient Refused. 9-Not Applicable-not attempted and the patient did not perform the activity before the current illness, exacerbation or injury. 10-Not Attempted due to Environmental Limitations-(lack of equipment, weather restraints, etc.). 88-Not Attempted due to Medical Conditions or Safety Concerns. Oral Hygiene (QC): 6 OT Journalists And Other Writers Goals Journalists And Other Writers Goals Time Frame: Apr 28, 2022 Eating (QC): 5 Oral Hygiene (QC): 5 Toileting Hygiene (QC): 4 Shower/Bathe Self (QC): 4 Upper Body Dressing (QC): 5 Lower Body Dressing (QC): 4 On/Off Footwear (QC): 5 1=Demonstrate adherence to instructed precautions during ADL tasks. 2=Patient will verbalize/demonstrate understanding of assistive devices/modifications for ADL. 3=Patient will improve strength/tolerance for activity to enable patient to perform ADL's. OT Education/Plan Problem List/Assessment Assessment: Decreased Activ Tolerance, Decreased Safety Aware, Impaired Coordination Discharge Recommendations Plan/Recommendations: Continue POC Treatment Plan/Plan of Care Patient would benefit from OT for education, treatment and training to promote independence in ADL's, mobility, safety and/or upper extremity function for ADL's. Plan of Care: ADL Retraining, Functional Mobility, Group Exercise/Act as Ind, UE Funct Exercise/Act Treatment Duration: Apr 28, 2022 Frequency: 3 times per week (3-5x/week) Estimated Hrs Per Day: .25 hour per day Agreement: Yes Rehab Potential: Fair Time/GCodes Start Time: 09:43 Stop Time: 10:06 Total Time Billed (hr/min): 23 Billed Treatment Time 1 visit ADL 2 (23 min) LIN DODD Apr 19, 2022 10:14
--- NOTE | 2022-04-19 11:18 | Physical Therapy Daily Note ---
PT Daily Note-Current Subjective Patient agrees to PT. No c/o at this time. Pain Section J - Health Conditions 1. Rarely or not at all 2. Occasionally 3. Frequently 4. Almost constantly 8. Unable to answer Pain Effect on Sleep: 2 Pain Interference with Therapy: 2 Pain Interference w/Day-to-Day: 2 Mental Status Patient Orientation: Normal For Age Transfers SCALE: Activities may be completed with or without assistive devices. 6-Jciahwzslb-ctdaywc completes the activity by him/herself with no assistance from a helper. 5-Set-up or Clean-up Assistance-helper sets up or cleans up; patient completes activity. [place] assists only prior to or following the activity. 4-Supervision or Touching Assistance-helper provides verbal cues and/or touching/steadying and/or contact guard assistance as patient completes activity. Assistance may be provided throughout the activity or intermittently. 3-Partial/Moderate Assistance-helper does LESS THAN HALF the effort. [place] lifts, holds or supports trunk or limbs, but provides less than half the effort. 2-Substantial/Maximal Assistance-helper does MORE THAN HALF the effort. [place] lifts or holds trunk or limbs and provides more than half the effort. 8-Viaukgcwv-dlyfoq does ALL the effort. Patient does none of the effort to complete the activity. Or, the assistance of 2 or more helpers is required for the patient to complete the activity. If activity was not attempted, code reason: 7-Patient Refused. 9-Not Applicable-not attempted and the patient did not perform the activity before the current illness, exacerbation or injury. 10-Not Attempted due to Environmental Limitations-(lack of equipment, weather restraints, etc.). 88-Not Attempted due to Medical Conditions or Safety Concerns. Lying to Sitting/Side of Bed(Q: 6 Sit to Stand (QC): 4 Chair/Xsd-mo-Bdrrb Xfer(QC): 4 Gait Training Distance: >800' Walk 10 feet (QC): 4 Walk 50 ft with 2 Turns(QC): 4 Walk 150 ft (QC): 4 Gait Assistive Device: FWW flexed bilateral knee posture and gait sequence (relies heavily on UE's with FWW use) Assessment Patient up in recliner with needs met. Plan dismissal to home this week. Patient continues to display flexed bilateral knee posture with FWW use with inability to correct. PT Applications Programmer Analyst Goals Applications Programmer Analyst Goals PT Shelter Goals Time Frame: Apr 21, 2022 Roll Left & Right (QC): 4 (SBA) Sit to Lying (QC): 4 (CGA) Lying-Sitting on Side/Bed(QC): 4 (CGA) Sit to Stand (QC): 4 (SBA) Chair/Tpg-zt-Sbdnu Xfer(QC): 4 (SBA) Walk 10 feet (QC): 4 (SBA) Walk 50ft with 2 Turns (QC): 4 (SBA) PT Plan Treatment/Plan Treatment Plan: Continue Plan of Care Treatment Plan: Bed Mobility, Education, Functional Activity Nabil, Functional Strength, Gait, Safety, Therapeutic Exercise, Transfers Treatment Duration: Apr 21, 2022 Frequency: 6 times per week Estimated Hrs Per Day: .25 hour per day Patient and/or Family Agrees t: Yes Time/GCodes Time In: 1055 Time Out: 1109 Total Billed Treatment Time: 14 Total Billed Treatment 1 visit FA 14 min CRISTINA LAWRENCE PT Apr 19, 2022 11:18
[2022-04-19] MEDS: predniSONE 5 MG TAB PO SCH (11:29)
[2022-04-19 11:42] VITALS: BP 170/76
[2022-04-19] MEDS ORDERED: MORP15TA PO (12:17)
[2022-04-19] MEDS ORDERED: DOCU-143 PO (12:17)
[2022-04-19] MEDS ORDERED: AMLO-250 PO (12:17)
--- NOTE | 2022-04-19 12:19 | Discharge Inst-Simple/Standard ---
Discharge Inst-Standard Discharge Medications New, Converted or Re-Newed RX: Transmitted to Pharmacy Patient Instructions/Follow Up Plan of Care/Instructions/FU: 2 weeks ivis Activity as Tolerated: No Discharge Diet: Regular Diet Other Inst to Patient Follow up Appt: Make appointment for 2 week. Instructions: No lifting greater than 10 pounds. No strenuous activity. May shower in 24 hours, no tub bath or soaking. Use incentive spirometer at home as directed. No Smoking Skin/Wound Care: Keep areas clean and dry. Symptoms to Report: Appetite Changes, Extremity Discoloration, Numbness/Tingling, Swelling Increased, Bleeding Excessive, Eyesight Changes, Pain Increased, Urine Color Change, Constipation(Persistent), Fever over 101 degree F, Pain/Pressure in chest, Urinating Difficulty, Cough Up/Vomit Blood, Heart Beat Irreg/Pounding, Pain/Pressure in jaw, Vaginal Bleeding Increase, Cramps in feet or legs, Lightheadedness, Pain/Pressure in shoulder, Diarrhea(Persistent), Memory Changes Suddenly, Questions/Concerns, Weight gain consecutive days, Dizziness/Fainting, Nausea/Vomiting, Shortness of Breath, Weight gain over 2 pounds If questions or concerns contact your physician Or seek help at emergency department. KATELYNN COLE DO Apr 19, 2022 12:19
--- NOTE | 2022-04-19 13:02 | Progress Note ---
Subjective Date Seen by a Provider: Apr 19, 2022 Time Seen by a Provider: 12:59 Subjective/Events-last exam Fwup right incarcerated inguinal hernia, labile hypertension, DMII, Hx of Hemorrhagic Stroke. Pain better controlled. Ready to go home. Objective Exam Vital Signs Date Time Temp Pulse Resp B/P (MAP) Pulse Ox O2 Delivery O2 Flow Rate FiO2 04/19/22 11:42 37.3 76 17 170/76 (107) 95 Room Air 04/19/22 08:00 Room Air 04/19/22 07:51 36.9 76 18 181/74 (109) 95 Room Air 04/19/22 04:00 36.7 77 16 171/65 (100) 99 Room Air 04/18/22 23:45 36.6 73 14 156/78 (104) 93 Room Air 04/18/22 20:54 Room Air 04/18/22 20:02 95 Room Air 04/18/22 20:00 36.8 74 17 133/64 (87) 94 Room Air 04/18/22 15:30 36.5 74 17 161/72 (101) 94 Room Air I & O 04/19/22 07:00 Intake Total 1180 ml Output Total 1600 ml Balance -420 ml Capillary Refill : Less Than 3 SecondsLess Than 3 Seconds General Appearance: No Apparent Distress Neck: Supple Respiratory: Lungs Clear Cardiovascular: Regular Rate, Rhythm, Gallop/S4 Gastrointestinal: normal bowel sounds, soft, tenderness (less jumpy with p alpation) Extremity: Non Tender, No Calf Tenderness, No Pedal Edema Neurologic/Psychiatric: Alert, Oriented x3 Results Lab Laboratory Tests 04/18/22 15:32: Glucometer 145H 04/18/22 20:18: Glucometer 248H 04/19/22 05:47: Glucometer 135H 04/19/22 10:54: Glucometer 199H Microbiology 04/13/22 MRSA Screen - Final, Complete MRSA not isolated Assessment/Plan Assessment/Plan Assess & Plan/Chief Complaint 1. Right Incarcerated Inguinal Hernia--post-op day 3, increase activity, Incentive spirometry, no lovenox due to history of hemorrhagic stroke so SCDs routinely while in bed and up to chair and ambulate, passing flatus and pain controlled so surgery has DCed to home, defers home health 2. Labile Hypertension/Sinus Tachycardia--home on bystolic, amlodopine back at 10mg and doxazosin and use clonidine prn 3. DMII--on accuchecks with SSI 4. Acute on Chronic Renal Insufficiency--BUN/Cr back to normal 5. Hx. of Hemorrhagic Stroke--on oral keppra Clinical Quality Measures Admission Status Admission Dx 1. Right Incarcerated Inguinal Hernia--S/P surgery, pain control, IS, lovenox for DVT prophylaxis, protonix for GI prophylaxis 2. Labile Hypertension--on cardene drip 3. DMII--accuchecks with SSI 4. Chronic Renal Insufficiency--hydrate and monitor BUN/Cr VICTORIA BARRON DO Apr 19, 2022 13:02
[2022-04-19 13:20] VITALS: BP 170/76
== END 2022-04-19 13:28 | disposition home or self-care (01) | DRG 330 ==
LOC: EDUNIT# 02:21 → ER 02:24 → ICU 06:45 → OBSVTOIN 10:00 → 4TH 04-17 15:05
PROVIDERS: ADMIT Surgery; ATTEND Surgery
PROC: 0YQ50ZZ Repair Right Inguinal Region, Open Approach (ICD-10-PCS; 2022-04-13)
PROC: 0DT80ZZ Resection of Small Intestine, Open Approach (ICD-10-PCS; principal; 2022-04-13 08:11)
DX: K40.30 Unilateral inguinal hernia, with obstruction, without gangrene, not specified as recurrent (principal); N17.9 Acute kidney failure, unspecified; E87.0 Hyperosmolality and hypernatremia; F41.9 Anxiety disorder, unspecified; E11.22 Type 2 diabetes mellitus with diabetic chronic kidney disease; I12.9 Hypertensive chronic kidney disease with stage 1 through stage 4 chronic kidney disease, or unspecified chronic kidney disease; N18.9 Chronic kidney disease, unspecified; G40.909 Epilepsy, unspecified, not intractable, without status epilepticus; Z86.73 Personal history of transient ischemic attack (TIA), and cerebral infarction without residual deficits; E86.0 Dehydration; E11.65 Type 2 diabetes mellitus with hyperglycemia
CPT/HCPCS: 36415; 74018; 74176; 80048; 80053; 81000; 82150; 82947; 83690; 83735; 84100; 85025; 85027; 85652; 86141; 87081; 93005; 93041; 94664; 94760; 96365; 96367; 96368; 96375

== ENCOUNTER 2022-06-23 05:44 | Outpatient (CLI) | payer MEDICARE ==
[~2022-06-23] VITALS: Ht 182.8 cm; Wt 84.0 kg
[~2022-06-23 05:44] MED LIST changes: +DOCU-143 PO; +DOXA4TAB2 PO; +METH5TAB95 PO; +MORP15TA PO; +NEBI20TA6 PO
== END 2022-06-23 10:56 | disposition home or self-care (01) ==
LOC: PREOP 05:44
PROVIDERS: ATTEND Specialist
DX: Z01.818 Encounter for other preprocedural examination (principal)

== ENCOUNTER 2022-06-25 10:15 | Day surgery (SDC) | payer MEDICARE ==
[~2022-06-25] VITALS: Ht 182.9 cm; Wt 84.0 kg
[2022-06-25] MEDS ORDERED: TIMOLOL 0.5% (CATARACTS) 0.3 ML BTL OU PRN (10:30)
[2022-06-25] MEDS ORDERED: POVIDONE (BETADINE) OPHTH SOLN 5% 30 ML OP ONE (10:30)
[2022-06-25] MEDS ORDERED: MOXIFLOXACIN OPHTH SOLN 5 MG/ML 0.3 ML SYRINGE OP ONE (10:30)
[2022-06-25 10:34] VITALS: BP 160/67
[2022-06-25] MEDS: TETRACAINE 0.5% OPHTH SOLN 4 ML BTL (SINGLE DOSE ONLY) OU PRN ×4 (10:35→10:52)
[2022-06-25] MEDS: TROPICAMIDE 1% OPH SOLN (MYDRIACYL) 15 ML BTL OP SCH ×3 (10:41→10:52)
[2022-06-25] MEDS: PHENYLEPHRINE 10% OPHTH (NEO-SYN) 5 ML BTL OU SCH ×3 (10:41→10:52)
--- NOTE | 2022-06-25 11:22 | Ophthalmologist Pre-Op Note ---
Pre-Operative Progress Note H&P Reviewed The H&P was reviewed, patient examined and no changes noted. Date H&P Reviewed: Jun 25, 2022 Time H&P Reviewed: 11:21 Pre-Op Dx Cataract, Left Eye TRAMAINE FALL MD Jun 25, 2022 11:21
[2022-06-25] MEDS ORDERED: MIDAZOLAM 2 MG/2 ML (VERSED) VIAL ONE (11:25)
--- NOTE | 2022-06-25 11:44 | Ophthalmology Operative Report ---
Cataract removal/placement IOL PREOPERATIVE DIAGNOSIS: Cataract Left Eye POSTOPERATIVE DIAGNOSIS: Cataract Left Eye PROCEDURE: Cataract removal and placement of posterior chamber implant, left eye SURGEON: John Fall ANESTHESIA: Topical with sedation COMPLICATIONS: None ESTIMATED BLOOD LOSS: Minimal DESCRIPTION OF PROCEDURE: After proper informed consent was obtained, the patient, a 71 male, was taken to the Operating Room and the left eye was anesthetized with tetracaine. The left eye was then prepped and draped in the usual manner. A wire lid speculum was placed. A paracentesis was made at the left hand position. Preservative free lidocaine was injected into the anterior chamber followed by viscoelastic. A clear corneal incision was made in the temporal position. A capsulorrhexis was preformed and the central nuclear and cortical material were removed. The posterior capsule was polished and an Young 20.0 AU00T0 was placed into the capsular bag. The residual viscoelastic was aspirated and balanced saline solution was injected into the anterior chamber. Moxifloxacin was injected into the anterior chamber. The wound was checked and found to be water tight. The patient tolerated the procedure well without complications. JOHN FALL MD Jun 25, 2022 11:44
[2022-06-25 11:48] VITALS: BP 155/68
--- NOTE | 2022-06-25 12:58 | Anesthesia-General Post-Op ---
MAC Patient Condition Mental Status/LOC: Same as Preop Cardiovascular: Satisfactory Nausea/Vomiting: Absent Respiratory: Satisfactory Pain: Controlled Complications: Absent Post Op Complications Complications None Follow Up Care/Instructions Patient Instructions None needed. Anesthesiology Discharge Order Discharge Order Patient is doing well, no complaints, stable vital signs, no apparent adverse anesthesia problems. No complications reported per nursing. ROBIN IRVNIG CRNA Jun 25, 2022 12:58
[2022-06-25] MEDS ORDERED: acetaZOLAMIDE ER 500 MG CAP (DIAMOX SEQUELS) PO ONE (13:00)
== END 2022-06-25 11:49 | disposition home or self-care (01) ==
LOC: SDC 10:15
PROVIDERS: ATTEND Specialist
DX: H26.9 Unspecified cataract (principal)
CPT/HCPCS: 66984; V2632

== ENCOUNTER 2022-07-01 05:35 | Outpatient (CLI) | payer MEDICARE | END 2022-07-06 08:47 | disposition home or self-care (01) | LOC: PREOP 05:35 | PROVIDERS: ATTEND Specialist | DX: Z01.818 Encounter for other preprocedural examination (principal) ==

== ENCOUNTER → 2022-07-09 | Day surgery (SDC) | payer MEDICARE ==
[~2022-07-09] VITALS: Ht 182.9 cm; Wt 84.0 kg
[~2022-07-09] MED LIST changes: +MIDAZOLAM 2 MG/2 ML (VERSED) VIAL ONE; +MOXIFLOXACIN OPHTH SOLN 5 MG/ML 0.3 ML SYRINGE OP ONE; +POVIDONE (BETADINE) OPHTH SOLN 5% 30 ML OP ONE; +TIMOLOL 0.5% (CATARACTS) 0.3 ML BTL OU PRN; +acetaZOLAMIDE ER 500 MG CAP (DIAMOX SEQUELS) PO ONE
[2022-07-09] MEDS: TETRACAINE 0.5% OPHTH SOLN 4 ML BTL (SINGLE DOSE ONLY) OU PRN ×4 (10:59→11:15)
[2022-07-09] MEDS: PHENYLEPHRINE 10% OPHTH (NEO-SYN) 5 ML BTL OU SCH ×3 (11:05→11:15)
[2022-07-09] MEDS: TROPICAMIDE 1% OPH SOLN (MYDRIACYL) 15 ML BTL OP SCH ×3 (11:05→11:16)
[2022-07-09 11:07] VITALS: BP 171/89
--- NOTE | 2022-07-09 11:40 | Ophthalmologist Pre-Op Note ---
Pre-Operative Progress Note H&P Reviewed The H&P was reviewed, patient examined and no changes noted. Date H&P Reviewed: Jul 09, 2022 Time H&P Reviewed: 11:40 Pre-Op Dx Cataract, Right Eye TRAMAINE FALL MD Jul 09, 2022 11:40
--- NOTE | 2022-07-09 12:02 | Ophthalmology Operative Report ---
Cataract removal/placement IOL PREOPERATIVE DIAGNOSIS: Cataract Right Eye POSTOPERATIVE DIAGNOSIS: Cataract Right Eye PROCEDURE: Cataract removal and placement of posterior chamber implant, right eye SURGEON: John Fall ANESTHESIA: Topical with sedation COMPLICATIONS: None ESTIMATED BLOOD LOSS: Minimal DESCRIPTION OF PROCEDURE: After proper informed consent was obtained, the patient, a 71 male, was taken to the Operating Room and the right eye was anesthetized with tetracaine. The right eye was then prepped and draped in the usual manner. A wire lid speculum was placed. A paracentesis was made at the left hand position. Preservative free lidocaine was injected into the anterior chamber followed by viscoelastic. A clear corneal incision was made in the temporal position. A capsulorrhexis was preformed and the central nuclear and cortical material were removed. The posterior capsule was polished and Young 20.5 AU00T0 IOL was placed into the capsular bag. The residual viscoelastic was aspirated and balanced saline solution was injected into the anterior chamber. Moxifloxacin was injected into the anterior chamber. The wound was checked and found to be water tight. The patient tolerated the procedure well without complications. JOHN FALL MD Jul 09, 2022 12:02
[2022-07-09 12:26] VITALS: BP 176/77
--- NOTE | 2022-07-09 13:56 | Anesthesia-General Post-Op ---
MAC Patient Condition Mental Status/LOC: Same as Preop Cardiovascular: Satisfactory Nausea/Vomiting: Absent Respiratory: Satisfactory Pain: Controlled Complications: Absent Post Op Complications Complications None Follow Up Care/Instructions Patient Instructions None needed. Anesthesiology Discharge Order Discharge Order Patient is doing well, no complaints, stable vital signs, no apparent adverse anesthesia problems. No complications reported per nursing. ANA LAND CRNA Jul 09, 2022 13:56
== END | disposition home or self-care (01) ==
LOC: SDC 10:48
PROVIDERS: ATTEND Specialist
DX: E11.36 Type 2 diabetes mellitus with diabetic cataract (principal); H25.9 Unspecified age-related cataract; Z79.84 Long term (current) use of oral hypoglycemic drugs
CPT/HCPCS: 66984; V2632

== ENCOUNTER 2022-08-20 14:05 | Outpatient (RCR) | payer MEDICARE ==
[~2022-08-20 14:05] MED LIST changes: -MIDAZOLAM 2 MG/2 ML (VERSED) VIAL ONE; -MOXIFLOXACIN OPHTH SOLN 5 MG/ML 0.3 ML SYRINGE OP ONE; -POVIDONE (BETADINE) OPHTH SOLN 5% 30 ML OP ONE; -TIMOLOL 0.5% (CATARACTS) 0.3 ML BTL OU PRN; -acetaZOLAMIDE ER 500 MG CAP (DIAMOX SEQUELS) PO ONE
== END 2022-08-24 | disposition home or self-care (01) ==
PROVIDERS: ATTEND Family Medicine
DX: R26.89 Other abnormalities of gait and mobility (principal); R53.1 Weakness

== ENCOUNTER 2022-09-16 11:02 | Outpatient (RCR) | payer MEDICARE | END 2022-09-21 | disposition home or self-care (01) | PROVIDERS: ATTEND Family Medicine | DX: R26.89 Other abnormalities of gait and mobility (principal); R53.1 Weakness ==

== ENCOUNTER → 2022-12-22 | Outpatient (RCR) | payer MEDICARE ==
[~2022-12-22] MED LIST changes: +POTA-330 PO; -POTA-51 PO
== END | disposition home or self-care (01) ==
PROVIDERS: ATTEND Specialist
DX: G20 Parkinson's disease (principal); R26.89 Other abnormalities of gait and mobility; I10 Essential (primary) hypertension

== ENCOUNTER 2022-12-24 10:10 | Outpatient (RCR) | payer MEDICARE | END 2022-12-24 14:11 | disposition home or self-care (01) | PROVIDERS: ATTEND Specialist | DX: R53.1 Weakness (principal); I10 Essential (primary) hypertension; E11.9 Type 2 diabetes mellitus without complications ==

== ENCOUNTER 2023-03-22 14:17 | Outpatient (RCR) | payer MEDICARE ==
[~2023-03-22 14:17] MED LIST changes: -NFD60TCR PO; +NIFE-56 PO
== END 2023-03-24 | disposition home or self-care (01) ==
PROVIDERS: ATTEND Specialist
DX: G20 Parkinson's disease (principal)

== ENCOUNTER 2023-04-08 09:06 | Outpatient (RCR) | payer MEDICARE | END 2023-04-08 10:30 | disposition home or self-care (01) | PROVIDERS: ATTEND Specialist | DX: G20 Parkinson's disease (principal) ==

== ENCOUNTER → 2023-05-06 | Outpatient (CLI) | payer MEDICARE ==
--- NOTE | 2023-05-06 14:23 | Diagnostic Imaging Report ---
SHOULDER, RIGHT, 3 VIEWS INDICATION: Right shoulder pain COMPARISON: None available. TECHNIQUE: 3 views of the right shoulder. FINDINGS: Glenohumeral and acromioclavicular joints are in normal alignment. Subacromial space is preserved. No fracture or erosions. Calcified nodule in the right midlung is likely due to old granulomatous infection. IMPRESSION: No osseous abnormality about the right shoulder. Dictated by: Dictated on workstation # [id number]
== END ==
LOC: RAD 08:52
PROVIDERS: ATTEND Family Medicine
DX: M25.511 Pain in right shoulder (principal); G89.29 Other chronic pain
CPT/HCPCS: 73030